=== PATIENT | male | born 1960 | race Two or more races ===

== ENCOUNTER 2025-07-11 23:03 | Inpatient (IN) | payer MEDICARE, MEDICAID, SELFPAY ==
[2025-07-11 23:11] VITALS: PULSE 106; RESP 24; O2SAT 98; BMI 26.4
[2025-07-11 23:26] VITALS: BP 121/55; PULSE 104; RESP 19; TEMP 36.7; O2SAT 100
--- NOTE | 2025-07-12 01:30 | EDNOTE_ITS ---
ED Weakness RME/HPI General Chief complaint: Weakness Stated complaint: WEAKNESS Arrival date/time: 07/11/25 23:03 RME / HPI RME / HPI Narrative: Dr. Nuñez?s Main ED Evaluation: 65yo male with a history of alcoholism (te nds to binge drink), HTN coming in with progressively generalized weakness for the last 1-2 weeks and has collapsed on several occasions. No head trauma or LOC. No fever or chills. Patient notes increased BLE edema/abdominal girth and DEAN. PMH HTN, alcohol abuse disorder. Social history includes alcohol abuse, no illicit drug use. NKA. Related Data Home Medications ?Medication ?Instructions ?Recorded ?Confirmed naproxen 500 mg tablet (Naprosyn) 500 mg PO BIDWM #0 t abs 01/11/17 Allergies Allergy/AdvReac Type Severity Reaction Status Date / Time NKA* Allergy Uncoded 01/11/17 13:37 Review of Systems Review of Systems Systems Reviewed: All systems reviewed, normal except as documented Past Medical History Past Medical History CARDIAC: Positive Hypertension; Negative Congestive Heart Failure RESPIRATORY: Negative Chronic Obstructive Pulmonary Disease (COPD) GENITOURINARY: Negative Renal Disease ENDOCRINE: Positive Diabetes Mellitus Type 2 (U); Negative Diabetes Mellitus Type 1 Social History SMOKING STATUS: Former smoker ED Exam Narrative Physical exam: GENERAL APPEARANCE: alert and oriented x 4, chronically ill appearing, no acute distress VITALS: All vitals were reviewed and the pulse ox is 100% on room air, which is normal according to my interpretation. HEENT: Normocephalic, atraumatic; pupils equal, round, reactive to light; EOMI; mucous membranes pink, moist; oropharynx clear NECK: Supple, JVD up to the angle of the mandible LUNGS: Diffuse bilateral rales HEART: Regular rate, regular rhythm; normal S1, S2; no murmurs ABDOMEN: 2+ abdominal distension, no fluid wave; soft, no tenderness BACK: no CVA tenderness EXTREMITIES: atraumatic; 2+ circumferential edema bilaterally NEUROLOGIC: awake; alert and oriented x4; cranial nerves II-XII grossly intact; no focal sensory or motor deficits PSYCHIATRIC: appropriate mood and affect SKIN: warm, dry, normal color; no rashes Course Quality Measures none Orders Category Date Time Status Bedside COVID-19 Antigen Test NOW Care 07/12/25 01:09 Active Bedside Influenza A&B Antigen Test NOW Care 07/12/25 01:09 Completed EKG (ED ONLY) *Do not use* NOW Care 07/12/25 07:00 Active EKG (ED Only) Stat Exams 07/12/25 06:59 Ordered XR chest 1V portable Stat Exams 07/12/25 03:09 Taken ABG [Arterial Blood Gas] Stat Lab 07/12/25 04:16 Completed Alcohol, Urine Stat Lab 07/12/25 01:34 Completed BNP [B-Type Natriuretic Peptide] Stat Lab 07/12/25 00:30 Completed Beta Hydroxybutyrate Stat Lab 07/12/25 04:53 Completed CBC Stat Lab 07/12/25 00:30 Completed CMP [Comprehensive Metabolic Panel] Stat Lab 07/12/25 00:30 Completed Drug Screen,Urine Stat Lab 07/12/25 01:34 Completed Mag [Magnesium] Stat Lab 07/12/25 00:30 Completed Troponin I Stat Lab 07/12/25 04:53 Completed UA, C/S IF [Urinalysis, C/S if Indicated] Stat Lab 07/12/25 01:34 Completed Urine Culture Stat Lab 07/12/25 01:34 Received Folic Acid Inj Med 07/12/25 06:59 Discontinued 1 mg IVP X1 ONE Magnesium Sulfate 2 GM Ivpb [Magnesium Sulfate Ivpb] Med 07/12/25 03:15 Discontinued 2 gm in 50 ml IV X1 Sodium Chloride 0.9% 1000 ml [Ns] 1,000 ml Med 07/12/25 06:14 Active IV 999 mls/hr Thiamine Inj [Vitamin B-1 Inj] Med 07/12/25 06:59 Discontinued 100 mg IVP X1 ONE cefTRIAXone/D5w 1gm IV premix [Rocephin/D5w 1gm IV Med 07/12/25 07:02 Active premix] 1 gm in 50 ml IV X1 Vital Signs Vital signs: Vital Signs Temperature 98.0 F 07/11/25 23:26 Pulse Rate 104 H 07/11/25 23:26 Respiratory Rate 19 07/11/25 23:26 Blood Pressure 121/55 L 07/11/25 23:26 Pulse Oximetry (%) 100 07/11/25 23:26 Oxygen Delivery Method Room Air 07/11/25 23:26 Weakness MDM Narrative MDM Narrative:: Scribe Attestation: 07/12/25 - I, Bobbi Cesar, am scribing for and in the presence of Dr. Nuñez. 65yo male with a history of alcoholism (tends to binge drink), HTN coming in with progressively generalized weakness for the last 1-2 weeks and has collapsed on several occasions. No head trauma or LOC. Please see PE findings. Lab markers demonstrate WBC 12.5, HnH 08/12, no left shift or bandemia. Chemistries show evidence of metabolic acidosis with anion gap 23 and CO2 12.4. Glucose mildly elevated 200 and calcium 10.7. Total bilirubin 5.1. BNP 942. Troponin 0.108. CXR without evidence of infiltrate, effusion, or pneumothorax. Patient hydrated with saline to correct volume deficit and administered IV magnesium to correct nutritional deficiency. UA with evidence of UTI for which empiric antibiotics administered. Patient remained hemodynamically stable and will consult hospitalist to correct nutritional deficiencies, dehydration, and treatment of UTI. Patient data External records reviewed:: [facility] previous records (Per chart review, patient has no previous ED visits or admissions to this facility.) and EMS form Clinical information provided by:: patient Social determinants that could affect healthcare access:: alcohol use Patient has the following chronic illnesses:: DM, HTN How is presenting disease/condition affected by chronic disease/condition?: uneffected by Evaluation data The following diagnostics were reviewed and interpreted by me:: lab results and radiology exam(s) Lab and/or radiology exams considered but not ordered:: none Interpretation Summary: See MDM. Medications / Prescriptions Medications or Prescriptions considered but not ordered:: none Medication administrations:: Medication Administration History Sodium Chloride (Ns) 1,000 mls @ 999 mls/hr IV .Q1H1M ONE Stop: 07/12/25 07:14 Ceftriaxone Sodium/Dextrose (Rocephin/D5w 1gm Iv Premix) 1 gm in 50 mls @ 100 mls/hr IV X1 ONE Stop: 07/12/25 07:31 Discontinued Medications Folic Acid (Folic Acid Inj 1 Mg/0.2 Ml) 1 mg IVP X1 ONE Stop: 07/12/25 07:00 Magnesium Sulfate (Magnesium Sulfate Ivpb) 2 gm in 50 mls @ 25 mls/hr IV X1 ONE Stop: 07/12/25 05:14 Last Infusion: 07/12/25 05:46 Dose: Infused Documented By: Admin: 07/12/25 03:39 Dose: 25 mls/hr Documented By: JASS Thiamine HCl (Thiamine Inj 100 Mg/Ml Vial 2 Ml) 100 mg IVP X1 ONE Stop: 07/12/25 07:00 see above Consultations Consultation(s) initiated? (list below): Yes Diagnosis Weakness Differential Diagnosis: anemia, hypoglycemia, rhabdomyolysis, sepsis and dehydration Most likely diagnosis given after review of the tests above:: electrolyte disturbance, dehydration, UTI Admission Indicated Admission indicated?: indicated Admission Request Was there a request for admission?: Yes Admission Attestation Admission request attestation: Discussed case with [] from Hospitalist service regarding admission. Discussed patients ED course, exam findings, labs, and radiology results. The Hospitalist [agrees,declines] to accept the patient for admission. Disposition Plan Disposition Plan: Admit Discharge Plan Plan Patient Disposition: Admit Acute Care w/in Hospital Prescriptions/Referrals Prescriptions/Med Rec: No Action naproxen [Naprosyn] 500 MG tablet 500 mg PO BIDWM Qty: 0 Patient Comments: PRN PAIN Referrals: Christiano Guerrero MD [Primary Care Provider] - In 1 week Problem List Clinical Impression: Electrolyte abnormality, Dehydration, UTI (urinary tract infection) Patient/Caregiver Discharge Instructions Print Language: Cypriot Stand Alone Forms: Swapna Award Info., Patient Portal Info Letter
[2025-07-12 01:45] LABS: Collection Type, Urine Clean Catch
[2025-07-12 01:58] LABS: Basophils # (Auto) 0.0 Thou/mm3 (0.0-0.2); Basophils % (Auto) 0 % (0-2.5); Eosinophils # (Auto) 0.0 Thou/mm3 (0.0-0.5); Eosinophils % (Auto) 0 % (0-10); Hematocrit 26.6 % (41.0-53.0); Hemoglobin 9.0 g/dL (13.5-16.0); Immature Granulocytes Auto 0.07 Thou/mm3 (0.00-0.00); Lymphocytes # (Auto) 1.9 Thou/mm3 (1.0-4.8); Lymphocytes % (Auto) 15 % (10-50); Mean Corpuscular HGB Conc 33.8 g/dl (31.0-37.0); Mean Corpuscular Hemoglobin 33.2 pg (25.0-35.0); Mean Corpuscular Volume 98 fL (80-100); Monocytes # (Auto) 1.6 Thou/mm3 (0.0-0.8); Monocytes % (Auto) 13 % (0-12); Neutrophils # (Auto) 8.9 Thou/mm3 (1.8-7.7); Neutrophils % (Auto) 71 % (37-80); Nucleated Red Blood Cell # 0.06 Thou/mm3 (0.00-0.00); Nucleated Red Blood Cell % 1 /100 WBC (0); Platelet Count 241 Thou/mm3 (140-440); RDW Standard Deviation 74.7 fL (35.1-43.9); Red Blood Count 2.71 Miln/mm3 (4.50-5.90); White Blood Count 12.5 Thou/mm3 (3.8-10.6)
[2025-07-12 02:02] LABS: Alcohol, Urine Negative (Negative); Amphetamine/Methamp Scrn,U Negative (Negative); Bacteria,Urine Rare; Barbiturate Screen,Urine Negative (Negative); Benzodiazepines Screen,Urine Negative (Negative); Benzoylecgonine Screen, Ur Negative (Negative); Bilirubin,Urine 1+ (Negative); Blood,Urine Negative (Negative); Clarity,Urine Turbid (Clear/Hazy); Color,Urine Drk-Orange (Lt Yel-Yel); Fentanyl Screen,Urine Negative (Negative); Glucose, Urine Trace (Negative); Hyaline Casts,Urine < 1 /hpf (0-1); Ketones,Urine Trace (Negative); Leukocyte Esterase,Urine Positive (Negative); Nitrite,Urine Negative (Negative); Opiate Screen,Urine Negative (Negative); PH,Urine 6.0 (5.0-7.0); Protein,Urine 1+ (Neg - Trace); RBC,Urine 5 /hpf (0-3); Specific Gravity,Urine 1.030 (1.001-1.035); Squamous Epithelial Cell,Urine 1 /hpf (0-5); THC Screen,Urine Negative (Negative); Urobilinogen,Urine 4.0 mg/dL (0.0-1.0); WBC,Urine 29 /hpf (0-5)
[2025-07-12 02:05] LABS: Culture Indicated,Urine Yes
[2025-07-12 02:11] LABS: Alanine Aminotransferase 27 U/L (10-49); Albumin, Serum 3.0 gm/dL (3.4-4.8); Albumin/Globulin Ratio 0.7 (1.2-2.2); Alkaline Phosphatase 134 U/L (46-116); Anion Gap 23 (7-16); Aspartate Amino Transferase 61 U/L (0-34); BUN/Creatinine Ratio 13 Ratio (12-20); Bilirubin,Total 5.1 mg/dL (0.3-1.2); Blood Urea Nitrogen 13 mg/dL (9-23); Calcium 9.9 mg/dL (8.3-10.6); Calcium (Corrected) 10.7 mg/dL (8.5-10.1); Chloride 102 mMol/L (98-107); Creatinine (Component) 1.0 mg/dL (0.6-1.3); Estimated Creatinine Clearance 70.3 mL/min (>60); Globulin 4.3 gm/dL (2.3-3.5); Glucose 200 mg/dL (74-106); Magnesium 1.7 mg/dL (1.6-2.6); Osmolality,Calculated 279 (275-295); Potassium 3.4 mMol/L (3.4-5.1); Sodium 137 mMol/L (136-145); Total Protein 7.3 gm/dL (5.7-8.2); eGFR > 60 See Note
[2025-07-12 02:16] LABS: Carbon Dioxide 12.4 mMol/L (20.0-31.0)
[2025-07-12 02:27] VITALS: BP 109/52; PULSE 97; RESP 18; TEMP 37.2; O2SAT 100
--- NOTE | 2025-07-12 03:09 | XR_ITS ---
Examination: AP chest single view TECHNIQUE: AP portable upright chest single view Date and time: July 12, 2025, 0329 hours INDICATIONS: Shortness of breath today. FINDINGS: Opacity right base consistent with pneumonia. Mild enlargement left ventricle. Pulmonary vascular redistribution. No richy pulmonary edema. Old fracture right sixth rib. IMPRESSION: Right base pneumonia. Pulmonary vascular redistribution.
[2025-07-12] MEDS: Magnesium Sulfate 2 GM Ivpb 2 GM/50 ML BAG IV (03:39)
[2025-07-12 04:13] LABS: B-Type Natriuretic Peptide 942 pg/mL (0-100)
[2025-07-12 04:25] LABS: Base Excess -4 (-3-3); HCO3 18 mEq/L (20-26); Inspired Oxygen, FIO2 21 %; O2 Saturation 99 % (91-98); PCO2 22 mmHg (32.0-48.0); PO2 98 mmHg (83-108); pH, Arterial 7.51 (7.35-7.45)
[2025-07-12 04:26] LABS: Allen Test Performed/OK; Puncture Site Right Radial
[2025-07-12 05:15] LABS: Beta Hydroxybutyrate 0.0 mmol/L (<0.6)
[2025-07-12 05:28] VITALS: BP 106/54; PULSE 94; RESP 15; TEMP 36.8; O2SAT 99
[2025-07-12 06:06] LABS: Troponin I 0.108 ng/mL (0.0-0.045)
--- NOTE | 2025-07-12 06:59 | EKG_ITS ---
[facility] Test Date: 2025-07-12 Pat Name: AUGUSTUS RUSSELL Department: Room: - Gender: Male Test Analyst: : 1960 Requested By: Neil Rothman Order Number: [id number] Reading MD: Neil Rothman Measurements Intervals [place] Rate: 94 P: 62 ID: [id number] QRS: 10 QRSD: 101 T: 117 QT: 377 QTc: 473 Interpretive Statements SINUS RHYTHM WITH OCCASIONAL SUPRAVENTRICULAR PREMATURE COMPLEXES INCOMPLETE RIGHT BUNDLE BRANCH BLOCK [90+ ms QRS DURATION, TERMINAL R IN V1/V2, 40+ ms S IN I/aVL/V4/V5/V6] ST DEVIATION AND MODERATE T-WAVE ABNORMALITY, CONSIDER LATERAL ISCHEMIA [-0.1+ mV T-WAVE IN I/aVL/V5/V6] No previous ECG available for comparison /store/[email or web address]/[id number]
--- NOTE | 2025-07-12 07:31 | XR_ITS ---
Examination: Abdomen sonogram, Limited Date and time of exam: July 12, 2025, 1014 hours INDICATIONS: Abdominal pain today Technique: Real-time rice scale transabdominal sonographic images of the upper abdomen obtained. Findings: Small sludge balls versus stones. Gallbladder wall 0.39 cm no edema Common bile duct 0.3 cm Pancreatic head 2.4 cm Liver 13.5 cm fatty infiltration Normal bilateral ureteral portal venous flow. Nehemias IVC IMPRESSION: Gallbladder sludge balls versus small stones Gallbladder wall borderline thickened 0.39 cm, consider MRCP follow-up
[2025-07-12] MEDS: SODIUM CHLORIDE 0.9% 1000 ML 1,000 ML 999 ML IV (07:38)
--- NOTE | 2025-07-12 07:39 | PD.EDADDENDU ---
Emergency Room Addendum Addendum Narrative: 0600: Care assumed from Dr. Rivers, the previous shift emergency physician. Past medical, surgical, social and family history reviewed. Vitals and home medications reviewed. I will assume the care of the patient at this time, pending ultrasound to rule out CBS dilatation and admission for electrolyte disturbance, UTI, and dehydration. Please refer to the emergency department record for history and examination from initial visit.?The following addendum documentation note is intended to reflect any pending information, findings, or radiology results not included in the patient?s initial chart.
[2025-07-12] MEDS: FOLIC ACID INJ 1 MG/0.2 ML IVP (07:40)
[2025-07-12] MEDS: THIAMINE INJ 100 MG/ML VIAL 2 ML IVP (07:41)
[2025-07-12] MEDS: cefTRIAXone/D5w 1gm IV premix 1 GM/50 ML BAG IV (07:43)
[2025-07-12 07:48] VITALS: BP 113/62; PULSE 89; RESP 18; O2SAT 100
[2025-07-12 08:59] LABS: Lactate (Lactic Acid) 3.6 mMol/L (0.4-2.0)
[2025-07-12 09:00] LABS: Base Excess, Venous -2 (-3-3); O2 Saturation, Venous 98 % (96-97); PCO2, Venous 27 mmHg (36-56); PO2, Venous 87 mmHg (15-58); pH, Venous 7.50 (7.33-7.66)
[2025-07-12 09:23] LABS: Alanine Aminotransferase 23 U/L (10-49); Albumin, Serum 2.6 gm/dL (3.4-4.8); Albumin/Globulin Ratio 0.7 (1.2-2.2); Alkaline Phosphatase 118 U/L (46-116); Anion Gap 12 (7-16); Aspartate Amino Transferase 51 U/L (0-34); BUN/Creatinine Ratio 17 Ratio (12-20); Bilirubin,Total 4.1 mg/dL (0.3-1.2); Blood Urea Nitrogen 12 mg/dL (9-23); Calcium 9.2 mg/dL (8.3-10.6); Calcium (Corrected) 10.3 mg/dL (8.5-10.1); Carbon Dioxide 19.5 mMol/L (20.0-31.0); Chloride 106 mMol/L (98-107); Creatinine (Component) 0.7 mg/dL (0.6-1.3); Estimated Creatinine Clearance 100.4 mL/min (>60); Globulin 3.7 gm/dL (2.3-3.5); Glucose 147 mg/dL (74-106); Osmolality,Calculated 276 (275-295); Potassium 3.1 mMol/L (3.4-5.1); Sodium 137 mMol/L (136-145); Total Protein 6.3 gm/dL (5.7-8.2); eGFR > 60 See Note
[2025-07-12 11:37] VITALS: BP 114/54; PULSE 70; RESP 17; TEMP 36.4; O2SAT 98
[2025-07-12 11:56] LABS: Reflex Lactate? Y
--- NOTE | 2025-07-12 12:33 | ECHO_ITS ---
Transthoracic Echo Report Ht (in): 68 Wt (lb): 174 Exam Location: Echo Lab Status: Inpatient Director Of Child Welfare Services: Chary Alfonso Indications: Procedure Performed: BP: 114 / 68 HR: 74 Technical Quality: Poor MEASUREMENTS (Male / Female) Normal Values 2D ECHO LV Diastolic Diameter PLAX 3.9 cm 4.2 - 5.9 / 3.9 - 5.3 cm LV Systolic Diameter PLAX 2.7 cm IVS Diastolic Thickness 1.0 cm 0.6 - 1.0 / 0.6 - 0.9 cm LVPW Diastolic Thickness 1.2 cm 0.6 - 1.0 / 0.6 - 0.9 cm LV Relative Wall Thickness 0.6 LVOT Diameter 1.8 cm Aortic Root Diameter 3.4 cm LA Systolic Diameter LX 3.5 cm 3.0 - 4.0 / 2.7 - 3.8 cm LA Volume Index 31.5 cm?/m? 16 - 28 cm?/m? M-MODE Aortic Root Diameter MM 2.8 cm LA Systolic Diameter MM 4.3 cm LA Ao Ratio MM 1.5 AV Cusp Separation MM 1.5 cm DOPPLER AV Peak Velocity 136.0 cm/s AV Peak Gradient 7.4 mmHg AV Mean Gradient 4.0 mmHg AV Velocity Time Integral 25.9 cm LVOT Peak Velocity 91.6 cm/s LVOT Peak Gradient 3.4 mmHg LVOT Velocity Time Integral 25.5 cm LVOT Cardiac Index 2450.3 cm?/min?m? AV Area Cont Eq vti 2.5 cm? AV Area Cont Eq pk 1.7 cm? MV Area PHT 3.3 cm? MR Peak Velocity 477.0 cm/s MR Peak Gradient 91.0 mmHg Mitral E Point Velocity 90.7 cm/s Mitral A Point Velocity 117.0 cm/s Mitral E to A Ratio 0.8 LV E' Lateral Velocity 7.5 cm/s Mitral E to LV E' Lateral Ratio 12.1 LV E' Septal Velocity 5.7 cm/s Mitral E to LV E' Septal Ratio 16.0 TR Peak Velocity 299.0 cm/s TR Peak Gradient 35.8 mmHg PV Peak Velocity 157.0 cm/s PV Peak Gradient 9.9 mmHg FINDINGS Left Ventricle Normal left ventricular size and systolic function with no obvious regional wall motion abnormalities. Mild LVH. The ejection fraction is visually estimated at 55-60%. There is grade I diastolic dysfunction of the left ventricle (impaired relaxation pattern). IVS flattened in systole and diastole consisten with right ventricular pressure and volume overload. Right Ventricle The right ventricular size is mildy increased with normal systolic function. Left Atrium The left atrium is normal by two-dimensional, color flow and Doppler imaging with no structural abnormalities, no thrombus formation present. Right Atrium The right atrium is normal by two-dimensional imaging, color flow and Doppler imaging with no structural abnormalities, no thrombus formation present. Atrial Septum The interatrial septum appears normal with no evidence of a shunt. Aorta The aorta is normal by two-dimensional, color flow and Doppler interrogation. Mitral Valve The mitral valve is normal by two-dimensional, color flow and Doppler interrogation. Mild mitral regurgitation. Aortic Valve The aortic valve is trileaflet and normal by two-dimensional, color flow and Doppler interrogation. There is no significant aortic valve regurgitation. Tricuspid Valve The tricuspid valve is normal by two-dimensional, color flow and Doppler interrogation. There is mild tricuspid valve regurgitation. Pulmonic Valve The pulmonic valve is not well visualized. There is no significant pulmonic valve regurgitation. Vessels The pulmonary artery appears normal. The inferior vena cava pulmonary and hepatic veins appear normal. Pericardium The pericardium is normal by two-dimensional imaging. There is no significant pericardial effusion. CONCLUSIONS Indication: Volume overload and CHF Normal LV size. Mild LVH. Estimated EF at 55-60%. There is grade I diastolic dysfunction. IVS flattened in systole and diastole consistent with right ventricular pressure and volume overload. The RV size is mildy increased with normal systolic function. Mildly elevated RVSP at 35 -40 mm hg. Mild MR and TR. Mild MAC. MIld Aortic valve sclerosis without stenosis. No pericardial effusion. Jose Lozano (Electronically Signed) Final Date: 15 July 2025 08:16
--- NOTE | 2025-07-12 12:35 | XR_ITS ---
Examination: CT abdomen and pelvis without contrast. Coronal 3-D reconstructions. Sagittal 2-D reconstructions. Date and time of exam:July 12, 2025, 1511 hours, comparison April 05, 2022. INDICATIONS: Abdominal distention dark urine today, diagnosis cirrhosis CTDI: vol (mGy): 7.32 DLP: (mGycm): 460 Technique: Axial images of the abdomen have been obtained, 3 mm slice thickness Intravenous contrast material has not been administered. Low dose protocols were performed. One or more of the following dose reduction techniques were used; automated exposure control, adjustment of the mA and/or KV according to patient size, use of iterative reconstruction technique. Findings: Findings suspicious for septal edema at the lung bases with small pleural effusions and mild bibasilar pneumonia Cirrhosis, liver nodular in contour Mild ascites Gallstones Gallbladder wall is thickened Spleen is not enlarged No pancreatic mass Aorta normal size No hydronephrosis Air distended colon Colonic wall thickening No bowel obstruction Urinary bladder intact Transverse prostate dimension 5 cm Severe osteopenia IMPRESSION: Septal edema at the lung bases Mild bibasilar pneumonia Cirrhosis. Mild ascites. Gallstones, gallbladder wall is thickened, but the patient has ascites, recommend HIDA scan follow-up as clinically warranted Hepatic colopathy, no bowel obstruction
[2025-07-12 13:29] LABS: Lactic Acid, 3 HR 1.7 mMol/L (0.4-2.0)
[2025-07-12 13:49] LABS: Ammonia 68 uMol/L (11-32)
[2025-07-12 13:53] LABS: Folate 19.74 ng/mL (>5.38); Troponin I 0.086 ng/mL (0.0-0.045); Vitamin B12 1127 pg/mL (211-911)
[2025-07-12 13:54] LABS: Ferritin 30 ng/mL (10.5-307.3); Iron 16 mcg/dL (65-175); Percent Iron Saturation 6 % (20-55); Total Iron Binding Capacity 230 mcg/dL (250-425); Unsaturated Iron Binding 214 (225-295)
[2025-07-12 14:09] LABS: Syphilis Nonreactive (Nonreactive)
[2025-07-12] MEDS: FOLIC ACID 1 MG TABLET PO (14:41)
[2025-07-12] MEDS: LACTULOSE SYRUP 20 GM/30 ML UDC PO ×2 (14:41→20:09)
[2025-07-12] MEDS: HEPARIN SOD INJ 5000 UNIT/ML VIAL SC (14:41)
--- NOTE | 2025-07-12 14:54 | ESHP_ITS ---
<Statement entered by Smitha Rojas MD - 07/14/25 13:38> I attest that I was physically present for the evaluation, physical examination, lab and imaging review of the patient with the residents. I discussed the case with the residents and agree with the findings and plans of care as documented below. After examination of the patient and review of the clinical data I feel that this patient needs admission to the hospital for further treatment/evaluation. Patient is a 65 years old male with past medical history of hypertension, diabetes melitis, chronic back pain who presented to the ED with complaint of generalized weakness and mechanical fall. As per the patient and family at bedside about 2 weeks ago, patient went to [place] and somehow lost his vehicle. He walked back to [facility] from [place] at that time. Since then patient has not been active has been having difficulty with memory and conversation. Family also stated that patient has history of alcohol abuse and continues to binge drink. At bedside, patient is alert but appears confused. Noted to have distended abdomen but was soft and nontender. Also noted to have bilateral pedal edema. Initial vitals show pulse rate of 104, rest of the vitals were within normal limits. Lab results show WBC of 12.5, hemoglobin 9.0, CO2 12.4, anion gap 23, glucose 200, calcium 10.7, bilirubin 5.1, BNP 942 and mild elevation in troponin. Urinalysis was not suggestive of rhabdomyolysis and only showed pyuria. Alcohol level was also negative. Chest x-ray showed right base pneumonia and vascular congestion. Abdominal ultrasound was obtained, shows gallbladder sludge versus small stones. CT abdomen/pelvis obtained on 04/06/2022 showed cirrhosis and hepatomegaly. We will admit the patient for management of acute encephalopathy, likely hepatic encephalopathy, hepatic colopathy in setting of decompensated liver cirrhosis. We will obtain CT abdomen/pelvis, ammonia level came back high at 68. We will start him on lactulose, we will also obtain hepatitis panel MELODY, copper and ceruloplasmin level. Started on Rocephin and azithromycin for community-acquired pneumonia. Elevated troponin likely NSTEMI type II, we will trend the troponin, EKG did not show ST elevation. Started on insulin regimen for diabetes. We will obtain iron studies for evaluation of anemia. Started on CIWA protocol for alcohol abuse. Started on multivitamin, repleted electrolytes. Smitha Rojas MD <Statement entered by Luly Stoner MD - 07/14/25 13:04> Patient was seen and examined at bedside. I agree on the assessment and plan on this note as documented by resident Santi Morales DO PGY1. 65-year-old male with past medical history of hypertension type 2 diabetes mellitus and chronic back pain admitted to [facility] for decompensated cirrhosis, patient has signs of hepatic encephalopathy does have significant lower extremity edema. Will start patient on lactulose for now for hepatic encephalopathy. Abdomen is distended as well, CT abdomen pelvis in ED shows minimal ascites and hepatic colopathy. Will start on CIWA protocol for alcohol use history, will order echocardiogram to rule out cardiac causes. Will order further workup to rule out other causes of cirrhosis currently likely patient has alcohol-related liver disease. Disposition med/tele for further management. Case discussed with attending Dr. Crystal Stoner MD PGY-2 Documentation for date of: 07/12/25 HPI History of Present Illness Chief complaint: Generalized weakness & mechanical falls History of present illness: Mr. Lee is a 65 year old male with a history of HTN, T2DM, and chronic back pain who presented to [facility] ED from home at 07/11 in the evening due to generalized weakness and mechanical falls. The patient was admitted on 07/12 for decompensated liver disease causing hepatic encephalopathy. The patient is a poor historian, so some of history was taken via family at bedside and his son Tony, who was the person to bring the patient into the ED initially. About 2 weeks ago, the patient went to [place] and somehow along the way, the patient had lost his vehicle. The patient did not call any family members and apparently walked all the way from [place] to [place]. According to family, the patient since then was not as active, had difficulty with memory, and often had trouble with conversations. Prior to this incident, the patient was also noted to be physically active, but since coming back from [place], the patient seemed much weaker than usual and had trouble walking. Over the past few days prior to seeking help in the ED, the patient was noted to have about 3 falls that were identified by family members, of which, the patient was noted to be conscious. Family members are not sure if he had any additional falls outside of those 3. The patient himself though, states that he only had 1 fall. When asked about previous falls, the patient states that he has had back problems in the past due to a ruptured disc, completely unrelated to the initial question. When the patient was asked about if he has any siblings, the patient said no, but apparently clarified that the patient has a brother. In addition to this confusion, the patient was noted to have a swollen belly that was more swollen than usual and swelling in his legs bilaterally. Red-colored urine was noted, but patient and family members do not know when that first started. Patient does not endorse any shortness of breath and it did not have any shortness of breath when laying down flat. Patient also denies cough, chest pain, abdominal pain, and dysuria. ED Course: Initial vitals were significant for blood pressure of 120/55 and HR of 104. Labs were significant for WBC 12.5, H&H 9.0/26.6, bicarb 12.4, AST 61, ALT 27, ALP 134, BNP 942. Troponin 0.108 initially, downtrended to 0.086. Urinalysis showed dark-orange, turbid urine with 1+ protein, 1+ bilirubin, positive leukocyte esterase, 5 RBC, 29 WBC, and rare urine bacteria. ABG significant for pH 7.51, pCO2 22, and bicarb 18. VBG significant for pH 7.50, pCO2 27, and pO2 87. Chest X-ray showed right base pneumonia. Abdomen US ordered for elevated bilirubin, showed gallbladder sludge balls vs small stones, gallbladder wall borderline thickened 0.39 cm. Patient given 2gm magnesium, 1L bolus NS, thiamine 100mg, and one dose of ceftriaxone 1gm (for UTI). Past Surgical History: - Repaired ruptured disc in spine about 30 years ago Current Medication(s); per medication refills & family: - Lisinopril - Naproxen - Pravastatin - Metformin - Ferosul - Chlorthalidone? Allergies (w/ Reactions): NKDA Family History: Patient denies Alcohol Intake:?Patient endorses drinking about 6 bottles of beer a day Tobacco/Vape Use:?Patient denies Other Drug Use:?Patient denies Review of Systems Review of Systems Systems Reviewed: All systems reviewed, normal except as documented Exam Vital Signs Temp Pulse Resp BP Pulse Ox O2 Del Method 97.5 F 70 17 114/54 L 98 Room Air 07/12/25 11:37 07/12/25 11:37 07/12/25 11:37 07/12/25 11:37 07/12/25 11:37 07/12/25 11:37 Narrative Exam Physical Exam: General: Alert, no acute distress. Skin: Warm, dry, intact. Head: Normocephalic, atraumatic. Eye: Injected conjunctiva bilaterally, PERRL. Throat: Oral mucosa dry. Cardiovascular: Regular rate and irregular rhythm, no murmur, +S1/S2. Respiratory: Lungs are clear to auscultation, respirations unlabored, no crackles, no wheezing. Gastrointestinal: Soft, nontender, distended. No guarding or rebound tenderness. Extremities: 1+ BLE edema up to knees, worse on right, no cyanosis, no clubbing. 2+ radial pulse bilaterally. Neuro: No focal deficits observed. Conversant, moving all extremities. No overt cerebellar signs/incoordination. Psychiatric: Cooperative, appropriate affect. Results: Labs 07/12/25 00:30 07/12/25 08:45 Labs: Short CBC 07/12/25 Range/Units 00:30 WBC 12.5 H (3.8-10.6) Thou/mm3 Hgb 9.0 L (13.5-16.0) g/dL Hct 26.6 L (41.0-53.0) % Plt Count 241 (140-440) Thou/mm3 [facility] 07/12/25 07/12/25 00:30 08:45 Sodium 137 137 Potassium 3.4 3.1 L Chloride 102 106 Carbon Dioxide 12.4 L* 19.5 L BUN 13 12 Creatinine 1.0 0.7 Glucose 200 H 147 H D Calcium 9.9 9.2 Cardiac Enzymes 07/12/25 07/12/25 Range/Units 04:53 13:17 Troponin I 0.108 H* 0.086 H* (0.0-0.045) ng/mL Liver Function 07/12/25 07/12/25 Range/Units 00:30 08:45 Total Bilirubin 5.1 H 4.1 H D (0.3-1.2) mg/dL AST 61 H 51 H (0-34) U/L ALT 27 23 (10-49) U/L Alkaline Phosphatase 134 H 118 H (46-116) U/L Albumin 3.0 L 2.6 L (3.4-4.8) gm/dL Urine 07/12/25 Range/Units 01:34 Urine Color Drk-[place] A (Lt Yel-Yel) Urine Clarity Turbid A (Clear/Hazy) Urine pH 6.0 (5.0-7.0) Ur Specific [place] 1.030 (1.001-1.035) Urine Protein 1+ A (Neg - Trace) Urine Glucose (UA) Trace (Negative) ABG Interpretation ABG results: 07/12/25 07/12/25 04:16 08:45 ABG pH 7.51 H ABG pCO2 22 L ABG pO2 98 ABG HCO3 18 L ABG O2 Saturation 99 H ABG Base Excess -4 L VBG pH 7.50 VBG pCO2 27 L VBG pO2 87 H VBG Base Excess -2 Quality Measures Quality Measures VTE prophylaxis and none Advance care planning discussed with:: patient and child Medications Home Medications and Allergies Home Medications ?Medication ?Instructions ?Recorded ?Confirmed ?Type naproxen 500 mg tablet (Naprosyn) 500 mg PO BIDWM #0 t abs 01/11/17 History chlorthalidone 25 mg tablet mg 07/12/25 History ferrous sulfate 325 mg (65 mg mg 07/12/25 History iron) tablet (FeroSul) lisinopril 20 mg tablet mg 07/12/25 History metformin 500 mg tablet mg 07/12/25 History pravastatin 20 mg tablet mg 07/12/25 History Allergies Allergy/AdvReac Type Severity Reaction Status Date / Time NKA* Allergy Uncoded 01/11/17 13:37 Visit Medications Acetaminophen (Acetaminophen 325 Mg Tablet) 650 mg PO Q6H PRN PRN Reason: Fever >101.5 Stop: 08/11/25 12:28 Hydrocodone Bitart/Acetaminophen (Hydrocodone/Apap 10/325 Tab) 1 tab PO Q6H PRN PRN Reason: PAIN SCALE 4-6 (Moderate Stop: 07/17/25 12:28 Diazepam (Diazepam Inj 5 Mg/Ml Vial 2 Ml) 10 mg IVP Q4H PRN PRN Reason: CIWA SCORE 20-25 Stop: 07/17/25 12:36 Diazepam (Diazepam Inj 5 Mg/Ml Vial 2 Ml) 2.5 mg IVP Q4H PRN PRN Reason: CIWA SCORE 4-13 Stop: 07/17/25 12:36 Diazepam (Diazepam Inj 5 Mg/Ml Vial 2 Ml) 5 mg IVP Q4H PRN PRN Reason: CIWA SCORE 14-19 Stop: 07/17/25 12:36 Folic Acid (Folic Acid 1 Mg Tablet) 1 mg PO QDAY [facility] Stop: 08/11/25 12:44 Last Admin: 07/12/25 14:41 Dose: 1 mg Heparin Sodium (Porcine) (Heparin Sod Inj 5000 Unit/Ml Vial) 5,000 unit SC Q12H [facility] Stop: 07/26/25 12:59 Last Admin: 07/12/25 14:41 Dose: 5,000 unit Ceftriaxone Sodium/Dextrose (Rocephin/D5w 1gm Iv Premix) 1 gm in 50 mls @ 100 mls/hr IV QDAY [facility] Stop: 07/20/25 08:59 Azithromycin 500 mg/ Sodium (Chloride) 250 mls @ 250 mls/hr IV QDAY [facility] Stop: 07/19/25 12:41 Lactulose (Lactulose Syrup 20 Gm/30 Ml Udc) 20 gm PO BID [facility]; Protocol Stop: 08/11/25 14:29 Last Admin: 07/12/25 14:41 Dose: 20 gm Multivitamins/Minerals (Multivitamin 15 Ml Udc) 15 ml PO QDAY [facility] Stop: 08/11/25 12:44 Ondansetron HCl (Ondansetron Inj 2 Mg/Ml Inj 2 Ml) 4 mg IVP Q6H PRN; Protocol PRN Reason: NAUSEA OR VOMITING Stop: 08/11/25 12:28 Potassium Chloride (Potassium Chloride 20 Meq Tabcr) 20 meq PO X1 ONE Stop: 07/12/25 15:01 Last Admin: 07/12/25 14:41 Dose: 20 meq Thiamine HCl (Thiamine 100 Mg Tablet) 100 mg PO BID [facility] Stop: 08/11/25 20:59 Discontinued Medications Folic Acid (Folic Acid Inj 1 Mg/0.2 Ml) 1 mg IVP X1 ONE Stop: 07/12/25 07:00 Last Admin: 07/12/25 07:40 Dose: 1 mg Magnesium Sulfate (Magnesium Sulfate Ivpb) 2 gm in 50 mls @ 25 mls/hr IV X1 ONE Stop: 07/12/25 05:14 Last Infusion: 07/12/25 05:46 Dose: Infused Sodium Chloride (Ns) 1,000 mls @ 999 mls/hr IV .Q1H1M ONE Stop: 07/12/25 07:14 Last Infusion: 07/12/25 11:26 Dose: Infused Ceftriaxone Sodium/Dextrose (Rocephin/D5w 1gm Iv Premix) 1 gm in 50 mls @ 100 mls/hr IV X1 ONE Stop: 07/12/25 07:31 Last Infusion: 07/12/25 08:15 Dose: Infused Potassium Chloride (Potassium Chloride 20 Meq Tabcr) 40 meq PO X1 ONE Stop: 07/12/25 13:01 Last Admin: 07/12/25 14:41 Dose: 40 meq Thiamine HCl (Thiamine Inj 100 Mg/Ml Vial 2 Ml) 100 mg IVP X1 ONE Stop: 07/12/25 07:00 Last Admin: 07/12/25 07:41 Dose: 100 mg Assessment & Plan Plan Mr. Lee is a 65 year old male with a history of HTN, T2DM, and chronic back pain who presented to [facility] ED from home at 07/11 in the evening due to generalized weakness and mechanical falls. The patient was admitted on 07/12 for decompensated liver disease causing hepatic encephalopathy. #Decompensated liver disease #Liver cirrhosis #Altered mental status #Hepatic encephalopathy #Hepatic colopathy The patient endorses a history of frequent alcohol use. The patient presented with a grossly distended abdomen, one that is more distended than normal as per family members. The abdomen is soft and non-tender on admission. CT abdomen taken on 04/05/2022 showed liver cirrhosis and hepatomegaly. Given this past finding and the patient's history of alcohol use, his confusion, weakness, and altered mental status are all most likely a result of decompensated liver disease causing hepatic encephalopathy. - Ammonia levels ordered, resulted as 68, supporting hepatic encephalopathy - CT abdomen pelvis ordered 07/12, showed cirrhosis, mild ascites, and hepatic colopathy - Low sodium diet with fluid restriction 1500 cc (and consistent carb) - Lactulose 20 gm twice daily, will increase and consider addition of rifaximin if patient continues to be altered - Hepatitis panel ordered, pending - Ordered copper, ceruloplasmin, and MELODY to screen for other possible causes of liver dysfunction, pending - PT referral ordered given generalized weakness in patient #Community acquired pneumonia Patient noted to have right base pneumonia on CXR 07/12. Patient denies any shortness of breath and is satting well on room air. WBC was noted to be elevated at 12.5 in the ED. Lactic acid noted to be 3.6 initially, but repeat lactate decreased to 1.7 on 07/12. - Ceftriaxone 1 gm daily (07/12--) - Azithromycin 500 mg daily (07/12-07/14) - Blood cultures ordered, pending #Urinary tract infection Patient noted to have very dark urine. Urinalysis was performed in ED, which showed positive leukocyte esterase, 29 urine WBC, and urine bacteria. Given the patient's altered mental status, there may be a component of urinary tract infection affecting this patient's mentation. - Ceftriaxone 1 gm daily (07/12--) - Urine culture ordered, pending #Elevated bilirubin #?Cholecystitis vs biliary sludge Patient noted to have total bilirubin of 5.1 initially in ED paired with abdominal pain. After some fluids, total bilirubin decreased to 4.1. Abdominal ultrasound was ordered, which showed gallbladder sludge vs small stones and gallbladder wall thickening of 0.39 cm. - Will continue to monitor symptoms, no abdominal pain noted on admission - Will consider MRCP or HIDA scan if clinically warranted - Fractionated bilirubin ordered, pending #NSTEMI type II, likely 2/2 demand ischemia #Elevated troponins, resolving #?CHF Patient presented with BLE edema. No shortness of breath or chest pain was noted. EKG did not show acute ST elevations, but patient was positive for troponins, initially 0.108 on presentation, which then downtrended to 0.086. Additionally, the patient presented with BNP of 942, which can suggest CHF, but can also be elevated in patients with decompensated liver disease. Patient did not have any worsening shortness of breath when laid down flat. - Will continue to monitor symptoms, no repeat troponins necessary at this time - Echocardiogram ordered, pending - Strict ins and outs - Fluid restriction 1500cc per day - Daily weights #Non-insulin dependent type 2 diabetes mellitus Patient endorses a history of diabetes. Patient does take metformin at home. Patient follows a PCP for management of diabetes, though he does not know the name of his PCP. - Sliding scale insulin step 1 - Bedside fingerstick glucose checks ACHS - Consistent carb diet #Anemia, normocytic The patient had a initial hemoglobin of 9.0 with MCV of 98 in ED. The patient has a history of taking ferrous sulfate. Given that the patient is new to [facility], it is unclear if this anemia is his baseline or if it is an acute condition. There may also be a component of the patient's decompensated liver disease causing fluid retention, diluting the blood, resulting in anemia. - Hold ferrous sulfate given active infection - Will continue to monitor with daily CBC, transfuse if hemoglobin <7.0 per protocol - Iron panel ordered, resulted as iron 16, TIBC 230, iron saturation 6%, and ferritin 30 #Primary hypertension The patient endorses a history of hypertension. Per the patient's son, the patient takes lisinopril, but is not sure what the home dose is. The patient follows a PCP for management of his hypertension and T2DM. Per medication refills, the patient has also been prescribed chlorthalidone in the past. - Will hold antihypertensives at this time given soft blood pressures in ED - Pending med rec #Alcohol abuse The patient endorses a history of frequent alcohol use. The patient and his family member at bedside stated that the patient drinks about 6 bottles of beer each day for many years. The patient's last drink was on 07/11. - [facility] protocol - Associate Programmer on alcohol cessation - Folic acid 1 mg daily - Thiamine 100 mg twice daily #Hypokalemia The patient had a potassium of 3.1 on 07/12. - Continue to monitor potassium levels and replenish as necessary DVT Prophylaxis: Heparin GI Prophylaxis: N/A Bowel: N/A Diet: Low sodium with fluid restriction 1500cc and consistent carb Miller: N/A Lines: Peripheral IV Antibiotics: Ceftriaxone & Azithromycin (07/12--) Code Status: FULL Reason for Hospitalization: Decompensated liver disease Other Barriers to Discharge: AMS Patient plan of care was discussed with the senior resident Dr. Stoner (PGY-2) and attending physician Dr. Crystal Morales, PGY1
[2025-07-12] MEDS: AZITHROMYCIN INJ 500 MG in SODIUM CHLORIDE 0.9% 250 ML 250 ML 250 MG IV (15:19)
[2025-07-12] MEDS: MULTIVITAMIN 15 ML UDC PO (15:20)
[2025-07-12 16:22] LABS: Acetaminophen < 2.0 mcg/mL (10.0-20.0)
[2025-07-12 20:00] VITALS: BP 117/64; PULSE 76; PULSE 83; RESP 18; TEMP 36.1; O2SAT 98
[2025-07-12] MEDS: THIAMINE 100 MG TABLET PO (20:09)
[2025-07-12] MEDS: DIAZEPAM INJ 5 MG/ML VIAL 2 ML 2.5 MG IVP (20:20)
[2025-07-13] VITALS (7 sets, daily range): BP systolic 110–131; BP diastolic 67–80; PULSE 66–86; RESP 18–22; TEMP 36–36.4; O2SAT 96–98; BMI 28.0; BMI 11.0
--- NOTE | 2025-07-13 05:41 | PC.NURSE ---
Pt did not pee during this shift, Dr. Martell was made aware. okay to do a bladder scan x1 and not to report back if there was urine retained in the bladder since pt is asymptomatic just pass report to day shift
[2025-07-13 06:28] LABS: Basophils # (Auto) 0.0 Thou/mm3 (0.0-0.2); Basophils % (Auto) 0 % (0-2.5); Eosinophils # (Auto) 0.2 Thou/mm3 (0.0-0.5); Eosinophils % (Auto) 2 % (0-10); Hematocrit 26.1 % (41.0-53.0); Immature Granulocytes Auto 0.05 Thou/mm3 (0.00-0.00); Lymphocytes # (Auto) 1.8 Thou/mm3 (1.0-4.8); Lymphocytes % (Auto) 19 % (10-50); Mean Corpuscular HGB Conc 33.0 g/dl (31.0-37.0); Mean Corpuscular Hemoglobin 32.7 pg (25.0-35.0); Mean Corpuscular Volume 99 fL (80-100); Monocytes # (Auto) 1.1 Thou/mm3 (0.0-0.8); Monocytes % (Auto) 11 % (0-12); Neutrophils # (Auto) 6.5 Thou/mm3 (1.8-7.7); Neutrophils % (Auto) 67 % (37-80); Nucleated Red Blood Cell # 0.03 Thou/mm3 (0.00-0.00); Nucleated Red Blood Cell % 0 /100 WBC (0); Platelet Count 185 Thou/mm3 (140-440); RDW Standard Deviation 73.7 fL (35.1-43.9); Red Blood Count 2.63 Miln/mm3 (4.50-5.90); White Blood Count 9.6 Thou/mm3 (3.8-10.6)
[2025-07-13 06:50] LABS: Free T4 (Free Thyroxine) 0.81 ng/dL (0.89-1.76)
[2025-07-13 06:53] LABS: Glucose Estimated Average 94 mg/dL (80-131); Hemoglobin A1C 4.9 % Hgb (4.8-6.0)
[2025-07-13 06:55] LABS: Alanine Aminotransferase 31 U/L (10-49); Albumin, Serum 2.7 gm/dL (3.4-4.8); Albumin/Globulin Ratio 0.7 (1.2-2.2); Alkaline Phosphatase 124 U/L (46-116); Anion Gap 9 (7-16); Aspartate Amino Transferase 84 U/L (0-34); BUN/Creatinine Ratio 19 Ratio (12-20); Bilirubin,Direct 2.1 mg/dL (0.0-0.3); Bilirubin,Indirect 1.9 mg/dL (0.0-1.1); Bilirubin,Total 4.0 mg/dL (0.3-1.2); Blood Urea Nitrogen 13 mg/dL (9-23); Calcium 9.1 mg/dL (8.3-10.6); Calcium (Corrected) 10.1 mg/dL (8.5-10.1); Carbon Dioxide 20.9 mMol/L (20.0-31.0); Cardiac Risk Estimate 4.7 RATIO (4.0-6.7); Chloride 109 mMol/L (98-107); Cholesterol 113 mg/dL (132-200); Creatinine (Component) 0.7 mg/dL (0.6-1.3); Estimated Creatinine Clearance 109.4 mL/min (>60); Globulin 3.9 gm/dL (2.3-3.5); Glucose 109 mg/dL (74-106); HDL Cholesterol 24 mg/dL (40-60); LDL Cholesterol,Calculated 72 mg/dL (0-130); Magnesium 2.0 mg/dL (1.6-2.6); Osmolality,Calculated 278 (275-295); Phosphorous 3.3 mg/dL (2.4-5.1); Potassium 3.8 mMol/L (3.4-5.1); Sodium 139 mMol/L (136-145); Thyroid Stimulating Hormone 3.77 uIU/mL (0.55-4.78); Total Protein 6.6 gm/dL (5.7-8.2); Triglycerides 86 mg/dL (30-150); eGFR > 60 See Note
[2025-07-13 06:58] LABS: Hemoglobin 8.6 g/dL (13.5-16.0)
[2025-07-13 07:23] LABS: Hepatitis A Antibody IgM Non Reactive (Non React); Hepatitis B Core Antibody IgM Non Reactive (Non React); Hepatitis B Surface Antigen Non Reactive (Non React); Hepatitis C Antibody Non Reactive (Non React)
[2025-07-13] MEDS: THIAMINE 100 MG TABLET PO (08:12)
[2025-07-13] MEDS: cefTRIAXone/D5w 1gm IV premix 1 GM/50 ML BAG IV (08:12)
[2025-07-13] MEDS: MULTIVITAMIN 15 ML UDC PO (08:12)
[2025-07-13] MEDS: LACTULOSE SYRUP 20 GM/30 ML UDC PO ×2 (08:12→14:39)
[2025-07-13] MEDS: FOLIC ACID 1 MG TABLET PO (08:12)
[2025-07-13 09:31] LABS: INR 1.4 (0.9-1.3); Partial Thromboplastin Time 31.1 Seconds (22.0-36.0); Prothrombin Time 15.0 Seconds (9.0-12.2)
--- NOTE | 2025-07-13 09:42 | XR_ITS ---
Examination: Abdomen AP single view Technique: AP portable supine abdomen, single view Exam date and time: July 13, 2025, 0949 hrs. Indications: Abdominal distention today. Findings: Significantly air distended colon Also distended small bowel loops No free air Impression: Moderate colonic ileus Suspicious for early small bowel obstruction, clinical correlation advised.
[2025-07-13] MEDS: FUROSEMIDE INJ 10 MG/ML VIAL 2 ML 20 MG IVP (09:51)
[2025-07-13] MEDS: AZITHROMYCIN INJ 500 MG in SODIUM CHLORIDE 0.9% 250 ML 250 ML 250 MG IV (10:04)
[2025-07-13] MEDS: HEPARIN SOD INJ 5000 UNIT/ML VIAL SC (12:14)
[2025-07-13] MEDS: INSULIN LISPRO (AdmeLOG) 1 UNIT/0.01 ML UNIT SC (12:14)
--- NOTE | 2025-07-13 13:02 | PC.SS ---
Benoit Lee is a 65 year old male admitted to [facility] for Syncope. SS conducted bedside contact with the patient to complete initial assessment and to discuss discharge planning. Role and reason explained. Pt was accompanied by his son Wilfredo who answered on pt behalf. Pt resides at home alone. Pt prior to admission was independent with ADLs and utilized a walker for ambulation. DC options discussed and they are open to SNF for short term rehab as recommended by PT. Wilfredo asked for SS to return at a later time when his other brother Mandeep Lee [phone], the pts surrogate decision maker is present to discuss SNF options. DC plan: SNF DM: SonMandeep
--- NOTE | 2025-07-13 13:21 | PC.CC ---
PASRR Level 1 complete and downloaded; Level 2 not required.
--- NOTE | 2025-07-13 14:07 | ESPR_ITS ---
<Statement entered by Horace Drummond MD - 07/14/25 14:32> Pt is seen at bedside, abdomen is very tense and distended. Pt does have BM and passing gas, saturating on room air, does not complain of abdominal pain, nausea or vomiting. Bedside US only showed mild ascetic fluid therefore will not move forward with paracenthesis. Will continue to monitor. If patient has worsening symptoms then will consider consulting surgery. Patient was seen and examined by me personally. I have directly supervised and reviewed documentation by the team resident and agree with its findings. ------- Plan of care was discussed with the attending, Dr. Crystal Drummond, PGY-2 <Statement entered by Smitha Rojas MD - 07/14/25 08:45> I attest that I was physically present for the evaluation, physical examination, lab and imaging review of the patient with the residents. I discussed the case with the residents and agree with the findings and plans of care as documented below. Smitha Rojas MD Documentation for date of: 07/13/25 Subjective Subjective Interval history: Overnight events: No acute events overnight. Patient was seen and examined at bedside. AM vitals and labs reviewed. Patient seems more alert and coherent today. Family at bedside also agree that this patient is more coherent. Patient only had 1 bowel movement overnight on lactulose. Abdomen feels more tense today compared to yesterday. Continues to be distended. Med rec resulted as patient not taking any prescribed medication at home. CIWA 2. Bilirubin stable at 4.0, 2.1 direct and 1.9 indirect, supporting liver disease cause of elevated bilirubin. Hepatitis panel negative. Pending echocardiogram. Blood cultures no growth after 24 hours. Initially increased lactulose to 20 mg three times daily and added rifaximin 550 mg twice daily. KUB ordered, which showed significantly air distended colon and small bowel loops, suspicious for early SBO. Bedside ultrasound of abdomen was performed, which showed primary distended bowel and no pocket of ascites large enough to warrant paracentesis. Patient was put NPO and NG tube was placed. Review of systems otherwise negative except for what is mentioned above. Exam Vital Signs Temp Pulse Resp BP Pulse Ox O2 Del Method 97.0 F 76 18 119/74 98 Room Air 07/13/25 12:00 07/13/25 12:00 07/13/25 12:00 07/13/25 12:00 07/13/25 12:00 07/13/25 12:00 Narrative Exam Physical Exam: General: Alert, no acute distress. Skin: Warm, dry, intact. Head: Normocephalic, atraumatic. Eye: Injected conjunctiva bilaterally, PERRL. Throat: Oral mucosa dry. Cardiovascular: Regular rate and regular rhythm, no murmur, +S1/S2. Respiratory: Lungs are clear to auscultation, respirations unlabored, no crackles, no wheezing. Gastrointestinal: Tense, nontender, distended. No guarding or rebound tenderness. Extremities: 1+ BLE edema up to shins, worse on right, no cyanosis, no clubbing. Neuro: No focal deficits observed. Conversant, moving all extremities. No overt cerebellar signs/incoordination. Psychiatric: Cooperative, appropriate affect. Objective Labs 07/13/25 06:05 07/13/25 06:05 Labs: Laboratory Results - last 24 hr 07/12/25 07/13/25 07/13/25 13:17 06:04 06:05 WBC 9.6 RBC 2.63 L Hgb 8.6 L Hct 26.1 L MCV 99 MCH 32.7 MCHC 33.0 RDW Std Deviation 73.7 H Plt Count 185 D Neut % (Auto) 67 Lymph % (Auto) 19 Richardson % (Auto) 11 Eos % (Auto) 2 Baso % (Auto) 0 Neut # (Auto) 6.5 Lymph # (Auto) 1.8 Richardson # (Auto) 1.1 H Eos # (Auto) 0.2 Baso # (Auto) 0.0 Immature Gran # (Auto) 0.05 H Absolute Nucleated RBC 0.03 H Immature Gran % 1 H Nucleated RBC % 0 PT 15.0 H INR 1.4 H APTT 31.1 Sodium 139 Potassium 3.8 D Chloride 109 H Carbon Dioxide 20.9 Anion Gap 9 BUN 13 Creatinine 0.7 Estim Creat Clear Calc 109.4 eGFR > 60 BUN/Creatinine Ratio [address] Glu mg/dL 94 Hemoglobin A1c 4.9 Calculated Osmolality 278 Calcium 9.1 Corrected Calcium 10.1 Phosphorus 3.3 Magnesium 2.0 Total Bilirubin 4.0 H Direct Bilirubin 2.1 H Indirect Bilirubin 1.9 H AST 84 H ALT 31 Alkaline Phosphatase 124 H Total Protein 6.6 Albumin 2.7 L Globulin 3.9 H Albumin/Globulin Ratio 0.7 L Triglycerides 86 Cholesterol 113 L LDL Cholesterol, Calc 72 HDL Cholesterol 24 L Cholesterol/HDL Ratio 4.7 TSH 3.77 Free T4 0.81 L Acetaminophen < 2.0 L Syphilis Serology Nonreactive Hepatitis A IgM Ab Non Reactive Hep Bs Antigen Non Reactive Hep B Core IgM Ab Non Reactive Hepatitis C Antibody Non Reactive ABG Interpretation ABG results: 07/12/25 07/12/25 04:16 08:45 ABG pH 7.51 H ABG pCO2 22 L ABG pO2 98 ABG HCO3 18 L ABG O2 Saturation 99 H ABG Base Excess -4 L VBG pH 7.50 VBG pCO2 27 L VBG pO2 87 H VBG Base Excess -2 Quality Measures Quality Measures VTE prophylaxis Advance care planning discussed with:: patient and child Assessment & Plan Assessment Current Active Medications: Generic Name Dose Route Start Last Admin Trade Name Freq PRN Reason Stop Dose Admin Acetaminophen 650 mg 07/12/25 12:29 Acetaminophen 325 Mg Tablet PO 08/11/25 12:28 Q6H PRN Fever >101.5 Hydrocodone Bitart/Acetaminophen 1 tab 07/12/25 12:29 Hydrocodone/Apap 10/325 Tab PO 07/17/25 12:28 Q6H PRN PAIN SCALE 4-6 (Moderate Dextrose 25 ml 07/12/25 16:13 Dextrose 50%-Water Inj 50 Ml Syringe IV 08/11/25 16:12 Q15MIN PRN BG 50-70 responsive npo pt Dextrose 50 ml 07/12/25 16:13 Dextrose 50%-Water Inj 50 Ml Syringe IV 08/11/25 16:12 Q15MIN PRN BG <50 OR BG <70 & pt unresponsive Diazepam 10 mg 07/12/25 12:37 Diazepam Inj 5 Mg/Ml Vial 2 Ml IVP 07/17/25 12:36 Q4H PRN CIWA SCORE 20-25 Diazepam 2.5 mg 07/12/25 12:37 07/12/25 20:20 Diazepam Inj 5 Mg/Ml Vial 2 Ml IVP 07/17/25 12:36 2.5 mg Q4H PRN Administration CIWA SCORE 4-13 Diazepam 5 mg 07/12/25 12:37 Diazepam Inj 5 Mg/Ml Vial 2 Ml IVP 07/17/25 12:36 Q4H PRN CIWA SCORE 14-19 Folic Acid 1 mg 07/12/25 12:45 07/13/25 08:12 Folic Acid 1 Mg Tablet PO 08/11/25 12:44 1 mg QDAY BRYANT Administration Furosemide 20 mg 07/13/25 09:45 07/13/25 09:51 Furosemide Inj 10 Mg/Ml Vial 2 Ml IVP 08/12/25 09:44 20 mg QDAY BRYANT Administration Glucagon 1 mg 07/12/25 16:13 Glucagon Inj 1 Mg Vial IM Q15MIN PRN BG <70, and no IV access Heparin Sodium (Porcine) 5,000 unit 07/12/25 13:00 07/13/25 12:14 Heparin Sod Inj 5000 Unit/Ml Vial SC 07/26/25 12:59 5,000 unit Q12H BRYANT Administration Ceftriaxone Sodium/Dextrose 1 gm in 50 mls @ 100 mls/hr 07/13/25 09:00 07/13/25 08:12 Rocephin/D5w 1gm Iv Premix IV 07/20/25 08:59 100 mls/hr QDAY BRYANT Administration Azithromycin 500 mg/ Sodium 250 mls @ 250 mls/hr 07/12/25 12:42 07/13/25 10:04 Chloride IV 07/19/25 12:41 250 mls/hr QDAY BRYANT Administration Insulin Human Lispro 0 unit 07/12/25 17:00 07/13/25 12:14 Insulin Lispro (Admelog) 1 Unit/0.01 Ml Unit SC 08/11/25 16:59 1 unit AC BRYANT Administration Protocol Lactulose 20 gm 07/13/25 14:00 Lactulose Syrup 20 Gm/30 Ml Udc PO 08/12/25 13:59 TID BRYANT Protocol Multivitamins/Minerals 15 ml 07/12/25 12:45 07/13/25 08:12 Multivitamin 15 Ml Udc PO 08/11/25 12:44 15 ml QDAY BRYANT Administration Ondansetron HCl 4 mg 07/12/25 12:29 Ondansetron Inj 2 Mg/Ml Inj 2 Ml IVP 08/11/25 12:28 Q6H PRN NAUSEA OR VOMITING Protocol Rifaximin 550 mg 07/13/25 09:45 07/13/25 09:55 Rifaximin 550 Mg Tablet PO 07/20/25 09:44 550 mg BID BRYANT Administration Thiamine HCl 100 mg 07/12/25 21:00 07/13/25 08:12 Thiamine 100 Mg Tablet PO 08/11/25 20:59 100 mg BID BRYANT Administration Plan Mr. Lee is a 65 year old male with a history of HTN, T2DM, and chronic back pain who presented to [facility] ED from home at 07/11 in the evening due to generalized weakness and mechanical falls. The patient was admitted on 07/12 for decompensated liver disease causing hepatic encephalopathy. #Decompensated liver disease #Liver cirrhosis #Altered mental status #Hepatic encephalopathy The patient endorses a history of frequent alcohol use. The patient presented with a grossly distended abdomen, one that is more distended than normal as per family members. The abdomen is soft and non-tender on admission. CT abdomen taken on 04/05/2022 showed liver cirrhosis and hepatomegaly. Given this past finding and the patient's history of alcohol use, his confusion, weakness, and altered mental status are all most likely a result of decompensated liver disease causing hepatic encephalopathy. MELD score 16, 6% estimated 3-month mortality Child-Zepeda score 10, class C Life Expectancy : 1-3 years, Abdominal surgery cortney-operative mortality: 82% - Ammonia levels ordered, resulted as 68, supporting hepatic encephalopathy - CT abdomen pelvis ordered 07/12, showed cirrhosis, mild ascites, and hepatic colopathy - Low sodium diet with fluid restriction 1500 cc (and consistent carb) - Lactulose 20 gm three times daily - Rifaximin 550 mg twice daily - Hepatitis panel ordered, resulted negative - Ordered copper, ceruloplasmin, and MELODY to screen for other possible causes of liver dysfunction, pending - PT referral ordered given generalized weakness in patient - Bedside US of abdomen 07/13 did not show sufficient ascites for paracentesis #Suspected early small bowel obstruction vs #Hepatic colopathy Patient had firming of abdomen on 07/13 and only one bowel movement after lactulose was started on the patient on 07/12. Patient is still able to pass gas occasionally. KUB ordered showed significantly air distended colon and small bowel loops, suspicious for early small bowel obstruction. This could also be hepatic colopathy as found on CT abdomen/pelvis on 07/12. Bedside US of abdomen on 07/13 showed primary distended bowel loops. - Patient put NPO on 07/13, PO medications held - NG tube placed 07/13, set to low intermittent suction #Community acquired pneumonia Patient noted to have right base pneumonia on CXR 07/12. Patient denies any shortness of breath and is satting well on room air. WBC was noted to be elevated at 12.5 in the ED. Lactic acid noted to be 3.6 initially, but repeat lactate decreased to 1.7 on 07/12. - Ceftriaxone 1 gm daily (07/12--) - Azithromycin 500 mg daily (07/12-07/14) - Blood cultures ordered, preliminary results 24 hours no growth - Incentive spirometry #Urinary tract infection Patient noted to have very dark urine. Urinalysis was performed in ED, which showed positive leukocyte esterase, 29 urine WBC, and urine bacteria. Given the patient's altered mental status, there may be a component of urinary tract infection affecting this patient's mentation. - Ceftriaxone 1 gm daily (07/12--) - Urine culture ordered, pending #Elevated bilirubin #?Cholecystitis vs biliary sludge Patient noted to have total bilirubin of 5.1 initially in ED paired with abdominal pain. After some fluids, total bilirubin decreased to 4.1. Abdominal ultrasound was ordered, which showed gallbladder sludge vs small stones and gallbladder wall thickening of 0.39 cm. - Will continue to monitor symptoms, no abdominal pain noted on admission - Will consider MRCP or HIDA scan if clinically warranted - Fractionated bilirubin ordered, 07/13 showed total bilirubin at 4.0, 2.1 direct and 1.9 indirect, supporting liver disease cause of elevated bilirubin #NSTEMI type II, likely 2/2 demand ischemia #Elevated troponins, resolving #?CHF Patient presented with BLE edema. No shortness of breath or chest pain was noted. EKG did not show acute ST elevations, but patient was positive for troponins, initially 0.108 on presentation, which then downtrended to 0.086. Additionally, the patient presented with BNP of 942, which can suggest CHF, but can also be elevated in patients with decompensated liver disease. Patient did not have any worsening shortness of breath when laid down flat. - Will continue to monitor symptoms, no repeat troponins necessary at this time - Echocardiogram ordered, pending - Strict ins and outs - Fluid restriction 1500cc per day - Daily weights #Non-insulin dependent type 2 diabetes mellitus Patient endorses a history of diabetes. Patient does take metformin at home. Patient follows a PCP for management of diabetes, though he does not know the name of his PCP. - Sliding scale insulin step 1 - Bedside fingerstick glucose checks ACHS - Consistent carb diet #Anemia, normocytic The patient had a initial hemoglobin of 9.0 with MCV of 98 in ED. The patient has a history of taking ferrous sulfate. Given that the patient is new to [facility], it is unclear if this anemia is his baseline or if it is an acute condition. There may also be a component of the patient's decompensated liver disease causing fluid retention, diluting the blood, resulting in anemia. - Hold ferrous sulfate given active infection - Will continue to monitor with daily CBC, transfuse if hemoglobin <7.0 per protocol - Iron panel ordered, resulted as iron 16, TIBC 230, iron saturation 6%, and ferritin 30 #Primary hypertension The patient endorses a history of hypertension. Per the patient's son, the patient takes lisinopril, but is not sure what the home dose is. The patient follows a PCP for management of his hypertension and T2DM. Per medication refills, the patient has also been prescribed chlorthalidone in the past. Per med rec, patient has not been taking any medication at home. - Will hold antihypertensives at this time given soft blood pressures in ED #Alcohol abuse The patient endorses a history of frequent alcohol use. The patient and his family member at bedside stated that the patient drinks about 6 bottles of beer each day for many years. The patient's last drink was on 07/11. - [facility] protocol - [employer] P[employer]her on alcohol cessation - Folic acid 1 mg daily - Thiamine 100 mg twice daily #Hypokalemia The patient had a potassium of 3.1 on 07/12. - Continue to monitor potassium levels and replenish as necessary DVT Prophylaxis: Heparin GI Prophylaxis: N/A Bowel: N/A Diet: Low sodium with fluid restriction 1500cc and consistent carb Miller: N/A Lines: Peripheral IV Antibiotics: Ceftriaxone & Azithromycin (07/12--) Code Status: FULL Reason for Hospitalization: Decompensated liver disease Other Barriers to Discharge: AMS Patient plan of care was discussed with the senior resident Dr. Drummond (PGY-2) and attending physician Dr. Crystal Morales, PGY1
--- NOTE | 2025-07-13 14:22 | PC.SS ---
Rounding: pending ECHO and US, DC 1-2 days to SNF (pending fam choice) will require auth.
--- NOTE | 2025-07-13 17:49 | XR_ITS ---
Examination: AP chest single view Technique one AP portable upright chest single view Date and time: July 13, 2025 1756 hrs., Comparison July 12, 2025 0329 hrs. Indications: Post orogastric tube placement. Findings: Right base pneumonia. Significant pulmonary vascular redistribution. Moderate enlargement cardiac contour Orogastric tube tip in the stomach satisfactory position Significant osteopenia Impression: Orogastric tube tip in stomach satisfactory position
[2025-07-14] VITALS (7 sets, daily range): BP systolic 113–131; BP diastolic 68–92; PULSE 74–95; RESP 16–20; TEMP 36.1–36.5; O2SAT 96–99; BMI 27.1
[2025-07-14] MEDS: HEPARIN SOD INJ 5000 UNIT/ML VIAL SC (01:50)
--- NOTE | 2025-07-14 05:56 | PC.NURSE ---
technical publications writer got in the room to check blood sugar and noticed that the NG tube was out, Pt stated that he did not pull it out that it came out. Dr. Tay was made aware, no new orders for pt at this time.
[2025-07-14 06:42] LABS: Basophils # (Auto) 0.0 Thou/mm3 (0.0-0.2); Basophils % (Auto) 0 % (0-2.5); Eosinophils # (Auto) 0.2 Thou/mm3 (0.0-0.5); Eosinophils % (Auto) 1 % (0-10); Hematocrit 28.1 % (41.0-53.0); Hemoglobin 9.2 g/dL (13.5-16.0); Immature Granulocytes Auto 0.07 Thou/mm3 (0.00-0.00); Lymphocytes # (Auto) 1.4 Thou/mm3 (1.0-4.8); Lymphocytes % (Auto) 11 % (10-50); Mean Corpuscular HGB Conc 32.7 g/dl (31.0-37.0); Mean Corpuscular Hemoglobin 32.7 pg (25.0-35.0); Mean Corpuscular Volume 100 fL (80-100); Monocytes # (Auto) 1.5 Thou/mm3 (0.0-0.8); Monocytes % (Auto) 11 % (0-12); Neutrophils # (Auto) 10.0 Thou/mm3 (1.8-7.7); Neutrophils % (Auto) 76 % (37-80); Nucleated Red Blood Cell # 0.04 Thou/mm3 (0.00-0.00); Nucleated Red Blood Cell % 0 /100 WBC (0); Platelet Count 192 Thou/mm3 (140-440); RDW Standard Deviation 74.7 fL (35.1-43.9); Red Blood Count 2.81 Miln/mm3 (4.50-5.90); White Blood Count 13.1 Thou/mm3 (3.8-10.6)
[2025-07-14 06:58] LABS: INR 1.4 (0.9-1.3); Partial Thromboplastin Time 36.2 Seconds (22.0-36.0); Prothrombin Time 14.6 Seconds (9.0-12.2)
[2025-07-14 07:02] LABS: Alanine Aminotransferase 34 U/L (10-49); Albumin, Serum 2.8 gm/dL (3.4-4.8); Albumin/Globulin Ratio 0.7 (1.2-2.2); Alkaline Phosphatase 134 U/L (46-116); Anion Gap 12 (7-16); Aspartate Amino Transferase 86 U/L (0-34); BUN/Creatinine Ratio 21 Ratio (12-20); Bilirubin,Total 3.2 mg/dL (0.3-1.2); Blood Urea Nitrogen 15 mg/dL (9-23); Calcium 9.2 mg/dL (8.3-10.6); Calcium (Corrected) 10.2 mg/dL (8.5-10.1); Carbon Dioxide 21.4 mMol/L (20.0-31.0); Chloride 108 mMol/L (98-107); Creatinine (Component) 0.7 mg/dL (0.6-1.3); Estimated Creatinine Clearance 100.4 mL/min (>60); Globulin 4.0 gm/dL (2.3-3.5); Glucose 111 mg/dL (74-106); Magnesium 1.9 mg/dL (1.6-2.6); Osmolality,Calculated 283 (275-295); Phosphorous 4.4 mg/dL (2.4-5.1); Potassium 3.4 mMol/L (3.4-5.1); Sodium 141 mMol/L (136-145); Total Protein 6.8 gm/dL (5.7-8.2); eGFR > 60 See Note
[2025-07-14] MEDS: cefTRIAXone/D5w 1gm IV premix 1 GM/50 ML BAG IV (08:48)
[2025-07-14] MEDS: AZITHROMYCIN INJ 500 MG in SODIUM CHLORIDE 0.9% 250 ML 250 ML 250 MG IV (09:47)
[2025-07-14] MEDS: FUROSEMIDE INJ 10 MG/ML VIAL 2 ML 20 MG IVP (09:47)
--- NOTE | 2025-07-14 10:53 | XR_ITS ---
Examination: Abdomen AP single view Technique: AP portable supine abdomen, single view Exam date and time: July 06, 2025, 1116 hrs. Indications: Abdominal distention today. Findings: Severe colonic ileus No free air Mild small bowel ileus Moderate osteopenia Impression: Severe colonic ileus, clinical correlation advised, consider CT scan abdomen pelvis post intravenous contrast follow-up
--- NOTE | 2025-07-14 12:19 | XR_ITS ---
Examination: CT abdomen with intravenous contrast CT pelvis with intravenous contrast 2-D coronal reconstructions 2-D sagittal reconstructions Date and time of exam:July 14, 2025 1328 hours, comparison July 12, 2025 INDICATIONS: Onset generalized abdominal pain today. CTDI: vol (mGy) 8.04 DLP: (mGycm) 532 Technique: Multiple axial sections of the abdomen and pelvis have been obtained. 64 slice high-resolution scanner used. 3 mm axial sections have been obtained, post intravenous injection 60 cc [id number] 2-D sagittal, coronal reconstructions obtained. Low dose protocols were performed. One or more of the following dose reduction techniques were used; automated exposure control, adjustment of the mA and/or KV according to patient size, use of iterative reconstruction technique. Findings: Bibasilar pneumonia with small pleural effusions. Mild to moderate enlargement cardiac contour. Cirrhosis, liver nodular in contour Gallbladder wall is mildly thickened Moderate ascites No splenic or pancreatic mass Gallstones No renal or ureteral calculi, no hydronephrosis No bowel obstruction Mild prostatomegaly Significant urinary bladder wall thickening Severe osteopenia IMPRESSION: Bibasilar pneumonia with small pleural effusions Cirrhosis, gallbladder wall is mildly thickened, clinical correlation advised Moderate ascites No renal or ureteral calculi, no hydronephrosis Prominent urinary bladder wall thickening anteriorly, recommend urinary bladder sonography follow-up
--- NOTE | 2025-07-14 12:21 | XR_ITS ---
Examination: AP chest single view Technique one AP portable chest single view Date and time: July 06, 2025 1225 hrs., Comparison July 13, 2025 Indications: Post orogastric tube placement. Findings: Moderate enlargement cardiac contour. Moderate vascular congestion. No orogastric tube is visible. No pneumonia Subsegmental atelectasis left base Impression: No orogastric tube is visualized
--- NOTE | 2025-07-14 12:22 | PC.SS ---
SS attempted to reach pt son, Mandeep Lee [phone] in regards to snf choice. No answer. VM left.
--- NOTE | 2025-07-14 13:43 | ESPR_ITS ---
<Statement entered by Smitha Rojas MD - 07/14/25 22:08> I attest that I was physically present for the evaluation, physical examination, lab and imaging review of the patient with the residents. I discussed the case with the residents and agree with the findings and plans of care as documented above. Overnight, patient pulled his NG tube out. At bedside today, patient is alert and appears more oriented. Family at bedside stated his mentation has been improving compared to yesterday. Patient had bowel movements and is passing gas. But abdomen continues to be distended and tense, does not have any tenderness though. XR KUB ordered, shows severe colonic ileus and lots of gas. Ct abdomen/pelvis ordered. Discussed with General surgery, recommended starting clear liquid with rectal tube. We will continue with rifaximin, fluid restriction, lasix, holding lactulose. Continues to be on antibiotics for CAP and UTI. Insulin regimen fo rdiabetes, CIWA protocol for alcohol abuse. Smitha Rojas MD <Statement entered by Luly Stoner MD - 07/14/25 15:38> Patient was seen and examined at bedside. I agree on the assessment and plan on this note as documented by resident Santi Morales DO PGY1. 65-year-old male with past medical history as below, obtained bedside abdominal ultrasound with senior sustainability consultant yesterday, no significant ascites noted for tap. Patient has significant abdominal distention NG tube was inserted yesterday with low intermittent suctioning, patient had no significant improvement, had minimal drainage and patient pulled out the NG tube earlier this morning. Abdominal distention noted again this morning, obtain KUB consistent with colonic ileus, obtain CT abdomen pelvis with contrast, dilated gut seen. Consulted general surgeon Dr. Vaz, will follow her recommendations. Will start on clear liquid diet for now, no NG tube needed per Dr. Vaz, resume rifaximin for management of hepatic encephalopathy, will hold lactulose. Will consider per rectal lactulose if patient significantly encephalopathic. Surgery recommends rectal tube for now for decompression, will monitor closely. Case discussed with attending Dr. Smitha Stoner MD PGY-2 Documentation for date of: 07/14/25 Subjective Subjective Interval history: Overnight events: No acute events overnight. Patient pulled out NG tube. Patient was seen and examined at bedside. AM vitals and labs reviewed. Patient seems more coherent today per family at bedside, but still not back to baseline. Abdomen continues to feel tense. Distension has not decreased since admission. Patient continues to pass gas and has had 3 bowel movements in the past 24 hours. CIWA 2. INR stable at 1.4, LFTs stable, and bilirubin decreased to 3.2 KUB ordered, which showed severe colonic ileus. Consulted general surgery, Dr. Vaz, for evaluation and possible surgical intervention. CT abdomen/pelvis ordered, pending read. Patient continues to be NPO until eval by surgery. Pending echocardiogram. Azithromycin 3-day course completed today. PT recommends rehab placement for skilled therapy services. Review of systems otherwise negative except for what is mentioned above. Exam Vital Signs Temp Pulse Resp BP Pulse Ox O2 Del Method 97.7 F 83 19 113/92 H 99 Room Air 07/14/25 12:00 07/14/25 12:00 07/14/25 12:00 07/14/25 12:00 07/14/25 12:07/14/25 12:00 Narrative Exam Physical Exam: General: Alert, no acute distress. Skin: Warm, dry, intact. Head: Normocephalic, atraumatic. Eye: Slightly icteric conjunctiva bilaterally, PERRL. Throat: Oral mucosa dry. Cardiovascular: Regular rate and regular rhythm, no murmur, +S1/S2. Respiratory: Lungs are clear to auscultation, respirations unlabored, no crackles, no wheezing. Gastrointestinal: Tense, nontender, distended. No guarding or rebound tenderness. Extremities: 1+ BLE edema in feet, worse on right, no cyanosis, no clubbing. Neuro: No focal deficits observed. Conversant, moving all extremities. No overt cerebellar signs/incoordination. Psychiatric: Cooperative, appropriate affect. Objective Labs 07/14/25 05:14 07/14/25 05:14 Labs: Laboratory Results - last 24 hr 07/14/25 05:14 WBC 13.1 H RBC 2.81 L Hgb 9.2 L Hct 28.1 L MCV 100 MCH 32.7 MCHC 32.7 RDW Std Deviation 74.7 H Plt Count 192 Neut % (Auto) 76 Lymph % (Auto) 11 Castro % (Auto) 11 Eos % (Auto) 1 Baso % (Auto) 0 Neut # (Auto) 10.0 H Lymph # (Auto) 1.4 Castro # (Auto) 1.5 H Eos # (Auto) 0.2 Baso # (Auto) 0.0 Immature Gran # (Auto) 0.07 H Absolute Nucleated RBC 0.04 H Immature Gran % 1 H Nucleated RBC % 0 PT 14.6 H INR 1.4 H APTT 36.2 H Sodium 141 Potassium 3.4 Chloride 108 H Carbon Dioxide 21.4 Anion Gap 12 BUN 15 Creatinine 0.7 Estim Creat Clear Calc 100.4 eGFR > 60 BUN/Creatinine Ratio 21 H Glucose 111 H Calculated Osmolality 283 Calcium 9.2 Corrected Calcium 10.2 H Phosphorus 4.4 Magnesium 1.9 Total Bilirubin 3.2 H D AST 86 H ALT 34 Alkaline Phosphatase 134 H Total Protein 6.8 Albumin 2.8 L Globulin 4.0 H Albumin/Globulin Ratio 0.7 L ABG Interpretation ABG results: 07/12/25 07/12/25 04:16 08:45 ABG pH 7.51 H ABG pCO2 22 L ABG pO2 98 ABG HCO3 18 L ABG O2 Saturation 99 H ABG Base Excess -4 L VBG pH 7.50 VBG pCO2 27 L VBG pO2 87 H VBG Base Excess -2 Quality Measures Quality Measures VTE prophylaxis Advance care planning discussed with:: patient and child Assessment & Plan Assessment Current Active Medications: Generic Name Dose Route Start Last Admin Trade Name Freq PRN Reason Stop Dose Admin Acetaminophen 650 mg 07/12/25 12:29 Acetaminophen 325 Mg Tablet PO 08/11/25 12:28 Q6H PRN Fever >101.5 Dextrose 25 ml 07/12/25 16:13 Dextrose 50%-Water Inj 50 Ml Syringe IV 08/11/25 16:12 Q15MIN PRN BG 50-70 responsive npo pt Dextrose 50 ml 07/12/25 16:13 Dextrose 50%-Water Inj 50 Ml Syringe IV 08/11/25 16:12 Q15MIN PRN BG <50 OR BG <70 & pt unresponsive Folic Acid 1 mg 07/12/25 12:45 07/13/25 08:12 Folic Acid 1 Mg Tablet PO 08/11/25 12:44 1 mg QDAY BRYANT Administration Furosemide 20 mg 07/13/25 09:45 07/14/25 09:47 Furosemide Inj 10 Mg/Ml Vial 2 Ml IVP 08/12/25 09:44 20 mg QDAY BRYANT Administration Glucagon 1 mg 07/12/25 16:13 Glucagon Inj 1 Mg Vial IM Q15MIN PRN BG <70, and no IV access Heparin Sodium (Porcine) 5,000 unit 07/12/25 13:00 07/14/25 01:50 Heparin Sod Inj 5000 Unit/Ml Vial SC 07/26/25 12:59 5,000 unit Q12H BRYANT Administration Ceftriaxone Sodium/Dextrose 1 gm in 50 mls @ 100 mls/hr 07/13/25 09:00 07/14/25 08:48 Rocephin/D5w 1gm Iv Premix IV 07/20/25 08:59 100 mls/hr QDAY BRYANT Administration Insulin Human Lispro 0 unit 07/13/25 18:00 07/14/25 12:40 Insulin Lispro (Admelog) 1 Unit/0.01 Ml Unit SC 08/12/25 17:59 Not Given Q6HR BRYANT Protocol Lactulose 20 gm 07/13/25 14:00 07/13/25 14:39 Lactulose Syrup 20 Gm/30 Ml Udc PO 08/12/25 13:59 20 gm TID BRYANT Administration Protocol Multivitamins/Minerals 15 ml 07/12/25 12:45 07/13/25 08:12 Multivitamin 15 Ml Udc PO 08/11/25 12:44 15 ml QDAY BRYANT Administration Ondansetron HCl 4 mg 07/12/25 12:29 Ondansetron Inj 2 Mg/Ml Inj 2 Ml IVP 08/11/25 12:28 Q6H PRN NAUSEA OR VOMITING Protocol Rifaximin 550 mg 07/13/25 09:45 07/13/25 09:55 Rifaximin 550 Mg Tablet PO 07/20/25 09:44 550 mg BID BRYANT Administration Thiamine HCl 100 mg 07/12/25 21:00 07/13/25 08:12 Thiamine 100 Mg Tablet PO 08/11/25 20:59 100 mg BID BRYANT Administration Plan Mr. Lee is a 65 year old male with a history of HTN, T2DM, and chronic back pain who presented to [facility] ED from home at 07/11 in the evening due to generalized weakness and mechanical falls. The patient was admitted on 07/12 for decompensated liver disease causing hepatic encephalopathy. #Decompensated liver disease #Liver cirrhosis #Altered mental status #Hepatic encephalopathy The patient endorses a history of frequent alcohol use. The patient presented with a grossly distended abdomen, one that is more distended than normal as per family members. The abdomen is soft and non-tender on admission. CT abdomen taken on 04/05/2022 showed liver cirrhosis and hepatomegaly. Given this past finding and the patient's history of alcohol use, his confusion, weakness, and altered mental status are all most likely a result of decompensated liver disease causing hepatic encephalopathy. MELD score 16, 6% estimated 3-month mortality Child-Zepeda score 10, class C Life Expectancy : 1-3 years, Abdominal surgery cortney-operative mortality: 82% - Ammonia levels ordered, resulted as 68, supporting hepatic encephalopathy - CT abdomen pelvis ordered 07/12, showed cirrhosis, mild ascites, and hepatic colopathy - Low sodium diet with fluid restriction 1500 cc (and consistent carb) - Lactulose 20 gm three times daily - Rifaximin 550 mg twice daily - Hepatitis panel ordered, resulted negative - Ordered copper, ceruloplasmin, and MELODY to screen for other possible causes of liver dysfunction, pending - PT referral ordered given generalized weakness in patient, recommends rehab placement for skilled therapy services - Bedside US of abdomen 07/13 did not show sufficient ascites for paracentesis #Severe colonic ileus vs #Hepatic colopathy Patient had firming of abdomen on 07/13 and only one bowel movement after lactulose was started on the patient on 07/12. Patient is still able to pass gas occasionally. KUB ordered showed significantly air distended colon and small bowel loops, suspicious for early small bowel obstruction. This could also be hepatic colopathy as found on CT abdomen/pelvis on 07/12. Bedside US of abdomen on 07/13 showed primary distended bowel loops. Repeat KUB on 07/14 showed severe colonic ileus. - Patient put NPO on 07/13, PO medications held - NG tube placed 07/13, set to low intermittent suction, patient removed, so NG tube put back in 07/14 - Repeat CT abdomen/pelvis ordered, pending read - Consulted general surgery, appreciate recommendations #Community acquired pneumonia Patient noted to have right base pneumonia on CXR 07/12. Patient denies any shortness of breath and is satting well on room air. WBC was noted to be elevated at 12.5 in the ED. Lactic acid noted to be 3.6 initially, but repeat lactate decreased to 1.7 on 07/12. - Ceftriaxone 1 gm daily (07/12--) - Azithromycin 500 mg daily (07/12-07/14) - Blood cultures ordered, preliminary results 48 hours no growth - Incentive spirometry #Urinary tract infection Patient noted to have very dark urine. Urinalysis was performed in ED, which showed positive leukocyte esterase, 29 urine WBC, and urine bacteria. Given the patient's altered mental status, there may be a component of urinary tract infection affecting this patient's mentation. - Ceftriaxone 1 gm daily (07/12--) - Urine culture ordered, no growth #Elevated bilirubin #?Cholecystitis vs biliary sludge Patient noted to have total bilirubin of 5.1 initially in ED paired with abdominal pain. After some fluids, total bilirubin decreased to 4.1. Abdominal ultrasound was ordered, which showed gallbladder sludge vs small stones and gallbladder wall thickening of 0.39 cm. - Will continue to monitor symptoms, no abdominal pain noted on admission - Will consider MRCP or HIDA scan if clinically warranted - Fractionated bilirubin ordered, 07/13 showed total bilirubin at 4.0, 2.1 direct and 1.9 indirect, supporting liver disease cause of elevated bilirubin #NSTEMI type II, likely 2/2 demand ischemia #Elevated troponins, resolving #?CHF Patient presented with BLE edema. No shortness of breath or chest pain was noted. EKG did not show acute ST elevations, but patient was positive for troponins, initially 0.108 on presentation, which then downtrended to 0.086. Additionally, the patient presented with BNP of 942, which can suggest CHF, but can also be elevated in patients with decompensated liver disease. Patient did not have any worsening shortness of breath when laid down flat. - Will continue to monitor symptoms, no repeat troponins necessary at this time - Echocardiogram ordered, pending - Strict ins and outs - Fluid restriction 1500cc per day - Daily weights #Non-insulin dependent type 2 diabetes mellitus Patient endorses a history of diabetes. Patient does take metformin at home. Patient follows a PCP for management of diabetes, though he does not know the name of his PCP. - Sliding scale insulin step 1 - Bedside fingerstick glucose checks ACHS - Consistent carb diet #Anemia, normocytic The patient had a initial hemoglobin of 9.0 with MCV of 98 in ED. The patient has a history of taking ferrous sulfate. Given that the patient is new to [facility], it is unclear if this anemia is his baseline or if it is an acute condition. There may also be a component of the patient's decompensated liver disease causing fluid retention, diluting the blood, resulting in anemia. - Hold ferrous sulfate given active infection - Will continue to monitor with daily CBC, transfuse if hemoglobin <7.0 per protocol - Iron panel ordered, resulted as iron 16, TIBC 230, iron saturation 6%, and ferritin 30 #Primary hypertension The patient endorses a history of hypertension. Per the patient's son, the patient takes lisinopril, but is not sure what the home dose is. The patient follows a PCP for management of his hypertension and T2DM. Per medication refills, the patient has also been prescribed chlorthalidone in the past. Per med rec, patient has not been taking any medication at home. - Will hold antihypertensives at this time given soft blood pressures in ED #Alcohol abuse The patient endorses a history of frequent alcohol use. The patient and his family member at bedside stated that the patient drinks about 6 bottles of beer each day for many years. The patient's last drink was on 07/11. 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 - Continue to monitor potassium levels and replenish as necessary DVT Prophylaxis: Heparin GI Prophylaxis: N/A Bowel: N/A Diet: Low sodium with fluid restriction 1500cc and consistent carb Miller: N/A Lines: Peripheral IV Antibiotics: Ceftriaxone & Azithromycin (07/12--) Code Status: FULL Reason for Hospitalization: Decompensated liver disease Other Barriers to Discharge: AMS Patient plan of care was discussed with the senior resident Dr. Stoner (PGY-2) and attending physician Dr. Crystal Morales, PGY1
--- NOTE | 2025-07-14 14:51 | PC.SS ---
Rounding: Pending General SX consult, NGT for SBO, may need ECHO, DC plan SNF (pending choice and auth)
--- NOTE | 2025-07-14 15:01 | PD.SURCONS ---
Documented by User: [email or web address] 07/14/25 15:54 HPI Consult details Consult date: 07/14/25 Reason for consultation narrative: Pt was seen on 07/14/25 for an inpatient surgery consult. As per resident physician, pt was experiencing worsening abdominal distention since Friday, and a consult was called to r/o SBO, LBO, and a perforated colon. History of present illness: 65 y/o male was admitted into the hospital for concerns of hepatic encephalopathy. Pt has gradually developed a distended abdomen since this past Friday and is now firm to palpation. Pt denies any abdominal pain and has been able to pass gas and has had 3 bowel movements in the past 24 hours. Pt was recently made NPO prior to consult. Pt has experienced a distended abdomen before with spontaneous resolution. Pt has had a colonoscopy before, but does not remember when and thinks it was normal . NG tube was placed yesterday but had fallen out - no significant findings were appreciated on imaging or physical exam, post NG tube placement. 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 Pt denies tobacco use. FHx: Pt admits to brothers and father consuming large amounts of alcohol and denies a family history of colon and rectal cancer. ROS: GI: Pt denies nausea, vomiting, diarrhea. Pulm: Pt denies SOB, cough, wheezing Cardio: Pt denies chest pain and palpitation. Pt admits to R lower leg edema upon inpatient admission. Physical Exam: General: [place]an-speaking, well mannered, non-ambulatory, cooperative 65 y/o male. GI: Upon inspection, pt has a distended abdomen with minor skin jaundice. Pt denies any abdominal tenderness in all 4 quadrants and in the epigastric and suprapubic regions. Abdomen is hyperresonnant in all 4 quadrants. Negative flapping tremor. Rectal exam was negative and no stool was felt in the rectal vault. HEENT: Pt presents with scleral icterus. Cardio: All 4 peripheral pulses intact. No edema appreciated in all 4 extremities. Assessment: 65 y/o [place]an-speaking male admitted into the hospital for hepatic encephalopathy presents with a distended abdomen that is non-tender and firm to the touch. Physical exam yielded mildly jaundiced skin, a hyperrosonnant abdomen in all 4 quadrants, with negative peritonitis. Pt has agreed to a rectal tube placement and a clear liquid diet. Review of Systems Review of Systems Narrative Review of Systems: Pt denies nausea, vomiting, diarrhea, SOB, cough, wheezing, chest pain, and palpitations. Pt does admit to right leg edema that has improved since his hospital admission. Meds Home Medications and Allergies Home Medications ?Medication ?Instructions ?Recorded ?Confirmed ?Type naproxen 500 mg tablet (Naprosyn) 500 mg PO BIDWM #0 tabs 01/11/17 07/12/25 History chlorthalidone 25 mg tablet 25 mg PO WBR 07/12/25 07/13/25 History ferrous sulfate 325 mg (65 mg 325 mg PO QDAY 07/12/25 07/13/25 History iron) tablet (FeroSul) lisinopril 20 mg tablet 20 mg PO QDAY 07/12/25 07/13/25 History metformin 500 mg tablet 500 mg PO BIDWM 07/12/25 07/13/25 History pravastatin 20 mg tablet 20 mg PO QDAY 07/12/25 07/13/25 History Allergies Allergy/AdvReac Type Severity Reaction Status Date / Time No Known Allergies Allergy Unverified 07/13/25 10:22 Exam Vital Signs Temp Pulse Resp BP Pulse Ox O2 Del Method 97.7 F 83 19 113/92 H 99 Room Air 07/14/25 12:00 07/14/25 12:00 07/14/25 12:00 07/14/25 12:00 07/14/25 12:00 07/14/25 12:00 Documented by User: Silvana Vaz MD 07/14/25 16:00 HPI Consult details History of present illness: 65 y/o male was admitted into the hospital for concerns of hepatic encephalopathy. Pt has gradually developed a distended abdomen since this past Friday and is now firm to palpation. Pt denies any abdominal pain and has been able to pass gas and has had 3 bowel movements in the past 24 hours. Pt was recently made NPO prior to consult. Pt has experienced a distended abdomen before with spontaneous resolution. Pt has had a colonoscopy before, but does not remember when and thinks it was normal . NG tube was placed yesterday but had fallen out - no significant findings were appreciated on imaging or physical exam, post NG tube placement. 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 Pt denies tobacco use. FHx: Pt admits to brothers and father consuming large amounts of alcohol and denies a family history of colon and rectal cancer. ROS: GI: Pt denies nausea, vomiting, diarrhea. Pulm: Pt denies SOB, cough, wheezing Cardio: Pt denies chest pain and palpitation. Pt admits to R lower leg edema upon inpatient admission. Physical Exam: General: R[place]an-speaking, well mannered, non-ambulatory, cooperative 65 y/o male. GI: Upon inspection, pt has a distended abdomen with minor skin jaundice. Pt denies any abdominal tenderness in all 4 quadrants and in the epigastric and suprapubic regions. Abdomen is hyperresonnant in all 4 quadrants. Negative flapping tremor. Rectal exam was negative and no stool was felt in the rectal vault. HEENT: Pt presents with scleral icterus. Cardio: All 4 peripheral pulses intact. No edema appreciated in all 4 extremities. Meds Home Medications and Allergies Home Medications ?Medication ?Instructions ?Recorded ?Confirmed ?Type naproxen 500 mg tablet (Naprosyn) 500 mg PO BIDWM #0 tabs 01/11/17 07/12/25 History chlorthalidone 25 mg tablet 25 mg PO WBR 07/12/25 07/13/25 History ferrous sulfate 325 mg (65 mg 325 mg PO QDAY 07/12/25 07/13/25 History iron) tablet (FeroSul) lisinopril 20 mg tablet 20 mg PO QDAY 07/12/25 07/13/25 History metformin 500 mg tablet 500 mg PO BIDWM 07/12/25 07/13/25 History pravastatin 20 mg tablet 20 mg PO QDAY 07/12/25 07/13/25 History Allergies Allergy/AdvReac Type Severity Reaction Status Date / Time No Known Allergies Allergy Unverified 07/13/25 10:22 Exam Vital Signs Temp Pulse Resp BP Pulse Ox O2 Del Method 97.7 F 83 19 113/92 H 99 Room Air 07/14/25 12:00 07/14/25 12:00 07/14/25 12:00 07/14/25 12:00 07/14/25 12:00 07/14/25 12:00 Results Results: Laboratory Laboratory results: results reviewed Results: Imaging Abdominal x-ray: report reviewed and image reviewed CT scan - abdomen: report reviewed and image reviewed Assessment & Plan Plan Assessment: 65 y/o [place]an-speaking male admitted into the hospital for hepatic encephalopathy presents with a distended abdomen that is non-tender and firm to the touch, with findings of colonic ileus on imaging though he is minimally symptomatic and having ongoing bowel function. I explained that a rectal tube may be helpful for decompression and recommended CLD for now. At some point pt should undergo colonoscopy but would want to see the colon decompress first and may be more beneficial as an outpatient Pt has agreed to a rectal tube placement and a clear liquid diet Will follow up
[2025-07-15] VITALS (7 sets, daily range): BP systolic 111–126; BP diastolic 65–82; PULSE 73–90; RESP 13–20; TEMP 36–36.3; O2SAT 94–98; BMI 26.7; BMI 38.6
[2025-07-15] MEDS: HEPARIN SOD INJ 5000 UNIT/ML VIAL SC ×2 (00:30→13:26)
[2025-07-15 06:03] LABS: Basophils # (Auto) 0.1 Thou/mm3 (0.0-0.2); Basophils % (Auto) 1 % (0-2.5); Eosinophils # (Auto) 0.3 Thou/mm3 (0.0-0.5); Eosinophils % (Auto) 3 % (0-10); Hematocrit 26.9 % (41.0-53.0); Immature Granulocytes Auto 0.04 Thou/mm3 (0.00-0.00); Lymphocytes # (Auto) 2.3 Thou/mm3 (1.0-4.8); Lymphocytes % (Auto) 21 % (10-50); Mean Corpuscular HGB Conc 32.7 g/dl (31.0-37.0); Mean Corpuscular Hemoglobin 33.2 pg (25.0-35.0); Mean Corpuscular Volume 102 fL (80-100); Monocytes # (Auto) 1.4 Thou/mm3 (0.0-0.8); Monocytes % (Auto) 13 % (0-12); Neutrophils # (Auto) 6.7 Thou/mm3 (1.8-7.7); Neutrophils % (Auto) 62 % (37-80); Nucleated Red Blood Cell # 0.02 Thou/mm3 (0.00-0.00); Nucleated Red Blood Cell % 0 /100 WBC (0); Platelet Count 173 Thou/mm3 (140-440); RDW Standard Deviation 76.5 fL (35.1-43.9); Red Blood Count 2.65 Miln/mm3 (4.50-5.90); White Blood Count 10.8 Thou/mm3 (3.8-10.6)
[2025-07-15 06:08] LABS: Hemoglobin 8.8 g/dL (13.5-16.0)
[2025-07-15 06:13] LABS: INR 1.4 (0.9-1.3); Partial Thromboplastin Time 34.5 Seconds (22.0-36.0); Prothrombin Time 15.0 Seconds (9.0-12.2)
[2025-07-15 06:37] LABS: Alanine Aminotransferase 32 U/L (10-49); Albumin, Serum 2.6 gm/dL (3.4-4.8); Albumin/Globulin Ratio 0.7 (1.2-2.2); Alkaline Phosphatase 125 U/L (46-116); Anion Gap 10 (7-16); Aspartate Amino Transferase 75 U/L (0-34); BUN/Creatinine Ratio 22 Ratio (12-20); Bilirubin,Total 2.5 mg/dL (0.3-1.2); Blood Urea Nitrogen 13 mg/dL (9-23); Calcium 8.9 mg/dL (8.3-10.6); Calcium (Corrected) 10.0 mg/dL (8.5-10.1); Carbon Dioxide 21.2 mMol/L (20.0-31.0); Chloride 109 mMol/L (98-107); Creatinine (Component) 0.6 mg/dL (0.6-1.3); Estimated Creatinine Clearance 117.2 mL/min (>60); Globulin 3.9 gm/dL (2.3-3.5); Glucose 102 mg/dL (74-106); Magnesium 2.0 mg/dL (1.6-2.6); Osmolality,Calculated 279 (275-295); Phosphorous 3.5 mg/dL (2.4-5.1); Potassium 3.5 mMol/L (3.4-5.1); Sodium 140 mMol/L (136-145); Total Protein 6.5 gm/dL (5.7-8.2); eGFR > 60 See Note
[2025-07-15] MEDS: FUROSEMIDE INJ 10 MG/ML VIAL 2 ML 20 MG IVP (08:32)
[2025-07-15] MEDS: cefTRIAXone/D5w 1gm IV premix 1 GM/50 ML BAG IV (08:33)
--- NOTE | 2025-07-15 08:42 | PD.SURPROG ---
Documentation for date of: 07/15/25 Subjective Subjective Brief History: 65 y/o male was admitted into the hospital for concerns of hepatic encephalopathy. Pt has gradually developed a distended abdomen since this past Friday and is now firm to palpation. Pt denies any abdominal pain and has been able to pass gas and has had 3 bowel movements in the past 24 hours. Pt was recently made NPO prior to consult. Pt has experienced a distended abdomen before with spontaneous resolution. Pt has had a colonoscopy before, but does not remember when and thinks it was normal . NG tube was placed yesterday but had fallen out - no significant findings were appreciated on imaging or physical exam, post NG tube placement. 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 Pt denies tobacco use. FHx: Pt admits to brothers and father consuming large amounts of alcohol and denies a family history of colon and rectal cancer. ROS: GI: Pt denies nausea, vomiting, diarrhea. Pulm: Pt denies SOB, cough, wheezing Cardio: Pt denies chest pain and palpitation. Pt admits to R lower leg edema upon inpatient admission. Physical Exam: General: Norwegian-speaking, well mannered, non-ambulatory, cooperative 65 y/o male. GI: Upon inspection, pt has a distended abdomen with minor skin jaundice. Pt denies any abdominal tenderness in all 4 quadrants and in the epigastric and suprapubic regions. Abdomen is hyperresonnant in all 4 quadrants. Negative flapping tremor. Rectal exam was negative and no stool was felt in the rectal vault. HEENT: Pt presents with scleral icterus. Cardio: All 4 peripheral pulses intact. No edema appreciated in all 4 extremities. Narrative: Pt underwent rectal tube placement yesterday with return of stool and gas, it came out and reattempt was aborted due to encountered resistance. Pt still reports feeling well today with no pain or nausea, and remains afebrile with normal electrolytes Exam Vital Signs Temp Pulse Resp BP Pulse Ox O2 Del Method 96.8 F 79 17 124/68 96 Room Air 07/15/25 04:00 07/15/25 08:32 07/15/25 04:00 07/15/25 08:32 07/15/25 04:00 07/15/25 04:00 Constitutional Constitutional: no acute distress Routine Respiratory Exam Respiratory: Present no resp distress Routine Abdominal Exam Abdominal: Present distended (significant distention) and firm; Absent rebound, guarding or rigid Results Results: Laboratory Laboratory results: results reviewed Results: Imaging Abdominal x-ray: report reviewed and image reviewed CT scan - abdomen: report reviewed and image reviewed Assessment & Plan Plan 65M admitted into the hospital for hepatic encephalopathy presents with a distended abdomen that is non-tender and firm to the touch, with findings of colonic ileus on imaging though he is minimally symptomatic and having ongoing bowel function. Pt remains distended today, possibly due to a fecal impaction which limited rectal tube placement Appreciate GI recs Will follow up
--- NOTE | 2025-07-15 09:31 | PC.SS ---
Follow up note: Pt on clear diet and advance as tolerated. On IV antibiotic. Pt edilia dc to SNF.
--- NOTE | 2025-07-15 10:12 | ESPR_ITS ---
<Statement entered by Luly Stoner MD - 07/15/25 17:20> Patient was seen and examined at bedside. I agree on the assessment and plan on this note as documented by resident Santi Morales DO PGY1. 65-year-old male with past medical history as below, patient continues to have abdominal distention likely secondary to ileus and hepatic colopathy, general surgery recommended to consult gastroenterology. Case discussed with GI recommend rectal tube insertion, per nurse there is some concern of fecal impaction when rectal tube was inserted yesterday, BEVERLEY performed, no stool noted. Rectal tube will be inserted, GI to follow-up for further workup. Continue ceftriaxone for management of pneumonia. We will continue clear liquid diet disposition med/tele, pending improvement in abdominal distention/ileus. Case discussed with attending Dr. Peggy Castelan MD PGY-2 Documentation for date of: 07/15/25 Subjective Subjective Interval history: Overnight events: No acute events overnight. Patient was seen and examined at bedside. AM vitals and labs reviewed. Patient appears more alert and mentation appears better today. Family at bedside feels that the patient is also more alert and oriented today. General surgery was consulted yesterday, rectal tube was placed rectal tube with decompensation of bowels. Rectal tube was removed, abdomen became less tense. GI was consulted, appreciate recommendations. GI, Dr. Motta, recommends placement of rectal tube until Dr. Motta evaluates later today. Attempted BEVERLEY for fecal disimpaction, no stool identified in rectal vault. Review of systems otherwise negative except for what is mentioned above. Exam Vital Signs Temp Pulse Resp BP Pulse Ox O2 Del Method 97.3 F 79 18 124/68 96 Room Air 07/15/25 08:00 07/15/25 08:32 07/15/25 08:00 07/15/25 08:32 07/15/25 08:00 07/15/25 08:00 Narrative Exam Physical Exam: General: Alert, no acute distress. Skin: Warm, dry, intact. Head: Normocephalic, atraumatic. Eye: Normal conjunctiva, PERRL. Cardiovascular: Regular rate and rhythm, no murmur, +S1/S2. Respiratory: Lungs are clear to auscultation, respirations unlabored, no crackles, no wheezing. Gastrointestinal: Tense, nontender, distended. No guarding or rebound tenderness. Extremities: No edema, no cyanosis, no clubbing. 2+ radial pulse bilaterally, 2+ pedal pulse bilaterally. Neuro: No focal deficits observed. Conversant, moving all extremities. No overt cerebellar signs/incoordination. Psychiatric: Cooperative, appropriate affect. Objective Labs 07/15/25 05:14 07/15/25 05:14 Labs: Laboratory Results - last 24 hr 07/15/25 05:14 WBC 10.8 H RBC 2.65 L Hgb 8.8 L Hct 26.9 L MCV 102 H MCH 33.2 MCHC 32.7 RDW Std Deviation 76.5 H Plt Count 173 Neut % (Auto) 62 Lymph % (Auto) 21 [place] % (Auto) 13 H Eos % (Auto) 3 Baso % (Auto) 1 Neut # (Auto) 6.7 Lymph # (Auto) 2.3 [place] # (Auto) 1.4 H Eos # (Auto) 0.3 Baso # (Auto) 0.1 Immature Gran # (Auto) 0.04 H Absolute Nucleated RBC 0.02 H Immature Gran % 0 Nucleated RBC % 0 PT 15.0 H INR 1.4 H APTT 34.5 Sodium 140 Potassium 3.5 Chloride 109 H Carbon Dioxide 21.2 Anion Gap 10 BUN 13 Creatinine 0.6 Estim Creat Clear Calc 117.2 eGFR > 60 BUN/Creatinine Ratio 22 H Glucose 102 Calculated Osmolality 279 Calcium 8.9 Corrected Calcium 10.0 Phosphorus 3.5 Magnesium 2.0 Total Bilirubin 2.5 H D AST 75 H ALT 32 Alkaline Phosphatase 125 H Total Protein 6.5 Albumin 2.6 L Globulin 3.9 H Albumin/Globulin Ratio 0.7 L ABG Interpretation ABG results: 07/12/25 07/12/25 04:16 08:45 ABG pH 7.51 H ABG pCO2 22 L ABG pO2 98 ABG HCO3 18 L ABG O2 Saturation 99 H ABG Base Excess -4 L VBG pH 7.50 VBG pCO2 27 L VBG pO2 87 H VBG Base Excess -2 Quality Measures Quality Measures VTE prophylaxis Advance care planning discussed with:: patient and child Assessment & Plan Assessment Current Active Medications: Generic Name Dose Route Start Last Admin Trade Name Freq PRN Reason Stop Dose Admin Dextrose 25 ml 07/12/25 16:13 Dextrose 50%-Water Inj 50 Ml Syringe IV 08/11/25 16:12 Q15MIN PRN BG 50-70 responsive npo pt Dextrose 50 ml 07/12/25 16:13 Dextrose 50%-Water Inj 50 Ml Syringe IV 08/11/25 16:12 Q15MIN PRN BG <50 OR BG <70 & pt unresponsive Furosemide 20 mg 07/13/25 09:45 07/15/25 08:32 Furosemide Inj 10 Mg/Ml Vial 2 Ml IVP 08/12/25 09:44 20 mg QDAY BRYANT Administration Glucagon 1 mg 07/12/25 16:13 Glucagon Inj 1 Mg Vial IM Q15MIN PRN BG <70, and no IV access Heparin Sodium (Porcine) 5,000 unit 07/12/25 13:00 07/15/25 00:30 Heparin Sod Inj 5000 Unit/Ml Vial SC 07/26/25 12:59 5,000 unit Q12H BRYANT Administration Ceftriaxone Sodium/Dextrose 1 gm in 50 mls @ 100 mls/hr 07/13/25 09:00 07/15/25 08:33 Rocephin/D5w 1gm Iv Premix IV 07/20/25 08:59 100 mls/hr QDAY BRYANT Administration Insulin Human Lispro 0 unit 07/13/25 18:00 07/15/25 06:42 Insulin Lispro (Admelog) 1 Unit/0.01 Ml Unit SC 08/12/25 17:59 Not Given Q6HR BRYANT Protocol Ondansetron HCl 4 mg 07/12/25 12:29 Ondansetron Inj 2 Mg/Ml Inj 2 Ml IVP 08/11/25 12:28 Q6H PRN NAUSEA OR VOMITING Protocol Rifaximin 550 mg 07/13/25 09:45 07/15/25 08:32 Rifaximin 550 Mg Tablet PO 07/20/25 09:44 550 mg BID BRYANT Administration Plan Mr. Lee is a 65 year old male with a history of HTN, T2DM, and chronic back pain who presented to [facility] ED from home at 07/11 in the evening due to generalized weakness and mechanical falls. The patient was admitted on 07/12 for decompensated liver disease causing hepatic encephalopathy. #Severe colonic ileus vs #Hepatic colopathy Patient had firming of abdomen on 07/13 and only one bowel movement after lactulose was started on the patient on 07/12. Patient is still able to pass gas occasionally. KUB ordered showed significantly air distended colon and small bowel loops, suspicious for early small bowel obstruction. This could also be hepatic colopathy as found on CT abdomen/pelvis on 07/12. Bedside US of abdomen on 07/13 showed primary distended bowel loops. Repeat KUB on 07/14 showed severe colonic ileus. - Clear liquid diet - NG tube placed 07/13, set to low intermittent suction, patient removed - Repeat CT abdomen/pelvis ordered, showed prominent colonic distension - Consulted general surgery, appreciate recommendations - GI consulted, appreciate recommendations - BEVERLEY with fecal impaction attempted 07/15, no stool in rectal vault #Decompensated liver disease #Liver cirrhosis #Altered mental status #Hepatic encephalopathy The patient endorses a history of frequent alcohol use. The patient presented with a grossly distended abdomen, one that is more distended than normal as per family members. The abdomen is soft and non-tender on admission. CT abdomen taken on 04/05/2022 showed liver cirrhosis and hepatomegaly. Given this past finding and the patient's history of alcohol use, his confusion, weakness, and altered mental status are all most likely a result of decompensated liver disease causing hepatic encephalopathy. MELD score 16, 6% estimated 3-month mortality Child-Zepeda score 10, class C Life Expectancy : 1-3 years, Abdominal surgery cortney-operative mortality: 82% - Ammonia levels ordered, resulted as 68, supporting hepatic encephalopathy - CT abdomen pelvis ordered 07/12, showed cirrhosis, mild ascites, and hepatic colopathy - Low sodium diet with fluid restriction 1500 cc (and consistent carb) - Rifaximin 550 mg twice daily - Hepatitis panel ordered, resulted negative - Ordered copper, ceruloplasmin, and MELODY to screen for other possible causes of liver dysfunction, pending - PT referral ordered given generalized weakness in patient, recommends rehab placement for skilled therapy services - Bedside US of abdomen 07/13 did not show sufficient ascites for paracentesis #Community acquired pneumonia Patient noted to have right base pneumonia on CXR 07/12. Patient denies any shortness of breath and is satting well on room air. WBC was noted to be elevated at 12.5 in the ED. Lactic acid noted to be 3.6 initially, but repeat lactate decreased to 1.7 on 07/12. - Ceftriaxone 1 gm daily (07/12--) - Azithromycin 500 mg daily (07/12-07/14) - Blood cultures ordered, preliminary results 48 hours no growth - Incentive spirometry #Urinary tract infection Patient noted to have very dark urine. Urinalysis was performed in ED, which showed positive leukocyte esterase, 29 urine WBC, and urine bacteria. Given the patient's altered mental status, there may be a component of urinary tract infection affecting this patient's mentation. - Ceftriaxone 1 gm daily (07/12--) - Urine culture ordered, no growth #Elevated bilirubin, resolving #?Cholecystitis vs biliary sludge Patient noted to have total bilirubin of 5.1 initially in ED paired with abdominal pain. After some fluids, total bilirubin decreased to 4.1. Abdominal ultrasound was ordered, which showed gallbladder sludge vs small stones and gallbladder wall thickening of 0.39 cm. - Will continue to monitor symptoms, no abdominal pain noted on admission - Will consider MRCP or HIDA scan if clinically warranted - Fractionated bilirubin ordered, 07/13 showed total bilirubin at 4.0, 2.1 direct and 1.9 indirect, supporting liver disease cause of elevated bilirubin #NSTEMI type II, likely 2/2 demand ischemia #Elevated troponins, resolved #?CHF Patient presented with BLE edema. No shortness of breath or chest pain was noted. EKG did not show acute ST elevations, but patient was positive for troponins, initially 0.108 on presentation, which then downtrended to 0.086. Additionally, the patient presented with BNP of 942, which can suggest CHF, but can also be elevated in patients with decompensated liver disease. Patient did not have any worsening shortness of breath when laid down flat. - Will continue to monitor symptoms, no repeat troponins necessary at this time - Echocardiogram ordered, pending - Strict ins and outs - Fluid restriction 1500cc per day - Daily weights #Non-insulin dependent type 2 diabetes mellitus Patient endorses a history of diabetes. Patient does take metformin at home. Patient follows a PCP for management of diabetes, though he does not know the name of his PCP. - Sliding scale insulin step 1 - Bedside fingerstick glucose checks ACHS - Consistent carb diet #Anemia, normocytic The patient had a initial hemoglobin of 9.0 with MCV of 98 in ED. The patient has a history of taking ferrous sulfate. Given that the patient is new to [facility], it is unclear if this anemia is his baseline or if it is an acute condition. There may also be a component of the patient's decompensated liver disease causing fluid retention, diluting the blood, resulting in anemia. - Hold ferrous sulfate given active infection - Will continue to monitor with daily CBC, transfuse if hemoglobin <7.0 per protocol - Iron panel ordered, resulted as iron 16, TIBC 230, iron saturation 6%, and ferritin 30 #Primary hypertension The patient endorses a history of hypertension. Per the patient's son, the patient takes lisinopril, but is not sure what the home dose is. The patient follows a PCP for management of his hypertension and T2DM. Per medication refills, the patient has also been prescribed chlorthalidone in the past. Per med rec, patient has not been taking any medication at home. - Will hold antihypertensives at this time given soft blood pressures in ED #Alcohol abuse The patient endorses a history of frequent alcohol use. The patient and his family member at bedside stated that the patient drinks about 6 bottles of beer each day for many years. The patient's last drink was on 07/11. - [facility] protocol - [employer] on alcohol cessation - Folic acid 1 mg daily - Thiamine 100 mg twice daily #Hypokalemia The patient had a potassium of 3.1 on 07/12. - Continue to monitor potassium levels and replenish as necessary DVT Prophylaxis: Heparin GI Prophylaxis: N/A Bowel: N/A Diet: Diabetic clear liquid and low sodium with fluid restriction 1500cc Miller: N/A Lines: Peripheral IV, rectal tube Antibiotics: Ceftriaxone (07/12--) Code Status: FULL Reason for Hospitalization: Decompensated liver disease Other Barriers to Discharge: AMS Patient plan of care was discussed with the senior resident Dr. Stoner (PGY-2) and attending physician Dr. Parish Morales, PGY1 Attending Provider Attestation/Addendum Leslie, Peggy Lugo, DO, attest that I was physically present for the barroso portions of the service and evaluated the patient with the resident and I reviewed and discussed the case with the resident and agree with the resident's findings and plans of care as documented above Patient seen and evaluated this AM. He states he is doing well. Sons and niece are at bedside and state that the patient's mentation is improved, but poor short term memory, requiring frequent prompting. Patient has hx of DM and HTN with which he has been noncompliant with his medications. Case discussed with surgeon, recommends GI evaluation who also recommended rectal tube. Rectal tube had been placed yesterday which improved patient's symptoms, but was removed overnight. Will f/u with GI recs. Abdomen is otherwise very distended and firm, but nontender to palpation. Patient tolerating CLD.
--- NOTE | 2025-07-15 11:30 | PC.SS ---
Addendum entered by Siobhan Dupree 07/15/25 12:38: SS met with pt and sonMandeep regarding SNF options. Son's choice is [facility]. SS spoke to Floresita from [facility] and she is starting insurance authorization. SS has sent PASRR and updated inquiry which include updated PT notes to [facility] using [facility]. Original Note: SS called kieran Hua and left voicemail with SS contact information at 10:05am SS also called Tony Lee son and left voicemail SS contact information at 10:06 SS has spoke to patient's sonMandeep and provided him with SNF options [facility] and [facility] (they accepted on [facility]). Mandeep is aware patient's health insurance requires insurance authorization and is a process to obtain and pt possibly will be ready for d/c over the weekend. SonMandeep requests to speak with family about SNF options and will contact today. provided Mandeep with SS contact phone#.
--- NOTE | 2025-07-15 15:36 | PC.SS ---
SS received email from Kavita Scherer CM from patient's health insurance who is requesting inquiry be sent for review for authorization. SS has faxed inquiry and PASRR assessment and patient's information.
--- NOTE | 2025-07-15 17:25 | PD.IMCONS ---
HPI Data of Consult Requesting Physician: Peggy Lugo DO Primary Care Provider: Christiano Guerrero MD Consult Narrative Reason for consult: Abdominal distention, abnormal AXR abnormal CTAP History of present illness: 65 years old male comes in for evaluation to the emergency room subsequently got admitted with bilateral lower extremity swelling and have been consulted for abdominal distention Patient is a binge drinker of alcohol and has cirrhotic liver disease on his CT scan of the abdomen pelvis done with contrast showing bibasilar pneumonia cirrhosis and moderate ascites Abdominal x-ray reviewed shows colonic distention but no air-fluid levels cc:: cc: Peggy Lugo DO Review of Systems Review of Systems Systems Reviewed: All systems reviewed, normal except as documented Past Medical History Surgical History OTHER SURGICAL HX: As in the history of present illness Meds Home Medications and Allergies Home Medications ?Medication ?Instructions ?Recorded ?Confirmed ?Type naproxen 500 mg tablet (Naprosyn) 500 mg PO BIDWM #0 tabs 01/11/17 07/12/25 History chlorthalidone 25 mg tablet 25 mg PO WBR 07/12/25 07/13/25 History ferrous sulfate 325 mg (65 mg 325 mg PO QDAY 07/12/25 07/13/25 History iron) tablet (FeroSul) lisinopril 20 mg tablet 20 mg PO QDAY 07/12/25 07/13/25 History metformin 500 mg tablet 500 mg PO BIDWM 07/12/25 07/13/25 History pravastatin 20 mg tablet 20 mg PO QDAY 07/12/25 07/13/25 History Allergies Allergy/AdvReac Type Severity Reaction Status Date / Time No Known Allergies Allergy Unverified 07/13/25 10:22 Exam Vital Signs Temp Pulse Resp BP Pulse Ox O2 Del Method 97.4 F 84 18 125/74 97 Room Air 07/15/25 12:00 07/15/25 16:00 07/15/25 12:00 07/15/25 12:00 07/15/25 12:00 07/15/25 12:00 Constitutional Comments: Chronically ill-appearing Routine Respiratory Exam Comments: Basal Rales Routine Abdominal Exam Comments: Distended abdomen with hypoactive bowel sounds Results Labs 07/16/25 05:40 07/16/25 05:40 Labs: Short CBC 07/15/25 Range/Units 05:14 WBC 10.8 H (3.8-10.6) Thou/mm3 Hgb 8.8 L (13.5-16.0) g/dL Hct 26.9 L (41.0-53.0) % Plt Count 173 (140-440) Thou/mm3 BMP 07/15/25 05:14 Sodium 140 Potassium 3.5 Chloride 109 H Carbon Dioxide 21.2 BUN 13 Creatinine 0.6 Glucose 102 Calcium 8.9 Liver Function 07/15/25 Range/Units 05:14 Total Bilirubin 2.5 H D (0.3-1.2) mg/dL AST 75 H (0-34) U/L ALT 32 (10-49) U/L Alkaline Phosphatase 125 H (46-116) U/L Albumin 2.6 L (3.4-4.8) gm/dL ABG Interpretation ABG results: 07/12/25 07/12/25 04:16 08:45 ABG pH 7.51 H ABG pCO2 22 L ABG pO2 98 ABG HCO3 18 L ABG O2 Saturation 99 H ABG Base Excess -4 L VBG pH 7.50 VBG pCO2 27 L VBG pO2 87 H VBG Base Excess -2 Assessment and Plan Additional Assessment & Plan Additional Plan: # Colonic colonic inertia with colonic distention most likely pseudoobstruction Plan Rectal tube Reglan 5 mg IV push every 6 hours Will follow the patient closely # Decompensated alcoholic liver disease Continue diuretics Will follow the patient Thank you very much for the opportunity to participate in care of this patient Other medical problems include Bibasilar pneumonia Essential hypertension Anasarca
[2025-07-15] MEDS: METOCLOPRAMIDE INJ 5 MG/ML VIAL 2 ML IVP (18:18)
[2025-07-16] VITALS (10 sets, daily range): BP systolic 109–130; BP diastolic 67–81; PULSE 69–84; RESP 15–19; TEMP 36–36.5; O2SAT 96–99
[2025-07-16] MEDS: HEPARIN SOD INJ 5000 UNIT/ML VIAL SC ×2 (00:03→12:03)
[2025-07-16] MEDS: METOCLOPRAMIDE INJ 5 MG/ML VIAL 2 ML IVP ×4 (00:07→17:47)
[2025-07-16 06:23] LABS: INR 1.4 (0.9-1.3); Partial Thromboplastin Time 36.6 Seconds (22.0-36.0); Prothrombin Time 15.0 Seconds (9.0-12.2)
[2025-07-16 08:40] LABS: Basophils # (Auto) 0.1 Thou/mm3 (0.0-0.2); Basophils % (Auto) 1 % (0-2.5); Eosinophils # (Auto) 0.3 Thou/mm3 (0.0-0.5); Eosinophils % (Auto) 3 % (0-10); Hematocrit 27.2 % (41.0-53.0); Hemoglobin 8.9 g/dL (13.5-16.0); Immature Granulocytes Auto 0.04 Thou/mm3 (0.00-0.00); Lymphocytes # (Auto) 2.7 Thou/mm3 (1.0-4.8); Lymphocytes % (Auto) 26 % (10-50); Mean Corpuscular HGB Conc 32.7 g/dl (31.0-37.0); Mean Corpuscular Hemoglobin 32.8 pg (25.0-35.0); Mean Corpuscular Volume 100 fL (80-100); Monocytes # (Auto) 1.2 Thou/mm3 (0.0-0.8); Monocytes % (Auto) 12 % (0-12); Neutrophils # (Auto) 5.9 Thou/mm3 (1.8-7.7); Neutrophils % (Auto) 58 % (37-80); Nucleated Red Blood Cell # 0.02 Thou/mm3 (0.00-0.00); Nucleated Red Blood Cell % 0 /100 WBC (0); Platelet Count 241 Thou/mm3 (140-440); RDW Standard Deviation 75.9 fL (35.1-43.9); Red Blood Count 2.71 Miln/mm3 (4.50-5.90); White Blood Count 10.1 Thou/mm3 (3.8-10.6)
[2025-07-16] MEDS: cefTRIAXone/D5w 1gm IV premix 1 GM/50 ML BAG IV (08:47)
[2025-07-16] MEDS: FUROSEMIDE INJ 10 MG/ML VIAL 2 ML 20 MG IVP (08:47)
[2025-07-16 08:57] LABS: Alanine Aminotransferase 33 U/L (10-49); Albumin, Serum 2.6 gm/dL (3.4-4.8); Albumin/Globulin Ratio 0.7 (1.2-2.2); Alkaline Phosphatase 128 U/L (46-116); Anion Gap 10 (7-16); Aspartate Amino Transferase 76 U/L (0-34); BUN/Creatinine Ratio 22 Ratio (12-20); Bilirubin,Total 2.4 mg/dL (0.3-1.2); Blood Urea Nitrogen 13 mg/dL (9-23); Calcium 8.9 mg/dL (8.3-10.6); Calcium (Corrected) 10.0 mg/dL (8.5-10.1); Carbon Dioxide 21.8 mMol/L (20.0-31.0); Chloride 106 mMol/L (98-107); Creatinine (Component) 0.6 mg/dL (0.6-1.3); Estimated Creatinine Clearance 127.6 mL/min (>60); Globulin 3.8 gm/dL (2.3-3.5); Glucose 97 mg/dL (74-106); Magnesium 1.8 mg/dL (1.6-2.6); Osmolality,Calculated 275 (275-295); Potassium 3.4 mMol/L (3.4-5.1); Sodium 138 mMol/L (136-145); Total Protein 6.4 gm/dL (5.7-8.2); eGFR > 60 See Note
--- NOTE | 2025-07-16 10:17 | PD.SURPROG ---
Documentation for date of: 07/16/25 Subjective Subjective Brief History: 65 y/o male was admitted into the hospital for concerns of hepatic encephalopathy. Pt has gradually developed a distended abdomen since this past Friday and is now firm to palpation. Pt denies any abdominal pain and has been able to pass gas and has had 3 bowel movements in the past 24 hours. Pt was recently made NPO prior to consult. Pt has experienced a distended abdomen before with spontaneous resolution. Pt has had a colonoscopy before, but does not remember when and thinks it was normal . NG tube was placed yesterday but had fallen out - no significant findings were appreciated on imaging or physical exam, post NG tube placement. 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 Pt denies tobacco use. FHx: Pt admits to brothers and father consuming large amounts of alcohol and denies a family history of colon and rectal cancer. ROS: GI: Pt denies nausea, vomiting, diarrhea. Pulm: Pt denies SOB, cough, wheezing Cardio: Pt denies chest pain and palpitation. Pt admits to R lower leg edema upon inpatient admission. Physical Exam: General: well mannered, non-ambulatory, cooperative 65 y/o male. GI: Upon inspection, pt has a distended abdomen with minor skin jaundice. Pt denies any abdominal tenderness in all 4 quadrants and in the epigastric and suprapubic regions. Abdomen is hyperresonnant in all 4 quadrants. Negative flapping tremor. Rectal exam was negative and no stool was felt in the rectal vault. HEENT: Pt presents with scleral icterus. Cardio: All 4 peripheral pulses intact. No edema appreciated in all 4 extremities. Narrative: Rectal tube replaced yesterday with ongoing stool and gas output, pt reports the bloating feels better and he still has no pain, is tolerating liquids Exam Vital Signs Temp Pulse Resp BP Pulse Ox O2 Del Method 97.1 F 77 19 109/68 99 Room Air 07/16/25 08:00 07/16/25 08:47 07/16/25 08:00 07/16/25 08:47 07/16/25 08:00 07/16/25 08:00 Constitutional Constitutional: no acute distress Routine Respiratory Exam Respiratory: Present no resp distress Routine Abdominal Exam Abdominal: Present soft and distended (moderate distention but noticeably improved from yesterday's exam); Absent tenderness Assessment & Plan Plan 65M admitted into the hospital for hepatic encephalopathy presents with a distended abdomen that is non-tender and firm to the touch, with findings of colonic ileus on imaging, symptomatically improved with rectal tube in place Continue rectal tube for now
--- NOTE | 2025-07-16 10:19 | PC.SS ---
Addendum entered by JOVANNI Wilson 07/16/25 14:27: Floresita at [facility] made contact with [employer] and informed that patient is still pending authorization she will call [employer] once authorization is received. Rounding note: d/c tomorrow if authorization received. Original Note: [employer]NA[employer] placed phone call to [facility] and they stated Floresita is out for the weekend and they do not have staff that covers over the weekend. [employer] inquired if insurance has reached out to confirm authorization, staff were unable to verify and stated that they will reach out to [place], [employer] provided call back number.
--- NOTE | 2025-07-16 12:19 | ESPR_ITS ---
Documentation for date of: 07/16/25 Subjective Subjective Interval history: Symptomatically improved with rectal tube and Reglan Exam Vital Signs Temp Pulse Resp BP Pulse Ox O2 Del Method 96.8 F 69 18 126/68 97 Room Air 07/16/25 12:00 07/16/25 12:00 07/16/25 12:00 07/16/25 12:00 07/16/25 12:00 07/16/25 12:00 Objective Labs 07/16/25 05:40 07/16/25 05:40 Labs: Laboratory Results - last 24 hr 07/16/25 05:40 WBC 10.1 RBC 2.71 L Hgb 8.9 L Hct 27.2 L MCV 100 MCH 32.8 MCHC 32.7 RDW Std Deviation 75.9 H Plt Count 241 D Neut % (Auto) 58 Lymph % (Auto) 26 [place] % (Auto) 12 Eos % (Auto) 3 Baso % (Auto) 1 Neut # (Auto) 5.9 Lymph # (Auto) 2.7 [place] # (Auto) 1.2 H Eos # (Auto) 0.3 Baso # (Auto) 0.1 Immature Gran # (Auto) 0.04 H Absolute Nucleated RBC 0.02 H Immature Gran % 0 Nucleated RBC % 0 PT 15.0 H INR 1.4 H APTT 36.6 H Sodium 138 Potassium 3.4 Chloride 106 Carbon Dioxide 21.8 Anion Gap 10 BUN 13 Creatinine 0.6 Estim Creat Clear Calc 127.6 eGFR > 60 BUN/Creatinine Ratio 22 H Glucose 97 Calculated Osmolality 275 Calcium 8.9 Corrected Calcium 10.0 Magnesium 1.8 Total Bilirubin 2.4 H AST 76 H ALT 33 Alkaline Phosphatase 128 H Total Protein 6.4 Albumin 2.6 L Globulin 3.8 H Albumin/Globulin Ratio 0.7 L Impressions Impression: Colonic inertia continue current management with rectal tube and intravenous Reglan ABG Interpretation ABG results: 07/12/25 07/12/25 04:16 08:45 ABG pH 7.51 H ABG pCO2 22 L ABG pO2 98 ABG HCO3 18 L ABG O2 Saturation 99 H ABG Base Excess -4 L VBG pH 7.50 VBG pCO2 27 L VBG pO2 87 H VBG Base Excess -2 Assessment & Plan A&P Narrative # 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
--- NOTE | 2025-07-16 12:38 | ESPR_ITS ---
<Statement entered by Luly Stoner MD - 07/16/25 14:30> Patient was seen and examined at bedside. I agree on the assessment and plan on this note as documented by resident Mary Campbell DO PGY1. 65-year-old male per resident past medical history as below admitted for decompensated cirrhosis, eventually patient developed pseudoobstruction has significant abdominal distention, started on Reglan 5 mg every 6 hours & will continue rectal tube. Patient's mentation seems stable currently on rifaximin we will continue, continue to hold lactulose. Will continue ceftriaxone for treatment of pneumonia, on exam abdomen is softer compared to yesterday. Continue clear liquid diet, disposition med/tele pending improvement Case discussed with attending Dr. Peggy Castelan MD PGY-2 Documentation for date of: 07/16/25 Subjective Subjective Interval history: No acute overnight events. Patient seen and examined at bedside with family. Patient is AO x 3, denies any current abdominal pain, chest pain, shortness of breath, urinary symptoms or leg swelling. Patient reports defecating without pain through rectal tube, which contains watery brown stool. Per family at bedside, patient mentation is better. 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 Continue CLD advance per GI discretion. Physical therapy recommends SNF, authorization started yesterday. T. bili still elevated likely secondary to liver disease. Continue ceftriaxone for community acquired pneumonia. Urine culture shows no growth, chart reviewed and urine cultures were taken for antibiotic administration in the ED, no UTI at this time. Anemia now macrocytic, restart folic acid 1 mg daily and thiamine 100 mg daily. WBC downtrending 10.8-10.1. Hemoglobin stable 8.9. AST ALT stable elevated. Exam Vital Signs Temp Pulse Resp BP Pulse Ox O2 Del Method 96.8 F 69 18 126/68 97 Room Air 07/16/25 12:00 07/16/25 12:00 07/16/25 12:00 07/16/25 12:00 07/16/25 12:00 07/16/25 12:00 Narrative Exam General: Alert, no acute distress. Skin: Warm, dry, intact. Head: Normocephalic, atraumatic. Eye: Normal conjunctiva, PERRL. Cardiovascular: Regular rate and rhythm, no murmur, +S1/S2. Respiratory: Lungs are clear to auscultation, respirations unlabored, no crackles, no wheezing. Gastrointestinal: Less tense than prior, nontender, distended. No guarding or rebound tenderness. Extremities: No edema, no cyanosis, no clubbing. 2+ radial pulse bilaterally, 2+ pedal pulse bilaterally. Neuro: No focal deficits observed. Conversant, moving all extremities. No overt cerebellar signs/incoordination. Psychiatric: Cooperative, appropriate affect. Objective Labs 07/16/25 05:40 07/16/25 05:40 Labs: Laboratory Results - last 24 hr 07/16/25 05:40 WBC 10.1 RBC 2.71 L Hgb 8.9 L Hct 27.2 L MCV 100 MCH 32.8 MCHC 32.7 RDW Std Deviation 75.9 H Plt Count 241 D Neut % (Auto) 58 Lymph % (Auto) 26 [place] % (Auto) 12 Eos % (Auto) 3 Baso % (Auto) 1 Neut # (Auto) 5.9 Lymph # (Auto) 2.7 [place] # (Auto) 1.2 H Eos # (Auto) 0.3 Baso # (Auto) 0.1 Immature Gran # (Auto) 0.04 H Absolute Nucleated RBC 0.02 H Immature Gran % 0 Nucleated RBC % 0 PT 15.0 H INR 1.4 H APTT 36.6 H Sodium 138 Potassium 3.4 Chloride 106 Carbon Dioxide 21.8 Anion Gap 10 BUN 13 Creatinine 0.6 Estim Creat Clear Calc 127.6 eGFR > 60 BUN/Creatinine Ratio 22 H Glucose 97 Calculated Osmolality 275 Calcium 8.9 Corrected Calcium 10.0 Magnesium 1.8 Total Bilirubin 2.4 H AST 76 H ALT 33 Alkaline Phosphatase 128 H Total Protein 6.4 Albumin 2.6 L Globulin 3.8 H Albumin/Globulin Ratio 0.7 L ABG Interpretation ABG results: 07/12/25 07/12/25 04:16 08:45 ABG pH 7.51 H ABG pCO2 22 L ABG pO2 98 ABG HCO3 18 L ABG O2 Saturation 99 H ABG Base Excess -4 L VBG pH 7.50 VBG pCO2 27 L VBG pO2 87 H VBG Base Excess -2 Quality Measures Quality Measures VTE prophylaxis Advance care planning discussed with:: patient Assessment & Plan Assessment Current Active Medications: Generic Name Dose Route Start Last Admin Trade Name Rudy PRN Reason Stop Dose Admin Dextrose 25 ml 07/12/25 16:13 Dextrose 50%-Water Inj 50 Ml Syringe IV 08/11/25 16:12 Q15MIN PRN BG 50-70 responsive npo pt Dextrose 50 ml 07/12/25 16:13 Dextrose 50%-Water Inj 50 Ml Syringe IV 08/11/25 16:12 Q15MIN PRN BG <50 OR BG <70 & pt unresponsive Furosemide 20 mg 07/13/25 09:45 07/16/25 08:47 Furosemide Inj 10 Mg/Ml Vial 2 Ml IVP 08/12/25 09:44 20 mg QDAY BRYANT Administration Glucagon 1 mg 07/12/25 16:13 Glucagon Inj 1 Mg Vial IM Q15MIN PRN BG <70, and no IV access Heparin Sodium (Porcine) 5,000 unit 07/12/25 13:00 07/16/25 12:03 Heparin Sod Inj 5000 Unit/Ml Vial SC 07/26/25 12:59 5,000 unit Q12H BRYANT Administration Ceftriaxone Sodium/Dextrose 1 gm in 50 mls @ 100 mls/hr 07/13/25 09:00 07/16/25 08:47 Rocephin/D5w 1gm Iv Premix IV 07/20/25 08:59 100 mls/hr QDAY BRYANT Administration Insulin Human Lispro 0 unit 07/15/25 11:30 07/16/25 11:19 Insulin Lispro (Admelog) 1 Unit/0.01 Ml Unit SC 08/14/25 11:29 Not Given AC BRYANT Protocol Metoclopramide HCl 5 mg 07/15/25 18:00 07/16/25 12:03 Metoclopramide Inj 5 Mg/Ml Vial 2 Ml IVP 08/14/25 17:59 5 mg Q6HR BRYANT Administration Protocol Ondansetron HCl 4 mg 07/12/25 12:29 Ondansetron Inj 2 Mg/Ml Inj 2 Ml IVP 08/11/25 12:28 Q6H PRN NAUSEA OR VOMITING Protocol Rifaximin 550 mg 07/13/25 09:45 07/16/25 08:48 Rifaximin 550 Mg Tablet PO 07/20/25 09:44 550 mg BID BRYANT Administration Plan Mr. Lee is a 65 year old male with a history of HTN, T2DM, and chronic back pain who presented to [facility] ED from home at 07/11 in the evening due to generalized weakness and mechanical falls. The patient was admitted on 07/12 for decompensated liver disease causing hepatic encephalopathy. #Oglivie syndrome #Severe colonic ileus most likely pseudoobstruction vs #Hepatic colopathy Patient had firming of abdomen on 07/13 and only one bowel movement after lactulose was started on the patient on 07/12. Patient is still able to pass gas occasionally. KUB ordered showed significantly air distended colon and small bowel loops, suspicious for early small bowel obstruction. This could also be hepatic colopathy as found on CT abdomen/pelvis on 07/12. Bedside US of abdomen on 07/13 showed primary distended bowel loops. Repeat KUB on 07/14 showed severe colonic ileus. - Clear liquid diet - NG tube placed 07/13, set to low intermittent suction, patient removed - Repeat CT abdomen/pelvis ordered, showed prominent colonic distension - Consulted general surgery, appreciate recommendations - GI consulted, appreciate recommendations: rectal tube (inserted 07/15) with Reglan 5 mg IVP q6h - BEVERLEY with fecal impaction attempted 07/15, no stool in rectal vault #Decompensated liver disease #Liver cirrhosis #Altered mental status #Hepatic encephalopathy, resolved The patient endorses a history of frequent alcohol use. The patient presented with a grossly distended abdomen, one that is more distended than normal as per family members. The abdomen is soft and non-tender on admission. CT abdomen taken on 04/05/2022 showed liver cirrhosis and hepatomegaly. Given this past finding and the patient's history of alcohol use, his confusion, weakness, and altered mental status are all most likely a result of decompensated liver disease causing hepatic encephalopathy. MELD score 16, 6% estimated 3-month mortality Child-Zepeda score 10, class C Life Expectancy : 1-3 years, Abdominal surgery cortney-operative mortality: 82% - Ammonia levels ordered, resulted as 68, supporting hepatic encephalopathy - CT abdomen pelvis ordered 07/12, showed cirrhosis, mild ascites, and hepatic colopathy - Low sodium diet with fluid restriction 1500 cc (and consistent carb) - Rifaximin 550 mg twice daily - Hepatitis panel ordered, resulted negative - Ordered copper, ceruloplasmin, and MELODY to screen for other possible causes of liver dysfunction, pending - PT referral ordered given generalized weakness in patient, recommends rehab placement for skilled therapy services, authorization in progress - Bedside US of abdomen 07/13 did not show sufficient ascites for paracentesis #Community acquired pneumonia Patient noted to have right base pneumonia on CXR 07/12. Patient denies any shortness of breath and is satting well on room air. WBC was noted to be elevated at 12.5 in the ED. Lactic acid noted to be 3.6 initially, but repeat lactate decreased to 1.7 on 07/12. - Ceftriaxone 1 gm daily (07/12--) - Azithromycin 500 mg daily (07/12-07/14) - Blood cultures ordered, preliminary results 48 hours no growth - Incentive spirometry #Elevated bilirubin, resolving #?Cholecystitis vs biliary sludge Patient noted to have total bilirubin of 5.1 initially in ED paired with abdominal pain. After some fluids, total bilirubin decreased to 4.1. Abdominal ultrasound was ordered, which showed gallbladder sludge vs small stones and gallbladder wall thickening of 0.39 cm. - Will continue to monitor symptoms, no abdominal pain noted on admission - Will consider MRCP or HIDA scan if clinically warranted - Fractionated bilirubin ordered, 07/13 showed total bilirubin at 4.0, 2.1 direct and 1.9 indirect, supporting liver disease cause of elevated bilirubin #NSTEMI type II, likely 2/2 demand ischemia #Elevated troponins, resolved #Grade I Diastolic Dysfunction Patient presented with BLE edema. No shortness of breath or chest pain was noted. EKG did not show acute ST elevations, but patient was positive for troponins, initially 0.108 on presentation, which then downtrended to 0.086. Additionally, the patient presented with BNP of 942, which can suggest CHF, but can also be elevated in patients with decompensated liver disease. Patient did not have any worsening shortness of breath when laid down flat. - Will continue to monitor symptoms, no repeat troponins necessary at this time - Echocardiogram ordered, showed normal LV size, mild LVH, estimated EF 55 to 60% with grade 1 diastolic dysfunction, RV size mildly increased with normal systolic function, mildly elevated RVSP at 35 to 40 mmHg, mild MR and TR, mild MAC, mild aortic valve sclerosis without stenosis no pericardial effusion - Strict ins and outs - Fluid restriction 1500cc per day - Daily weights #Non-insulin dependent type 2 diabetes mellitus Patient endorses a history of diabetes. Patient does take metformin at home. Patient follows a PCP for management of diabetes, though he does not know the name of his PCP. - Sliding scale insulin step 1 - Bedside fingerstick glucose checks ACHS - Consistent carb diet #Anemia, macrocytic The patient had a initial hemoglobin of 9.0 with MCV of 98 in ED. The patient has a history of taking ferrous sulfate. Given that the patient is new to [facility], it is unclear if this anemia is his baseline or if it is an acute condition. There may also be a component of the patient's decompensated liver disease causing fluid retention, diluting the blood, resulting in anemia. - Hold ferrous sulfate given active infection - Will continue to monitor with daily CBC, transfuse if hemoglobin <7.0 per protocol - Iron panel ordered, resulted as iron 16, TIBC 230, iron saturation 6%, and ferritin 30 - Folic acid 1 mg QD - Recommend outpatient follow up for further management #Primary hypertension The patient endorses a history of hypertension. Per the patient's son, the patient takes lisinopril, but is not sure what the home dose is. The patient follows a PCP for management of his hypertension and T2DM. Per medication refills, the patient has also been prescribed chlorthalidone in the past. Per med rec, patient has not been taking any medication at home. - Will hold antihypertensives at this time given soft blood pressures in ED #Alcohol abuse The patient endorses a history of frequent alcohol use. The patient and his family member at bedside stated that the patient drinks about 6 bottles of beer each day for many years. The patient's last drink was on 07/11. 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 - Continue to monitor potassium levels and replenish as necessary DVT Prophylaxis: Heparin GI Prophylaxis: N/A Bowel: N/A Diet: Diabetic clear liquid and low sodium with fluid restriction 1500cc Miller: N/A Lines: Peripheral IV, rectal tube Antibiotics: Ceftriaxone (07/12--) Code Status: FULL Patient plan of care was discussed with the senior resident Dr. Stoner (PGY-2) and attending physician Dr. Parish Campbell DO Internal Medicine PGY-1 Attending Provider Attestation/Addendum I, Peggy Lugo DO, attest that I was physically present for the [place]roso portions of the service and evaluated the patient with the resident and I reviewed and discussed the case with the resident and agree with the resident's findings and plans of care as documented above Patient seen and evaluated this AM. He states that he is doing well. Abdomen remains distended, but rectal tube has allowed the abdomen to be much softer. Patient has been tolerating CLD. Continue with reglan. Family at bedside and updated. CIWA score of 0.
[2025-07-16] MEDS: FOLIC ACID 1 MG TABLET PO (12:52)
[2025-07-16] MEDS: THIAMINE 100 MG TABLET PO (12:52)
--- NOTE | 2025-07-16 20:28 | PC.NURSE ---
Dr. Martell notified regarding rectal tubing coming out at shift change. He ordered to re-insert rectal tube.
[2025-07-17] VITALS (8 sets, daily range): BP systolic 109–138; BP diastolic 60–70; PULSE 72–87; RESP 13–18; TEMP 36.1–36.7; O2SAT 94–99
[2025-07-17] MEDS: HEPARIN SOD INJ 5000 UNIT/ML VIAL SC ×2 (00:11→13:05)
[2025-07-17] MEDS: METOCLOPRAMIDE INJ 5 MG/ML VIAL 2 ML IVP ×2 (00:12→05:26)
[2025-07-17 05:45] LABS: Basophils # (Auto) 0.1 Thou/mm3 (0.0-0.2); Basophils % (Auto) 1 % (0-2.5); Eosinophils # (Auto) 0.2 Thou/mm3 (0.0-0.5); Eosinophils % (Auto) 3 % (0-10); Hematocrit 26.6 % (41.0-53.0); Hemoglobin 8.9 g/dL (13.5-16.0); Immature Granulocytes Auto 0.03 Thou/mm3 (0.00-0.00); Lymphocytes # (Auto) 1.9 Thou/mm3 (1.0-4.8); Lymphocytes % (Auto) 23 % (10-50); Mean Corpuscular HGB Conc 33.5 g/dl (31.0-37.0); Mean Corpuscular Hemoglobin 32.7 pg (25.0-35.0); Mean Corpuscular Volume 98 fL (80-100); Monocytes # (Auto) 0.9 Thou/mm3 (0.0-0.8); Monocytes % (Auto) 11 % (0-12); Neutrophils # (Auto) 5.4 Thou/mm3 (1.8-7.7); Neutrophils % (Auto) 63 % (37-80); Nucleated Red Blood Cell # 0.00 Thou/mm3 (0.00-0.00); Nucleated Red Blood Cell % 0 /100 WBC (0); Platelet Count 174 Thou/mm3 (140-440); RDW Standard Deviation 70.4 fL (35.1-43.9); Red Blood Count 2.72 Miln/mm3 (4.50-5.90); White Blood Count 8.5 Thou/mm3 (3.8-10.6)
[2025-07-17 06:21] LABS: INR 1.4 (0.9-1.3); Partial Thromboplastin Time 40.4 Seconds (22.0-36.0); Prothrombin Time 15.2 Seconds (9.0-12.2)
[2025-07-17 06:45] LABS: Alanine Aminotransferase 32 U/L (10-49); Albumin, Serum 2.5 gm/dL (3.4-4.8); Albumin/Globulin Ratio 0.7 (1.2-2.2); Alkaline Phosphatase 128 U/L (46-116); Anion Gap 12 (7-16); Aspartate Amino Transferase 80 U/L (0-34); BUN/Creatinine Ratio 22 Ratio (12-20); Bilirubin,Total 2.6 mg/dL (0.3-1.2); Blood Urea Nitrogen 11 mg/dL (9-23); Calcium 8.7 mg/dL (8.3-10.6); Calcium (Corrected) 9.9 mg/dL (8.5-10.1); Carbon Dioxide 20.5 mMol/L (20.0-31.0); Chloride 105 mMol/L (98-107); Creatinine (Component) 0.5 mg/dL (0.6-1.3); Estimated Creatinine Clearance 153.1 mL/min (>60); Globulin 3.7 gm/dL (2.3-3.5); Glucose 81 mg/dL (74-106); Magnesium 1.8 mg/dL (1.6-2.6); Osmolality,Calculated 272 (275-295); Potassium 3.5 mMol/L (3.4-5.1); Sodium 137 mMol/L (136-145); Total Protein 6.2 gm/dL (5.7-8.2); eGFR > 60 See Note
[2025-07-17] MEDS: FOLIC ACID 1 MG TABLET PO (08:39)
[2025-07-17] MEDS: THIAMINE 100 MG TABLET PO (08:39)
[2025-07-17] MEDS: FUROSEMIDE INJ 10 MG/ML VIAL 2 ML 20 MG IVP (08:39)
[2025-07-17] MEDS: cefTRIAXone/D5w 1gm IV premix 1 GM/50 ML BAG IV (08:40)
--- NOTE | 2025-07-17 09:29 | ESPR_ITS ---
<Statement entered by Luly Stoner MD - 07/17/25 14:15> Patient was seen and examined at bedside. I agree on the assessment and plan on this note as documented by resident Santi Morales DO PGY1. 65-year-old male with past medical history of hypertension type 2 diabetes mellitus chronic back pain presented to [facility] with chief complaint of generalized weakness. Patient admitted for decompensated liver cirrhosis with hepatic encephalopathy, started on lactulose and rifaximin, patient also reported daily alcohol use was started on CIWA protocol which was eventually discontinued patient did not have significant withdrawal symptoms for hospitalization. With progression of hospital course patient noted to have abdominal distention lactulose was held, general surgery consulted recommended rectal tube placement, KUB and CT abdomen pelvis showed prominent colonic distention, initially NG tube was placed however patient had minimal output and general surgery recommended against NG placement. Eventually gastroenterology consulted as well recommended IV Reglan rectal tube for decompression, will continue. Started on ceftriaxone and azithromycin (3 days) for pneumonia, will continue ceftriaxone till 07/18 to complete treatment. Pending GI recommendations for further management of pseudoobstruction. Case discussed with attending Dr. Peggy Castelan MD PGY-2 Documentation for date of: 07/17/25 Subjective Subjective Interval history: Overnight events: No acute events overnight. Rectal tube fell out, was put back in. Patient was seen and examined at bedside. AM vitals and labs reviewed. Patient appears more confused today. Could not recall today's date, month, or year. Did not know where he was. Per patient's family, his mentation was good yesterday, but started to decline yesterday afternoon. Abdomen feels tense. Abdominal distension still present, but patient has no pain. Discussed case with Dr. Motta, GI, who will see patient today at 3pm and give further recommendations. Continue ceftriaxone, last dose tomorrow. Reglan increased to 10 mg every 6 hours. Review of systems otherwise negative except for what is mentioned above. Exam Vital Signs Temp Pulse Resp BP Pulse Ox O2 Del Method 96.9 F 73 13 109/68 99 Room Air 07/17/25 08:00 07/17/25 08:39 07/17/25 08:00 07/17/25 08:39 07/17/25 08:00 07/17/25 08:00 Narrative Exam Physical Exam: General: Alert, no acute distress. Skin: Warm, dry, intact. Head: Normocephalic, atraumatic. Eye: Slightly icteric conjunctiva, PERRL. Throat: Oral mucosa moist. No obvious lesions in oropharynx. Cardiovascular: Regular rate and rhythm, systolic murmur best heard over pulmonic and tricuspid areas, +S1/S2. Respiratory: Lungs are clear to auscultation, respirations unlabored, no crackles, no wheezing. Gastrointestinal: Tense, nontender, distended. No guarding or rebound tenderness. Extremities: Trace pedal edema bilaterally, no cyanosis, no clubbing. 2+ radial pulse bilaterally, 2+ pedal pulse bilaterally. Neuro: No focal deficits observed. Conversant, moving all extremities. No overt cerebellar signs/incoordination. Psychiatric: Cooperative, appropriate affect. Objective Labs 07/18/25 05:24 07/18/25 05:24 Labs: Laboratory Results - last 24 hr 07/17/25 04:25 WBC 8.5 RBC 2.72 L Hgb 8.9 L Hct 26.6 L MCV 98 MCH 32.7 MCHC 33.5 RDW Std Deviation 70.4 H Plt Count 174 D Neut % (Auto) 63 Lymph % (Auto) 23 [place] % (Auto) 11 Eos % (Auto) 3 Baso % (Auto) 1 Neut # (Auto) 5.4 Lymph # (Auto) 1.9 [place] # (Auto) 0.9 H Eos # (Auto) 0.2 Baso # (Auto) 0.1 Immature Gran # (Auto) 0.03 H Absolute Nucleated RBC 0.00 Immature Gran % 0 Nucleated RBC % 0 PT 15.2 H INR 1.4 H APTT 40.4 H Sodium 137 Potassium 3.5 Chloride 105 Carbon Dioxide 20.5 Anion Gap 12 BUN 11 Creatinine 0.5 L Estim Creat Clear Calc 153.1 eGFR > 60 BUN/Creatinine Ratio 22 H Glucose 81 Calculated Osmolality 272 L Calcium 8.7 Corrected Calcium 9.9 Magnesium 1.8 Total Bilirubin 2.6 H AST 80 H ALT 32 Alkaline Phosphatase 128 H Total Protein 6.2 Albumin 2.5 L Globulin 3.7 H Albumin/Globulin Ratio 0.7 L ABG Interpretation ABG results: 07/12/25 07/12/25 04:16 08:45 ABG pH 7.51 H ABG pCO2 22 L ABG pO2 98 ABG HCO3 18 L ABG O2 Saturation 99 H ABG Base Excess -4 L VBG pH 7.50 VBG pCO2 27 L VBG pO2 87 H VBG Base Excess -2 Quality Measures Quality Measures VTE prophylaxis Advance care planning discussed with:: patient and child Assessment & Plan Assessment Current Active Medications: Generic Name Dose Route Start Last Admin Trade Name Freq PRN Reason Stop Dose Admin Dextrose 25 ml 07/12/25 16:13 Dextrose 50%-Water Inj 50 Ml Syringe IV 08/11/25 16:12 Q15MIN PRN BG 50-70 responsive npo pt Dextrose 50 ml 07/12/25 16:13 Dextrose 50%-Water Inj 50 Ml Syringe IV 08/11/25 16:12 Q15MIN PRN BG <50 OR BG <70 & pt unresponsive Folic Acid 1 mg 07/16/25 12:45 07/17/25 08:39 Folic Acid 1 Mg Tablet PO 08/15/25 12:44 1 mg QDAY BRYANT Administration Furosemide 20 mg 07/13/25 09:45 07/17/25 08:39 Furosemide Inj 10 Mg/Ml Vial 2 Ml IVP 08/12/25 09:44 20 mg QDAY BRYANT Administration Glucagon 1 mg 07/12/25 16:13 Glucagon Inj 1 Mg Vial IM Q15MIN PRN BG <70, and no IV access Heparin Sodium (Porcine) 5,000 unit 07/12/25 13:00 07/17/25 00:11 Heparin Sod Inj 5000 Unit/Ml Vial SC 07/26/25 12:59 5,000 unit Q12H BRYANT Administration Ceftriaxone Sodium/Dextrose 1 gm in 50 mls @ 100 mls/hr 07/13/25 09:00 07/17/25 08:40 Rocephin/D5w 1gm Iv Premix IV 07/20/25 08:59 100 mls/hr QDAY BRYANT Administration Insulin Human Lispro 0 unit 07/15/25 11:30 07/17/25 08:38 Insulin Lispro (Admelog) 1 Unit/0.01 Ml Unit SC 08/14/25 11:29 Not Given AC [facility] Protocol Metoclopramide HCl 5 mg 07/15/25 18:00 07/17/25 05:26 Metoclopramide Inj 5 Mg/Ml Vial 2 Ml IVP 08/14/25 17:59 5 mg Q6HR BRYANT Administration Protocol Ondansetron HCl 4 mg 07/12/25 12:29 Ondansetron Inj 2 Mg/Ml Inj 2 Ml IVP 08/11/25 12:28 Q6H PRN NAUSEA OR VOMITING Protocol Rifaximin 550 mg 07/13/25 09:45 07/17/25 08:38 Rifaximin 550 Mg Tablet PO 07/20/25 09:44 550 mg BID BRYANT Administration Thiamine HCl 100 mg 07/16/25 12:45 07/17/25 08:39 Thiamine 100 Mg Tablet PO 08/15/25 12:44 100 mg QDAY BRYANT Administration Plan Mr. Lee is a 65 year old male with a history of HTN, T2DM, and chronic back pain who presented to [facility] ED from home at 07/11 in the evening due to generalized weakness and mechanical falls. The patient was admitted on 07/12 for decompensated liver disease causing hepatic encephalopathy. #Oglivie syndrome #Severe colonic ileus most likely pseudoobstruction vs #Hepatic colopathy Patient had firming of abdomen on 07/13 and only one bowel movement after lactulose was started on the patient on 07/12. Patient is still able to pass gas occasionally. KUB ordered showed significantly air distended colon and small bowel loops, suspicious for early small bowel obstruction. This could also be hepatic colopathy as found on CT abdomen/pelvis on 07/12. Bedside US of abdomen on 07/13 showed primary distended bowel loops. Repeat KUB on 07/14 showed severe colonic ileus. - Clear liquid diet - NG tube placed 07/13, set to low intermittent suction, patient removed - Repeat CT abdomen/pelvis ordered, showed prominent colonic distension - Consulted general surgery, appreciate recommendations - GI consulted, appreciate recommendations: rectal tube (inserted 07/15) with Reglan 10 mg IVP q6h, pending further recommendations - BEVERLEY with fecal impaction attempted 07/15, no stool in rectal vault #Decompensated liver disease #Liver cirrhosis #Altered mental status #Hepatic encephalopathy, resolved The patient endorses a history of frequent alcohol use. The patient presented with a grossly distended abdomen, one that is more distended than normal as per family members. The abdomen is soft and non-tender on admission. CT abdomen taken on 04/05/2022 showed liver cirrhosis and hepatomegaly. Given this past finding and the patient's history of alcohol use, his confusion, weakness, and altered mental status are all most likely a result of decompensated liver disease causing hepatic encephalopathy. MELD score 16, 6% estimated 3-month mortality Child-Zepeda score 10, class C Life Expectancy : 1-3 years, Abdominal surgery cortney-operative mortality: 82% - Ammonia levels ordered, resulted as 68, supporting hepatic encephalopathy - CT abdomen pelvis ordered 07/12, showed cirrhosis, mild ascites, and hepatic colopathy - Rifaximin 550 mg twice daily - Hepatitis panel ordered, resulted negative - Ordered copper, ceruloplasmin, and MELODY to screen for other possible causes of liver dysfunction, pending - PT referral ordered given generalized weakness in patient, recommends rehab placement for skilled therapy services, authorization in progress - Bedside US of abdomen 07/13 did not show sufficient ascites for paracentesis #Community acquired pneumonia Patient noted to have right base pneumonia on CXR 07/12. Patient denies any shortness of breath and is satting well on room air. WBC was noted to be elevated at 12.5 in the ED. Lactic acid noted to be 3.6 initially, but repeat lactate decreased to 1.7 on 07/12. - Ceftriaxone 1 gm daily (07/12-07/18) - Azithromycin 500 mg daily (07/12-07/14) - Blood cultures ordered, preliminary results 48 hours no growth - Incentive spirometry #Elevated bilirubin, resolving #?Cholecystitis vs biliary sludge Patient noted to have total bilirubin of 5.1 initially in ED paired with abdominal pain. After some fluids, total bilirubin decreased to 4.1. Abdominal ultrasound was ordered, which showed gallbladder sludge vs small stones and gallbladder wall thickening of 0.39 cm. - Will continue to monitor symptoms, no abdominal pain noted on admission - Will consider MRCP or HIDA scan if clinically warranted - Fractionated bilirubin ordered, 07/13 showed total bilirubin at 4.0, 2.1 direct and 1.9 indirect, supporting liver disease cause of elevated bilirubin #NSTEMI type II, likely 2/2 demand ischemia #Elevated troponins, resolved #Grade I Diastolic Dysfunction Patient presented with BLE edema. No shortness of breath or chest pain was noted. EKG did not show acute ST elevations, but patient was positive for troponins, initially 0.108 on presentation, which then downtrended to 0.086. Additionally, the patient presented with BNP of 942, which can suggest CHF, but can also be elevated in patients with decompensated liver disease. Patient did not have any worsening shortness of breath when laid down flat. - Will continue to monitor symptoms, no repeat troponins necessary at this time - Echocardiogram ordered, showed normal LV size, mild LVH, estimated EF 55 to 60% with grade 1 diastolic dysfunction, RV size mildly increased with normal systolic function, mildly elevated RVSP at 35 to 40 mmHg, mild MR and TR, mild MAC, mild aortic valve sclerosis without stenosis no pericardial effusion - Strict ins and outs - Fluid restriction 1500cc per day - Daily weights #Non-insulin dependent type 2 diabetes mellitus Patient endorses a history of diabetes. Patient does take metformin at home. Patient follows a PCP for management of diabetes, though he does not know the name of his PCP. - Sliding scale insulin step 1 - Bedside fingerstick glucose checks ACHS #Anemia, macrocytic The patient had a initial hemoglobin of 9.0 with MCV of 98 in ED. The patient has a history of taking ferrous sulfate. Given that the patient is new to [facility], it is unclear if this anemia is his baseline or if it is an acute condition. There may also be a component of the patient's decompensated liver disease causing fluid retention, diluting the blood, resulting in anemia. - Hold ferrous sulfate given active infection - Will continue to monitor with daily CBC, transfuse if hemoglobin <7.0 per protocol - Iron panel ordered, resulted as iron 16, TIBC 230, iron saturation 6%, and ferritin 30 - Folic acid 1 mg QD - Recommend outpatient follow up for further management #Primary hypertension The patient endorses a history of hypertension. Per the patient's son, the patient takes lisinopril, but is not sure what the home dose is. The patient follows a PCP for management of his hypertension and T2DM. Per medication refills, the patient has also been prescribed chlorthalidone in the past. Per med rec, patient has not been taking any medication at home. - Will hold antihypertensives at this time given soft blood pressures in ED #Alcohol abuse The patient endorses a history of frequent alcohol use. The patient and his family member at bedside stated that the patient drinks about 6 bottles of beer each day for many years. The patient's last drink was on 07/11. - CIWA protocol, stopped - Iridologist on alcohol cessation - Folic acid 1 mg daily - Thiamine 100 mg QD #Hypokalemia The patient had a potassium of 3.1 on 07/12. - Continue to monitor potassium levels and replenish as necessary DVT Prophylaxis: Heparin GI Prophylaxis: N/A Bowel: N/A Diet: Clear liquids Miller: N/A Lines: Peripheral IV, rectal tube Antibiotics: Ceftriaxone (07/12-07/18) Code Status: FULL Patient plan of care was discussed with the senior resident Dr. Stoner (PGY-2) and attending physician Dr. Parish Morales DO, PGY-1 Attending Provider Attestation/Addendum I, Peggy Lugo DO, attest that I was physically present for the barroso portions of the service and evaluated the patient with the resident and I reviewed and discussed the case with the resident and agree with the resident's findings and plans of care as documented above Patient seen and evaluated this AM. He states he is feeling well and very hungry. However, rectal tube has not been working well. Patient reports a lot of discomfort from rectal tube. Moreover, it has been leaking around the tube per nursing. Will DC rectal tube at this time as it appears to be futile. Abdomen is distended again, will increase reglan to 10gm q6hr. Will f/u with GI recommendations
[2025-07-17] MEDS: METOCLOPRAMIDE INJ 5 MG/ML VIAL 2 ML 10 MG IVP ×2 (11:51→17:02)
--- NOTE | 2025-07-17 14:21 | PC.SS ---
Rounding note: follow up with GI, Dr. Motta today.
--- NOTE | 2025-07-17 16:48 | XR_ITS ---
Examination: Abdomen AP single view Technique: AP portable supine abdomen, single view Exam date and time: July 17, 2025, 1651 hrs. Comparison July 14, 2025 Indications: Abdominal distention today. Findings: Improvement with markedly less colonic distention There is a small bowel ileus No free air No abnormal calcific densities Impression: The marked colonic ileus is no longer identified. Mild small bowel ileus
--- NOTE | 2025-07-17 17:17 | PD.IMPROG ---
Documentation for date of: 07/17/25 Subjective Subjective Interval history: Abdomen is much less distended I ordered a stat KUB looks like very little dilatation of the colon Some small bowel dilatation seen but no air-fluid levels Advance to full liquid diet Exam Vital Signs Temp Pulse Resp BP Pulse Ox O2 Del Method 97.3 F 87 14 117/67 98 Room Air 07/17/25 16:00 07/17/25 16:00 07/17/25 16:00 07/17/25 16:00 07/17/25 16:00 07/17/25 16:00 Objective Labs 07/17/25 04:25 07/17/25 04:25 Labs: Laboratory Results - last 24 hr 07/17/25 04:25 WBC 8.5 RBC 2.72 L Hgb 8.9 L Hct 26.6 L MCV 98 MCH 32.7 MCHC 33.5 RDW Std Deviation 70.4 H Plt Count 174 D Neut % (Auto) 63 Lymph % (Auto) 23 [place] % (Auto) 11 Eos % (Auto) 3 Baso % (Auto) 1 Neut # (Auto) 5.4 Lymph # (Auto) 1.9 [place] # (Auto) 0.9 H Eos # (Auto) 0.2 Baso # (Auto) 0.1 Immature Gran # (Auto) 0.03 H Absolute Nucleated RBC 0.00 Immature Gran % 0 Nucleated RBC % 0 PT 15.2 H INR 1.4 H APTT 40.4 H Sodium 137 Potassium 3.5 Chloride 105 Carbon Dioxide 20.5 Anion Gap 12 BUN 11 Creatinine 0.5 L Estim Creat Clear Calc 153.1 eGFR > 60 BUN/Creatinine Ratio 22 H Glucose 81 Calculated Osmolality 272 L Calcium 8.7 Corrected Calcium 9.9 Magnesium 1.8 Total Bilirubin 2.6 H AST 80 H ALT 32 Alkaline Phosphatase 128 H Total Protein 6.2 Albumin 2.5 L Globulin 3.7 H Albumin/Globulin Ratio 0.7 L Impressions Impression: Colonic inertia Improving colonic distention Latest KUB really has improved colonic dilatation Advance to full liquid diet as tolerates advance to ADA diet ABG Interpretation ABG results: 07/12/25 07/12/25 04:16 08:45 ABG pH 7.51 H ABG pCO2 22 L ABG pO2 98 ABG HCO3 18 L ABG O2 Saturation 99 H ABG Base Excess -4 L VBG pH 7.50 VBG pCO2 27 L VBG pO2 87 H VBG Base Excess -2 Assessment & Plan A&P Narrative # 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
[2025-07-18] VITALS (9 sets, daily range): BP systolic 115–138; BP diastolic 67–76; PULSE 69–103; RESP 15–19; TEMP 36.2–36.6; O2SAT 94–98; BMI 26.5
[2025-07-18] MEDS: HEPARIN SOD INJ 5000 UNIT/ML VIAL SC ×2 (00:58→12:25)
[2025-07-18] MEDS: METOCLOPRAMIDE INJ 5 MG/ML VIAL 2 ML 10 MG IVP ×4 (00:59→17:22)
[2025-07-18 05:50] LABS: Basophils # (Auto) 0.1 Thou/mm3 (0.0-0.2); Basophils % (Auto) 1 % (0-2.5); Eosinophils # (Auto) 0.2 Thou/mm3 (0.0-0.5); Eosinophils % (Auto) 2 % (0-10); Hematocrit 25.4 % (41.0-53.0); Immature Granulocytes Auto 0.03 Thou/mm3 (0.00-0.00); Lymphocytes # (Auto) 1.8 Thou/mm3 (1.0-4.8); Lymphocytes % (Auto) 21 % (10-50); Mean Corpuscular HGB Conc 33.9 g/dl (31.0-37.0); Mean Corpuscular Hemoglobin 33.1 pg (25.0-35.0); Mean Corpuscular Volume 98 fL (80-100); Monocytes # (Auto) 0.9 Thou/mm3 (0.0-0.8); Monocytes % (Auto) 11 % (0-12); Neutrophils # (Auto) 5.5 Thou/mm3 (1.8-7.7); Neutrophils % (Auto) 65 % (37-80); Nucleated Red Blood Cell # 0.00 Thou/mm3 (0.00-0.00); Nucleated Red Blood Cell % 0 /100 WBC (0); Platelet Count 168 Thou/mm3 (140-440); RDW Standard Deviation 71.0 fL (35.1-43.9); Red Blood Count 2.60 Miln/mm3 (4.50-5.90); White Blood Count 8.4 Thou/mm3 (3.8-10.6)
[2025-07-18 05:54] LABS: Hemoglobin 8.6 g/dL (13.5-16.0)
[2025-07-18 06:01] LABS: INR 1.5 (0.9-1.3); Partial Thromboplastin Time 44.5 Seconds (22.0-36.0); Prothrombin Time 15.6 Seconds (9.0-12.2)
[2025-07-18 06:29] LABS: Alanine Aminotransferase 30 U/L (10-49); Albumin, Serum 2.4 gm/dL (3.4-4.8); Albumin/Globulin Ratio 0.6 (1.2-2.2); Alkaline Phosphatase 124 U/L (46-116); Anion Gap 11 (7-16); Aspartate Amino Transferase 75 U/L (0-34); BUN/Creatinine Ratio 16 Ratio (12-20); Bilirubin,Total 2.6 mg/dL (0.3-1.2); Blood Urea Nitrogen 8 mg/dL (9-23); Calcium 8.4 mg/dL (8.3-10.6); Calcium (Corrected) 9.7 mg/dL (8.5-10.1); Carbon Dioxide 20.5 mMol/L (20.0-31.0); Chloride 106 mMol/L (98-107); Creatinine (Component) 0.5 mg/dL (0.6-1.3); Estimated Creatinine Clearance 140.6 mL/min (>60); Globulin 3.7 gm/dL (2.3-3.5); Glucose 96 mg/dL (74-106); Magnesium 1.7 mg/dL (1.6-2.6); Osmolality,Calculated 272 (275-295); Potassium 3.3 mMol/L (3.4-5.1); Sodium 137 mMol/L (136-145); Total Protein 6.1 gm/dL (5.7-8.2); eGFR > 60 See Note
[2025-07-18] MEDS: Magnesium Sulfate 4 GM Ivpb 4 GM/50 ML BAG IV (08:13)
[2025-07-18] MEDS: THIAMINE 100 MG TABLET PO (08:13)
[2025-07-18] MEDS: FUROSEMIDE INJ 10 MG/ML VIAL 2 ML 20 MG IVP (08:14)
[2025-07-18] MEDS: cefTRIAXone/D5w 1gm IV premix 1 GM/50 ML BAG IV (08:14)
[2025-07-18] MEDS: FOLIC ACID 1 MG TABLET PO (08:14)
--- NOTE | 2025-07-18 09:27 | ESPR_ITS ---
<Statement entered by Randy Alberto MD - 07/18/25 14:40> Patient seen and assessed in hospital bed appears awake and answering questions appropriately in Italian. Patient's daughter bedside was given explanation regarding the patient's diagnosis of cirrhosis and sequelae associated. Will continue patient on furosemide but will additionally add spironolactone with consideration of starting carvedilol for esophageal variceal prophylaxis. Patient's heart rate and blood pressure within acceptable range. Patient also restarted on lactulose per approval from gastroenterology consult. Will continue monitoring the patient closely and expect discharge within the next 24 to 48 hours to [facility] facility. I have personally seen and examined the patient. I agree with the resident's assessment and plan as documented below. Randy Alberto DO PGY-2 Internal Medicine - GME Documentation for date of: 07/18/25 Subjective Subjective Interval history: Overnight events: No acute events overnight. Patient was seen and examined at bedside. AM vitals and labs reviewed. Abdomen is much softer today and does not appear to be as distended. Rectal tube removed yesterday. Patient continues to be confused per family at bedside. Started patient on spironolactone 25 mg BID. Resumed lactulose 20 g twice daily. Discussed case with GI, Dr. Motta, who also recommends low residue diet. Review of systems otherwise negative except for what is mentioned above. Exam Vital Signs Temp Pulse Resp BP Pulse Ox O2 Del Method 97.2 F 87 18 132/69 H 97 Room Air 07/18/25 04:00 07/18/25 08:14 07/18/25 04:00 07/18/25 08:14 07/18/25 04:00 07/17/25 16:00 Narrative Exam Physical Exam: General: Alert, no acute distress. Skin: Warm, dry, intact. Head: Normocephalic, atraumatic. Eye: Slightly icteric conjunctiva, PERRL. Throat: Oral mucosa moist. No obvious lesions in oropharynx. Cardiovascular: Regular rate and rhythm, systolic murmur best heard over pulmonic and tricuspid areas, +S1/S2. Respiratory: Lungs are clear to auscultation, respirations unlabored, no crackles, no wheezing. Gastrointestinal: Soft, nontender, distended. No guarding or rebound tenderness. Extremities: Trace pedal edema bilaterally, no cyanosis, no clubbing. 2+ radial pulse bilaterally, 2+ pedal pulse bilaterally. Neuro: No focal deficits observed. Conversant, moving all extremities. No overt cerebellar signs/incoordination. Psychiatric: Cooperative, appropriate affect. Objective Labs 07/19/25 04:24 07/19/25 04:24 Labs: Laboratory Results - last 24 hr 07/18/25 05:24 WBC 8.4 RBC 2.60 L Hgb 8.6 L Hct 25.4 L MCV 98 MCH 33.1 MCHC 33.9 RDW Std Deviation 71.0 H Plt Count 168 Neut % (Auto) 65 Lymph % (Auto) 21 [place] % (Auto) 11 Eos % (Auto) 2 Baso % (Auto) 1 Neut # (Auto) 5.5 Lymph # (Auto) 1.8 [place] # (Auto) 0.9 H Eos # (Auto) 0.2 Baso # (Auto) 0.1 Immature Gran # (Auto) 0.03 H Absolute Nucleated RBC 0.00 Immature Gran % 0 Nucleated RBC % 0 PT 15.6 H INR 1.5 H APTT 44.5 H Sodium 137 Potassium 3.3 L Chloride 106 Carbon Dioxide 20.5 Anion Gap 11 BUN 8 L Creatinine 0.5 L Estim Creat Clear Calc 140.6 eGFR > 60 BUN/Creatinine Ratio 16 Glucose 96 Calculated Osmolality 272 L Calcium 8.4 Corrected Calcium 9.7 Magnesium 1.7 Total Bilirubin 2.6 H AST 75 H ALT 30 Alkaline Phosphatase 124 H Total Protein 6.1 Albumin 2.4 L Globulin 3.7 H Albumin/Globulin Ratio 0.6 L ABG Interpretation ABG results: 07/12/25 07/12/25 04:16 08:45 ABG pH 7.51 H ABG pCO2 22 L ABG pO2 98 ABG HCO3 18 L ABG O2 Saturation 99 H ABG Base Excess -4 L VBG pH 7.50 VBG pCO2 27 L VBG pO2 87 H VBG Base Excess -2 Quality Measures Quality Measures VTE prophylaxis Advance care planning discussed with:: patient and child Assessment & Plan Assessment Current Active Medications: Generic Name Dose Route Start Last Admin Trade Name Freq PRN Reason Stop Dose Admin Dextrose 25 ml 07/12/25 16:13 Dextrose 50%-Water Inj 50 Ml Syringe IV 08/11/25 16:12 Q15MIN PRN BG 50-70 responsive npo pt Dextrose 50 ml 07/12/25 16:13 Dextrose 50%-Water Inj 50 Ml Syringe IV 08/11/25 16:12 Q15MIN PRN BG <50 OR BG <70 & pt unresponsive Folic Acid 1 mg 07/16/25 12:45 07/18/25 08:14 Folic Acid 1 Mg Tablet PO 08/15/25 12:44 1 mg QDAY BRYANT Administration Furosemide 20 mg 07/13/25 09:45 07/18/25 08:14 Furosemide Inj 10 Mg/Ml Vial 2 Ml IVP 08/12/25 09:44 20 mg QDAY BRYANT Administration Glucagon 1 mg 07/12/25 16:13 Glucagon Inj 1 Mg Vial IM Q15MIN PRN BG <70, and no IV access Heparin Sodium (Porcine) 5,000 unit 07/12/25 13:00 07/18/25 00:58 Heparin Sod Inj 5000 Unit/Ml Vial SC 07/26/25 12:59 5,000 unit Q12H BRYANT Administration Ceftriaxone Sodium/Dextrose 1 gm in 50 mls @ 100 mls/hr 07/13/25 09:00 07/18/25 08:14 Rocephin/D5w 1gm Iv Premix IV 07/20/25 08:59 100 mls/hr QDAY BRYANT Administration Magnesium Sulfate 4 gm in 50 mls @ 12.5 mls/hr 07/18/25 07:50 07/18/25 08:13 Magnesium Sulfate Ivpb IV 07/18/25 11:49 12.5 mls/hr X1 ONE Administration Insulin Human Lispro 0 unit 07/15/25 11:30 07/18/25 07:58 Insulin Lispro (Admelog) 1 Unit/0.01 Ml Unit SC 08/14/25 11:29 Not Given AC BRYANT Protocol Metoclopramide HCl 10 mg 07/17/25 12:00 07/18/25 05:15 Metoclopramide Inj 5 Mg/Ml Vial 2 Ml IVP 08/16/25 11:59 10 mg Q6HR BRYANT Administration Protocol Ondansetron HCl 4 mg 07/12/25 12:29 Ondansetron Inj 2 Mg/Ml Inj 2 Ml IVP 08/11/25 12:28 Q6H PRN NAUSEA OR VOMITING Protocol Rifaximin 550 mg 07/13/25 09:45 07/18/25 08:13 Rifaximin 550 Mg Tablet PO 07/20/25 09:44 550 mg BID BRYANT Administration Thiamine HCl 100 mg 07/16/25 12:45 07/18/25 08:13 Thiamine 100 Mg Tablet PO 08/15/25 12:44 100 mg QDAY BRYANT Administration Plan Mr. Lee is a 65 year old male with a history of HTN, T2DM, and chronic back pain who presented to [facility] ED from home at 07/11 in the evening due to generalized weakness and mechanical falls. The patient was admitted on 07/12 for decompensated liver disease causing hepatic encephalopathy. #Decompensated liver disease #Liver cirrhosis #Altered mental status #Hepatic encephalopathy, resolved The patient endorses a history of frequent alcohol use. The patient presented with a grossly distended abdomen, one that is more distended than normal as per family members. The abdomen is soft and non-tender on admission. CT abdomen taken on 04/05/2022 showed liver cirrhosis and hepatomegaly. Given this past finding and the patient's history of alcohol use, his confusion, weakness, and altered mental status are all most likely a result of decompensated liver disease causing hepatic encephalopathy. MELD score 16, 6% estimated 3-month mortality Child-Zepeda score 10, class C Life Expectancy : 1-3 years, Abdominal surgery cortney-operative mortality: 82% - Ammonia levels ordered, resulted as 68, supporting hepatic encephalopathy - CT abdomen pelvis ordered 07/12, showed cirrhosis, mild ascites, and hepatic colopathy - Rifaximin 550 mg twice daily - Lactulose 20 gm twice daily - Spironolactone 25 mg twice daily - Hepatitis panel ordered, resulted negative - Ordered copper, ceruloplasmin, and MELODY to screen for other possible causes of liver dysfunction, pending - PT referral ordered given generalized weakness in patient, recommends rehab placement for skilled therapy services, authorization in progress - Bedside US of abdomen 07/13 did not show sufficient ascites for paracentesis #[place]glivie syndrome, resolving #Severe colonic ileus most likely pseudoobstruction vs #Hepatic colopathy Patient had firming of abdomen on 07/13 and only one bowel movement after lactulose was started on the patient on 07/12. Patient is still able to pass gas occasionally. KUB ordered showed significantly air distended colon and small bowel loops, suspicious for early small bowel obstruction. This could also be hepatic colopathy as found on CT abdomen/pelvis on 07/12. Bedside US of abdomen on 07/13 showed primary distended bowel loops. Repeat KUB on 07/14 showed severe colonic ileus. - Low fiber, consistent carb, cardiac, and fluid restriction 1500cc diet - NG tube placed 07/13, set to low intermittent suction, patient removed - Repeat CT abdomen/pelvis ordered, showed prominent colonic distension - Consulted general surgery, appreciate recommendations - GI consulted, appreciate recommendations: rectal tube (inserted 07/15) with Reglan 10 mg IVP q6h, pending further recommendations - BEVERLEY with fecal impaction attempted 07/15, no stool in rectal vault #Community acquired pneumonia Patient noted to have right base pneumonia on CXR 07/12. Patient denies any shortness of breath and is satting well on room air. WBC was noted to be elevated at 12.5 in the ED. Lactic acid noted to be 3.6 initially, but repeat lactate decreased to 1.7 on 07/12. - Ceftriaxone 1 gm daily (07/12-07/18) - Azithromycin 500 mg daily (07/12-07/14) - Blood cultures ordered, preliminary results 48 hours no growth - Incentive spirometry #Elevated bilirubin, resolving #?Cholecystitis vs biliary sludge Patient noted to have total bilirubin of 5.1 initially in ED paired with abdominal pain. After some fluids, total bilirubin decreased to 4.1. Abdominal ultrasound was ordered, which showed gallbladder sludge vs small stones and gallbladder wall thickening of 0.39 cm. - Will continue to monitor symptoms, no abdominal pain noted on admission - Will consider MRCP or HIDA scan if clinically warranted - Fractionated bilirubin ordered, 07/13 showed total bilirubin at 4.0, 2.1 direct and 1.9 indirect, supporting liver disease cause of elevated bilirubin #NSTEMI type II, likely 2/2 demand ischemia #Elevated troponins, resolved #Grade I Diastolic Dysfunction Patient presented with BLE edema. No shortness of breath or chest pain was noted. EKG did not show acute ST elevations, but patient was positive for troponins, initially 0.108 on presentation, which then downtrended to 0.086. Additionally, the patient presented with BNP of 942, which can suggest CHF, but can also be elevated in patients with decompensated liver disease. Patient did not have any worsening shortness of breath when laid down flat. - Will continue to monitor symptoms, no repeat troponins necessary at this time - Echocardiogram ordered, showed normal LV size, mild LVH, estimated EF 55 to 60% with grade 1 diastolic dysfunction, RV size mildly increased with normal systolic function, mildly elevated RVSP at 35 to 40 mmHg, mild MR and TR, mild MAC, mild aortic valve sclerosis without stenosis no pericardial effusion - Strict ins and outs - Fluid restriction 1500cc per day - Daily weights #Non-insulin dependent type 2 diabetes mellitus Patient endorses a history of diabetes. Patient does take metformin at home. Patient follows a PCP for management of diabetes, though he does not know the name of his PCP. - Sliding scale insulin step 1 - Bedside fingerstick glucose checks ACHS #Anemia, macrocytic The patient had a initial hemoglobin of 9.0 with MCV of 98 in ED. The patient has a history of taking ferrous sulfate. Given that the patient is new to [facility], it is unclear if this anemia is his baseline or if it is an acute condition. There may also be a component of the patient's decompensated liver disease causing fluid retention, diluting the blood, resulting in anemia. - Hold ferrous sulfate given active infection - Will continue to monitor with daily CBC, transfuse if hemoglobin <7.0 per protocol - Iron panel ordered, resulted as iron 16, TIBC 230, iron saturation 6%, and ferritin 30 - Folic acid 1 mg QD - Recommend outpatient follow up for further management #Primary hypertension The patient endorses a history of hypertension. Per the patient's son, the patient takes lisinopril, but is not sure what the home dose is. The patient follows a PCP for management of his hypertension and T2DM. Per medication refills, the patient has also been prescribed chlorthalidone in the past. Per med rec, patient has not been taking any medication at home. - Will hold antihypertensives at this time given soft blood pressures in ED #Alcohol abuse The patient endorses a history of frequent alcohol use. The patient and his family member at bedside stated that the patient drinks about 6 bottles of beer each day for many years. The patient's last drink was on 07/11. - CIWA protocol, stopped - Log Sorter on alcohol cessation - Folic acid 1 mg daily - Thiamine 100 mg QD #Hypokalemia The patient had a potassium of 3.1 on 07/12. - Continue to monitor potassium levels and replenish as necessary DVT Prophylaxis: Heparin GI Prophylaxis: N/A Bowel: N/A Diet: Low fiber, consistent carb, cardiac, and fluid restriction 1500cc Miller: N/A Lines: Peripheral IV Antibiotics: Ceftriaxone (07/12-07/18) Code Status: FULL Patient plan of care was discussed with the senior resident Dr. Alberto (PGY- 2) and attending physician Dr. Parish Morales DO, PGY-1 Attending Provider Attestation/Addendum Peggy eNlson DO, attest that I was physically present for the barroso portions of the service and evaluated the patient with the resident and I reviewed and discussed the case with the resident and agree with the resident's findings and plans of care as documented above Patient seen and evaluated this AM. Abdomen appears to be softer and less distended today. Patient states he is hungry and has been tolerating full liquid diet. Patient is to be advanced to low fiber diet. Continue with IV reglan at this time. Encouraged patient to ambulate with assistance and continue with PT. He is more disoriented today. Will restart lactulose. No abdominal tenderness to palpation.
--- NOTE | 2025-07-18 10:10 | PC.SS ---
Addendum entered by JOVANNI Wilson 07/18/25 14:54: Rounding note: more awake, managing medication, d/c to [facility] once authorization received. Original Note: SS update: MANAGER LAW spoke to Floresita at [facility] to inquire about authorization, Floresita stated that patient is still pending authorization and she will check again today and notify MANAGER LAW once authorization is received.
[2025-07-18] MEDS: SPIRONOLACTONE 25 MG TABLET PO ×2 (10:37→20:37)
[2025-07-18] MEDS: LACTULOSE SYRUP 20 GM/30 ML UDC PO ×2 (12:24→20:38)
--- NOTE | 2025-07-18 13:14 | ESPR_ITS ---
Documented by User: [email or web address] Garcia [employer]Student 07/18/25 13:51 Documentation for date of: 07/18/25 Subjective Subjective Brief History: 65 y/o male was admitted into the hospital for concerns of hepatic encephalopathy. Pt has gradually developed a distended abdomen since this past Friday and is now firm to palpation. Pt denies any abdominal pain and has been able to pass gas and has had 3 bowel movements in the past 24 hours. Pt was recently made NPO prior to consult. Pt has experienced a distended abdomen before with spontaneous resolution. Pt has had a colonoscopy before, but does not remember when and thinks it was normal . NG tube was placed yesterday but had fallen out - no significant findings were appreciated on imaging or physical exam, post NG tube placement. 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 Pt denies tobacco use. FHx: Pt admits to brothers and father consuming large amounts of alcohol and denies a family history of colon and rectal cancer. ROS: GI: Pt denies nausea, vomiting, diarrhea. Pulm: Pt denies SOB, cough, wheezing Cardio: Pt denies chest pain and palpitation. Pt admits to R lower leg edema upon inpatient admission. Physical Exam: General: Vincentian-speaking, well mannered, non-ambulatory, cooperative 65 y/o male. GI: Upon inspection, pt has a distended abdomen with minor skin jaundice. Pt denies any abdominal tenderness in all 4 quadrants and in the epigastric and suprapubic regions. Abdomen is hyperresonnant in all 4 quadrants. Negative flapping tremor. Rectal exam was negative and no stool was felt in the rectal vault. HEENT: Pt presents with scleral icterus. Cardio: All 4 peripheral pulses intact. No edema appreciated in all 4 extr emities. Assessment: 65 y/o Vincentian-speaking male admitted into the hospital for hepatic encephalopathy presents with a distended abdomen that is non-tender and firm to the touch. Physical exam yielded mildly jaundiced skin, a hyperrosonnant abdomen in all 4 quadrants, with negative peritonitis. Pt has agreed to a rectal tube placement and a clear liquid diet. Narrative: 65 y/o male was admitted into the hospital for concerns of hepatic encephalopathy. Surgery was asked for a consult due to the development of a distended abdomen since last Friday. The abdomen is now less firm than the previous assessment. Pt denies any abdominal pain in all four quadrants nor the epigastric nor the suprapubic area and has been able to pass gas and perform bowel movements in the last 24 hours. Pt denies fever nor chills, but admits to edema in the bilateral lower extremities. Rectal tube was placed over the weekend, but has since been removed. Pt has been agreeable to a liquid diet. As per RN, GI has been consulted, and no acute changes were observed overnight. 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 Pt denies tobacco use. FHx: Pt admits to brothers and father consuming large amounts of alcohol and denies a family history of colon and rectal cancer. ROS: GI: Pt denies nausea, vomiting, diarrhea. Pulm: Pt denies SOB, cough, wheezing. Cardio: Pt denies chest pain and palpitation. Pt admits to R lower leg edema upon inpatient admission. Exam Vital Signs Temp Pulse Resp BP Pulse Ox O2 Del Method 97.1 F 83 19 115/69 98 Room Air 07/18/25 08:00 07/18/25 10:37 07/18/25 08:00 07/18/25 10:37 07/18/25 08:00 07/18/25 08:00 Narrative Exam Physical Exam: General: Vincentian-speaking, well mannered, non-ambulatory, cooperative 65 y/o male. GI: Upon inspection, pt has a moderately distended abdomen that has improved overall over the weekend. Minor skin jaundice was noted over the abdomen. Pt denies any abdominal tenderness in all 4 quadrants and in the epigastric and suprapubic regions. Abdomen is non-tympanic to percussion in all 4 quadrants. Negative flapping tremor. HEENT: Pt presents with scleral icterus in bilateral eyes. Cardio: All 4 peripheral pulses intact. +2 edema was noted in the lower extremities Imaging: Imaging shows marked improvement compared to previous X-ray. Assessment & Plan Assessment Additional comments: Assessment: 65 y/o male admitted into the hospital for hepatic encephalopathy and diagnosed with colonic ileus presents today with a moderately distended abdomen that is non-tender and slightly firm to the touch. Physical exam yielded mildly jaundiced skin, a non-tympanic abdomen in all 4 quadrants, with negative peritonitis. Rectal tube was placed over the weekend, but has now been discontinued. Imaging revealed marked improvement compared to previous x-ray. Pt has been agreeable to a liquid diet. Plan Advance to a solid diet by dinner if the pt is agreeable. Continue physical therapy and attempt to get better bed rest. D/C tomorrow morning to rehab center if pt is agreeable. Documented by User: Silvana Vaz MD 07/18/25 13:52 Subjective Subjective Brief History: 65 y/o male was admitted into the hospital for concerns of hepatic encephalopathy. Pt has gradually developed a distended abdomen since this past Friday and is now firm to palpation. Pt denies any abdominal pain and has been able to pass gas and has had 3 bowel movements in the past 24 hours. Pt was recently made NPO prior to consult. Pt has experienced a distended abdomen before with spontaneous resolution. Pt has had a colonoscopy before, but does not remember when and thinks it was normal . NG tube was placed yesterday but had fallen out - no significant findings were appreciated on imaging or physical exam, post NG tube placement. 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 Pt denies tobacco use. FHx: Pt admits to brothers and father consuming large amounts of alcohol and denies a family history of colon and rectal cancer. ROS: GI: Pt denies nausea, vomiting, diarrhea. Pulm: Pt denies SOB, cough, wheezing Cardio: Pt denies chest pain and palpitation. Pt admits to R lower leg edema upon inpatient admission. Physical Exam: General: Vincentian-speaking, well mannered, non-ambulatory, cooperative 65 y/o male. GI: Upon inspection, pt has a distended abdomen with minor skin jaundice. Pt denies any abdominal tenderness in all 4 quadrants and in the epigastric and suprapubic regions. Abdomen is hyperresonnant in all 4 quadrants. Negative flapping tremor. Rectal exam was negative and no stool was felt in the rectal vault. HEENT: Pt presents with scleral icterus. Cardio: All 4 peripheral pulses intact. No edema appreciated in all 4 extremities. Assessment: 65M admitted into the hospital for hepatic encephalopathy presents with a distended abdomen that is non-tender and firm to the touch. Physical exam yielded mildly jaundiced skin, a hyperrosonnant abdomen in all 4 quadrants, with negative peritonitis. Pt has agreed to a rectal tube placement and a clear liquid diet. Narrative: 65 y/o male was admitted into the hospital for concerns of hepatic ence phalopathy. Surgery was asked for a consult due to the development of a distended abdomen since last Friday. The abdomen is now less firm than the previous assessment. Pt denies any abdominal pain in all four quadrants nor the epigastric nor the suprapubic area and has been able to pass gas and perform bowel movements in the last 24 hours. Pt denies fever nor chills, but admits to edema in the bilateral lower extremities. Rectal tube was placed over the weekend, but has since been removed. Pt has been agreeable to a liquid diet. As per RN, GI has been consulted, and no acute changes were observed overnight. 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 Pt denies tobacco use. FHx: Pt admits to brothers and father consuming large amounts of alcohol and denies a family history of colon and rectal cancer. ROS: GI: Pt denies nausea, vomiting, diarrhea. Pulm: Pt denies SOB, cough, wheezing. Cardio: Pt denies chest pain and palpitation. Pt admits to R lower leg edema upon inpatient admission. Exam Vital Signs Temp Pulse Resp BP Pulse Ox O2 Del Method 97.1 F 83 19 115/69 98 Room Air 07/18/25 08:00 07/18/25 10:37 07/18/25 08:00 07/18/25 10:37 07/18/25 08:00 07/18/25 08:00 Assessment & Plan Plan Advance to a solid diet by dinner if the pt is agreeable. Continue physical therapy and attempt to get better rest at night. D/C tomorrow morning to rehab center if pt is agreeable.
--- NOTE | 2025-07-18 19:43 | ESPR_ITS ---
Documentation for date of: 07/18/25 Subjective Subjective Interval history: Case discussed with internal medicine team Discontinue rectal tube Abdomen soft nontender Advance to regular diet Exam Vital Signs Temp Pulse Resp BP Pulse Ox O2 Del Method 97.7 F 77 15 134/73 H 98 Room Air 07/18/25 16:00 07/18/25 16:00 07/18/25 16:00 07/18/25 16:00 07/18/25 16:00 07/18/25 16:00 Objective Labs 07/18/25 05:24 07/18/25 05:24 Labs: Laboratory Results - last 24 hr 07/18/25 05:24 WBC 8.4 RBC 2.60 L Hgb 8.6 L Hct 25.4 L MCV 98 MCH 33.1 MCHC 33.9 RDW Std Deviation 71.0 H Plt Count 168 Neut % (Auto) 65 Lymph % (Auto) 21 [place] % (Auto) 11 Eos % (Auto) 2 Baso % (Auto) 1 Neut # (Auto) 5.5 Lymph # (Auto) 1.8 [place] # (Auto) 0.9 H Eos # (Auto) 0.2 Baso # (Auto) 0.1 Immature Gran # (Auto) 0.03 H Absolute Nucleated RBC 0.00 Immature Gran % 0 Nucleated RBC % 0 PT 15.6 H INR 1.5 H APTT 44.5 H Sodium 137 Potassium 3.3 L Chloride 106 Carbon Dioxide 20.5 Anion Gap 11 BUN 8 L Creatinine 0.5 L Estim Creat Clear Calc 140.6 eGFR > 60 BUN/Creatinine Ratio 16 Glucose 96 Calculated Osmolality 272 L Calcium 8.4 Corrected Calcium 9.7 Magnesium 1.7 Total Bilirubin 2.6 H AST 75 H ALT 30 Alkaline Phosphatase 124 H Total Protein 6.1 Albumin 2.4 L Globulin 3.7 H Albumin/Globulin Ratio 0.6 L Impressions Impression: # Colonic inertia # Dilated colon which has resolved with the rectal tube and IV Reglan DC rectal tube Continue IV Reglan Advance diet ABG Interpretation ABG results: 07/12/25 07/12/25 04:16 08:45 ABG pH 7.51 H ABG pCO2 22 L ABG pO2 98 ABG HCO3 18 L ABG O2 Saturation 99 H ABG Base Excess -4 L VBG pH 7.50 VBG pCO2 27 L VBG pO2 87 H VBG Base Excess -2 Assessment & Plan A&P Narrative # 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
[2025-07-19] VITALS (8 sets, daily range): BP systolic 125–136; BP diastolic 68–77; PULSE 60–94; RESP 16–19; TEMP 36.2–36.9; O2SAT 94–97; BMI 26.5; BMI 12.0
[2025-07-19] MEDS: METOCLOPRAMIDE INJ 5 MG/ML VIAL 2 ML 10 MG IVP ×4 (00:34→17:12)
[2025-07-19] MEDS: HEPARIN SOD INJ 5000 UNIT/ML VIAL SC ×2 (00:35→12:30)
[2025-07-19 05:38] LABS: Basophils # (Auto) 0.0 Thou/mm3 (0.0-0.2); Basophils % (Auto) 0 % (0-2.5); Eosinophils # (Auto) 0.2 Thou/mm3 (0.0-0.5); Eosinophils % (Auto) 2 % (0-10); Hematocrit 27.6 % (41.0-53.0); Hemoglobin 9.0 g/dL (13.5-16.0); Immature Granulocytes Auto 0.05 Thou/mm3 (0.00-0.00); Lymphocytes # (Auto) 1.7 Thou/mm3 (1.0-4.8); Lymphocytes % (Auto) 16 % (10-50); Mean Corpuscular HGB Conc 32.6 g/dl (31.0-37.0); Mean Corpuscular Hemoglobin 32.5 pg (25.0-35.0); Mean Corpuscular Volume 100 fL (80-100); Monocytes # (Auto) 1.2 Thou/mm3 (0.0-0.8); Monocytes % (Auto) 10 % (0-12); Neutrophils # (Auto) 8.1 Thou/mm3 (1.8-7.7); Neutrophils % (Auto) 72 % (37-80); Nucleated Red Blood Cell # 0.00 Thou/mm3 (0.00-0.00); Nucleated Red Blood Cell % 0 /100 WBC (0); Platelet Count 178 Thou/mm3 (140-440); RDW Standard Deviation 72.4 fL (35.1-43.9); Red Blood Count 2.77 Miln/mm3 (4.50-5.90); White Blood Count 11.3 Thou/mm3 (3.8-10.6)
[2025-07-19 06:00] LABS: Alanine Aminotransferase 34 U/L (10-49); Albumin, Serum 2.7 gm/dL (3.4-4.8); Albumin/Globulin Ratio 0.7 (1.2-2.2); Alkaline Phosphatase 157 U/L (46-116); Anion Gap 10 (7-16); Aspartate Amino Transferase 82 U/L (0-34); BUN/Creatinine Ratio 13 Ratio (12-20); Bilirubin,Total 2.3 mg/dL (0.3-1.2); Blood Urea Nitrogen 8 mg/dL (9-23); Calcium 8.6 mg/dL (8.3-10.6); Calcium (Corrected) 9.6 mg/dL (8.5-10.1); Carbon Dioxide 21.2 mMol/L (20.0-31.0); Chloride 108 mMol/L (98-107); Creatinine (Component) 0.6 mg/dL (0.6-1.3); Estimated Creatinine Clearance 117.2 mL/min (>60); Globulin 4.0 gm/dL (2.3-3.5); Glucose 126 mg/dL (74-106); Magnesium 1.9 mg/dL (1.6-2.6); Osmolality,Calculated 277 (275-295); Potassium 3.2 mMol/L (3.4-5.1); Sodium 139 mMol/L (136-145); Total Protein 6.7 gm/dL (5.7-8.2); eGFR > 60 See Note
[2025-07-19] MEDS: cefTRIAXone/D5w 1gm IV premix 1 GM/50 ML BAG IV (08:23)
[2025-07-19] MEDS: LACTULOSE SYRUP 20 GM/30 ML UDC PO ×2 (08:23→20:36)
[2025-07-19] MEDS: SPIRONOLACTONE 25 MG TABLET PO ×2 (08:24→20:35)
[2025-07-19] MEDS: FOLIC ACID 1 MG TABLET PO (08:24)
[2025-07-19] MEDS: FUROSEMIDE INJ 10 MG/ML VIAL 2 ML 20 MG IVP (08:24)
[2025-07-19] MEDS: THIAMINE 100 MG TABLET PO (08:24)
[2025-07-19 09:07] LABS: INR 1.4 (0.9-1.3); Prothrombin Time 14.6 Seconds (9.0-12.2)
--- NOTE | 2025-07-19 09:41 | ESPR_ITS ---
<Statement entered by Randy Alberto MD - 07/19/25 16:21> Patient seen and assessed in hospital bed denies having any abdominal pain however there is abdominal distention. On examination, patient is awake and answering questions appropriately in both Portuguese and Mongolian. KUB was ordered to assess for the patient's abdominal distention and showed mild/moderate ileus. Will continue patient's bowel regimen with metoclopramide, rifaximin and lactulose and follow-up with gastroenterology recommendations. Will continue to add cirrhosis management medications including carvedilol when appropriate. Expect discharge within the next 24 hours to care home facility. I have personally seen and examined the patient. I agree with the resident's assessment and plan as documented below. Randy Alberto, DO PGY-2 Internal Medicine - [facility] Documentation for date of: 07/19/25 Subjective Subjective Interval history: Overnight events: No acute events overnight. Patient was seen and examined at bedside. AM vitals and labs reviewed. Patient mentation appears slightly improved compared to yesterday. Still is unable to answer what the year is. Is aware that he is in the hospital and is able to state his full name. Patient was noted to have tensing and increased distention of his abdomen after eating. Abdomen did decrease in size and become less tense over time. Continue lactulose, spironolactone, and rifaximin. Continue Rocephin, tomorrow 07/20 will be last day of antibiotics. KUB ordered, which shows mild colonic and small bowel ileus. Discussed case with GI, Dr. Motta, who is agreeable to starting erythromycin 100 mg in 5 mL solution daily. Authorization for SNF accepted. Pending placement possible within next 24 hours. Review of systems otherwise negative except for what is mentioned above. Exam Vital Signs Temp Pulse Resp BP Pulse Ox O2 Del Method 97.6 F 77 17 129/68 96 Room Air 07/19/25 08:00 07/19/25 08:24 07/19/25 08:00 07/19/25 08:24 07/19/25 08:00 07/19/25 08:00 Narrative Exam Physical Exam: General: Alert, no acute distress. Skin: Warm, dry, intact. Head: Normocephalic, atraumatic. Eye: Slightly icteric conjunctiva, PERRL. Throat: Oral mucosa moist. No obvious lesions in oropharynx. Cardiovascular: Regular rate and rhythm, systolic murmur best heard over pulmonic and tricuspid areas, +S1/S2. Respiratory: Lungs are clear to auscultation, respirations unlabored, no crackles, no wheezing. Gastrointestinal: Soft, nontender, distended. No guarding or rebound tenderness. Extremities: Trace pedal edema bilaterally, no cyanosis, no clubbing. 2+ radial pulse bilaterally, 2+ pedal pulse bilaterally. Neuro: No focal deficits observed. Conversant, moving all extremities. No overt cerebellar signs/incoordination. Psychiatric: Cooperative, appropriate affect. Objective Labs 07/20/25 04:46 07/20/25 04:46 Labs: Laboratory Results - last 24 hr 07/19/25 04:24 WBC 11.3 H RBC 2.77 L Hgb 9.0 L Hct 27.6 L MCV 100 MCH 32.5 MCHC 32.6 RDW Std Deviation 72.4 H Plt Count 178 Neut % (Auto) 72 Lymph % (Auto) 16 [place] % (Auto) 10 Eos % (Auto) 2 Baso % (Auto) 0 Neut # (Auto) 8.1 H Lymph # (Auto) 1.7 [place] # (Auto) 1.2 H Eos # (Auto) 0.2 Baso # (Auto) 0.0 Immature Gran # (Auto) 0.05 H Absolute Nucleated RBC 0.00 Immature Gran % 0 Nucleated RBC % 0 PT 14.6 H INR 1.4 H Sodium 139 Potassium 3.2 L Chloride 108 H Carbon Dioxide 21.2 Anion Gap 10 BUN 8 L Creatinine 0.6 Estim Creat Clear Calc 117.2 eGFR > 60 BUN/Creatinine Ratio 13 Glucose 126 H Calculated Osmolality 277 Calcium 8.6 Corrected Calcium 9.6 Magnesium 1.9 Total Bilirubin 2.3 H AST 82 H ALT 34 Alkaline Phosphatase 157 H D Total Protein 6.7 Albumin 2.7 L Globulin 4.0 H Albumin/Globulin Ratio 0.7 L ABG Interpretation ABG results: 07/12/25 07/12/25 04:16 08:45 ABG pH 7.51 H ABG pCO2 22 L ABG pO2 98 ABG HCO3 18 L ABG O2 Saturation 99 H ABG Base Excess -4 L VBG pH 7.50 VBG pCO2 27 L VBG pO2 87 H VBG Base Excess -2 Quality Measures Quality Measures VTE prophylaxis Advance care planning discussed with:: patient and child Assessment & Plan Assessment Current Active Medications: Generic Name Dose Route Start Last Admin Trade Name Freq PRN Reason Stop Dose Admin Dextrose 25 ml 07/12/25 16:13 Dextrose 50%-Water Inj 50 Ml Syringe IV 08/11/25 16:12 Q15MIN PRN BG 50-70 responsive npo pt Dextrose 50 ml 07/12/25 16:13 Dextrose 50%-Water Inj 50 Ml Syringe IV 08/11/25 16:12 Q15MIN PRN BG <50 OR BG <70 & pt unresponsive Folic Acid 1 mg 07/16/25 12:45 07/19/25 08:24 Folic Acid 1 Mg Tablet PO 08/15/25 12:44 1 mg QDAY BRYANT Administration Furosemide 20 mg 07/13/25 09:45 07/19/25 08:24 Furosemide Inj 10 Mg/Ml Vial 2 Ml IVP 08/12/25 09:44 20 mg QDAY BRYANT Administration Glucagon 1 mg 07/12/25 16:13 Glucagon Inj 1 Mg Vial IM Q15MIN PRN BG <70, and no IV access Heparin Sodium (Porcine) 5,000 unit 07/12/25 13:00 07/19/25 00:35 Heparin Sod Inj 5000 Unit/Ml Vial SC 07/26/25 12:59 5,000 unit Q12H BRYANT Administration Ceftriaxone Sodium/Dextrose 1 gm in 50 mls @ 100 mls/hr 07/13/25 09:00 07/19/25 08:23 Rocephin/D5w 1gm Iv Premix IV 07/20/25 08:59 100 mls/hr QDAY BRYANT Administration Magnesium Sulfate 2 gm in 50 mls @ 25 mls/hr 07/19/25 08:52 Magnesium Sulfate Ivpb IV 07/19/25 10:51 X1 ONE Insulin Human Lispro 0 unit 07/15/25 11:30 07/19/25 07:43 Insulin Lispro (Admelog) 1 Unit/0.01 Ml Unit SC 08/14/25 11:29 Not Given AC BRYANT Protocol Lactulose 20 gm 07/18/25 11:15 07/19/25 08:23 Lactulose Syrup 20 Gm/30 Ml Udc PO 08/17/25 11:14 20 gm BID BRYANT Administration Protocol Metoclopramide HCl 10 mg 07/17/25 12:00 07/19/25 05:04 Metoclopramide Inj 5 Mg/Ml Vial 2 Ml IVP 08/16/25 11:59 10 mg Q6HR BRYANT Administration Protocol Ondansetron HCl 4 mg 07/12/25 12:29 Ondansetron Inj 2 Mg/Ml Inj 2 Ml IVP 08/11/25 12:28 Q6H PRN NAUSEA OR VOMITING Protocol Rifaximin 550 mg 07/13/25 09:45 07/19/25 08:23 Rifaximin 550 Mg Tablet PO 07/20/25 09:44 550 mg BID BRYANT Administration Spironolactone 25 mg 07/18/25 10:15 07/19/25 08:24 Spironolactone 25 Mg Tablet PO 08/17/25 10:14 25 mg BID BRYANT Administration Thiamine HCl 100 mg 07/16/25 12:45 07/19/25 08:24 Thiamine 100 Mg Tablet PO 08/15/25 12:44 100 mg QDAY BRYANT Administration Plan Mr. Lee is a 65 year old male with a history of HTN, T2DM, and chronic back pain who presented to [facility] ED from home at 07/11 in the evening due to generalized weakness and mechanical falls. The patient was admitted on 07/12 for decompensated liver disease causing hepatic encephalopathy. #Decompensated liver disease #Liver cirrhosis #Altered mental status #Hepatic encephalopathy, resolved The patient endorses a history of frequent alcohol use. The patient presented with a grossly distended abdomen, one that is more distended than normal as per family members. The abdomen is soft and non-tender on admission. CT abdomen taken on 04/05/2022 showed liver cirrhosis and hepatomegaly. Given this past finding and the patient's history of alcohol use, his confusion, weakness, and altered mental status are all most likely a result of decompensated liver disease causing hepatic encephalopathy. MELD score 16, 6% estimated 3-month mortality Child-Zepeda score 10, class C Life Expectancy : 1-3 years, Abdominal surgery cortney-operative mortality: 82% - Ammonia levels ordered, resulted as 68, supporting hepatic encephalopathy - CT abdomen pelvis ordered 07/12, showed cirrhosis, mild ascites, and hepatic colopathy - Bedside US of abdomen 07/13 did not show sufficient ascites for paracentesis - Rifaximin 550 mg twice daily - Lactulose 20 gm twice daily - Spironolactone 25 mg twice daily - Hepatitis panel ordered, resulted negative - Ordered copper, ceruloplasmin, and MELODY to screen for other possible causes of liver dysfunction, pending - PT referral ordered given generalized weakness in patient, recommends rehab placement for skilled therapy services #Oglivie syndrome, resolving #Severe colonic ileus most likely pseudoobstruction vs #Hepatic colopathy Patient had firming of abdomen on 07/13 and only one bowel movement after lactulose was started on the patient on 07/12. Patient is still able to pass gas occasionally. KUB ordered showed significantly air distended colon and small bowel loops, suspicious for early small bowel obstruction. This could also be hepatic colopathy as found on CT abdomen/pelvis on 07/12. Repeat CT abdomen/pelvis ordered 07/14, showed prominent colonic distension Bedside US of abdomen on 07/13 showed primary distended bowel loops. Repeat KUB on 07/14 showed severe colonic ileus. Repeat KUB 07/19 shows mild colonic and small bowel ileus. - Low fiber, consistent carb, cardiac, and fluid restriction 1500cc diet - BEVERLEY with fecal impaction attempted 07/15, no stool in rectal vault - Consulted general surgery, appreciate recommendations - GI consulted, appreciate recommendations: Reglan 10 mg IVP q6h and erythromycin 400 mg in 5 mL soln daily #Community acquired pneumonia Patient noted to have right base pneumonia on CXR 07/12. Patient denies any shortness of breath and is satting well on room air. WBC was noted to be elevated at 12.5 in the ED. Lactic acid noted to be 3.6 initially, but repeat lactate decreased to 1.7 on 07/12. - Ceftriaxone 1 gm daily (07/12-07/20) - Azithromycin 500 mg daily completed (07/12-07/14) - Blood cultures ordered, preliminary results 48 hours no growth - Incentive spirometry #Elevated bilirubin, resolving #?Cholecystitis vs biliary sludge Patient noted to have total bilirubin of 5.1 initially in ED paired with abdominal pain. After some fluids, total bilirubin decreased to 4.1. Abdominal ultrasound was ordered, which showed gallbladder sludge vs small stones and gallbladder wall thickening of 0.39 cm. - Will continue to monitor symptoms, no abdominal pain noted on admission - Will consider MRCP or HIDA scan if clinically warranted - Fractionated bilirubin ordered, 07/13 showed total bilirubin at 4.0, 2.1 direct and 1.9 indirect, supporting liver disease cause of elevated bilirubin #NSTEMI type II, likely 2/2 demand ischemia #Elevated troponins, resolved #Grade I Diastolic Dysfunction Patient presented with BLE edema. No shortness of breath or chest pain was noted. EKG did not show acute ST elevations, but patient was positive for troponins, initially 0.108 on presentation, which then downtrended to 0.086. Additionally, the patient presented with BNP of 942, which can suggest CHF, but can also be elevated in patients with decompensated liver disease. Patient did not have any worsening shortness of breath when laid down flat. - Will continue to monitor symptoms, no repeat troponins necessary at this time - Echocardiogram ordered, showed normal LV size, mild LVH, estimated EF 55 to 60% with grade 1 diastolic dysfunction, RV size mildly increased with normal systolic function, mildly elevated RVSP at 35 to 40 mmHg, mild MR and TR, mild MAC, mild aortic valve sclerosis without stenosis no pericardial effusion - Strict ins and outs - Fluid restriction 1500cc per day - Daily weights #Non-insulin dependent type 2 diabetes mellitus Patient endorses a history of diabetes. Patient does take metformin at home. Patient follows a PCP for management of diabetes, though he does not know the name of his PCP. - Sliding scale insulin step 1 - Bedside fingerstick glucose checks ACHS #Anemia, macrocytic The patient had a initial hemoglobin of 9.0 with MCV of 98 in ED. The patient has a history of taking ferrous sulfate. Given that the patient is new to [facility], it is unclear if this anemia is his baseline or if it is an acute condition. There may also be a component of the patient's decompensated liver disease causing fluid retention, diluting the blood, resulting in anemia. - Hold ferrous sulfate given active infection - Will continue to monitor with daily CBC, transfuse if hemoglobin <7.0 per protocol - Iron panel ordered, resulted as iron 16, TIBC 230, iron saturation 6%, and ferritin 30 - Folic acid 1 mg QD - Recommend outpatient follow up for further management #Primary hypertension The patient endorses a history of hypertension. Per the patient's son, the patient takes lisinopril, but is not sure what the home dose is. The patient follows a PCP for management of his hypertension and T2DM. Per medication refills, the patient has also been prescribed chlorthalidone in the past. Per med rec, patient has not been taking any medication at home. - Will hold antihypertensives at this time given soft blood pressures in ED #Alcohol abuse The patient endorses a history of frequent alcohol use. The patient and his family member at bedside stated that the patient drinks about 6 bottles of beer each day for many years. The patient's last drink was on 07/11. - CIWA protocol, stopped - F[employer]ation [employer] Supervisor on alcohol cessation - Folic acid 1 mg daily - Thiamine 100 mg QD #Hypokalemia The patient had a potassium of 3.1 on 07/12. - Continue to monitor potassium levels and replenish as necessary DVT Prophylaxis: Heparin GI Prophylaxis: N/A Bowel: N/A Diet: Low fiber, consistent carb, cardiac, and fluid restriction 1500cc Miller: N/A Lines: Peripheral IV Antibiotics: Ceftriaxone (07/12-07/20) Code Status: FULL Patient plan of care was discussed with the senior resident Dr. Alberto (PGY- 2) and attending physician Dr[address] Parish Morales DO, PGY-1 Attending Provider Attestation/Addendum I, Peggy Lugo DO, attest that I was physically present for the barroso portions of the service and evaluated the patient with the resident and I reviewed and discussed the case with the resident and agree with the resident's findings and plans of care as documented above Patient seen and evaluated this a.m. Patient has no acute complaints, but remains confused at times. Per son at bedside, patient requires reorientation frequently. He has been tolerating lactulose without issue and low fiber diet. Per son at bedside, patient's abdominal distention appears to be fluctuating, worse after he eats. However, patient has no tenderness on palpation. Case was discussed with GI. Will start erythromycin 400 mg suspension daily in addition to Reglan. Encourage patient to ambulate with physical therapy. If abdominal distention is improved, anticipate discharge within the next 24 to 48 hours.
[2025-07-19] MEDS: Magnesium Sulfate 2 GM Ivpb 2 GM/50 ML BAG IV (09:53)
--- NOTE | 2025-07-19 10:23 | XR_ITS ---
Examination: Abdomen AP single view Technique: AP portable supine abdomen, single view Exam date and time: July 19, 2025 1140 hours INDICATIONS: Diagnosis cirrhosis with abdominal distention today. FINDINGS: Mild colonic and small bowel ileus. No free air. No abnormal calcific densities IMPRESSION: Mild colonic and small bowel ileus
--- NOTE | 2025-07-19 14:50 | PC.SS ---
Follow up note: SS spoke to Floresita at [facility] who is working on insurance authorization. Pt is requiring updated PT notes. Pt has cirrhosis. GI recommendations pending.
[2025-07-19] MEDS: INSULIN LISPRO (AdmeLOG) 1 UNIT/0.01 ML UNIT SC (17:11)
--- NOTE | 2025-07-19 19:51 | ESPR_ITS ---
Documentation for date of: 07/19/25 Subjective Subjective Interval history: No distention of the abdomen of the patient was put on a diet KUB reviewed some dilatation of the colon with minimal small bowel visualization but no air-fluid levels Patient suffers from gastrointestinal motility disorder Recommend to start the patient on erythromycin Ethyl succinate 400 mg per 5 mL once a day Exam Vital Signs Temp Pulse Resp BP Pulse Ox O2 Del Method 97.8 F 94 18 125/77 97 Room Air 07/19/25 16:00 07/19/25 16:00 07/19/25 16:00 07/19/25 16:00 07/19/25 16:00 07/19/25 16:00 Objective Labs 07/19/25 04:24 07/19/25 04:24 Labs: Laboratory Results - last 24 hr 07/19/25 04:24 WBC 11.3 H RBC 2.77 L Hgb 9.0 L Hct 27.6 L MCV 100 MCH 32.5 MCHC 32.6 RDW Std Deviation 72.4 H Plt Count 178 Neut % (Auto) 72 Lymph % (Auto) 16 [place] % (Auto) 10 Eos % (Auto) 2 Baso % (Auto) 0 Neut # (Auto) 8.1 H Lymph # (Auto) 1.7 [place] # (Auto) 1.2 H Eos # (Auto) 0.2 Baso # (Auto) 0.0 Immature Gran # (Auto) 0.05 H Absolute Nucleated RBC 0.00 Immature Gran % 0 Nucleated RBC % 0 PT 14.6 H INR 1.4 H Sodium 139 Potassium 3.2 L Chloride 108 H Carbon Dioxide 21.2 Anion Gap 10 BUN 8 L Creatinine 0.6 Estim Creat Clear Calc 117.2 eGFR > 60 BUN/Creatinine Ratio 13 Glucose 126 H Calculated Osmolality 277 Calcium 8.6 Corrected Calcium 9.6 Magnesium 1.9 Total Bilirubin 2.3 H AST 82 H ALT 34 Alkaline Phosphatase 157 H D Total Protein 6.7 Albumin 2.7 L Globulin 4.0 H Albumin/Globulin Ratio 0.7 L Impressions Impression: Colonic pseudoobstruction gastrointestinal motility disorder Erythromycin Ethyl succinate 5 mL p.o. daily ABG Interpretation ABG results: 07/12/25 07/12/25 04:16 08:45 ABG pH 7.51 H ABG pCO2 22 L ABG pO2 98 ABG HCO3 18 L ABG O2 Saturation 99 H ABG Base Excess -4 L VBG pH 7.50 VBG pCO2 27 L VBG pO2 87 H VBG Base Excess -2 Assessment & Plan A&P Narrative # 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
[2025-07-19] MEDS: ERYTHROMYCIN E-SUCC SUSP 200 MG/5 ML 400 MG PO (20:36)
[2025-07-20] VITALS (8 sets, daily range): BP systolic 126–139; BP diastolic 68–81; PULSE 78–95; RESP 17–18; TEMP 36.1–36.6; O2SAT 92–97; BMI 26.6
[2025-07-20] MEDS: METOCLOPRAMIDE INJ 5 MG/ML VIAL 2 ML 10 MG IVP ×3 (02:12→12:16)
[2025-07-20] MEDS: HEPARIN SOD INJ 5000 UNIT/ML VIAL SC (02:14)
[2025-07-20 05:06] LABS: ANA Screen, IFA NEGATIVE (NEGATIVE); Ceruloplasmin* 16 mg/dL (14-30); Copper* 55 mcg/dL (70-175)
[2025-07-20 06:06] LABS: Basophils # (Auto) 0.1 Thou/mm3 (0.0-0.2); Basophils % (Auto) 1 % (0-2.5); Eosinophils # (Auto) 0.2 Thou/mm3 (0.0-0.5); Eosinophils % (Auto) 2 % (0-10); Hematocrit 27.0 % (41.0-53.0); Hemoglobin 8.9 g/dL (13.5-16.0); Immature Granulocytes Auto 0.04 Thou/mm3 (0.00-0.00); Lymphocytes # (Auto) 2.1 Thou/mm3 (1.0-4.8); Lymphocytes % (Auto) 18 % (10-50); Mean Corpuscular HGB Conc 33.0 g/dl (31.0-37.0); Mean Corpuscular Hemoglobin 33.1 pg (25.0-35.0); Mean Corpuscular Volume 100 fL (80-100); Monocytes # (Auto) 1.2 Thou/mm3 (0.0-0.8); Monocytes % (Auto) 11 % (0-12); Neutrophils # (Auto) 8.1 Thou/mm3 (1.8-7.7); Neutrophils % (Auto) 69 % (37-80); Nucleated Red Blood Cell # 0.00 Thou/mm3 (0.00-0.00); Nucleated Red Blood Cell % 0 /100 WBC (0); Platelet Count 175 Thou/mm3 (140-440); RDW Standard Deviation 71.8 fL (35.1-43.9); Red Blood Count 2.69 Miln/mm3 (4.50-5.90); White Blood Count 11.8 Thou/mm3 (3.8-10.6)
[2025-07-20 06:18] LABS: INR 1.4 (0.9-1.3); Partial Thromboplastin Time 39.6 Seconds (22.0-36.0); Prothrombin Time 14.6 Seconds (9.0-12.2)
[2025-07-20 06:34] LABS: Alanine Aminotransferase 30 U/L (10-49); Albumin, Serum 2.7 gm/dL (3.4-4.8); Albumin/Globulin Ratio 0.6 (1.2-2.2); Alkaline Phosphatase 155 U/L (46-116); Anion Gap 11 (7-16); Aspartate Amino Transferase 87 U/L (0-34); BUN/Creatinine Ratio 16 Ratio (12-20); Bilirubin,Total 2.3 mg/dL (0.3-1.2); Blood Urea Nitrogen 8 mg/dL (9-23); Calcium 8.6 mg/dL (8.3-10.6); Calcium (Corrected) 9.6 mg/dL (8.5-10.1); Carbon Dioxide 21.5 mMol/L (20.0-31.0); Chloride 108 mMol/L (98-107); Creatinine (Component) 0.5 mg/dL (0.6-1.3); Estimated Creatinine Clearance 140.6 mL/min (>60); Globulin 4.4 gm/dL (2.3-3.5); Glucose 105 mg/dL (74-106); Magnesium 1.9 mg/dL (1.6-2.6); Osmolality,Calculated 277 (275-295); Potassium 3.5 mMol/L (3.4-5.1); Sodium 140 mMol/L (136-145); Total Protein 7.1 gm/dL (5.7-8.2); eGFR > 60 See Note
--- NOTE | 2025-07-20 08:03 | PC.SS ---
07-19-25: SS received call from Floresita at [facility] who explained insurance authorization has been provided. SS met with pt and son, Mandeep, who is aware. Son is aware patient's health insurance possibly will not cover transportation to SNF at d/c.
[2025-07-20] MEDS: LACTULOSE SYRUP 20 GM/30 ML UDC PO (09:44)
[2025-07-20] MEDS: FUROSEMIDE INJ 10 MG/ML VIAL 2 ML 20 MG IVP (09:44)
[2025-07-20] MEDS: FOLIC ACID 1 MG TABLET PO (09:45)
[2025-07-20] MEDS: THIAMINE 100 MG TABLET PO (09:45)
[2025-07-20] MEDS: SPIRONOLACTONE 25 MG TABLET PO (09:46)
[2025-07-20] MEDS: ERYTHROMYCIN E-SUCC SUSP 200 MG/5 ML 400 MG PO (10:34)
--- NOTE | 2025-07-20 12:10 | PC.NURSE ---
Spoke with Dr. Alberto at 1210 regarding patient's PTT results of 39.6. Dr said to hold his heparin injection due at 1300.
--- NOTE | 2025-07-20 13:19 | ESDS_ITS ---
<Statement entered by Peggy Lugo DO - 07/20/25 16:49> I, Peggy Lugo DO, attest that I was physically present for the barroso portions of the service and evaluated the patient with the resident and I reviewed and discussed the case with the resident and agree with the resident's findings and plans of care as documented above Planned Discharge Date 07/20/25 DS: Providers Provider Date of admission: 07/12/25 12:28 Primary care physician: Christiano Guerrero MD Admitting Provider: Smitha Rojas MD Attending Provider on Admission: Peggy Lugo DO Consults: 07/12/25 18:27 PT [Referral Physical Therapy] Routine Comment: Physician Instructions: 07/14/25 12:19 Consult to General Surgery Stat Comment: Ileus, Hepatic Colopathy Consulting Provider: Silvana Vaz 07/15/25 08:44 Consult to Gastroenterology Routine Comment: Colonic ileus, opinion on enemas? Decomp scope? Consulting Provider: Barbara Motta Attending Provider on DC: Randy Alberto MD Discharging Provider: Randy Alberto MD DS: Diagnosis Problem List Completed Was Problem List Reviewed/Reconciled?: Yes Hospital Course Hospital Course Hospital course: 65-year-old male with past medical history of alcohol induced liver cirrhosis, hypertension, diabetes, chronic back pain presented to the ED on 07/12 complaining of generalized weakness and mechanical fall. Patient apparently has extensive history of alcohol use disorder and appeared confused upon presentation. Chest x-ray showed right base pneumonia with some vascular congestion and gallbladder sludge on abdominal ultrasound along with mild ascetic fluid. Patient was started on lactulose, rifaximin and GI consultation was placed for management of decompensated liver cirrhosis. There was also some suspicion of possible small bowel obstruction versus ileus as the patient was not having bowel movements and abdomen was significantly distended. IV antibiotics were also started for both community-acquired pneumonia as well as urinary tract infection. There was some suspicion for possible [place] syndrome versus ileus as a result rectal tube was inserted along with IV Reglan. Patient symptomatically improved and rectal tube was removed. Patient was also started on cirrhosis medications and told to follow-up with gastroenterology upon discharge. Hospital Diagnosis: #Decompensated liver disease #Liver cirrhosis #Altered mental status #Hepatic encephalopathy, resolved #Severe colonic ileus #Hepatic colopathy #Community acquired pneumonia #NSTEMI type II, likely 2/2 demand ischemia #Grade I Diastolic Dysfunction #Non-insulin dependent type 2 diabetes mellitus #Anemia, macrocytic #Primary hypertension #Alcohol abuse #Hypokalemia Status at Discharge Overall status at discharge: patient is back to baseline Time Spent with Patient Time attestation: Total time spent providing and/or coordinating discharge services: 45 minutes Time spent: Greater than 30 minutes Exam Vital Signs Temp Pulse Resp BP Pulse Ox O2 Del Method 97.6 F 92 18 132/81 H 97 Room Air 07/20/25 08:00 07/20/25 12:00 07/20/25 08:00 07/20/25 09:46 07/20/25 08:00 07/20/25 08:00 Narrative Exam Physical Exam: General: Alert, no acute distress. Skin: Warm, dry, intact. Head: Normocephalic, atraumatic. Eye: Slightly icteric conjunctiva, PERRL. Throat: Oral mucosa moist. No obvious lesions in oropharynx. Cardiovascular: Regular rate and rhythm, systolic murmur best heard over pulmonic and tricuspid areas, +S1/S2. Respiratory: Lungs are clear to auscultation, respirations unlabored, no crackles, no wheezing. Gastrointestinal: Soft, nontender, distended. No guarding or rebound tenderness. Extremities: Trace pedal edema bilaterally, no cyanosis, no clubbing. 2+ radial pulse bilaterally, 2+ pedal pulse bilaterally. Neuro: No focal deficits observed. Conversant, moving all extremities. No overt cerebellar signs/incoordination. Psychiatric: Cooperative, appropriate affect. Discharge Plan Plan Patient Disposition: Xfer Skilled Nsg Fac (SNF) Patient condition on transfer: Stable Care Plan Goals: Please take folic acid and thiamine supplementation for alcohol induced liver cirrhosis Please take furosemide 40 mg p.o. tablet once a day and spironolactone 25 mg tablet twice a day for liver cirrhosis Please take carvedilol 3.125 mg by mouth twice a day for esophageal ulcer prophylaxis Please take lactulose 20 g by mouth twice a day to achieve at least 2?3 bowel movements a day Please take Reglan 5 mg tablet by mouth every 6 hours for bowel motility Stop taking chlorthalidone, lisinopril, metformin, naproxen and pravastatin Follow-up with your PCP within 1 week, asked to be referred to a GI specialist for liver transplant If your symptoms worsen or if you develop new dizziness, chest pain, shortness of breath, abdominal pain or bleeding - please come back to the ED immediately Prescriptions/Referrals Prescriptions/Med Rec: New spironolactone 25 mg Tablet 25 mg PO BID 30 Days Qty: 60 0RF thiamine mononitrate (vit B1) 100 mg Tablet 100 mg PO QDAY 30 Days Qty: 30 0RF lactulose 10 gram/15 mL Solution 20 g PO BID 30 Days Qty: 1800 0RF folic acid 1 mg Tablet 1 mg PO QDAY 30 Days Qty: 30 0RF furosemide 40 mg tablet 40 mg PO QDAY 30 Days Qty: 30 0RF carvedilol 3.125 mg Tablet 3.125 mg PO BIDWM 30 Days Qty: 60 0RF metoclopramide HCl [Reglan] 5 mg tablet 5 mg PO Q6H Qty: 60 0RF Continued ferrous sulfate [FeroSul] 325 mg (65 mg iron) tablet 325 mg PO QDAY 30 Days Qty: 30 0RF Discontinued naproxen [Naprosyn] 500 MG tablet 500 mg PO BIDWM Qty: 0 Patient Comments: PRN PAIN metformin 500 mg tablet 500 mg PO BIDWM lisinopril 20 mg tablet 20 mg PO QDAY chlorthalidone 25 mg tablet 25 mg PO WBR pravastatin 20 mg tablet 20 mg PO QDAY Referrals: Christiano Guerrero MD [Primary Care Provider] - Patient/Caregiver Discharge Instructions Education Materials: Treating Cirrhosis, Understanding Cirrhosis, Discharge Instructions for ... Print Language: [place] Stand Alone Forms: Swapna Award Info., Patient Portal Info Letter Discharge Order Discharge Orders: Discharge (Routine); Ordered 07/20/25 Ordered By: Randy Alberto Quality Discharge Quality Measures VTE prophylaxis
--- NOTE | 2025-07-20 15:44 | PC.SS ---
SS has setup gurney transportation with Devon at [facility] for gurney transportation for 5pm to [facility] .? Ref# [id number]..? SS has requested [facility].? Per [facility] outside energy sales representatives [facility] is not a guaranteed transport company.? Estimated time is 3-4 hours.? SS has sent patient?s facesheet and ambulance form to [facility] using [employer].? SS has spoken to at [facility] who has placed pt on will call list until she has been contacted by [facility]. SonMandeep is aware. Bedside nurse is aware. Silvana PEREZ is aware. Floresita at [facility] is aware.
--- NOTE | 2025-07-20 22:17 | PD.IMPROG ---
Documentation for date of: 07/20/25 Subjective Subjective Interval history: Late entry for the note okay to discharge patient home on lactulose and other laxatives and diet instructions Exam Vital Signs Temp Pulse Resp BP Pulse Ox O2 Del Method 97.0 F 84 18 126/68 92 L Room Air 07/20/25 16:00 07/20/25 16:00 07/20/25 16:00 07/20/25 16:00 07/20/25 16:00 07/20/25 16:00 Objective Labs 07/20/25 04:46 07/20/25 04:46 Labs: Laboratory Results - last 24 hr 07/13/25 07/20/25 06:05 04:46 WBC 11.8 H RBC 2.69 L Hgb 8.9 L Hct 27.0 L MCV 100 MCH 33.1 MCHC 33.0 RDW Std Deviation 71.8 H Plt Count 175 Neut % (Auto) 69 Lymph % (Auto) 18 [place] % (Auto) 11 Eos % (Auto) 2 Baso % (Auto) 1 Neut # (Auto) 8.1 H Lymph # (Auto) 2.1 [place] # (Auto) 1.2 H Eos # (Auto) 0.2 Baso # (Auto) 0.1 Immature Gran # (Auto) 0.04 H Absolute Nucleated RBC 0.00 Immature Gran % 0 Nucleated RBC % 0 PT 14.6 H INR 1.4 H APTT 39.6 H Sodium 140 Potassium 3.5 Chloride 108 H Carbon Dioxide 21.5 Anion Gap 11 BUN 8 L Creatinine 0.5 L Estim Creat Clear Calc 140.6 eGFR > 60 BUN/Creatinine Ratio 16 Glucose 105 Calculated Osmolality 277 Calcium 8.6 Corrected Calcium 9.6 Magnesium 1.9 Total Bilirubin 2.3 H AST 87 H ALT 30 Alkaline Phosphatase 155 H Total Protein 7.1 Albumin 2.7 L Globulin 4.4 H Albumin/Globulin Ratio 0.6 L Ceruloplasmin 16 Plasma Copper 55 L MELODY Screen NEGATIVE MELODY Titer TNP MELODY Titer 2 TNP MELODY Titer 3 TNP MELODY Pattern TNP MELODY Pattern 2 TNP MELODY Pattern 3 TNP Impressions Impression: 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 Plans as under HPI ABG Interpretation ABG results: 07/12/25 07/12/25 04:16 08:45 ABG pH 7.51 H ABG pCO2 22 L ABG pO2 98 ABG HCO3 18 L ABG O2 Saturation 99 H ABG Base Excess -4 L VBG pH 7.50 VBG pCO2 27 L VBG pO2 87 H VBG Base Excess -2 Assessment & Plan A&P Narrative # 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
== END 2025-07-20 17:00 | disposition skilled nursing facility (03) | DRG 432 ==
LOC: SERX 07-12 07:05 → SERHOLD 07-12 13:00 → S3NX 07-12 15:47
PROVIDERS: Admitting Provider Student in an Organized Health Care Education/Training Program; Emergency Provider Emergency Medicine; PCP Family Medicine; Visit Provider Internal Medicine
DX: K70.31 Alcoholic cirrhosis of liver with ascites (principal); I21.A1 Myocardial infarction type 2; J18.9 Pneumonia, unspecified organism; N39.0 Urinary tract infection, site not specified; K59.39 Other megacolon; K56.7 Ileus, unspecified; K76.82 Hepatic encephalopathy; E11.9 Type 2 diabetes mellitus without complications; K59.81 Ogilvie syndrome; G89.29 Other chronic pain; D53.9 Nutritional anemia, unspecified; M54.9 Dorsalgia, unspecified; F10.10 Alcohol abuse, uncomplicated; E63.9 Nutritional deficiency, unspecified; E87.6 Hypokalemia; Z91.81 History of falling; Z79.84 Long term (current) use of oral hypoglycemic drugs; Z79.899 Other long term (current) drug therapy; Z87.891 Personal history of nicotine dependence; Z91.148 Patient's other noncompliance with medication regimen for other reason; W19.XXXA Unspecified fall, initial encounter
CPT/HCPCS: 36415; 36600; 71045; 74018; 74176; 74177; 76705; 80053; 80061; 80074; 80307; 80320; 80329; 81001; 82010; 82140; 82247; 82248; 82390; 82525; 82607; 82728; 82746; 82803; 83036; 83540; 83550; 83605; 83735; 83880; 84100; 84439; 84443; 84484; 85025; 85610; 85730; 86038; 86780; 87040; 87086; 87400; 87811; 93005; 93306; 96361; 96365; 96366; 96375; 97162; 99284; A4649; J0456; J0696; J1644; J1815; J1938; J2765; J3360; J3411; J3475; J3490; J7030; J7050; Q9967; A9270; G0480

== ENCOUNTER 2025-09-08 09:44 | Outpatient (AMB) | payer MEDICARE, MEDICAID, SELFPAY ==
--- NOTE | 2025-09-08 09:54 | PD.GSCLVISIT ---
Vital Signs - [facility] 09/08/25 09:57 Height 1.65 m Height Method Measured Weight 71.214 kg Weight Measurement Method Standing Scale BMI 26.1 BP 103/64 Blood Pressure Source Automatic Cuff Blood Pressure Location Left Upper Arm Position Sitting Respiration 19 Pulse 68 Pulse Source Monitor Temp 97.9 F Temp Source Temporal Artery Scan Pulse Oximetry (%) 96 Oxygen Delivery Method Room Air Med/Allergies Allergies & Medications Allergies No Known Allergies Allergy (Verified 09/08/25 10:01) Medication Reconciliation ferrous sulfate 325 mg (65 mg iron) tablet (FeroSul) 325 mg PO QDAY 1 month #30 tabs 07/18/25 [Rx Confirmed 09/08/25] metoclopramide HCl 5 mg tablet (Reglan) 5 mg PO Q6H #60 tabs 07/20/25 [Rx Confirmed 09/08/25] MA Intake Visit Data Collection New Patient or Established: New Patient (never been to [facility]) Seen by Clinical Staff ONLY (RN/MA): No Reason for Visit:: REFERRAL COLONOSCOPY Pain Present Currently: No Teachers' Assistant Required: No PCP or OBGYN visit in last 3 months: Yes Hx Now: No Do You Feel Safe at Home: Yes Authorities Contacted: N/A Smoking Status Smoking Status: Never smoker Immunization / Flu Flu Vaccine in the Last 12 Months: No Flu Vaccine Exclusion Criteria: No Exclusion Criteria Past Medical History Past Medical History CARDIAC: Positive Cardiac Disorders (HTN) and Hypertension; Negative Congestive Heart Failure RESPIRATORY: Negative Chronic Obstructive Pulmonary Disease (COPD) or Asthma GENITOURINARY: Negative Renal Disease ENDOCRINE: Positive Diabetes Mellitus Type 2; Negative Diabetes Mellitus Type 1 HEMATOLOGIC: Negative Sickle Cell Disease Social History SMOKING STATUS: Smoking status: Never smoker SECOND HAND EXPOSURE: second hand exposure: No ALCOHOL: Alcohol Intake: Current LIVES WITH: Lives With: Alone HPI HPI Narrative 65M with HTN, HLD, child B cirrhosis recently admitted with hepatic encephalopathy, who developed colonic ileus requiring rectal tube during hospitalization. He recovered well and is now referred for follow up colonoscopy. Per son pt was experiencing confusion during his hospitalization and this unfortunately has persisted since then. Pt has not yet followed up with his PCP but son is planning to get him an appt [facility]. Pt reported having had a colonoscopy in the past that he believes was normal but is unsure of when it took place PMH: HTN, HLD, child B cirrhosis PSH: Remote ruptured disk repair Meds: No antiplt or anticoagulation All: NKDA PSHx: Prior to hospitalization pt was drinking 6 beers daily but has abstained Family hx: No known CRC ROS Review of Systems Systems Reviewed: All systems reviewed, normal except as documented Objective/Exam General General Appearance: alert, cooperative and well groomed Resp Respiratory exam: Absent respiratory distress Abdominal Abdominal exam: Present soft; Absent distention or tenderness Assessment & Plan Diagnosis / Problem List (1) Encounter for diagnostic colonoscopy due to change in bowel habits: Status: Acute Assessment & Plan: 65M with HTN, HLD, child B cirrhosis recently admitted with hepatic encephalopathy, who developed colonic ileus requiring rectal tube during hospitalization. I explained benefits/risks of colonoscopy including bleeding, perforation requiring emergency surgery as well as the possibility of needing to abort perematurely for safety. All questions were answered and pt son expressed understanding Advanced Care Planning Advance care planning discussed with:: patient and child Office Procedures GNS Level of Care Nursing/Assessment Patient Status: Initial/New Patient Nursing Assessment/Reassesment: Medication Reconciliation, Update PMH in EMR and Vital Signs Coordination of Care: Complex Care and Chronic Disease 1-5, Consent,records obtained, informed consent, Education Simp Pt/Fam, 1 Ins Authorization, Lab and Imaging orders, Results/Orders obtained and Staff clarify orders New Patient Charge New Patient Point Assignment: 1119 New Patient Point Charge: HEALTH SCIENCE SPECIALIST Level 4 (8301-8026) Patient Portal Questionaires Social History Tobacco History Smoking Status: Never smoker Second Hand Smoke Exposure: No Alcohol History Alcohol Intake: Current Domestic Abuse History Do You Feel Safe at Home: Yes Review of Systems Report any current symptoms Only answer those that you have currently: Past Medical History Past Medical History Have you ever been diagnosed with any of the following: Cardiology Problems Congestive Heart Failure: No Hypertension: Yes Respiratory Problems Chronic Obstructive Pulmonary Disease (COPD): No Asthma: No Genital/Urinary Problems Renal Disease: No Endocrine Problems Diabetes Mellitus Type 1: No Diabetes Mellitus Type 2: Yes Blood Problems Sickle Cell Disease: No
[2025-09-08 09:57] VITALS: BP 103/64; PULSE 68; RESP 19; TEMP 36.6; O2SAT 96; BMI 26.1
== END 2025-09-08 10:07 | disposition home or self-care (01) ==
LOC: HODSRG 09:44
PROVIDERS: PCP Family Medicine; Referring Provider Family Medicine; Supervising Provider Surgery; Visit Provider Surgery
DX: R19.4 Change in bowel habit (principal); I10 Essential (primary) hypertension
CPT/HCPCS: 99204; G0463

== ENCOUNTER 2025-09-16 19:22 | Emergency (ER) | payer MEDICAID, MEDICARE, SELFPAY ==
--- NOTE | 2025-09-16 19:25 | EKG_ITS ---
[facility] Test Date: 2025-09-16 Pat Name: AUGUSTUS RUSSELL Department: Room: - Gender: Male Systems Analysis Manager: : 1960 Requested By: Yany Kirkland Order Number: [id number] Reading MD: Yany Kirkland Measurements Intervals Otto Rate: 54 P: 13 NM: 204 QRS: -10 QRSD: 98 T: 23 QT: 469 QTc: 446 Interpretive Statements SINUS BRADYCARDIA INCOMPLETE RIGHT BUNDLE BRANCH BLOCK [90+ ms QRS DURATION, TERMINAL R IN V1/V2, 40+ ms S IN I/aVL/V4/V5/V6] Compared to ECG 07/12/2025 07:10:30 Sinus rhythm no longer present T-wave abnormality no longer present Possible ischemia no longer present /store/S0/[id number].pdf
--- NOTE | 2025-09-16 19:25 | XR_ITS ---
Examination: CT brain head without contrast. 2-D sagittal coronal reconstructions Date and time of exam: September 16, 2025, 1947 hours INDICATIONS: Right-sided facial spasms today CTDI: vol (mGy): 48.5 DLP: (mGycm): 1032 Technique: Multiple CT axial sections of the brain have been obtained, 5 mm slice thickness. Contrast has not been administered. 2-D sagittal, coronal reconstructions have been obtained Low dose protocols were performed. One or more of the following dose reduction techniques were used; automated exposure control, adjustment of the mA and/or KV according to patient size, use of iterative reconstruction technique. Findings: No significant ventricular enlargement. Intra-axial or extra-axial hemorrhage density is not seen. No mass effect or midline shift Basal cisterns are not remarkable. Fourth ventricle is midline. Cranial vault intact. Prominent left sphenoid sinusitis Impression: Negative for acute hemorrhage, mass effect or midline shift Advise clinical correlation and follow-up accordingly
--- NOTE | 2025-09-16 19:28 | PD.EDADULT ---
ED General RME/HPI General Chief complaint: Seizure Stated complaint: POSSIBLE SEIZURE ACTIVITY Time Seen by Provider: 09/16/25 19:25 Arrival date/time: 09/16/25 19:22 65-year-old male patient was brought in by EMS for evaluation regarding worsening facial spasm. Onset of symptoms for the last 2 months getting worse over the last 1 week. Patient denies any headache denies any upper or lower extremity weakness. Denies any head trauma. No medication was taken prior to ER visit. Patient is currently taking citalopram. Related Data Previous Rx's ?Medication ?Instructions ?Recorded ferrous sulfate 325 mg (65 mg 325 mg PO QDAY 1 month #30 tabs 07/18/25 iron) tablet (FeroSul) metoclopramide HCl 5 mg tablet 5 mg PO Q6H #60 tabs 07/20/25 (Reglan) Allergies Allergy/AdvReac Type Severity Reaction Status Date / Time No Known Allergies Allergy Verified 09/08/25 10:01 Review of Systems Review of Systems Narrative Review of Systems: Review of system reviewed and within normal limits except mentioned in HPI ED Exam Narrative Physical exam: VITAL SIGNS: Reviewed. GENERAL APPEARANCE: Alert and interactive, follows commands, no acute distress, HEAD AND FACE: Non-traumatic., Intermittent muscle spasm noted on the face. ENT: PERRL, pink conjunctivitis, eyelid no trauma, Mucous membrane moist. NECK: Supple, nontender, no nuchal rigidity. CHEST: No tenderness, no crepitus, no paradoxical movement, no retractions. LUNGS: Clear, well ventilated, symmetric, no rales, no wheezing, no ronchi, no stridor, good breath sounds bilaterally. HEART: Regular rate, regular rhythm, no murmur, no gallops. ABDOMEN: Soft, positive bowel sounds, nondistended, no guarding, nontender, no rebound, no masses, RECTAL: Deferred. GENITAL: Deferred. NEUROLOGICAL: Gross motor function intact sensory function intact, Appropriate for age. MUSCULOSKELETAL: low back nontender, full range of motion. EXTREMITIES: Nontender, full range of motion. SKIN: Color pink, dry, no rash, no lacerations, no abrasions, no contusions. LYMPHATICS: Deferred. Course Quality Measures none Orders Category Date Time Status EKG (ED ONLY) *Do not use* NOW Care 09/16/25 19:[address] head/brain wo con Stat Exams 09/16/25 19:25 Completed EKG (ED Only) Stat Exams 09/16/25 19:25 Draft CBC [CBC] Stat Lab 09/16/25 19:57 Completed CMP [Comprehensive Metabolic Panel] Stat Lab 09/16/25 19:57 Completed Magnesium Stat Lab 09/16/25 19:57 Completed UA, C/S IF [Urinalysis, C/S if Indicated] Stat Lab 09/16/25 20:12 Completed Diazepam [Valium] Med 09/16/25 21:29 Once 5 mg PO X1 ONE DiphenhydrAMINE INJ [Benadryl Inj] Med 09/16/25 19:27 Discontinued 50 mg IVP X1 ONE Vital Signs Vital signs: Vital Signs Temperature 98.9 F 09/16/25 19:29 Pulse Rate 73 09/16/25 19:29 Respiratory Rate 17 09/16/25 19:29 Blood Pressure 113/56 L 09/16/25 19:29 Pulse Oximetry (%) 91 L 09/16/25 19:29 Oxygen Delivery Method Room Air 09/16/25 19:29 Discharge Plan Plan Patient Disposition: HOME (Self Care) Discharge Disposition comment: Stable Prescriptions/Referrals Prescriptions/Med Rec: No Action ferrous sulfate [FeroSul] 325 mg (65 mg iron) tablet 325 mg PO QDAY 30 Days Qty: 30 0RF metoclopramide HCl [Reglan] 5 mg tablet 5 mg PO Q6H Qty: 60 0RF Referrals: No Primary/Family,Physician [Primary Care Provider] - In 1 week Problem List Clinical Impression: Extrapyramidal and movement disorder, Adverse effects of medication Patient/Caregiver Discharge Instructions Discharge Activity: activity as tolerated Education Materials: ED Drug Reaction, Other Additional Instructions: Thank you for the opportunity for serving you today. You are stable for discharged . You are advised to: Follow-up with your PCP in 1 to 2 days Return to ED for worsening of symptoms Increase oral fluids You can give [id number] Benadryl as needed for extrapyramidal symptoms Print Language: Bulgarian Stand Alone Forms: Swapna Award Info., Patient Portal Info Letter PA/TIFFANY Supervising Physician BREANNA/TIFFANY Supervising Physician: MD Luther MDM Narrative MDM hospital course (for use when minimal MDM required): 65-year-old male patient was brought in by EMS for evaluation regarding worsening facial spasm. Onset of symptoms for the last 2 months getting worse over the last 1 week. Patient denies any headache denies any upper or lower extremity weakness. Denies any head trauma. No medication was taken prior to ER visit. Patient is currently taking citalopram. CT scan of the head came back unremarkable. Patient's workup also came back unremarkable. Patient's symptoms could be related to citalopram. Patient is probably having extrapyramidal symptoms. Patient was given Benadryl with mild significant improvement of symptoms. I added Valium 5 mg p.o. since patient still having spasm. Significant improvement of symptoms noted. Was advised to tell his doctor regarding the citalopram. Otherwise patient can take [id number] Benadryl to help with the EPS. Stable for discharge back to the facility. Medication Administration(s) Medication Administration History Diazepam (Diazepam 5 Mg Tablet) 5 mg PO X1 ONE Stop: 09/16/25 21:30 Discontinued Medications Diphenhydramine HCl (Diphenhydramine Inj 50 Mg/Ml Vial) 50 mg IVP X1 ONE Stop: 09/16/25 19:28 Last Admin: 09/16/25 20:16 Dose: 50 mg Documented By: BD Diagnosis Differential Diagnosis ED Complaint MDM: Extrapyramidal symptoms, facial muscle spasm, intracranial tumor Diagnoses ruled out and/or further discussions: Extraparametal symptoms, adverse effect of medications
[2025-09-16 19:29] VITALS: BP 113/56; PULSE 73; RESP 17; TEMP 37.2; O2SAT 91
[2025-09-16 19:31] VITALS: PULSE 60; RESP 14; O2SAT 98
[2025-09-16 19:36] VITALS: BMI 29.0
[2025-09-16 20:07] LABS: Basophils # (Auto) 0.1 Thou/mm3 (0.0-0.2); Basophils % (Auto) 1 % (0-2.5); Eosinophils # (Auto) 0.4 Thou/mm3 (0.0-0.5); Eosinophils % (Auto) 5 % (0-10); Hematocrit 31.0 % (41.0-53.0); Hemoglobin 10.5 g/dL (13.5-16.0); Immature Granulocytes Auto 0.03 Thou/mm3 (0.00-0.00); Lymphocytes # (Auto) 2.2 Thou/mm3 (1.0-4.8); Lymphocytes % (Auto) 28 % (10-50); Mean Corpuscular HGB Conc 33.9 g/dl (31.0-37.0); Mean Corpuscular Hemoglobin 34.1 pg (25.0-35.0); Mean Corpuscular Volume 101 fL (80-100); Monocytes # (Auto) 0.8 Thou/mm3 (0.0-0.8); Monocytes % (Auto) 10 % (0-12); Neutrophils # (Auto) 4.4 Thou/mm3 (1.8-7.7); Neutrophils % (Auto) 56 % (37-80); Nucleated Red Blood Cell # 0.00 Thou/mm3 (0.00-0.00); Nucleated Red Blood Cell % 0 /100 WBC (0); Platelet Count 129 Thou/mm3 (140-440); RDW Standard Deviation 52.2 fL (35.1-43.9); Red Blood Count 3.08 Miln/mm3 (4.50-5.90); White Blood Count 7.9 Thou/mm3 (3.8-10.6)
[2025-09-16 20:19] LABS: Collection Type, Urine Clean Catch
[2025-09-16 20:33] LABS: Alanine Aminotransferase 17 U/L (10-49); Albumin, Serum 3.3 gm/dL (3.4-4.8); Albumin/Globulin Ratio 0.9 (1.2-2.2); Alkaline Phosphatase 67 U/L (46-116); Anion Gap 7 (7-16); Aspartate Amino Transferase 36 U/L (0-34); BUN/Creatinine Ratio 11 Ratio (12-20); Bilirubin,Total 1.6 mg/dL (0.3-1.2); Blood Urea Nitrogen 8 mg/dL (9-23); Calcium 9.2 mg/dL (8.3-10.6); Calcium (Corrected) 9.8 mg/dL (8.5-10.1); Carbon Dioxide 24.0 mMol/L (20.0-31.0); Chloride 105 mMol/L (98-107); Creatinine (Component) 0.7 mg/dL (0.6-1.3); Estimated Creatinine Clearance 100.6 mL/min (>60); Globulin 3.8 gm/dL (2.3-3.5); Glucose 105 mg/dL (74-106); Magnesium 1.6 mg/dL (1.6-2.6); Osmolality,Calculated 270 (275-295); Potassium 3.6 mMol/L (3.4-5.1); Sodium 136 mMol/L (136-145); Total Protein 7.1 gm/dL (5.7-8.2); eGFR > 60 See Note
[2025-09-16 20:52] LABS: Amorphous Crystals,Urine Present (Absent); Bacteria,Urine Rare; Bilirubin,Urine Negative (Negative); Blood,Urine Negative (Negative); Clarity,Urine Turbid (Clear/Hazy); Color,Urine Yellow (Lt Yel-Yel); Culture Indicated,Urine Not Indicated; Glucose, Urine Negative (Negative); Hyaline Casts,Urine 2 /hpf (0-1); Ketones,Urine Negative (Negative); Leukocyte Esterase,Urine Negative (Negative); Nitrite,Urine Negative (Negative); PH,Urine 6.0 (5.0-7.0); Protein,Urine Negative (Neg - Trace); RBC,Urine 1 /hpf (0-3); Specific Gravity,Urine 1.015 (1.001-1.035); Squamous Epithelial Cell,Urine 2 /hpf (0-5); Urobilinogen,Urine Negative mg/dL (0.0-1.0); WBC,Urine 7 /hpf (0-5)
[2025-09-16] MEDS: DIAZEPAM 5 MG TABLET PO (21:41)
[2025-09-16 21:42] VITALS: BP 108/64; PULSE 54; RESP 17; TEMP 37; O2SAT 98
== END 2025-09-16 21:44 | disposition home or self-care (01) ==
PROVIDERS: Nurse Practitioner Family; Emergency Provider Emergency Medicine
DX: G25.9 Extrapyramidal and movement disorder, unspecified (principal); R56.9 Unspecified convulsions
CPT/HCPCS: 36415; 70450; 80053; 81001; 83735; 85025; 93005; 96374; 99283; J1200; A9270

== ENCOUNTER → 2025-09-30 | Outpatient (CLI) | payer MEDICARE, MEDICAID, SELFPAY ==
[2025-09-30 15:04] LABS: Misc Send Out* See Sep Rpt
[2025-09-30 15:30] LABS: Basophils # (Auto) 0.1 Thou/mm3 (0.0-0.2); Basophils % (Auto) 1 % (0-2.5); Eosinophils # (Auto) 0.4 Thou/mm3 (0.0-0.5); Eosinophils % (Auto) 6 % (0-10); Hematocrit 31.7 % (41.0-53.0); Hemoglobin 11.0 g/dL (13.5-16.0); Immature Granulocytes Auto 0.02 Thou/mm3 (0.00-0.00); Lymphocytes # (Auto) 2.4 Thou/mm3 (1.0-4.8); Lymphocytes % (Auto) 35 % (10-50); Mean Corpuscular HGB Conc 34.7 g/dl (31.0-37.0); Mean Corpuscular Hemoglobin 34.7 pg (25.0-35.0); Mean Corpuscular Volume 100 fL (80-100); Monocytes # (Auto) 0.8 Thou/mm3 (0.0-0.8); Monocytes % (Auto) 12 % (0-12); Neutrophils # (Auto) 3.2 Thou/mm3 (1.8-7.7); Neutrophils % (Auto) 46 % (37-80); Nucleated Red Blood Cell # 0.00 Thou/mm3 (0.00-0.00); Nucleated Red Blood Cell % 0 /100 WBC (0); Platelet Count 154 Thou/mm3 (140-440); RDW Standard Deviation 50.0 fL (35.1-43.9); Red Blood Count 3.17 Miln/mm3 (4.50-5.90); White Blood Count 6.9 Thou/mm3 (3.8-10.6)
[2025-09-30 15:51] LABS: INR 1.2 (0.9-1.3); Partial Thromboplastin Time 30.2 Seconds (22.0-36.0); Prothrombin Time 12.9 Seconds (9.0-12.2)
[2025-09-30 15:54] LABS: Alanine Aminotransferase 32 U/L (10-49); Albumin, Serum 3.5 gm/dL (3.4-4.8); Albumin/Globulin Ratio 1.0 (1.2-2.2); Alkaline Phosphatase 79 U/L (46-116); Anion Gap 8 (7-16); Aspartate Amino Transferase 49 U/L (0-34); BUN/Creatinine Ratio 11 Ratio (12-20); Bilirubin,Direct 0.7 mg/dL (0.0-0.3); Bilirubin,Total 1.5 mg/dL (0.3-1.2); Blood Urea Nitrogen 8 mg/dL (9-23); Calcium 9.2 mg/dL (8.3-10.6); Calcium (Corrected) 9.6 mg/dL (8.5-10.1); Carbon Dioxide 25.7 mMol/L (20.0-31.0); Chloride 105 mMol/L (98-107); Creatinine (Component) 0.7 mg/dL (0.6-1.3); Globulin 3.5 gm/dL (2.3-3.5); Glucose 178 mg/dL (74-106); Iron 85 mcg/dL (65-175); Osmolality,Calculated 279 (275-295); Percent Iron Saturation 28 % (20-55); Potassium 4.0 mMol/L (3.4-5.1); Sodium 139 mMol/L (136-145); Total Iron Binding Capacity 297 mcg/dL (250-425); Total Protein 7.0 gm/dL (5.7-8.2); Unsaturated Iron Binding 212 (225-295); eGFR > 60 See Note
[2025-09-30 16:03] LABS: Ammonia 107 uMol/L (11-32)
[2025-09-30 16:09] LABS: AFP Non-Pregnant 3.60 ng/mL (<8.10); Hepatitis B Surface Antigen Non Reactive (Non React)
[2025-10-07 23:36] LABS: HCV RNA, PCR <15 NOT DETECTED IU/mL
[2025-10-10 06:47] LABS: ANA Screen, IFA NEGATIVE (NEGATIVE); Actin Antibody (IgG)* <20 U; Alpha-1-Antitrypsin* 153 mg/dL (83-199); Ceruloplasmin* 17 mg/dL (14-30); HCV RNA, PCR Log IU <1.18 NOT DETECTED Log IU/mL; Mitochondrial Ab NEGATIVE (NEGATIVE)
== END | disposition home or self-care (01) ==
PROVIDERS: PCP Hospitalist; Referring Provider Internal Medicine Gastroenterology; Visit Provider Internal Medicine Gastroenterology
DX: K74.60 Unspecified cirrhosis of liver (principal); D50.9 Iron deficiency anemia, unspecified
CPT/HCPCS: 36415; 80053; 82103; 82105; 82140; 82248; 82390; 83540; 83550; 85025; 85610; 85730; 86015; 86038; 86255; 86376; 87340; 87522

== ENCOUNTER 2025-10-04 09:10 | Day surgery (SDC) | payer MEDICARE, MEDICAID, SELFPAY ==
[2025-10-04] VITALS (14 sets, daily range): BP systolic 93–141; BP diastolic 57–85; PULSE 60–68; RESP 11–18; TEMP 36.3–36.6; O2SAT 95–100; BMI 26.9
[2025-10-04] MEDS: fentaNYL CIT INJ 50 mCg/ML AMP 2ML (ASD USE ONLY) IVP (10:50)
[2025-10-04] MEDS: RINGERS LACTATED 500 ML 500 ML 20 ML IV (10:50)
[2025-10-04] MEDS: MIDAZOLAM INJ 1 MG/ML VIAL 2 ML (ASD USE ONLY) 2 MG IVP (10:50)
--- NOTE | 2025-10-04 12:13 | SUR.PHASEII ---
1205 patient's son Mandeep at bedside assisting patient get dressed. 1206 patient in personal wheelchair drinking apple juice as discharge instructions are being given to patient's son Mandeep. 1213 patient discharged.
== END 2025-10-04 12:13 | disposition home or self-care (01) ==
PROVIDERS: PCP Hospitalist; Referring Provider Surgery; Visit Provider Surgery
PROC: 0DBE8ZX Excision of Large Intestine, Via Natural or Artificial Opening Endoscopic, Diagnostic (ICD-10-PCS; CPT 45380; principal; 2025-10-04 10:45)
DX: D12.2 Benign neoplasm of ascending colon (principal); K57.30 Diverticulosis of large intestine without perforation or abscess without bleeding; R14.0 Abdominal distension (gaseous); K63.5 Polyp of colon; K62.0 Anal polyp
CPT/HCPCS: 45385; A4649; J2250; J3010

== ENCOUNTER 2025-10-17 13:31 | Outpatient (AMB) | payer MEDICARE, MEDICAID, SELFPAY ==
--- NOTE | 2025-10-17 13:46 | PD.GSCLVISIT ---
Med/Allergies Allergies & Medications Allergies No Known Allergies Allergy (Verified 10/17/25 13:46) Medication Reconciliation ferrous sulfate 325 mg (65 mg iron) tablet (FeroSul) 325 mg PO QDAY 1 month #30 tabs 07/18/25 [Rx Confirmed 10/17/25] metoclopramide HCl 5 mg tablet (Reglan) 5 mg PO Q6H #60 tabs 07/20/25 [Rx Confirmed 10/17/25] peg 3350-electrolytes 236 gram-22.74 gram-6.74 gram-5.86 gram solution (Golytely) 240 ml PO Q10M #4,000 mL 09/26/25 [Rx Confirmed 10/17/25] bisacodyl 10 mg rectal suppository (Dulcolax (bisacodyl)) [address] QDAY PRN constipation 10/03/25 [History Confirmed 10/17/25] carvedilol 3.125 mg tablet 3.125 mg PO BID 10/03/25 [History Confirmed 10/17/25] divalproex 125 mg tablet,delayed release (Depakote) 125 mg PO BID 10/03/25 [History Confirmed 10/17/25] folic acid 1 mg tablet 1 mg PO QDAY 10/03/25 [History Confirmed 10/17/25] furosemide 40 mg tablet 40 mg PO DAILY 10/03/25 [History Confirmed 10/17/25] hydroxyzine HCl 25 mg tablet 25 mg PO TID 10/03/25 [History Confirmed 10/17/25] lactulose 10 gram/15 mL oral solution (Enulose) 20 g PO TID 10/03/25 [History Confirmed 10/17/25] magnesium hydroxide 400 mg/5 mL oral suspension (Milk of Magnesia) 30 ml PO .72 hr PRN constipation 10/03/25 [History Confirmed 10/17/25] melatonin 3 mg capsule 9 mg PO HS 10/03/25 [History Confirmed 10/17/25] sodium phosphates 19 gram-7 gram/118 mL enema (Enema Disposable) [address] QDAY PRN constipation 10/03/25 [History Confirmed 10/17/25] spironolactone 25 mg tablet 25 mg PO Q12H 10/03/25 [History Confirmed 10/17/25] thiamine mononitrate (vit B1) 100 mg tablet 100 mg PO QDAY 10/03/25 [History Confirmed 10/17/25] MA Intake Visit Data Collection New Patient or Established: Established Patient (seen at [facility] within 3 years) Seen by Clinical Staff ONLY (RN/MA): No Reason for Visit:: COLONOSCOPY F/U Pain Present Currently: No Pain Scale Used: Rivera-Zeng/[employer] Required: No PCP or OBGYN visit in last 3 months: Yes Hx Now: No Do You Feel Safe at Home: Yes Smoking Status Smoking Status: Never smoker For Telemed visit only Telemed Video/Phone Visit: Yes Verbal consent obtained for Telemed visit?: Yes Telemed Video/Phone visit w/Clinical Staff: 5-10 min Immunization / Flu Flu Vaccine in the Last 12 Months: Yes Flu Vaccine Exclusion Criteria: Already Received Past Medical History Past Medical History NEUROLOGIC: Positive Neurological Disorders and Dementia (with agitation); Negative Seizures CARDIAC: Positive Cardiac Disorders, Myocardial Infarction (NSTEMI) and Hypertension; Negative Congestive Heart Failure RESPIRATORY: Negative Chronic Obstructive Pulmonary Disease (COPD) or Asthma GASTROINTESTINAL: Positive Gastrointestinal Disorders (GASTROPARESIS, CIRRHOSIS) and Obstructive Bowel (ILEUS) GENITOURINARY: Negative Genitourinary Disorders or Renal Disease ENDOCRINE: Positive Endocrine Disorders and Diabetes Mellitus Type 2; Negative Diabetes Mellitus Type 1 HEMATOLOGIC: Positive Blood Disorders and Anemia; Negative Sickle Cell Disease OTHER HISTORY: Negative Blood Transfusions or Anesthesia Reactions Social History SMOKING STATUS: Smoking status: Never smoker SECOND HAND EXPOSURE: second hand exposure: No ALCOHOL: Alcohol Intake: Former HOUSING: Housing: Alf LIVES WITH: Lives With: Alone HPI HPI Narrative 65M having telephone visit after colonoscopy. Pt is at a SNF and could not be brought here today but his son had not been informed so he came to the appt and I spoke to the RN at [facility] while informing pt's son of the results (pt is not currently oriented per RN) ROS Review of Systems Systems Reviewed: All systems reviewed, normal except as documented Objective/Exam Narrative Physical exam: n/a due to televisit Results Colonoscopy and pathology reports reviewed Assessment & Plan Diagnosis / Problem List (1) Encounter to discuss colonoscopy results: Status: Acute Assessment & Plan: 65M s/p colonoscopy 09/2025 with fair prep and two polyps, one of which was approx 1cm and could not be retrieved, the other a 2mm tubular adenoma. Given suboptimal prep and that the larger of the two polyps could not be retrieved, I recommended surveillance colonoscopy in 1-3 years. Pt's son expressed understanding and all questions were answered Advanced Care Planning Advance care planning discussed with:: other Office Procedures GNS Level of Care Nursing/Assessment Patient Status: Established Patient Nursing Assessment/Reassesment: Medication Reconciliation and Update PMH in EMR Coordination of Care: Complex Care and Chronic Disease 1-5, Education Complex Pt/Fam, Consent,records obtained, informed consent, Results/Orders obtained and Staff clarify orders Established Patient Charge Established Patient Point Assignment: 80 Established Patient Point Charge: EP Level 3 (80-115) Patient Portal Questionaires Social History Living Situation History Housing: Alf Tobacco History Smoking Status: Never smoker Second Hand Smoke Exposure: No Alcohol History Alcohol Intake: Former Domestic Abuse History Do You Feel Safe at Home: Yes Review of Systems Report any current symptoms Only answer those that you have currently: Past Medical History Past Medical History Have you ever been diagnosed with any of the following: Neurological Problems Dementia: Yes (with agitation) Seizures: No Cardiology Problems Myocardial Infarction: Yes (NSTEMI) Congestive Heart Failure: No Hypertension: Yes Respiratory Problems Chronic Obstructive Pulmonary Disease (COPD): No Asthma: No Stomache/Intestinal Problems Obstructive Bowel: Yes (ILEUS) Genital/Urinary Problems Renal Disease: No Endocrine Problems Diabetes Mellitus Type 1: No Diabetes Mellitus Type 2: Yes Blood Problems Anemia: Yes Sickle Cell Disease: No Other Problems Blood Transfusions: No Anesthesia Reactions: No
== END 2025-10-17 13:50 | disposition home or self-care (01) ==
LOC: HODSRG 13:31
PROVIDERS: PCP Hospitalist; Referring Provider Hospitalist; Supervising Provider Surgery; Visit Provider Surgery
DX: Z71.2 Person consulting for explanation of examination or test findings (principal); K63.5 Polyp of colon; D12.6 Benign neoplasm of colon, unspecified; I10 Essential (primary) hypertension
CPT/HCPCS: 99213; G0463

== ENCOUNTER 2025-10-22 04:04 | Inpatient (IN) | payer MEDICARE, MEDICAID, SELFPAY ==
[2025-10-22] VITALS (163 sets, daily range): BP systolic 71–188; BP diastolic 43–97; PULSE 0–113; RESP 12–28; TEMP 35.4–37.2; O2SAT 83–100; BMI 25.6
--- NOTE | 2025-10-22 04:26 | PD.EDGIBLD ---
ED GI Bleed RME/HPI General Chief complaint: GI Bleed Stated complaint: VOMITING BLOOD Time Seen by Provider: 10/22/25 04:20 Arrival date/time: 10/22/25 04:04 RME / HPI RME / HPI Narrative: DR. DEAN MAIN ED EVALUATION: Patient presenting with Hx of Cirrhotic Liver Disease/Hepatic Encephalopathy with baseline GCS 15 reportedly became altered after episode of gross coffee-ground emesis. Patient notably hypotensive at SNF at 70 systolic. Paramedics arrived, patient unable to follow simple commands and transported to ED for evaluation. Systolic blood pressure in the field at 120, and upon arrival recurrent hypotension with systolic in the 70's. PMH: Dementia, Myocardial Infarction (NSTEMI), Cirrhotic Liver Disease/Hepatic Encephalopathy, Hypertension, Gastroparesis, Ileus, Muscle Wasting, Diabetes Mellitus Type 2, and Anemia PSH: Non-contributory Allergies: NKDA Social: Resides in [facility] Related Data Home Medications ?Medication ?Instructions ?Recorded ?Confirmed bisacodyl 10 mg rectal suppository 10 mg NH QDAY PRN constipation 10/03/25 10/17/25 (Dulcolax (bisacodyl)) carvedilol 3.125 mg tablet 3.125 mg PO BID 10/03/25 10/17/25 divalproex 125 mg tablet,delayed 125 mg PO BID 10/03/25 10/17/25 release (Depakote) folic acid 1 mg tablet 1 mg PO QDAY 10/03/25 10/17/25 furosemide 40 mg tablet 40 mg PO DAILY 10/03/25 10/17/25 hydroxyzine HCl 25 mg tablet 25 mg PO TID 10/03/25 10/17/25 lactulose 10 gram/15 mL oral 20 g PO TID 10/03/25 10/17/25 solution (Enulose) magnesium hydroxide 400 mg/5 mL 30 ml PO .72 hr PRN constipation 10/03/25 10/17/25 oral suspension (Milk of Magnesia) melatonin 3 mg capsule 9 mg PO HS 10/03/25 10/17/25 sodium phosphates 19 gram-7 118 ml NH QDAY PRN constipation 10/03/25 10/17/25 gram/118 mL enema (Enema Disposable) spironolactone 25 mg tablet 25 mg PO Q12H 10/03/25 10/17/25 thiamine mononitrate (vit B1) 100 100 mg PO QDAY 10/03/25 10/17/25 mg tablet Previous Rx's ?Medication ?Instructions ?Recorded ferrous sulfate 325 mg (65 mg 325 mg PO QDAY 1 month #30 tabs 07/18/25 iron) tablet (FeroSul) metoclopramide HCl 5 mg tablet 5 mg PO Q6H #60 tabs 07/20/25 (Reglan) peg 3350-electrolytes 236 240 ml PO Q10M #4,000 mL 09/26/25 gram-22.74 gram-6.74 gram-5.86 gram solution (Golytely) Allergies Allergy/AdvReac Type Severity Reaction Status Date / Time No Known Allergies Allergy Verified 10/17/25 13:46 Review of Systems Review of Systems Systems Reviewed: All systems reviewed, normal except as documented Past Medical History Past Medical History NEUROLOGIC: Positive Neurological Disorders and Dementia (with agitation) CARDIAC: Positive Cardiac Disorders, Myocardial Infarction (NSTEMI) and Hypertension GASTROINTESTINAL: Positive Gastrointestinal Disorders (GASTROPARESIS, CIRRHOSIS) and Obstructive Bowel (ILEUS) MUSCULOSKELETAL: Positive Musculoskeletal Disorders (MUSCLE WASTING) ENDOCRINE: Positive Endocrine Disorders and Diabetes Mellitus Type 2 HEMATOLOGIC: Positive Blood Disorders and Anemia ED Exam Narrative Physical exam: GEN. APPEARANCE: The patient is alert awake oriented X-3 under no distress, vacant stare, unable to follow simple commands, nonverbal, mildly tachycardic. VITALS: All vitals were reviewed and the pulse ox is 96%, which is normal according to my interpretation HEENT: Normocephalic, atraumatic and nontender. Pupils are equal and reactive. Oral mucosa is moist. NECK: Supple, nontender, no meningismus, no JVD. There is no thyromegaly and no lymphadenopathy. CHEST: Nontender on palpation no deformity and no crepitus. CARDIOVASCULAR: Mildly tachycardic, no murmur or gallop rub or extra beats. LUNGS: Clear to auscultation bilaterally with symmetrical chest rise. No laboring tachypnea or wheezing. No intercostal subcostal retraction. No rales and no rhonchi. ABDOMEN: Soft, flat, nontender to palpation, no guarding or rebound tenderness. There are no abnormal masses palpated. No pulsatile masses or bruits. Active and normal bowel sounds. EXTREMITIES: Normal inspection and palpation. No edema. No cyanosis. Patient is able to move all 4 extremities well SKIN: Warm and dry, no rashes noted. MUSCULOSKELETAL: No lumbar or midline bony tenderness. There is no CVA tenderness. No paraspinal muscle spasm or tenderness. NEURO: Cranial nerves II through XII unaccessible at this time. Generalized global weakness. PSYCHIATRIC: Patient is in normal mood and affect, cooperative. LYMPHATICS: No major lymphadenopathy noted. Course Quality Measures none Orders Category Date Time Status CT Screening NOW Care 10/22/25 05:24 Active Assistant Press Operator NOW Care 10/22/25 04:31 Completed Assistant Press Operator STAT Care 10/22/25 04:28 Active Continuous Pulse Oximetry Care 10/22/25 04:32 Active Continuous Pulse Oximetry STAT Care 10/22/25 04:29 Completed EKG (ED ONLY) *Do not use* NOW Care 10/22/25 06:02 Completed Insert IV STAT Care 10/22/25 04:29 Active Intake and Output Routine Care 10/22/25 04:29 Ordered Intubation NOW Care 10/22/25 04:57 Completed NPO NOW Care 10/22/25 04:26 Active Urinary Catheter STAT Care 10/22/25 04:29 Active Vital Signs, Non-Routine Q30M Care 10/22/25 04:45 Ordered Consult to Gastroenterology Routine Cons 10/22/25 05:[address] angio chest abdomen pelvis Stat Exams 10/22/25 05:[address] head/brain wo con Stat Exams 10/22/25 05:10 Taken EKG (ED Only) Stat Exams 10/22/25 06:02 Draft XR chest 1V post procedure Stat Exams 10/22/25 04:49 Taken ABG [Arterial Blood Gas] Stat Lab 10/22/25 04:59 Ordered Ammonia Stat Lab 10/22/25 04:35 Completed Amylase Stat Lab 10/22/25 04:35 Completed CBC Stat Lab 10/22/25 04:35 Completed Comprehensive Metabolic Panel Stat Lab 10/22/25 04:35 Completed Lipase Stat Lab 10/22/25 04:35 Completed Magnesium Stat Lab 10/22/25 04:35 Completed Partial Thromboplastin Time Stat Lab 10/22/25 04:35 Completed Prothrombin Time with INR Stat Lab 10/22/25 04:35 Completed Troponin I Stat Lab 10/22/25 04:35 Completed Type and Screen Stat Lab 10/22/25 05:56 Received UA, C/S IF [Urinalysis, C/S if Indicated] Stat Lab 10/22/25 05:30 Received Etomidate Inj [Amidate Inj] Med 10/22/25 04:28 Discontinued 10 mg IVP X1 ONE Etomidate Inj [Amidate Inj] Med 10/22/25 04:30 Discontinued 20 mg .ROUTE .STK-MED ONE Ketamine Inj Med 10/22/25 06:01 Discontinued 200 mg IVP X1 ONE Metoclopramide Inj [Reglan Inj] Med 10/22/25 04:29 Discontinued 10 mg .ROUTE .STK-MED ONE Metoclopramide Inj [Reglan Inj] Med 10/22/25 04:28 Discontinued 10 mg IVP X1 ONE Octreotide Acet Inj [SandoSTATIN Inj] Med 10/22/25 04:26 Discontinued 50 mcg IVP X1 ONE Pantoprazole Inj [Protonix Inj] Med 10/22/25 04:26 Discontinued 80 mg IVP X1 ONE Pantoprazole/Ns 80Mg IV Premix [Protonix/NS 80mg IV Med 10/22/25 06:01 Active Premix] 80 mg in 100 ml IV Q10H Propofol 1,000 mg Ivpb [Diprivan Ivpb] Med 10/22/25 04:44 Active 1,000 mg in 100 ml IV 5 mcg/kg/min Propofol 1,000 mg Ivpb [Diprivan Ivpb] Med 10/22/25 04:46 Discontinued 1,000 mg in 100 ml IV 5 mcg/kg/min Rocuronium Inj [Zemuron Inj] Med 10/22/25 04:30 Discontinued 100 mg .ROUTE .STK-MED ONE Rocuronium Inj [Zemuron Inj] Med 10/22/25 04:28 Discontinued 50 mg IVP X1 ONE Sodium Chloride 0.9% 1000 ml [Ns] 1,000 ml Med 10/22/25 04:26 Discontinued IV 999 mls/hr Sodium Chloride 0.9% [Ns] 100 ml Med 10/22/25 04:26 Active Octreotide Acet Inj [SandoSTATIN Inj] 1,000 mcg IV 50 mcg/hr Mechanical [Volume Ventilator] Stat RT 10/22/25 Active Oxygen Delivery NOW RT 10/22/25 04:26 Active Vital Signs Vital signs: Vital Signs Temperature 97.9 F 10/22/25 04:10 Pulse Rate 83 10/22/25 04:10 Respiratory Rate 16 10/22/25 04:10 Blood Pressure 110/66 10/22/25 04:10 Pulse Oximetry (%) 96 10/22/25 04:10 Oxygen Delivery Method Room Air 10/22/25 04:10 GI Bleed MDM Narrative MDM Narrative:: Scribe Attestation: Fatimah Nelson am scribing for and in the presence of Dr. Rivers. Provider Notation: Although this document has been carefully reviewed, there may still be some phonetic and other typographical errors. These errors are purely grammatical due to imperfections in the software program and should not be construed in any way to compromise the substance of the patient's medical care during this visit. Patient presenting with Hx of Cirrhotic Liver Disease/Hepatic Encephalopathy with baseline GCS 15 reportedly became altered after episode of gross coffee-ground emesis. Patient notably hypotensive at SNF at 70 systolic. Please see PE findings. Laboratory markers, including CBC and serum chemistries, were pertinent for hemoglobin of 9.7, no renal insufficiency, serum ammonia of 360. Patient intubated upon arrival to protect airway due to continued gross hematemesis (refer to resident's procedure note). Placed on Sandostatin and Protonix infusions after initial bolus. Maintained on vent and Propofol and Ketamine added. Patient to undergo CT of both head and abdomen/pelvis to r/o intracranial and locate potential upper GI source of bleeding. Please see AM physician's note for final disposition. Patient data External records reviewed:: [facility] previous records (Reviewed prior ED records from 09/16/25. Patient was seen for Adverse effects of medication.), EMS form and [facility] records Clinical information provided by:: patient and EMS Social determinants that could affect healthcare access:: housing (SNF) Patient has the following chronic illnesses:: Dementia, Cirrhotic Liver Disease/Hepatic Encephalopathy, Hypertension, Gastroparesis, Ileus, Muscle Wasting, Diabetes Mellitus Type 2, and Anemia How is presenting disease/condition affected by chronic disease/condition?: exacerbated by Evaluation data The following diagnostics were reviewed and interpreted by me:: lab results and radiology exam(s) Lab and/or radiology exams considered but not ordered:: None Interpretation Summary: RADIOLOGY Head/Brain CT: Pending official radiology report. Chest/Abdomen/Pelvis CTA: Pending official radiology report. Chest X-Ray: Pending official radiology report. Medications / Prescriptions Medications or Prescriptions considered but not ordered:: None Medication administrations:: Medication Administration History Octreotide Acetate 1,000 mcg/ (Sodium Chloride) 102 mls @ 5.1 mls/hr IV .Q20H ONE; Protocol Stop: 10/23/25 00:25 Last Admin: 10/22/25 04:55 Dose: 50 mcg/hr, 5.1 mls/hr Documented By: AC Propofol (Diprivan Ivpb) 1,000 mg in 100 mls @ 2.229 mls/hr IV .Q24H PRN; Protocol PRN Reason: PER PROTOCOL Stop: 11/21/25 04:43 Last Titration: 10/22/25 06:05 Dose: 50 mcg/kg/min, 22.29 mls/hr Documented By: Titration: 10/22/25 06:00 Dose: 45 mcg/kg/min, 20.061 mls/hr Documented By: Titration: 10/22/25 05:55 Dose: 40 mcg/kg/min, 17.832 mls/hr Documented By: Titration: 10/22/25 05:50 Dose: 35 mcg/kg/min, 15.603 mls/hr Documented By: Titration: 10/22/25 05:40 Dose: 30 mcg/kg/min, 13.374 mls/hr Documented By: Titration: 10/22/25 05:30 Dose: 25 mcg/kg/min, 11.145 mls/hr Documented By: Titration: 10/22/25 05:10 Dose: 20 mcg/kg/min, 8.916 mls/hr Documented By: Titration: 10/22/25 05:05 Dose: 15 mcg/kg/min, 6.687 mls/hr Documented By: Titration: 10/22/25 05:00 Dose: 10 mcg/kg/min, 4.458 mls/hr Documented By: Admin: 10/22/25 04:53 Dose: 5 mcg/kg/min, 2.229 mls/hr Documented By: MALLIKA Co-signed By: VAISHALI Pantoprazole Sodium (Protonix/Ns 80mg Iv Premix) 80 mg in 100 mls @ 10 mls/hr IV Q10H BRYANT Stop: 10/25/25 04:00 Discontinued Medications Etomidate (Etomidate Inj 2 Mg/Ml Vial 10 Ml) 10 mg IVP X1 ONE Stop: 10/22/25 04:29 Last Admin: 10/22/25 04:39 Dose: 10 mg Documented By: MALLIKA Etomidate (Etomidate Inj 2 Mg/Ml Vial 10 Ml) Confirm Administered Dose 20 mg .ROUTE .STK-MED ONE Stop: 10/22/25 04:31 Last Admin: 10/22/25 04:37 Dose: Not Given Documented By: MALLIKA Non-Admin Reason: Override Medication Sodium Chloride (Ns) 1,000 mls @ 999 mls/hr IV .Q1H1M ONE Stop: 10/22/25 05:26 Last Infusion: 10/22/25 06:03 Dose: Infused Documented By: Admin: 10/22/25 04:38 Dose: 999 mls/hr Documented By: MALLIKA Propofol (Diprivan Ivpb) 1,000 mg in 100 mls @ 2.229 mls/hr IV .Q24H PRN; Protocol PRN Reason: PER PROTOCOL Stop: 11/21/25 04:45 Ketamine HCl (Ketamine 50 Mg/Ml Vial 10 Ml) 200 mg IVP X1 ONE Stop: 10/22/25 06:02 Last Admin: 10/22/25 06:14 Dose: 200 mg Documented By: MALLIKA Metoclopramide HCl (Metoclopramide Inj 5 Mg/Ml Vial 2 Ml) 10 mg IVP X1 ONE; Protocol Stop: 10/22/25 04:29 Last Admin: 10/22/25 04:33 Dose: 10 mg Documented By: MALLIKA Metoclopramide HCl (Metoclopramide Inj 5 Mg/Ml Vial 2 Ml) Confirm Administered Dose 10 mg .ROUTE .STK-MED ONE Stop: 10/22/25 04:30 Last Admin: 10/22/25 04:37 Dose: Not Given Documented By: MALLIKA Non-Admin Reason: Override Medication Octreotide Acetate (Octreotide Acet Inj 50 Mcg/Ml Vial) 50 mcg IVP X1 ONE Stop: 10/22/25 04:27 Last Admin: 10/22/25 04:54 Dose: 50 mcg Documented By: MALLIKA Pantoprazole Sodium (Pantoprazole Inj 40 Mg Vial) 80 mg IVP X1 ONE Stop: 10/22/25 04:27 Last Admin: 10/22/25 04:54 Dose: 80 mg Documented By: MALLIKA Rocuronium Mondovi (Rocuronium Inj 10 Mg/Ml Vial 10 Ml) 50 mg IVP X1 ONE Stop: 10/22/25 04:29 Last Admin: 10/22/25 04:40 Dose: 50 mg Documented By: MALLIKA Co-signed By: VAISHALI Rocuronium [place] (Rocuronium Inj 10 Mg/Ml Vial 10 Ml) Confirm Administered Dose 100 mg .ROUTE .STK-MED ONE Stop: 10/22/25 04:31 Last Admin: 10/22/25 04:37 Dose: Not Given Documented By: AC Non-Admin Reason: Override Medication See above if any Consultations Consultation(s) initiated? (list below): Yes Consultation #1 (Physician, Specialty, Details): Discussed with resident for terrazzo roller for admission. Reviewed the patient?s HPI, PMHx, lab and/or radiology results. Discussed treatment plan. request CT brain and lab results before admission. Time: 04:43 Diagnosis GI bleed differential diagnosis: esophageal varices, gastritis and Upper gastrointestinal hemorrhage Most likely diagnosis given after review of the tests above:: Acute upper GI bleed, Hemorrhagic shock, Encephalopathy, hepatic Admission Indicated Admission indicated?: indicated Explain why admission is indicated or not indicated:: Pending diagnostic results and final disposition Admission Request Was there a request for admission?: Yes Admission Attestation Admission request attestation: Discussed case with [] from Hospitalist service regarding admission. Discussed patients ED course, exam findings, labs, and radiology results. The Hospitalist [agrees,declines] to accept the patient for admission. Disposition Plan Disposition Plan: other (specify) (Signed out to Dr. Earl at 6 AM) Critical Care Time Critical Care Time Critical Care Time: Yes Total Critical Care Time (min.): 45 Attestation: The high probability of sudden, clinically significant deterioration in the patient?s condition required the highest level of my preparedness to intervene urgently. The services I provided to this patient were to treat and/or prevent clinically significant deterioration. Services included the following: chart data review, reviewing nursing notes and/or old charts, documentation time, health consultant collaboration regarding findings and treatment options, medication orders and management, direct patient care, vital sign assessments and ordering, interpreting and reviewing diagnostic studies and lab tests. Aggregate critical care time includes only time during which I was engaged in work directly related to the patient?s care, as described above, whether at bedside or elsewhere in the Emergency Department. It did not include time spent performing other reported procedures or the services of residents, students, nurses or physician assistants. Discharge Plan Prescriptions/Referrals Prescriptions/Med Rec: No Action peg 3350-electrolytes [Golytely] 236-22.74-6.74 -5.86 gram recon soln 240 ml PO Q10M Qty: 4000 0RF Rx Instructions: until fecal effluent is clear carvedilol 3.125 mg tablet 3.125 mg PO BID divalproex [Depakote] 125 mg tablet,delayed release (DR/EC) 125 mg PO BID bisacodyl [Dulcolax (bisacodyl)] 10 mg suppository 10 mg NH QDAY PRN (Reason: constipation) Enema Disposable 19-7 gram/118 mL enema 118 ml NH QDAY PRN (Reason: constipation) folic acid 1 mg tablet 1 mg PO QDAY furosemide 40 mg tablet 40 mg PO DAILY hydroxyzine HCl 25 mg tablet 25 mg PO TID lactulose [Enulose] 10 gram/15 mL solution 20 g PO TID melatonin 3 mg capsule 9 mg PO HS magnesium hydroxide [Milk of Magnesia] 400 mg/5 mL suspension 30 ml PO .72 hr PRN (Reason: constipation) spironolactone 25 mg tablet 25 mg PO Q12H thiamine mononitrate (vit B1) 100 mg tablet 100 mg PO QDAY ferrous sulfate [FeroSul] 325 mg (65 mg iron) tablet 325 mg PO QDAY 30 Days Qty: 30 0RF metoclopramide HCl [Reglan] 5 mg tablet 5 mg PO Q6H Qty: 60 0RF Referrals: No Primary/Family,Physician [Primary Care Provider] - In 1 week Problem List Clinical Impression: Acute upper GI bleed, Hemorrhagic shock, Encephalopathy, hepatic Patient/Caregiver Discharge Instructions Print Language: Telugu
[2025-10-22] MEDS: METOCLOPRAMIDE INJ 5 MG/ML VIAL 2 ML 10 MG IVP (04:33)
[2025-10-22] MEDS: SODIUM CHLORIDE 0.9% 1000 ML 1,000 ML 999 ML IV (04:38)
[2025-10-22] MEDS: ETOMIDATE INJ 2 MG/ML VIAL 10 ML 10 MG IVP (04:39)
[2025-10-22] MEDS: ROCURONIUM INJ 10 MG/ML VIAL 10 ML 50 MG IVP (04:40)
--- NOTE | 2025-10-22 04:49 | XR_ITS ---
EXAMINATION: AP chest single view TECHNIQUE: AP portable supine chest single view Date and time: October 22, 2025, 0452 hours, comparison July 14, 2025 INDICATIONS: Hypoxic respiratory failure today. FINDINGS: Endotracheal tube tip 3.5 cm above colin Mild prominence left ventricle Pulmonary vascular redistribution including central vascular engorgement Opacity left base obscuring detail left hemidiaphragm IMPRESSION: Left base pneumonia Suspicious for mild heart failure
[2025-10-22] MEDS: PROPOFOL 1,000 MG IVPB 1,000 MG/100 ML VIAL 2.229 MG IV ×2 (04:53→19:35)
[2025-10-22 04:54] LABS: Basophils # (Auto) 0.1 Thou/mm3 (0.0-0.2); Basophils % (Auto) 1 % (0-2.5); Eosinophils # (Auto) 0.4 Thou/mm3 (0.0-0.5); Eosinophils % (Auto) 4 % (0-10); Hematocrit 27.3 % (41.0-53.0); Hemoglobin 9.7 g/dL (13.5-16.0); Immature Granulocytes Auto 0.06 Thou/mm3 (0.00-0.00); Lymphocytes # (Auto) 3.2 Thou/mm3 (1.0-4.8); Lymphocytes % (Auto) 28 % (10-50); Mean Corpuscular HGB Conc 35.5 g/dl (31.0-37.0); Mean Corpuscular Hemoglobin 34.5 pg (25.0-35.0); Mean Corpuscular Volume 97 fL (80-100); Monocytes # (Auto) 1.4 Thou/mm3 (0.0-0.8); Monocytes % (Auto) 13 % (0-12); Neutrophils # (Auto) 6.1 Thou/mm3 (1.8-7.7); Neutrophils % (Auto) 54 % (37-80); Nucleated Red Blood Cell # 0.00 Thou/mm3 (0.00-0.00); Nucleated Red Blood Cell % 0 /100 WBC (0); Platelet Count 154 Thou/mm3 (140-440); RDW Standard Deviation 48.6 fL (35.1-43.9); Red Blood Count 2.81 Miln/mm3 (4.50-5.90); White Blood Count 11.3 Thou/mm3 (3.8-10.6)
[2025-10-22] MEDS: OCTREOTIDE ACET INJ 50 mCg/ML VIAL IVP (04:54)
[2025-10-22] MEDS: OCTREOTIDE ACET INJ 1,000 MCG in SODIUM CHLORIDE 0.9% 100 ML 5.1 MCG IV (04:55)
--- NOTE | 2025-10-22 04:57 | PD.RESPROC ---
PROCEDURES: Procedure Date / Time 10/22/25 0457 Intubation Indication(s): inability to protect airway Informed consent obtained: implied Time out done, and the following verified: correct patient, side and site, procedure, patient position and implants and/or equipment Sedative: etomidate Mg given: 20 Paralytic: rocuronium Mg given: 50 Laryngoscope: fiber optic video scope Assist device used: fiber optic device ET tube size: 7.5 ET tube uncuffed: Yes Tube secured depth (cm): 24 Tube secured location: teeth Tube placement confirmation: visualized tube passing through cords, equal breath sounds bilaterally, no breath sounds over epigastrium and confirmation by capnometry Patient tolerated procedure: well EBL(ml): 0 Intubation complications: none Additional comments: A time out was performed. My hands were washed immediately prior to the procedure. I wore a mask with protective eyewear, gown and gloves throughout the procedure. The patient was placed on a cardiac rehabilitation specialist including continuous pulse oximetry. Rapid Sequence Intubation was conducted. Using a fiberoptic laryngoscope and a size 7.5 endotracheal tube with stylet, the patient was intubated on the first attempt. The stylet was removed and cuff balloon was inflated. Appropriate endotracheal tube position was confirmed by direct visualization of vocal cord passage, fogging of the tube, CO2 colormetric indicator and symmetric breath sounds. The tube was secured at 24 cm at the lips. Post intubation chest x-ray is pending at this time.
--- NOTE | 2025-10-22 05:10 | XR_ITS ---
Examination: CT brain head without contrast. 2-D sagittal coronal reconstructions Date and time of exam: October 22, 2025, 0544 hours INDICATIONS: Altered mental status acute encephalopathy today CTDI: vol (mGy): 51.80 DLP: (mGycm): 1041 Technique: Multiple CT axial sections of the brain have been obtained, 5 mm slice thickness. Contrast has not been administered. 2-D sagittal, coronal reconstructions have been obtained Low dose protocols were performed. One or more of the following dose reduction techniques were used; automated exposure control, adjustment of the mA and/or KV according to patient size, use of iterative reconstruction technique. Findings: No significant ventricular enlargement. Intra-axial or extra-axial hemorrhage density is not seen. No mass effect or midline shift Basal cisterns are not remarkable. Fourth ventricle is midline. Cranial vault intact. Chronic pansinusitis Impression: Negative for acute hemorrhage, mass effect or midline shift
[2025-10-22 05:11] LABS: INR 1.2 (0.9-1.3); Partial Thromboplastin Time 29.1 Seconds (22.0-36.0); Prothrombin Time 13.0 Seconds (9.0-12.2)
[2025-10-22 05:15] LABS: Alanine Aminotransferase 12 U/L (10-49); Albumin, Serum 3.4 gm/dL (3.4-4.8); Albumin/Globulin Ratio 0.9 (1.2-2.2); Alkaline Phosphatase 71 U/L (46-116); Ammonia 379 uMol/L (11-32); Amylase 50 U/L (30-118); Anion Gap 11 (7-16); Aspartate Amino Transferase 27 U/L (0-34); BUN/Creatinine Ratio 28 Ratio (12-20); Bilirubin,Total 1.7 mg/dL (0.3-1.2); Blood Urea Nitrogen 22 mg/dL (9-23); Calcium 9.2 mg/dL (8.3-10.6); Calcium (Corrected) 9.7 mg/dL (8.5-10.1); Carbon Dioxide 23.8 mMol/L (20.0-31.0); Chloride 103 mMol/L (98-107); Creatinine (Component) 0.8 mg/dL (0.6-1.3); Globulin 3.8 gm/dL (2.3-3.5); Glucose 324 mg/dL (74-106); Lipase 34 U/L (12-53); Magnesium 1.6 mg/dL (1.6-2.6); Osmolality,Calculated 291 (275-295); Potassium 4.7 mMol/L (3.4-5.1); Sodium 138 mMol/L (136-145); Total Protein 7.2 gm/dL (5.7-8.2); Troponin I < 0.020 ng/mL (0.0-0.045); eGFR > 60 See Note
--- NOTE | 2025-10-22 05:24 | XR_ITS ---
Examination: CTA chest, with intravenous contrast. CTA abdomen, with intravenous contrast. CTA pelvis, with intravenous contrast. 2-D sagittal and coronal reconstructions. 3-D reconstructions. Date and time of exam: October 22, 2025, 0546 hours INDICATIONS: Diagnosis varices, vomiting blood today CTDI vol (mgy) 20.71 DLP (MGycm) 910 Technique: Multiple CTA images, 2.0 mm slice thickness, obtained chest, abdomen, pelvis, with the high-resolution 64 slice scanner. 100 cc Isovue-370 is administered intravenously. Sagittal and coronal 2-D reconstructions are obtained. 3-D reconstructions, angiographic images are obtained. 3-D postprocessing, including vascular maximum intensity projections. Low dose protocols were performed. One or more of the following dose reduction techniques were used; automated exposure control, adjustment of the mA and/or KV according to patient size, use of iterative reconstruction technique. Findings: Endotracheal tube tip 22 mm above colin No thoracic aortic aneurysmal dilatation or dissection No pulmonary artery emboli Mild vascular congestion Pneumonia left base minimal pleural fluid Cirrhosis, liver lobular in contour no focal liver lesions Mild ascites Perigastric varices No splenic or pancreatic lesion Small gallstones Gastric mucosa is thickened Abdominal aorta normal size No hydronephrosis No bowel obstruction Diffuse wall thickening involving the colon Urinary bladder wall thickening anteriorly up to 19 mm Severe osteopenia with fusion L4-L5, L5-S1 IMPRESSION: Cirrhosis Gastritis pattern I do not see definite gastric bleeding Mild ascites Cholelithiasis Urinary bladder wall thickening, clinical correlation advised, differential would include cystitis
[2025-10-22 05:39] LABS: Collection Type, Urine Catheter; Squamous Epithelial Cell,Urine 0 /hpf (0-5)
[2025-10-22 05:43] LABS: Bilirubin,Urine Negative (Negative); Blood,Urine 2+ (Negative); Clarity,Urine Clear (Clear/Hazy); Color,Urine Yellow (Lt Yel-Yel); Culture Indicated,Urine Not Indicated; Glucose, Urine 3+ (Negative); Ketones,Urine 1+ (Negative); Leukocyte Esterase,Urine Negative (Negative); Nitrite,Urine Negative (Negative); PH,Urine 7.5 (5.0-7.0); Protein,Urine Negative (Neg - Trace); RBC,Urine 136 /hpf (0-3); Specific Gravity,Urine 1.026 (1.001-1.035); Urobilinogen,Urine 2.0 mg/dL (0.0-1.0); WBC,Urine 2 /hpf (0-5)
--- NOTE | 2025-10-22 06:02 | EKG_ITS ---
[facility] Test Date: 2025-10-22 Pat Name: AUGUSTUS RUSSELL Department: Room: - Gender: Male [employer]: : 1960 Requested By: Neil Rothman Order Number: [id number] Reading MD: Neil Rothman Measurements Intervals [place] Rate: 80 P: AR: QRS: 0 QRSD: 94 T: 48 QT: 432 QTc: 499 Interpretive Statements ATRIAL FIBRILLATION POSSIBLE ANTERIOR MYOCARDIAL INFARCTION , PROBABLY OLD [30 ms Q WAVE IN V3/V4, OR R < 0.2 mV IN V4] ABNORMAL RHYTHM ECG Compared to ECG 09/16/2025 19:57:03 Myocardial infarct finding now present Sinus bradycardia no longer present Incomplete right bundle-branch block no longer present /store/S0/[id number]/ecg/[id number].pdf
[2025-10-22] MEDS: KETAMINE 50 MG/ML VIAL 10 ML 200 MG IVP (06:14)
--- NOTE | 2025-10-22 06:18 | PD.EDADDENDU ---
Emergency Room Addendum Addendum Narrative: I took over the care from previous shift physician at _0600_ on _10/22/25_. See previous notes for complete H & P and ED course. I reviewed all diagnostic test results. My interpretation of the EKG is: Atrial fibrillation (60 bpm) with nonspecific ST-T changes. Diagnoses include: GI bleed Hepatic encephalopathy Intubation Pneumonia Cirrhosis I discussed the case with our ICU team. About the presentation and exam and diagnostics and treatments here. And need of further care in the hospital. Will accept the patient. Kunal Earl MD
[2025-10-22] MEDS: PANTOPRAZOLE/NS 80MG IV PREMIX 80 MG/100 ML BAG 10 MG IV ×3 (06:22→22:39)
--- NOTE | 2025-10-22 06:36 | PRELIM_ITS ---
CT scan of the head without intravenous contrast (axial sections with sagittal and coronal reformats) October 22, 2025 0544 hours Clinical history: Acute encephalopathy Comparison: No prior study is available for comparison. Findings: There is no evidence of intracranial hemorrhage, mass effect or midline shift. There are periventricular white matter hypodensities, compatible with chronic small vessel ischemia. There is mild volume loss. There is atheromatous calcification of the intracranial arteries. The calvarium is unremarkable. There is moderate mucosal thickening in the left sphenoid sinus. The mastoid air cells and the other visualized paranasal sinuses are clear. Impression: No evidence of intracranial hemorrhage, mass effect or midline shift. Periventricular chronic small vessel ischemia and volume loss. Report Electronically Signed By: Adriano Campos 10/22/2025 6:36:03 AM [EST]
[2025-10-22] MEDS: MIDAZOLAM/NS 100 MG IVPB 100 MG/100 ML BAG IV (06:54)
--- NOTE | 2025-10-22 07:36 | PRELIM_ITS ---
CT angiogram of the chest, abdomen and pelvis with intravenous contrast (axial sections with sagittal and coronal reformats) October 22, 2025 at 0546 hours Clinical History: Rule out actively bleeding esophageal varices. Comparison: No prior study is available for comparison. Findings: The thoracic aorta demonstrates mild atheromatous calcification without evidence of dissection or aneurysm. The origins of the right brachiocephalic, left common carotid and left subclavian arteries are patent. The abdominal aorta demonstrates mild atheromatous calcification without evidence of dissection or aneurysm. The celiac, superior mesenteric, inferior mesenteric and bilateral renal arteries are patent to the extent visualized. The common iliac, external iliac and internal iliac arteries are patent bilaterally. There is no filling defect within the pulmonary artery divisions to suggest pulmonary thromboembolism. The main pulmonary arteries are dilated with the pulmonary trunk measuring 4 cm, of concern for pulmonary arterial hypertension. No evidence of mediastinal mass or lymphadenopathy. There is no pericardial effusion. There is mild cardiomegaly. Coronary artery calcification is noted. There are bilateral dependent pulmonary opacities, which may represent sequelae of aspiration. Bibasilar streaky atelectasis is present. No evidence of pleural effusion or pneumothorax. Endotracheal tube in satisfactory position. The liver demonstrates a nodular contour, which may represent cirrhosis. Multiple portosystemic collaterals are seen in the upper abdomen and gastroesophageal region.The gallbladder is distended. Dependent hyperdensity is identified within the gallbladder, suggestive of small layering calculi. Nonspecific perinephric fat stranding is noted bilaterally. There is left adrenal thickening The spleen, pancreas, right adrenals and kidneys are unremarkable. No evidence of bowel obstruction. There are hyperdense contents in the stomach which may represent blood clots. The appendix is within normal limits (images [id number] ). A moderate amount of fecal material is present in the colon. There is mild fat stranding and few prominent mesenteric lymph nodes. A Miller catheter is seen in the urinary bladder. There are a few air loculi in the urinary bladder. There is mild prostatomegaly. There is no free fluid, free air or abscess. Degenerative changes are identified in the spine. Impression: 1. No evidence of aortic dissection or aneurysm. 2. Hyperdense contents in the stomach which may represent blood clots. Recommend clinical correlation and follow-up. 3. Liver cirrhosis. 4. Cholelithiasis without evidence of acute cholecystitis. 5. Other findings as described above. Report Electronically Signed By: Adriano Campos 10/22/2025 7:35:49 AM [EST]
--- NOTE | 2025-10-22 08:09 | XR_ITS ---
EXAMINATION: AP chest single view TECHNIQUE: AP portable supine chest single view Date and time: October 22, 2025, 0820 hours, comparison 0455 hours this morning INDICATIONS: Post orogastric tube placement FINDINGS: Significant left base pneumonia Prominent vascular congestion Orogastric tube is in the stomach, the tip is below the level of the film Endotracheal tube 4 cm above colin Prominent osteopenia IMPRESSION: Orogastric tube in the stomach, tip below the level of the film
[2025-10-22 08:35] LABS: Hematocrit 24.9 % (41.0-53.0)
[2025-10-22] MEDS: RINGERS LACTATED 1000 ML 1,000 ML 999 ML IV (08:51)
[2025-10-22 08:56] LABS: Hemoglobin 8.7 g/dL (13.5-16.0)
[2025-10-22 09:30] LABS: Base Excess -2 (-3-3); HCO3 22 mEq/L (20-26); Inspired Oxygen, FIO2 50 %; O2 Saturation 100 % (91-98); PCO2 31 mmHg (32.0-48.0); PO2 209 mmHg (83-108); pH, Arterial 7.45 (7.35-7.45)
[2025-10-22 09:31] LABS: Allen Test Performed/OK; Puncture Site Right Brachial
--- NOTE | 2025-10-22 10:31 | PC.NURSE ---
CALLED DR. NIEVES TO NOTIFIED HIM THAT THIS PT IS STILL HAVING COFFEE GROUND EMESIS COMING FROM OG TUBE, PER DR. NIEVES, OK TO HOLD MED AT THIS TIME
[2025-10-22 11:06] LABS: Glucose Estimated Average 166 mg/dL (80-131); Hemoglobin A1C 7.4 % Hgb (4.8-6.0)
--- NOTE | 2025-10-22 11:08 | ESHP_ITS ---
<Statement entered by Wayne Shaw MD - 10/22/25 12:01> I have reviewed the note and agree with the resident's assessment & plan with exceptions as below. I have personally reviewed labs, imaging, home meds/prior records, examined the patient, formulated and discussed management plan with the IM team. Neurology: #Acute Encephalopathy, intubated for airway protected #Hepatic encephalopathy #? Syncope It was reported that patient had an episode of syncope, however this was not confirmed DDx: Infectious, metabolic, CVA Dx: CMP, Head CT, BC, CBC, Ammonia Level (346) Rx: Intubation, IV fluids, Lactulose 40 q6h, treat liver disease, rifaximin 550 mg twice daily RRX: Consider other workup for syncope including EKG, echo, orthostatic vitals at a later time. Cardiology: #Hypotension DDx: Hypovolemia related to GI bleed, infectious. Dx: CMP, CBC Rx: IV 1 L lactated Ringer's x 1 RRX: If patient does not get enough fluid Pulmonary: #Aspiration pneumonitis DDx: Aspiration pneumonia, trauma via intubation, asthma Dx: Chest x-ray Rx: Will order repeat chest x-rays RRX: If patient requires antibiotic treatment Gastrointestinal: #GI bleed DDx: Upper vs lower GI Bleed, Cancer, chronic anemia, medication induced. Likely upper GI due to dark color, and NGT shows residual 300 cc. Does not use NSAIDs or blood thinners Dx: CBC, physical exam Rx: GI consult, Protonix drip, SCDs, avoiding any NSAIDs or blood thinners, ordered 1 PRBC, type and screen, iron studies including peripheral blood smear and ferritin, and trend hemoglobin and hematocrit, continue NGT RRX: If patient continues to bleed #Suspected Esophageal varices Apparently patient had got an EGD recently which showed esophageal varices DDx: Related blood alcohol use Dx: CBC, physical exam Rx: Rocephin 1 g IV daily, octreotide drip, GI consult RRX: If patient continues to bleed #Acute decompensated liver cirrhosis DDx: Likely related to alcohol use if Dx: CMP, history Rx: Holding spironolactone at this time due to hypotension, rifaximin and lactulose on board as above RRX: If liver function worsens Nephrology: Stable Genitourinary: Stable Hematology: #Acute blood loss normocytic anemia DDx: Related to GI bleed, borderline megaloblastic in nature Dx: CBC Rx: Iron studies including peripheral blood smear and ferritin, B12 and folate RRX: If patient keeps bleeding Endocrine: #? Type II diabetes mellitus No previous history, blood sugar today 323 Plan: ? Sliding scale insulin ? Hypoglycemic protocol in place ? Blood sugar checks with meals ? A1c Infectious Disease: Stable Wayne Shaw, PGY-2 Internal Medicine Documentation for date of: 10/22/25 HPI History of Present Illness History of present illness: 65-year-old male with past medical history of alcohol induced liver cirrhosis, hypertension, diabetes, chronic back pain who was recently admitted 07/12 - 07/20 for decompensated liver disease causing hepatic encephalopathy presented to the ED today, 10/22, from [facility] with altered mental status found to be not protecting his airway and was subsequently intubated, found to have coffee ground emesis prior to intubation. Admitted to ICU for further management of encephalopathy and ventilation management. ED Course Summary Vitals: BP 110/66 HR 83 RR 16 T 97.9F O2 sat 96% RA Labs: WBC 11.3 Hgb 9.7 coag (PT 13! INR 1.2 APTT 29.1) glucose 324 T bili 1.7 Ammonia 379 ABG: pH 7.45 pCO2 31(L) pO2 209 HCO3 22 O2 sat 100% FiO2 50 CXR: L base pneumonia, suspicious for mild heart failure Head CT: Negative for acute hemorrhage, mass effect or midline shift CTAP: Cirrhosis, gastritis pattern (do not see definite gastric bleeding), mild ascites, cholelithiasis. urinary bladder wall thickening EKG c/f afib (resident read does not see a fib) HR 80 QRSd 94 QTc 499 Treatment: reglan 10, NaCl 1L, Etomidate 10mgx1, Rocuronium 50mg propofol 1g/100ml/hr, protonix 80, octreotide 50mcg, ketamine HCl 200mg Consults and why: Dr. Motta, GI, upper GI bleed Upon initial exam patient is intubated, his son was present to assist in interview. Per the history gathered patient is GCS 15 at baseline however became altered and was vomiting at his rehab center [facility]. He recently had an outpatient EGD as well as a colonoscopy. The colonoscopy showed diverticulosis and multiple polyps, one of which was biopsied. There was a mention of syncope however that was not reported per the ED nurse. 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 Exam Vital Signs Temp Pulse Resp BP Pulse Ox O2 Del Method FiO2 97.0 F 75 15 103/58 L 100 Mechanical Ventilation 50 10/22/25 10:00 10/22/25 10:00 10/22/25 10:00 10/22/25 10:00 10/22/25 10:00 10/22/25 10:00 10/22/25 10:00 Narrative Exam Lines: x2 PIV Drains: None Tubes: Intubated I/O: 330mL net, -500mL emesis -280 UOP GENERAL: AOx0 No apparent distress, lying comfortably in hospital bed, breathing comfortably with intubation, no obvious deformities or signs of discomfort HEENT: Atraumatic, normocephalic, PERRL, accommodation intact, mucous membranes moist/dry. No jaundice or scleral icterus noted, no mucosal darkening CHEST: Tachycardic, no murmurs, rubs, or gallops noted. Mechanical breath sounds auscultated ABDOMEN: NBS, ND, soft, NTTP. +fluid wave EXTREMITIES: All pulses palpated +2, no pedal edema noted, all extremities the same temperature BACK: No CVA tenderness, no bruises, rashes noted, spine has normal symmetry without stepoffs, bony tenderness or paraspinal muscle tenderness RECTUM: No blood noted to be in rectum on [place]. Stool in rectal vault yes. No signs of hemmorhoids, skin tags, or active bleeding Results: Labs 10/23/25 11:30 10/23/25 04:20 Labs: Short CBC 10/22/25 10/22/25 Range/Units 04:35 08:18 WBC 11.3 H (3.8-10.6) Thou/mm3 Hgb 9.7 L 8.7 L (13.5-16.0) g/dL Hct 27.3 L 24.9 L (41.0-53.0) % Plt Count 154 (140-440) Thou/mm3 BMP 10/22/25 04:35 Sodium 138 Potassium 4.7 Chloride 103 Carbon Dioxide 23.8 BUN 22 Creatinine 0.8 Glucose 324 H Calcium 9.2 Cardiac Enzymes 10/22/25 Range/Units 04:35 Troponin I < 0.020 (0.0-0.045) ng/mL Liver Function 10/22/25 Range/Units 04:35 Total Bilirubin 1.7 H (0.3-1.2) mg/dL AST 27 (0-34) U/L ALT 12 (10-49) U/L Alkaline Phosphatase 71 (46-116) U/L Albumin 3.4 (3.4-4.8) gm/dL Urine 10/22/25 Range/Units 05:30 Urine Color Yellow (Lt Yel-Yel) Urine Clarity Clear (Clear/Hazy) Urine pH 7.5 H (5.0-7.0) Ur Specific [place] 1.026 (1.001-1.035) Urine Protein Negative (Neg - Trace) Urine Glucose (UA) 3+ A (Negative) ABG Interpretation ABG results: 10/22/25 09:22 ABG pH 7.45 ABG pCO2 31 L ABG pO2 209 H ABG HCO3 22 ABG O2 Saturation 100 H ABG Base Excess -2 Quality Measures Quality Measures none Advance care planning discussed with:: patient Medications Home Medications and Allergies Home Medications ?Medication ?Instructions ?Recorded ?Confirmed ?Type bisacodyl 10 mg rectal suppository 10 mg NC QDAY PRN c onstipation 10/03/25 10/17/25 History (Dulcolax (bisacodyl)) carvedilol 3.125 mg tablet 3.125 mg PO BID 10/03/25 History divalproex 125 mg tablet,delayed 125 mg PO BID 5 10/17/25 History release (Depakote) folic acid 1 mg tablet 1 mg PO QDAY 10/03/25 History furosemide 40 mg tablet 40 mg PO DAILY 10/03/25 12/12/11 History hydroxyzine HCl 25 mg tablet 25 mg PO TID 10/03/2512/11 History lactulose 10 gram/15 mL oral 20 g PO TID 10/03/25 12/0 12/11 History solution (Enulose) magnesium hydroxide 400 mg/5 mL 30 ml PO .72 hr PRN co nstipation 10/03/25 10/17/25 History oral suspension (Milk of Magnesia) melatonin 3 mg capsule 9 mg PO HS 10/03/25 10/17/25 History sodium phosphates 19 gram-7 118 ml NC QDAY PRN constip ation 10/03/25 10/17/25 History gram/118 mL enema (Enema Disposable) spironolactone 25 mg tablet 25 mg PO Q12H 10/03/2512/11 History thiamine mononitrate (vit B1) 100 100 mg PO QDAY 10/0310/17/25 History mg tablet Allergies Allergy/AdvReac Type Severity Reaction Status Date / Time No Known Allergies Allergy Verified 10/17/25 13:46 Visit Medications Dextrose (Dextrose 50%-Water Inj 50 Ml Syringe) 25 ml IV Q15MIN PRN PRN Reason: BG 50-70 responsive npo pt Stop: 11/21/25 10:16 Dextrose (Dextrose 50%-Water Inj 50 Ml Syringe) 50 ml IV Q15MIN PRN PRN Reason: BG <50 OR BG <70 & pt unresponsive Stop: 11/21/25 10:16 Glucagon (Glucagon Inj 1 Mg Vial) 1 mg IM Q15MIN PRN PRN Reason: BG <70, and no IV access Octreotide Acetate 1,000 mcg/ (Sodium Chloride) 102 mls @ 5.1 mls/hr IV .Q20H ONE; Protocol Stop: 10/23/25 00:25 Last Admin: 10/22/25 04:55 Dose: 50 mcg/hr, 5.1 mls/hr Propofol (Diprivan Ivpb) 1,000 mg in 100 mls @ 2.229 mls/hr IV .Q24H PRN; Protocol PRN Reason: PER PROTOCOL Stop: 11/21/25 04:43 Last Titration: 10/22/25 07:58 Dose: 0 mcg/kg/min, 0 mls/hr Pantoprazole Sodium (Protonix/Ns 80mg Iv Premix) 80 mg in 100 mls @ 10 mls/hr IV Q10H BRYANT Stop: 10/25/25 04:00 Last Admin: 10/22/25 06:22 Dose: 10 mls/hr Midazolam HCl (Versed Pf Inj In Ns Premix) 100 mg in 100 mls @ 1 mls/hr IV .Q24H PRN; Protocol PRN Reason: Per Protocol Stop: 10/27/25 06:47 Last Titration: 10/22/25 08:30 Dose: 0 mg/hr, 0 mls/hr Insulin Human Lispro (Insulin Lispro (Admelog) 1 Unit/0.01 Ml Unit) 0 unit SC Q6HR BRYANT; Protocol Stop: 11/21/25 11:59 Lactulose (Lactulose Syrup 20 Gm/30 Ml Udc) 40 gm NG Q6HR BRYANT; Protocol Stop: 11/21/25 11:59 Rifaximin (Rifaximin 550 Mg Tablet) 550 mg NG BID BRYANT Stop: 10/29/25 10:14 Discontinued Medications Etomidate (Etomidate Inj 2 Mg/Ml Vial 10 Ml) 10 mg IVP X1 ONE Stop: 10/22/25 04:29 Last Admin: 10/22/25 04:39 Dose: 10 mg Sodium Chloride (Ns) 1,000 mls @ 999 mls/hr IV .Q1H1M ONE Stop: 10/22/25 05:26 Last Infusion: 10/22/25 06:03 Dose: Infused Propofol (Diprivan Ivpb) 1,000 mg in 100 mls @ 2.229 mls/hr IV .Q24H PRN; Protocol PRN Reason: PER PROTOCOL Stop: 11/21/25 04:45 Lactated Ringer's (Lactated Ringers) 1,000 mls @ 999 mls/hr IV .Q1H1M ONE Stop: 10/22/25 09:44 Last Infusion: 10/22/25 10:03 Dose: Infused Insulin Human Lispro (Insulin Lispro (Admelog) 1 Unit/0.01 Ml Unit) 0 unit SC ACHS BRYANT; Protocol Stop: 11/21/25 11:29 Ketamine HCl (Ketamine 50 Mg/Ml Vial 10 Ml) 200 mg IVP X1 ONE Stop: 10/22/25 06:02 Last Admin: 10/22/25 06:14 Dose: 200 mg Metoclopramide HCl (Metoclopramide Inj 5 Mg/Ml Vial 2 Ml) 10 mg IVP X1 ONE; Protocol Stop: 10/22/25 04:29 Last Admin: 10/22/25 04:33 Dose: 10 mg Octreotide Acetate (Octreotide Acet Inj 50 Mcg/Ml Vial) 50 mcg IVP X1 ONE Stop: 10/22/25 04:27 Last Admin: 10/22/25 04:54 Dose: 50 mcg Pantoprazole Sodium (Pantoprazole Inj 40 Mg Vial) 80 mg IVP X1 ONE Stop: 10/22/25 04:27 Last Admin: 10/22/25 04:54 Dose: 80 mg Rocuronium Lucas (Rocuronium Inj 10 Mg/Ml Vial 10 Ml) 50 mg IVP X1 ONE Stop: 10/22/25 04:29 Last Admin: 10/22/25 04:40 Dose: 50 mg Assessment & Plan Plan 65-year-old male with past medical history of alcohol induced liver cirrhosis, hypertension, diabetes, chronic back pain who was recently admitted 07/12 - 07/20 for decompensated liver disease causing hepatic encephalopathy presented to the ED today, 10/22, from [facility] with altered mental status found to be not protecting his airway and was subsequently intubated, found to have coffee ground emesis prior to intubation. 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 Intubated because patient was not protecting airway. Ddx Infectious, metabolic, vs CVA Dx: elevated ammonia 379, CT head was negative. Plan: -Intubation -IVF -Lactulose 40g Q6HR -Rifaximin 550 BID -- Can consider other syncopal work up including EKG, ECHO, orthostatic vitals at later time. CV #Hypotension - not requiring pressors DDx Hypovolemia related to GI bleed, infectious IVF 1 L of fluid given, patient is responsive. Prop and versed off. Plan: -If BP continues to drop then consider active bleed -Type and cross, have one unit pRBCs ready PULM #Acute hypoxic respiratory failure Ddx acute bleeding, vs aspiration pneumonitis vs mild heart failure Chest xray L base pneumonia, suspicious for mild heart failure Plan: -Repeat CXRs -Cross coverage with IV Ceftriaxone GI #Upper GI bleed Ddx esophageal varices, gastric ulcer, kika white tear, cancer, chronic anemia High suspicion for esophageal varices. Giving ceftriaxone and octreotide for varices and PPI for potential gastric ulcer. Initial presentation with coffee ground emesis NGT showed 300cc of dark fluid removed. Patient does not use NSAIDs or blood thinners Plan: -GI consult -protonix drip -SCDs --> Holding blood thinners -Type and cross, have one unit pRBCs ready -iron studies including peripheral blood smear and ferritin, -Trend H+H and trend hemoglobin -NGT LIS #Suspected Esophageal Varices Per discussions patient had recent EGD showing esophageal varices Ddx Most likely related to chronic alcohol use Plan: -Ceftriaxone 1g IV Q -Octreotide drip -GI consult #Acute decompensated liver cirrhosis Fluid wave on exam, distended abdomen. Holding spironolactone at this time due to hypotension, rifaximin and lactulose on board as above Plan: -Continue plan per other GI recs RENAL #Hematuria of unclear etiology Repeat UA +1 ketone +2 blood +LE 36 RBC 13 WBC Plan: -FUP outpatient with cystoscopy No active problems ENDO #Hyperglycemia Ddx diabetes A1c 7.4 Glucose 324 Plan: -Currently NPO -Q6 glucose checks -ISS step 1 HEME #Acute blood loss normocytic anemia DDx upper GI bleed, esophageal varices vs gastric ulcer, borderline megaloblastic Hgb 9.7 --> 8.7, MCV normal, coffee ground emesis with 350cc drained from NGT immediately. Plan: -iron studies, peripheral blood smear, and ferritin -B12 -Folate ID Stable #ICU Health maintenance Mechanical ventilation: Yes Sedation: None Diet: NPO DVT prophylaxis: SCDs due to c/ GI bleed GI prophylaxis: Protonix Miller: yes Lines: x2 PIV Antibiotics: Ceftriaxone CODE STATUS: Full Patient examined and plan discussed with attending Dr. Greer and supervising resident Dr. Shaw. Note Written by Justin Herman PGY-1 Attending Provider Attestation/Addendum Patient seen and examined. Discussed with resident. In brief this is a 65-year-old male who is admitted to the ICU for GI bleed and respiratory failure. He was examined in the ER and found to be intubated, sedated with a normal body habitus. He was normocephalic atraumatic, sclera icteric, pupils equal and reactive, ET tube and OG tube in place draining 500 cc of dark-colored blood. Lungs were clear to auscultation, heart regular and rhythmic, no increased work of breathing, abdomen is flat soft nontender and bowel sounds were present, pulses were palpable no clubbing or mottling, no significant edema. Family was at bedside and per my discussion with the family the patient has a diagnosis of alcoholic cirrhosis along with dementia. He had a recent EGD approximately 2 weeks ago for varices. GI has been contacted for consult for this patient with active GI bleed. He will be started on a PPI drip as well as octreotide drip with suspicion for variceal bleed. He will be started on ceftriaxone. His blood pressure is somewhat labile and he has been given a liter of IV fluids and his propofol decreased. He was intubated for airway protection after copious amounts of vomiting coffee grounds on arrival to the ER. he was brought to the ICU for further evaluation management. case d/w ICU team, ER and family labs, imaging, records reviewed ~70ccmin required for eval, exam, review, intervention, discussion and formulation of POC for this critically ill pt with resp failure and GIB at high risk for ongoing decompensation
[2025-10-22] MEDS: LACTULOSE SYRUP 20 GM/30 ML UDC 40 GM NG ×2 (12:46→18:07)
[2025-10-22] MEDS: INSULIN LISPRO (AdmeLOG) 1 UNIT/0.01 ML UNIT SC ×2 (12:47→18:07)
[2025-10-22 13:35] LABS: Hematocrit 26.0 % (41.0-53.0); Hemoglobin 8.9 g/dL (13.5-16.0)
[2025-10-22 14:32] LABS: Collection Type, Urine Catheter
[2025-10-22 14:45] LABS: Bilirubin,Urine Negative (Negative); Blood,Urine 2+ (Negative); Clarity,Urine Clear (Clear/Hazy); Color,Urine Yellow (Lt Yel-Yel); Glucose, Urine Negative (Negative); Ketones,Urine 1+ (Negative); Leukocyte Esterase,Urine Positive (Negative); Nitrite,Urine Negative (Negative); PH,Urine 6.0 (5.0-7.0); Protein,Urine Trace (Neg - Trace); RBC,Urine 36 /hpf (0-3); Squamous Epithelial Cell,Urine < 1 /hpf (0-5); Urobilinogen,Urine 2.0 mg/dL (0.0-1.0); WBC,Urine 13 /hpf (0-5)
[2025-10-22 15:05] LABS: Specific Gravity,Urine 1.010 (1.001-1.035)
--- NOTE | 2025-10-22 16:44 | PD.IMCONS ---
HPI Data of Consult Requesting Physician: Cecily Greer MD Primary Care Provider: Physician No Primary/Family Consult Narrative Reason for consult: Coffee-ground hematemesis History of present illness: 65 years old male presented with near syncope and altered mental status with hepatic encephalopathy very high ammonia level Patient had hematemesis during intubation and have been consulted He does have alcohol-induced cirrhotic liver disease And does have a previous history of endoscopic evaluation with esophageal varices 10/04/2025 patient had a colonoscopy with endoscopic removal of an ascending colon polyp otherwise negative cc:: cc: Cecily Greer MD Review of Systems Review of Systems ROS Unobtainable: unobtainable due to medical condition Meds Home Medications and Allergies Home Medications ?Medication ?Instructions ?Recorded ?Confirmed ?Type bisacodyl 10 mg rectal suppository 10 mg AK QDAY PRN constipation 10/03/25 10/17/25 History (Dulcolax (bisacodyl)) carvedilol 3.125 mg tablet 3.125 mg PO BID 10/03/25 10/17/25 History divalproex 125 mg tablet,delayed 125 mg PO BID 10/03/25 10/17/25 History release (Depakote) folic acid 1 mg tablet 1 mg PO QDAY 10/03/25 10/17/25 History furosemide 40 mg tablet 40 mg PO DAILY 10/03/25 10/17/25 History hydroxyzine HCl 25 mg tablet 25 mg PO TID 10/03/25 10/17/25 History lactulose 10 gram/15 mL oral 20 g PO TID 10/03/25 10/17/25 History solution (Enulose) magnesium hydroxide 400 mg/5 mL 30 ml PO .72 hr PRN constipation 10/03/25 10/17/25 History oral suspension (Milk of Magnesia) melatonin 3 mg capsule 9 mg PO HS 10/03/25 10/17/25 History sodium phosphates 19 gram-7 118 ml AK QDAY PRN constipation 10/03/25 10/17/25 History gram/118 mL enema (Enema Disposable) spironolactone 25 mg tablet 25 mg PO Q12H 10/03/25 10/17/25 History thiamine mononitrate (vit B1) 100 100 mg PO QDAY 10/03/25 10/17/25 History mg tablet Allergies Allergy/AdvReac Type Severity Reaction Status Date / Time No Known Allergies Allergy Verified 10/17/25 13:46 Exam Vital Signs Temp Pulse Resp BP Pulse Ox O2 Del Method FiO2 97.5 F 71 12 96/55 L 100 Mechanical Ventilation 50 10/22/25 12:00 10/22/25 15:30 10/22/25 11:27 10/22/25 15:30 10/22/25 15:30 10/22/25 12:00 10/22/25 12:00 Routine Respiratory Exam Comments: Mechanically ventilated Routine Abdominal Exam Comments: Positive bowel sounds Results Labs 10/22/25 18:00 10/22/25 04:35 Labs: Short CBC 10/22/25 10/22/25 10/22/25 Range/Units 04:35 08:18 12:54 WBC 11.3 H (3.8-10.6) Thou/mm3 Hgb 9.7 L 8.7 L 8.9 L (13.5-16.0) g/dL Hct 27.3 L 24.9 L 26.0 L (41.0-53.0) % Plt Count 154 (140-440) Thou/mm3 BMP 10/22/25 04:35 Sodium 138 Potassium 4.7 Chloride 103 Carbon Dioxide 23.8 BUN 22 Creatinine 0.8 Glucose 324 H Calcium 9.2 Cardiac Enzymes 10/22/25 Range/Units 04:35 Troponin I < 0.020 (0.0-0.045) ng/mL Liver Function 10/22/25 Range/Units 04:35 Total Bilirubin 1.7 H (0.3-1.2) mg/dL AST 27 (0-34) U/L ALT 12 (10-49) U/L Alkaline Phosphatase 71 (46-116) U/L Albumin 3.4 (3.4-4.8) gm/dL Urine 10/22/25 10/22/25 Range/Units 05:30 14:17 Urine Color Yellow Yellow (Lt Yel-Yel) Urine Clarity Clear Clear (Clear/Hazy) Urine pH 7.5 H 6.0 (5.0-7.0) Ur Specific [place] 1.026 1.010 (1.001-1.035) Urine Protein Negative Trace (Neg - Trace) Urine Glucose (UA) 3+ A Negative (Negative) ABG Interpretation ABG results: 10/22/25 09:22 ABG pH 7.45 ABG pCO2 31 L ABG pO2 209 H ABG HCO3 22 ABG O2 Saturation 100 H ABG Base Excess -2 Assessment and Plan Additional Assessment & Plan Additional Plan: # Hematemesis differential diagnoses include esophageal variceal bleeding Brittany-Falcon tear peptic ulcer disease hypertensive portal gastropathy with mucosal oozing of blood # Acute hepatic encephalopathy requiring endotracheal intubation mechanical ventilation to protect the airway Plan Consent will be obtained from the family members for fiberoptic esophagogastroduodenoscopy possible biopsy possible therapeutic intervention under intravenous moderate sedation Octreotide infusion at 50 mcg/h IV Protonix Serial CBC Transfuse if the hemoglobin drops below 7 g Will follow the patient Thank you very much for the opportunity to participate in the care of this patient
[2025-10-22] MEDS: cefTRIAXone/D5w 1gm IV premix 1 GM/50 ML BAG IV (18:06)
[2025-10-22 18:31] LABS: Hematocrit 25.7 % (41.0-53.0)
[2025-10-22 18:33] LABS: Hemoglobin 8.7 g/dL (13.5-16.0)
[2025-10-22 18:50] LABS: Ferritin 53 ng/mL (10.5-307.3); Iron 191 mcg/dL (65-175); Percent Iron Saturation 67 % (20-55); Total Iron Binding Capacity 283 mcg/dL (250-425); Unsaturated Iron Binding 92 (225-295)
[2025-10-22 20:23] LABS: Path Review Blood Smear Sent to Pathologist
[2025-10-23] VITALS (49 sets, daily range): BP systolic 94–155; BP diastolic 49–85; PULSE 66–101; RESP 13–31; TEMP 36.9–38; O2SAT 97–100; BMI 25.6
[2025-10-23] MEDS: OCTREOTIDE ACET INJ 1,000 MCG in SODIUM CHLORIDE 0.9% 100 ML 5.1 MCG IV ×2 (00:35→18:38)
[2025-10-23] MEDS: INSULIN LISPRO (AdmeLOG) 1 UNIT/0.01 ML UNIT SC ×5 (00:55→23:59)
[2025-10-23] MEDS: LACTULOSE SYRUP 20 GM/30 ML UDC 40 GM NG ×9 (00:55→23:59)
[2025-10-23 00:56] LABS: Hematocrit 24.2 % (41.0-53.0)
[2025-10-23 00:57] LABS: Hemoglobin 8.3 g/dL (13.5-16.0)
[2025-10-23 04:52] LABS: Base Excess -3 (-3-3); HCO3 20 mEq/L (20-26); Inspired Oxygen, FIO2 21 %; O2 Saturation 100 % (91-98); PCO2 25 mmHg (32.0-48.0); PO2 145 mmHg (83-108); pH, Arterial 7.51 (7.35-7.45)
[2025-10-23 04:55] LABS: Allen Test Not Performed; Puncture Site Right Radial
[2025-10-23 05:10] LABS: Basophils # (Auto) 0.1 Thou/mm3 (0.0-0.2); Basophils % (Auto) 1 % (0-2.5); Eosinophils # (Auto) 0.2 Thou/mm3 (0.0-0.5); Eosinophils % (Auto) 1 % (0-10); Hematocrit 25.4 % (41.0-53.0); Immature Granulocytes Auto 0.10 Thou/mm3 (0.00-0.00); Lymphocytes # (Auto) 3.7 Thou/mm3 (1.0-4.8); Lymphocytes % (Auto) 23 % (10-50); Mean Corpuscular HGB Conc 34.3 g/dl (31.0-37.0); Mean Corpuscular Hemoglobin 34.4 pg (25.0-35.0); Mean Corpuscular Volume 100 fL (80-100); Monocytes # (Auto) 2.6 Thou/mm3 (0.0-0.8); Monocytes % (Auto) 16 % (0-12); Neutrophils # (Auto) 9.6 Thou/mm3 (1.8-7.7); Neutrophils % (Auto) 59 % (37-80); Nucleated Red Blood Cell # 0.00 Thou/mm3 (0.00-0.00); Nucleated Red Blood Cell % 0 /100 WBC (0); Platelet Count 150 Thou/mm3 (140-440); RDW Standard Deviation 51.6 fL (35.1-43.9); Red Blood Count 2.53 Miln/mm3 (4.50-5.90); White Blood Count 16.3 Thou/mm3 (3.8-10.6)
[2025-10-23 05:11] LABS: Hemoglobin 8.7 g/dL (13.5-16.0)
[2025-10-23 05:27] LABS: INR 1.2 (0.9-1.3); Partial Thromboplastin Time 25.3 Seconds (22.0-36.0); Prothrombin Time 12.6 Seconds (9.0-12.2)
[2025-10-23 05:36] LABS: Alanine Aminotransferase 12 U/L (10-49); Albumin, Serum 3.2 gm/dL (3.4-4.8); Albumin/Globulin Ratio 0.8 (1.2-2.2); Alkaline Phosphatase 55 U/L (46-116); Anion Gap 14 (7-16); Aspartate Amino Transferase 23 U/L (0-34); BUN/Creatinine Ratio 35 Ratio (12-20); Bilirubin,Total 1.8 mg/dL (0.3-1.2); Blood Urea Nitrogen 35 mg/dL (9-23); Calcium 9.0 mg/dL (8.3-10.6); Calcium (Corrected) 9.6 mg/dL (8.5-10.1); Carbon Dioxide 19.6 mMol/L (20.0-31.0); Chloride 108 mMol/L (98-107); Creatinine (Component) 1.0 mg/dL (0.6-1.3); Estimated Creatinine Clearance 60.8 mL/min (>60); Globulin 3.8 gm/dL (2.3-3.5); Glucose 243 mg/dL (74-106); Magnesium 1.7 mg/dL (1.6-2.6); Osmolality,Calculated 299 (275-295); Phosphorous 4.9 mg/dL (2.4-5.1); Potassium 4.6 mMol/L (3.4-5.1); Sodium 142 mMol/L (136-145); Total Protein 7.0 gm/dL (5.7-8.2); Triglycerides 119 mg/dL (30-150); eGFR > 60 See Note
[2025-10-23] MEDS: PROPOFOL 1,000 MG IVPB 1,000 MG/100 ML VIAL 6.687 MG IV (06:40)
[2025-10-23 08:47] LABS: Base Excess -2 (-3-3); HCO3 20 mEq/L (20-26); Inspired Oxygen, FIO2 100 %; O2 Saturation 100 % (91-98); PCO2 24 mmHg (32.0-48.0); PO2 131 mmHg (83-108); pH, Arterial 7.52 (7.35-7.45)
[2025-10-23 08:57] LABS: Allen Test Not Performed; Puncture Site Site Not Noted
--- NOTE | 2025-10-23 09:00 | XR_ITS ---
EXAMINATION: AP chest single view TECHNIQUE: AP portable supine chest single view Date and time: October 23, 2025, 0538 hours, comparison October 22, 2025 INDICATIONS: Shortness of breath wheezing this week, hypoxic respiratory failure post intubation FINDINGS: Bibasilar pneumonia Normal heart size Mild elevation left hemidiaphragm Orogastric tube in the stomach, the tip is below the level of the film. Endotracheal tube tip 3.7 cm above colin IMPRESSION: Bibasilar pneumonia
--- NOTE | 2025-10-23 10:28 | PD.RESPRO ---
Documentation for date of: 10/23/25 Subjective Subjective Interval history: 65-year-old male with past medical history of alcohol induced liver cirrhosis, hypertension, diabetes, chronic back pain who was recently admitted 07/12 - 07/20 for decompensated liver disease causing hepatic encephalopathy presented to the ED today, 10/22, from [facility] with altered mental status found to be not protecting his airway and was subsequently intubated, found to have coffee ground emesis prior to intubation. Admitted to ICU for further management of encephalopathy and ventilation management. ED Course Summary Vitals: BP 110/66 HR 83 RR 16 T 97.9F O2 sat 96% RA Labs: WBC 11.3 Hgb 9.7 coag (PT 13! INR 1.2 APTT 29.1) glucose 324 T bili 1.7 Ammonia 379 ABG: pH 7.45 pCO2 31(L) pO2 209 HCO3 22 O2 sat 100% FiO2 50 CXR: L base pneumonia, suspicious for mild heart failure Head CT: Negative for acute hemorrhage, mass effect or midline shift CTAP: Cirrhosis, gastritis pattern (do not see definite gastric bleeding), mild ascites, cholelithiasis. urinary bladder wall thickening EKG c/f afib (resident read does not see a fib) HR 80 QRSd 94 QTc 499 Treatment: reglan 10, NaCl 1L, Etomidate 10mgx1, Rocuronium 50mg propofol 1g/100ml/hr, protonix 80, octreotide 50mcg, ketamine HCl 200mg Consults and why: Dr. Motta, GI, upper GI bleed HPI Upon initial exam patient is intubated, his son was present to assist in interview. Per the history gathered patient is GCS 15 at baseline however became altered and was vomiting at his rehab center [facility]. He recently had an outpatient EGD as well as a colonoscopy. The colonoscopy showed diverticulosis and multiple polyps, one of which was biopsied. There was a mention of syncope however that was not reported per the ED nurse. 10/23/2025 Upon initial examination today patient is on ventilator AO x 0 he is currently off propofol only receiving octreotide and Protonix drips. His hemoglobin has remained stable white blood cell count 16.3 is worsening from 11 BUN worsening to 35 was 22 the day prior creatinine also worsening to 1.8 to 1.0 point giving 1 L of LR fluids bolus. Lactate 40 every 4 hours now upgrading to every 2 hours since no BMs yet. Currently trying spontaneous breathing trial. Yesterday EGD was done by Dr. Motta showed grade 1 varices in the lower third esophagus there was diffuse gastritis mucosal oozing. The duodenal bulb and the duodenum were normal he says to continue octreotide for 5 days keep him on NGT low intermittent suction. We are also continuing patient on ceftriaxone and using SCIDS for continue IV Protonix . Dr. Motat says that he would like to see the patient again before discharge for another potential scope due to poor visibility on most recent EGD Exam Vital Signs Temp Pulse Resp BP Pulse Ox O2 Del Method FiO2 98.9 F 77 17 102/58 L 97 Mechanical Ventilation 35 10/23/25 04:00 10/23/25 07:30 10/22/25 18:50 10/23/25 07:30 10/23/25 07:30 10/22/25 16:00 10/23/25 06:29 Narrative Exam GENERAL: AOx0 No apparent distress, lying comfortably in hospital bed, breathing comfortably with intubation, no obvious deformities or signs of discomfort. Able to blink eyes in response today HEENT: Atraumatic, normocephalic, PERRL, accommodation intact, mucous membranes moist/dry. No jaundice or scleral icterus noted, no mucosal darkening CHEST: Tachycardic, no murmurs, rubs, or gallops noted. Mechanical breath sounds auscultated ABDOMEN: NBS, ND, soft, NTTP. +fluid wave EXTREMITIES: All pulses palpated +2, no pedal edema noted, all extremities the same temperature BACK: No CVA tenderness, no bruises, rashes noted, spine has normal symmetry without stepoffs, bony tenderness or paraspinal muscle tenderness RECTUM: No blood noted to be in rectum on [place]. No signs of hemmorhoids, skin tags, or active bleeding Objective Labs 10/23/25 11:30 10/23/25 04:20 Labs: Laboratory Results - last 24 hr 10/22/25 10/22/25 10/22/25 05:56 08:18 12:54 WBC RBC Hgb 8.9 L Hct 26.0 L MCV MCH MCHC RDW Std Deviation Plt Count Neut % (Auto) Lymph % (Auto) [place] % (Auto) Eos % (Auto) Baso % (Auto) Neut # (Auto) Lymph # (Auto) [place] # (Auto) Eos # (Auto) Baso # (Auto) Immature Gran # (Auto) Absolute Nucleated RBC Immature Gran % Nucleated RBC % Smear Path Review PT INR APTT Puncture Site ABG pH ABG pCO2 ABG pO2 ABG HCO3 ABG O2 Saturation ABG Base Excess FiO2 Sodium Potassium Chloride Carbon Dioxide Anion Gap BUN Creatinine Estim Creat Clear Calc eGFR BUN/Creatinine Ratio Glucose Estimated Ave Glu mg/dL 166 H Hemoglobin A1c 7.4 H Calculated Osmolality Calcium Corrected Calcium Phosphorus Magnesium Iron 191 H TIBC 283 Iron Saturation 67 H Unsat Iron Binding 92 L Ferritin 53 Total Bilirubin AST ALT Alkaline Phosphatase Total Protein Albumin Globulin Albumin/Globulin Ratio Triglycerides Ur Collection Type Urine Color Urine Clarity Urine pH Ur Specific [place] Urine Protein Urine Glucose (UA) Urine Ketones Urine Blood Urine Nitrite Urine Bilirubin Urine Urobilinogen (Auto) Ur Leukocyte Esterase Urine RBC Urine WBC Ur Squamous Epith Cells Urine Bacteria Blood Type O Positive Antibody Screen NEGATIVE Crossmatch See Detail Blood Bank Wristband ID Yes 10/22/25 10/22/25 10/23/25 14:17 18:00 00:26 WBC RBC Hgb 8.7 L 8.3 L Hct 25.7 L 24.2 L MCV MCH MCHC RDW Std Deviation Plt Count Neut % (Auto) Lymph % (Auto) [place] % (Auto) Eos % (Auto) Baso % (Auto) Neut # (Auto) Lymph # (Auto) [place] # (Auto) Eos # (Auto) Baso # (Auto) Immature Gran # (Auto) Absolute Nucleated RBC Immature Gran % Nucleated RBC % Smear Path Review Sent to Pathologist PT INR APTT Puncture Site ABG pH ABG pCO2 ABG pO2 ABG HCO3 ABG O2 Saturation ABG Base Excess FiO2 Sodium Potassium Chloride Carbon Dioxide Anion Gap BUN Creatinine Estim Creat Clear Calc eGFR BUN/Creatinine Ratio Glucose Estimated Ave Glu mg/dL Hemoglobin A1c Calculated Osmolality Calcium Corrected Calcium Phosphorus Magnesium Iron TIBC Iron Saturation Unsat Iron Binding Ferritin Total Bilirubin AST ALT Alkaline Phosphatase Total Protein Albumin Globulin Albumin/Globulin Ratio Triglycerides Ur Collection Type Catheter Urine Color Yellow Urine Clarity Clear Urine pH 6.0 Ur Specific [place] 1.010 Urine Protein Trace Urine Glucose (UA) Negative Urine Ketones 1+ A Urine Blood 2+ A Urine Nitrite Negative Urine Bilirubin Negative Urine Urobilinogen (Auto) 2.0 Ur Leukocyte Esterase Positive Urine RBC 36 H Urine WBC 13 H Ur Squamous Epith Cells < 1 Urine Bacteria None Blood Type Antibody Screen Crossmatch Blood Bank Wristband ID 10/23/25 10/23/25 10/23/25 04:20 04:34 08:40 WBC 16.3 H D RBC 2.53 L Hgb 8.7 L Hct 25.4 L MCV 100 MCH 34.4 MCHC 34.3 RDW Std Deviation 51.6 H Plt Count 150 Neut % (Auto) 59 Lymph % (Auto) 23 [place] % (Auto) 16 H Eos % (Auto) 1 Baso % (Auto) 1 Neut # (Auto) 9.6 H Lymph # (Auto) 3.7 [place] # (Auto) 2.6 H Eos # (Auto) 0.2 Baso # (Auto) 0.1 Immature Gran # (Auto) 0.10 H Absolute Nucleated RBC 0.00 Immature Gran % 1 H Nucleated RBC % 0 Smear Path Review PT 12.6 H INR 1.2 APTT 25.3 Puncture Site Right Radial Site Not Noted ABG pH 7.51 H 7.52 H ABG pCO2 25 L 24 L ABG pO2 145 H D 131 H ABG HCO3 20 20 ABG O2 Saturation 100 H 100 H ABG Base Excess -3 -2 FiO2 21 100 Sodium 142 Potassium 4.6 Chloride 108 H Carbon Dioxide 19.6 L Anion Gap 14 BUN 35 H Creatinine 1.0 Estim Creat Clear Calc 60.8 L eGFR > 60 BUN/Creatinine Ratio 35 H Glucose [address] Glu mg/dL Hemoglobin A1c Calculated Osmolality 299 H Calcium 9.0 Corrected Calcium 9.6 Phosphorus 4.9 Magnesium 1.7 Iron TIBC Iron Saturation Unsat Iron Binding Ferritin Total Bilirubin 1.8 H AST 23 ALT 12 Alkaline Phosphatase 55 D Total Protein 7.0 Albumin 3.2 L Globulin 3.8 H Albumin/Globulin Ratio 0.8 L Triglycerides 119 Ur Collection Type Urine Color Urine Clarity Urine pH Ur Specific [place] Urine Protein Urine Glucose (UA) Urine Ketones Urine Blood Urine Nitrite Urine Bilirubin Urine Urobilinogen (Auto) Ur Leukocyte Esterase Urine RBC Urine WBC Ur Squamous Epith Cells Urine Bacteria Blood Type Antibody Screen Crossmatch Blood Bank Wristband ID ABG Interpretation ABG results: 10/22/25 10/23/25 10/23/25 09:22 04:34 08:40 ABG pH 7.45 7.51 H 7.52 H ABG pCO2 31 L 25 L 24 L ABG pO2 209 H 145 H D 131 H ABG HCO3 22 20 20 ABG O2 Saturation 100 H 100 H 100 H ABG Base Excess -2 -3 -2 Quality Measures Quality Measures none Advance care planning discussed with:: child Assessment & Plan Assessment Current Active Medications: Generic Name Dose Route Start Last Admin Trade Name Freq PRN Reason Stop Dose Admin Dextrose 25 ml 10/22/25 10:17 Dextrose 50%-Water Inj 50 Ml Syringe IV 11/21/25 10:16 Q15MIN PRN BG 50-70 responsive npo pt Dextrose 50 ml 10/22/25 10:17 Dextrose 50%-Water Inj 50 Ml Syringe IV 11/21/25 10:16 Q15MIN PRN BG <50 OR BG <70 & pt unresponsive Glucagon 1 mg 10/22/25 10:17 Glucagon Inj 1 Mg Vial IM Q15MIN PRN BG <70, and no IV access Pantoprazole Sodium 80 mg in 100 mls @ 10 mls/hr 10/22/25 06:01 10/22/25 22:39 Protonix/Ns 80mg Iv Premix IV 10/25/25 04:00 10 mls/hr Q10H BRYANT Administration Midazolam HCl 100 mg in 100 mls @ 1 mls/hr 10/22/25 06:48 10/22/25 08:30 Versed Pf Inj In Ns Premix IV 10/27/25 06:47 0 mg/hr .Q24H PRN 0 mls/hr Per Protocol Titration Protocol 1 MG/HR Ceftriaxone Sodium/Dextrose 1 gm in 50 mls @ 100 mls/hr 10/22/25 17:12 10/22/25 18:06 Rocephin/D5w 1gm Iv Premix IV 10/29/25 17:11 100 mls/hr QDAY@1400 BRYANT Administration Propofol 1,000 mg in 100 mls @ 2.229 mls/hr 10/22/25 19:30 10/23/25 06:40 Diprivan Ivpb IV 11/21/25 04:43 15 mcg/kg/min .Q24H PRN 6.687 mls/hr PER PROTOCOL Administration Protocol 5 MCG/KG/MIN Octreotide Acetate 1,000 mcg/ 102 mls @ 5.1 mls/hr 10/22/25 23:45 10/23/25 00:35 Sodium Chloride IV 10/26/25 23:44 50 mcg/hr .Q20H BRYANT 5.1 mls/hr Protocol Administration 50 MCG/HR Insulin Human Lispro 0 unit 10/22/25 12:00 10/23/25 04:58 Insulin Lispro (Admelog) 1 Unit/0.01 Ml Unit SC 11/21/25 11:59 2 unit Q6HR BRYANT Administration Protocol Lactulose 40 gm 10/23/25 10:00 10/23/25 09:55 Lactulose Syrup 20 Gm/30 Ml Udc NG 11/22/25 09:59 40 gm Q4HR BRYANT Administration Protocol Rifaximin 550 mg 10/22/25 10:15 10/23/25 09:47 Rifaximin 550 Mg Tablet NG 10/29/25 10:14 550 mg BID BRYANT Administration Plan 65-year-old male with past medical history of alcohol induced liver cirrhosis, hypertension, diabetes, chronic back pain who was recently admitted 07/12 - 07/20 for decompensated liver disease causing hepatic encephalopathy presented to the ED today, 10/22, from [facility] with altered mental status found to be not protecting his airway and was subsequently intubated, found to have coffee ground emesis prior to intubation. Admitted to ICU for further management of encephalopathy and ventilation management. Today, 10/23, we are attempting spontaneous breathing trial, patient off pressors and sedation. No BMs yet. 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 Intubated because patient was not protecting airway. Ddx Infectious, metabolic, vs CVA Dx: elevated ammonia 379, CT head was negative. Plan: -Intubation -IVF -Lactulose 40g 26HR -Rifaximin 550 BID -Can consider other syncopal work up including EKG, ECHO, at later time. CV #Hypotension - not requiring pressors, resolving DDx Hypovolemia related to GI bleed, infectious IVF 1 L of fluid given, 10/22, patient is responsive. Prop and versed off. IVF 1L fluid given, 10/23, patient is responsive. Plan: -If BP continues to drop then consider active bleed -Type and cross, have one unit pRBCs ready PULM #Acute hypoxic respiratory failure Ddx acute bleeding, vs aspiration pneumonitis vs mild heart failure Chest xray L base pneumonia, suspicious for mild heart failure Plan: -Repeat CXRs -Cross coverage with IV Ceftriaxone #Respiratory Alkalosis Vent rate decreased to 12 repeat ABG was identical to AM ABG. Currently on spontaneous breathing trial. GI #Upper GI bleed Ddx esophageal varices, gastric ulcer, kika white tear, cancer, chronic anemia High suspicion for esophageal varices. Giving ceftriaxone and octreotide for varices and PPI for potential gastric ulcer. Initial presentation with coffee ground emesis NGT showed 300cc of dark fluid removed. Patient does not use NSAIDs or blood thinners. 10/23, EGD was done by Dr. Motta showed grade 1 varices in the lower third esophagus there was diffuse gastritis mucosal oozing. The duodenal bulb and the duodenum were normal he says to continue octreotide for 5 days keep him on NGT low intermittent suction Plan: -GI consult -protonix drip -SCDs --> Holding blood thinners -Type and cross, have one unit pRBCs ready -iron studies including peripheral blood smear and ferritin, -Trend H+H and trend hemoglobin -NGT LIS #Esophageal Varices Per discussions patient had recent EGD showing esophageal varices. New EGD yesterday, see results in #Upper GI Bleed Ddx Most likely related to chronic alcohol use Plan: -Ceftriaxone 1g IV Q -Octreotide drip -GI consult #Acute decompensated liver cirrhosis Fluid wave on exam, distended abdomen. Holding spironolactone at this time due to hypotension, rifaximin and lactulose on board as above Plan: -Continue plan per other GI recs RENAL #Hematuria of unclear etiology Repeat UA +1 ketone +2 blood +LE 36 RBC 13 WBC Plan: -FUP outpatient with cystoscopy No active problems ENDO #Hyperglycemia Ddx diabetes A1c 7.4 Glucose 324 Plan: -Currently NPO -Q6 glucose checks -ISS step 2 HEME #Acute blood loss normocytic anemia DDx upper GI bleed, esophageal varices vs gastric ulcer, borderline megaloblastic Hgb 9.7 --> 8.7, MCV normal, coffee ground emesis with 350cc drained from NGT immediately. Plan: -iron studies, peripheral blood smear, and ferritin -B12 -Folate ID Stable #ICU Health maintenance Mechanical ventilation: Currently on spontaneous breathing trial Sedation: None Diet: NPO DVT prophylaxis: SCDs due to c/ GI bleed GI prophylaxis: Protonix Miller: yes Lines: x2 PIV Antibiotics: Ceftriaxone CODE STATUS: Full Patient examined and plan discussed with attending Dr. Greer and supervising resident Dr. Lujan. Note Written by Justin Herman PGY-1
[2025-10-23] MEDS: RINGERS LACTATED 1000 ML 1,000 ML 999 ML IV (10:39)
[2025-10-23] MEDS: PANTOPRAZOLE/NS 80MG IV PREMIX 80 MG/100 ML BAG 10 MG IV ×2 (11:08→20:01)
[2025-10-23 11:53] LABS: Hematocrit 24.9 % (41.0-53.0)
--- NOTE | 2025-10-23 12:01 | ESPR_ITS ---
Documentation for date of: 10/23/25 Subjective Subjective Interval history: This is a 65-year-old male admitted yesterday for acute respiratory failure and GI bleed. Patient has a history of cirrhosis and dementia. He underwent an EGD yesterday with GI. The EGD showed grade 1 varices however nothing that could be banded with no frankly bleeding ulcer that could be cauterized or clipped. There was general oozing noted in the stomach consisting with portal gastropathy per GI. Overnight patient continues to have dark blood via his OG tube with about 500 cc out. Has had a good urinary output and is afebrile. Critical Care Note Critical care time (min.): 42 Exam Vital Signs Temp Pulse Resp BP Pulse Ox O2 Del Method FiO2 98.5 F 70 17 108/54 L 100 Mechanical Ventilation 30 10/23/25 08:00 10/23/25 10:53 10/22/25 18:50 10/23/25 10:53 10/23/25 10:53 10/23/25 08:00 10/23/25 10:53 Narrative Exam General-intubated, sedated, normal body habitus, no acute distress HEENT-normocephalic, atraumatic, sclera anicteric, pupils equal and reactive, oral mucosa is hydrated, ET tube and OG tube in place, OG tube is draining dark blood Chest-lungs clear to auscultation bilaterally, heart rate regular and rhythmic with occasional extrasystoles, no increased work of breathing Abdomen-soft, nontender, bowel sounds present, no rebound or guarding Extremities-trace edema, pulses palpable, no clubbing, no cyanosis, no mottling Vent AC VC Drips octreotide PPI Physical Exam Completion Physical Exam Complete?: Yes Objective - Attending Radiologist Labs 10/23/25 04:20 10/23/25 04:20 Labs: Laboratory Results - last 24 hr 10/22/25 10/22/25 10/22/25 05:56 12:54 14:17 WBC RBC Hgb 8.9 L Hct 26.0 L MCV MCH MCHC RDW Std Deviation Plt Count Neut % (Auto) Lymph % (Auto) [place] % (Auto) Eos % (Auto) Baso % (Auto) Neut # (Auto) Lymph # (Auto) [place] # (Auto) Eos # (Auto) Baso # (Auto) Immature Gran # (Auto) Absolute Nucleated RBC Immature Gran % Nucleated RBC % Smear Path Review PT INR APTT Puncture Site ABG pH ABG pCO2 ABG pO2 ABG HCO3 ABG O2 Saturation ABG Base Excess FiO2 Sodium Potassium Chloride Carbon Dioxide Anion Gap BUN Creatinine Estim Creat Clear Calc eGFR BUN/Creatinine Ratio Glucose Calculated Osmolality Calcium Corrected Calcium Phosphorus Magnesium Iron 191 H TIBC 283 Iron Saturation 67 H Unsat Iron Binding 92 L Ferritin 53 Total Bilirubin AST ALT Alkaline Phosphatase Total Protein Albumin Globulin Albumin/Globulin Ratio Triglycerides Ur Collection Type Catheter Urine Color Yellow Urine Clarity Clear Urine pH 6.0 Ur Specific [place] 1.010 Urine Protein Trace Urine Glucose (UA) Negative Urine Ketones 1+ A Urine Blood 2+ A Urine Nitrite Negative Urine Bilirubin Negative Urine Urobilinogen (Auto) 2.0 Ur Leukocyte Esterase Positive Urine RBC 36 H Urine WBC 13 H Ur Squamous Epith Cells < 1 Urine Bacteria None Blood Type O Positive Antibody Screen NEGATIVE Crossmatch See Detail Blood Bank Wristband ID Yes 10/22/25 10/23/25 10/23/25 18:00 00:26 04:20 WBC 16.3 H D RBC 2.53 L Hgb 8.7 L 8.3 L 8.7 L Hct 25.7 L 24.2 L 25.4 L MCV 100 MCH 34.4 MCHC 34.3 RDW Std Deviation 51.6 H Plt Count 150 Neut % (Auto) 59 Lymph % (Auto) 23 [place] % (Auto) 16 H Eos % (Auto) 1 Baso % (Auto) 1 Neut # (Auto) 9.6 H Lymph # (Auto) 3.7 [place] # (Auto) 2.6 H Eos # (Auto) 0.2 Baso # (Auto) 0.1 Immature Gran # (Auto) 0.10 H Absolute Nucleated RBC 0.00 Immature Gran % 1 H Nucleated RBC % 0 Smear Path Review Sent to Pathologist PT 12.6 H INR 1.2 APTT 25.3 Puncture Site ABG pH ABG pCO2 ABG pO2 ABG HCO3 ABG O2 Saturation ABG Base Excess FiO2 Sodium 142 Potassium 4.6 Chloride 108 H Carbon Dioxide 19.6 L Anion Gap 14 BUN 35 H Creatinine 1.0 Estim Creat Clear Calc 60.8 L eGFR > 60 BUN/Creatinine Ratio 35 H Glucose 243 H D Calculated Osmolality 299 H Calcium 9.0 Corrected Calcium 9.6 Phosphorus 4.9 Magnesium 1.7 Iron TIBC Iron Saturation Unsat Iron Binding Ferritin Total Bilirubin 1.8 H AST 23 ALT 12 Alkaline Phosphatase 55 D Total Protein 7.0 Albumin 3.2 L Globulin 3.8 H Albumin/Globulin Ratio 0.8 L Triglycerides 119 Ur Collection Type Urine Color Urine Clarity Urine pH Ur Specific [place] Urine Protein Urine Glucose (UA) Urine Ketones Urine Blood Urine Nitrite Urine Bilirubin Urine Urobilinogen (Auto) Ur Leukocyte Esterase Urine RBC Urine WBC Ur Squamous Epith Cells Urine Bacteria Blood Type Antibody Screen Crosswatch Blood Bank Wristband ID 10/23/25 10/23/25 04:34 08:40 WBC RBC Hgb Hct MCV MCH MCHC RDW Std Deviation Plt Count Neut % (Auto) Lymph % (Auto) [place] % (Auto) Eos % (Auto) Baso % (Auto) Neut # (Auto) Lymph # (Auto) [place] # (Auto) Eos # (Auto) Baso # (Auto) Immature Gran # (Auto) Absolute Nucleated RBC Immature Gran % Nucleated RBC % Smear Path Review PT INR APTT Puncture Site Right Radial Site Not Noted ABG pH 7.51 H 7.52 H ABG pCO2 25 L 24 L ABG pO2 145 H D 131 H ABG HCO3 20 20 ABG O2 Saturation 100 H 100 H ABG Base Excess -3 -2 FiO2 21 100 Sodium Potassium Chloride Carbon Dioxide Anion Gap BUN Creatinine Estim Creat Clear Calc eGFR BUN/Creatinine Ratio Glucose Calculated Osmolality Calcium Corrected Calcium Phosphorus Magnesium Iron TIBC Iron Saturation Unsat Iron Binding Ferritin Total Bilirubin AST ALT Alkaline Phosphatase Total Protein Albumin Globulin Albumin/Globulin Ratio Triglycerides Ur Collection Type Urine Color Urine Clarity Urine pH Ur Specific [place] Urine Protein Urine Glucose (UA) Urine Ketones Urine Blood Urine Nitrite Urine Bilirubin Urine Urobilinogen (Auto) Ur Leukocyte Esterase Urine RBC Urine WBC Ur Squamous Epith Cells Urine Bacteria Blood Type Antibody Screen Crosswatch Blood Bank Wristband ID Assessment & Plan Additional Assessment Additional Assessment: In summary this is 65-year-old male admitted to the ICU with GI bleed and respiratory failure a/p [employer] ENG[employer]ER Hepatic encephalopathy-patient is currently on lactulose however given that he continues to bleed difficult to achieve improvement at this point in time. His sedation has been placed on hold and will continue to evaluate. CV Hypotension-improved with IV fluids Resp Acute respiratory failure-patient is currently intubated and on mechanical ventilation, follow-up on chest x-ray and ABGs, patient's gas from this morning shows respiratory alkalosis therefore vent has been adjusted. Aspiration pneumonia-on ceftriaxone, minimal FiO2 requirements on the ventilator Renal Mild hyperchloremic acidosis GI Cirrhosis-on lactulose and rifaximin -Has been on Lasix as well as spironolactone, these are both currently on hold -Secondary to alcohol abuse and is on daily thiamine GI bleed-patient has been seen and evaluated by GI and the recommendations are appreciated. He continues to have active bleed today as there was nothing that could be cauterized, clipped or banded yesterday. He remains on an octreotide drip as well as a Protonix drip. Will continue to follow H&H every 6 hours and thus far he has not required blood transfusion. Has been on ceftriaxone and will complete 5 days. Endo Diabetes-sliding scale of insulin and fingersticks every 4 hours. A1c was elevated at 7.4. Patient had a prior history of diabetes however was not on any home medications. Heme Leukocytosis-likely reactive in nature however uptrending today will continue to monitor Anemia-patient does have an acute GI bleed however his H&H has remained relatively stable without transfusion thus far. Will continue to monitor ID Aspiration pneumonia-on ceftriaxone, follow-up with cultures Case discussed with ICU team, discussed with family yesterday Discussed with GI Labs, imaging and records reviewed Approximately 42 critical care was required for evaluation, exam, review, dimension, discussion formation plan of care for this critically ill patient with GI bleed and respiratory failure at high risk for further ongoing decompensation. Provider Notation Provider Notation: Although this document has been carefully reviewed, there may still be some phonetic and other typographical errors. These errors are purely grammatical due to imperfections in the software program and should not be construed in any way to compromise the substance of the patient's medical care during this visit. Thank you for the opportunity and privilege in assisting you with this patient's care and management.
[2025-10-23 12:09] LABS: Hemoglobin 8.4 g/dL (13.5-16.0)
[2025-10-23 14:29] LABS: Cocci Serology, IgM Negative (Negative)
[2025-10-23] MEDS: cefTRIAXone/D5w 1gm IV premix 1 GM/50 ML BAG IV (14:48)
[2025-10-23] MEDS: ACETAMINOPHEN SOL 325 MG/10 ML UDC 650 MG NG (17:17)
--- NOTE | 2025-10-23 17:39 | PD.IMPROG ---
Documentation for date of: 10/23/25 Subjective Subjective Interval history: Hemoglobin hematocrit 8.4 and 24.9 Case discussed with the ICU Attending If patient continues to bleed he will need to patient Exam Vital Signs Temp Pulse Resp BP Pulse Ox O2 Del Method FiO2 100.4 F 86 17 131/63 H 100 Mechanical Ventilation 30 10/23/25 17:17 10/23/25 16:00 10/22/25 18:50 10/23/25 16:00 10/23/25 16:00 10/23/25 16:00 10/23/25 16:00 Objective Labs 10/23/25 11:30 10/23/25 04:20 Labs: Laboratory Results - last 24 hr 10/22/25 10/22/25 10/23/25 12:54 18:00 00:26 WBC RBC Hgb 8.7 L 8.3 L Hct 25.7 L 24.2 L MCV MCH MCHC RDW Std Deviation Plt Count Neut % (Auto) Lymph % (Auto) [place] % (Auto) Eos % (Auto) Baso % (Auto) Neut # (Auto) Lymph # (Auto) [place] # (Auto) Eos # (Auto) Baso # (Auto) Immature Gran # (Auto) Absolute Nucleated RBC Immature Gran % Nucleated RBC % Smear Path Review Sent to Pathologist PT INR APTT Puncture Site ABG pH ABG pCO2 ABG pO2 ABG HCO3 ABG O2 Saturation ABG Base Excess FiO2 Sodium Potassium Chloride Carbon Dioxide Anion Gap BUN Creatinine Estim Creat Clear Calc eGFR BUN/Creatinine Ratio Glucose Calculated Osmolality Calcium Corrected Calcium Phosphorus Magnesium Iron 191 H TIBC 283 Iron Saturation 67 H Unsat Iron Binding 92 L Ferritin 53 Total Bilirubin AST ALT Alkaline Phosphatase Total Protein Albumin Globulin Albumin/Globulin Ratio Triglycerides Coccidioides IgM Ab Negative 10/23/25 10/23/25 10/23/25 04:20 04:34 08:40 WBC 16.3 H D RBC 2.53 L Hgb 8.7 L Hct 25.4 L MCV 100 MCH 34.4 MCHC 34.3 RDW Std Deviation 51.6 H Plt Count 150 Neut % (Auto) 59 Lymph % (Auto) 23 [place] % (Auto) 16 H Eos % (Auto) 1 Baso % (Auto) 1 Neut # (Auto) 9.6 H Lymph # (Auto) 3.7 [place] # (Auto) 2.6 H Eos # (Auto) 0.2 Baso # (Auto) 0.1 Immature Gran # (Auto) 0.10 H Absolute Nucleated RBC 0.00 Immature Gran % 1 H Nucleated RBC % 0 Smear Path Review PT 12.6 H INR 1.2 APTT 25.3 Puncture Site Right Radial Site Not Noted ABG pH 7.51 H 7.52 H ABG pCO2 25 L 24 L ABG pO2 145 H D 131 H ABG HCO3 20 20 ABG O2 Saturation 100 H 100 H ABG Base Excess -3 -2 FiO2 21 100 Sodium 142 Potassium 4.6 Chloride 108 H Carbon Dioxide 19.6 L Anion Gap 14 BUN 35 H Creatinine 1.0 Estim Creat Clear Calc 60.8 L eGFR > 60 BUN/Creatinine Ratio 35 H Glucose 243 H D Calculated Osmolality 299 H Calcium 9.0 Corrected Calcium 9.6 Phosphorus 4.9 Magnesium 1.7 Iron TIBC Iron Saturation Unsat Iron Binding Ferritin Total Bilirubin 1.8 H AST 23 ALT 12 Alkaline Phosphatase 55 D Total Protein 7.0 Albumin 3.2 L Globulin 3.8 H Albumin/Globulin Ratio 0.8 L Triglycerides 119 Coccidioides IgM Ab 10/23/25 11:30 WBC RBC Hgb 8.4 L Hct 24.9 L MCV MCH MCHC RDW Std Deviation Plt Count Neut % (Auto) Lymph % (Auto) [place] % (Auto) Eos % (Auto) Baso % (Auto) Neut # (Auto) Lymph # (Auto) [place] # (Auto) Eos # (Auto) Baso # (Auto) Immature Gran # (Auto) Absolute Nucleated RBC Immature Gran % Nucleated RBC % Smear Path Review PT INR APTT Puncture Site ABG pH ABG pCO2 ABG pO2 ABG HCO3 ABG O2 Saturation ABG Base Excess FiO2 Sodium Potassium Chloride Carbon Dioxide Anion Gap BUN Creatinine Estim Creat Clear Calc eGFR BUN/Creatinine Ratio Glucose Calculated Osmolality Calcium Corrected Calcium Phosphorus Magnesium Iron TIBC Iron Saturation Unsat Iron Binding Ferritin Total Bilirubin AST ALT Alkaline Phosphatase Total Protein Albumin Globulin Albumin/Globulin Ratio Triglycerides Coccidioides IgM Ab Impressions Impression: 1+ esophageal varices hypertensive portal gastropathy with mucosal oozing of blood Continue current management ABG Interpretation ABG results: 10/22/25 10/23/25 10/23/25 09:22 04:34 08:40 ABG pH 7.45 7.51 H 7.52 H ABG pCO2 31 L 25 L 24 L ABG pO2 209 H 145 H D 131 H ABG HCO3 22 20 20 ABG O2 Saturation 100 H 100 H 100 H ABG Base Excess -2 -3 -2 Assessment & Plan A&P Narrative # Hematemesis differential diagnoses include esophageal variceal bleeding Brittany-Falcon tear peptic ulcer disease hypertensive portal gastropathy with mucosal oozing of blood # Acute hepatic encephalopathy requiring endotracheal intubation mechanical ventilation to protect the airway Plan Consent will be obtained from the family members for fiberoptic esophagogastroduodenoscopy possible biopsy possible therapeutic intervention under intravenous moderate sedation Octreotide infusion at 50 mcg/h IV Protonix Serial CBC Transfuse if the hemoglobin drops below 7 g Will follow the patient Thank you very much for the opportunity to participate in the care of this patient Time Spent With Patient Time: Total time spent is greater than 50% in coordination of care (as documented) at patient's floor/unit and/or counseling patient:
[2025-10-23] MEDS: LACTULOSE SYRUP 10 GM/15 ML 200 GM PR (19:16)
[2025-10-23 21:04] LABS: Folate > 24.00 ng/mL (>5.38); Vitamin B12 482 pg/mL (211-911)
[2025-10-24] VITALS (26 sets, daily range): BP systolic 115–164; BP diastolic 61–107; PULSE 91–120; RESP 12–29; TEMP 36.6–37.7; O2SAT 97–100; BMI 25.6
[2025-10-24 04:54] LABS: Base Excess -2 (-3-3); HCO3 21 mEq/L (20-26); Inspired Oxygen, FIO2 30 %; O2 Saturation 100 % (91-98); PCO2 28 mmHg (32.0-48.0); PO2 130 mmHg (83-108); pH, Arterial 7.48 (7.35-7.45)
[2025-10-24 05:12] LABS: Allen Test Performed/OK; Puncture Site Right Radial
[2025-10-24] MEDS: INSULIN LISPRO (AdmeLOG) 1 UNIT/0.01 ML UNIT SC ×2 (05:55→12:33)
[2025-10-24] MEDS: PANTOPRAZOLE/NS 80MG IV PREMIX 80 MG/100 ML BAG 10 MG IV (05:55)
[2025-10-24 06:19] LABS: Basophils # (Auto) 0.1 Thou/mm3 (0.0-0.2); Basophils % (Auto) 1 % (0-2.5); Eosinophils # (Auto) 0.1 Thou/mm3 (0.0-0.5); Eosinophils % (Auto) 0 % (0-10); Hematocrit 26.5 % (41.0-53.0); Hemoglobin 8.9 g/dL (13.5-16.0); Immature Granulocytes Auto 0.14 Thou/mm3 (0.00-0.00); Lymphocytes # (Auto) 3.2 Thou/mm3 (1.0-4.8); Lymphocytes % (Auto) 16 % (10-50); Mean Corpuscular HGB Conc 33.6 g/dl (31.0-37.0); Mean Corpuscular Hemoglobin 34.5 pg (25.0-35.0); Mean Corpuscular Volume 103 fL (80-100); Monocytes # (Auto) 3.1 Thou/mm3 (0.0-0.8); Monocytes % (Auto) 15 % (0-12); Neutrophils # (Auto) 13.3 Thou/mm3 (1.8-7.7); Neutrophils % (Auto) 67 % (37-80); Nucleated Red Blood Cell # 0.00 Thou/mm3 (0.00-0.00); Nucleated Red Blood Cell % 0 /100 WBC (0); Platelet Count 170 Thou/mm3 (140-440); RDW Standard Deviation 53.8 fL (35.1-43.9); Red Blood Count 2.58 Miln/mm3 (4.50-5.90); White Blood Count 19.8 Thou/mm3 (3.8-10.6)
[2025-10-24 06:42] LABS: INR 1.1 (0.9-1.3); Partial Thromboplastin Time 28.1 Seconds (22.0-36.0); Prothrombin Time 12.1 Seconds (9.0-12.2)
[2025-10-24] MEDS: DEXMEDETOMIDINE 400 MCG IVPB 400 MCG/100 ML BAG IV (06:53)
[2025-10-24 07:03] LABS: Alanine Aminotransferase 12 U/L (10-49); Albumin, Serum 3.8 gm/dL (3.4-4.8); Albumin/Globulin Ratio 1.0 (1.2-2.2); Alkaline Phosphatase 66 U/L (46-116); Anion Gap 16 (7-16); Aspartate Amino Transferase 22 U/L (0-34); BUN/Creatinine Ratio 24 Ratio (12-20); Bilirubin,Total 2.6 mg/dL (0.3-1.2); Blood Urea Nitrogen 24 mg/dL (9-23); Calcium 9.7 mg/dL (8.3-10.6); Calcium (Corrected) 9.9 mg/dL (8.5-10.1); Carbon Dioxide 20.2 mMol/L (20.0-31.0); Chloride 114 mMol/L (98-107); Creatinine (Component) 1.0 mg/dL (0.6-1.3); Estimated Creatinine Clearance 60.8 mL/min (>60); Globulin 4.0 gm/dL (2.3-3.5); Glucose 238 mg/dL (74-106); Magnesium 2.0 mg/dL (1.6-2.6); Osmolality,Calculated 310 (275-295); Phosphorous 3.0 mg/dL (2.4-5.1); Potassium 3.9 mMol/L (3.4-5.1); Sodium 150 mMol/L (136-145); Total Protein 7.8 gm/dL (5.7-8.2); eGFR > 60 See Note
[2025-10-24 07:24] LABS: Triglycerides 122 mg/dL (30-150)
--- NOTE | 2025-10-24 09:00 | XR_ITS ---
EXAMINATION: AP chest single view TECHNIQUE: AP portable supine chest single view Date and time: October 24, 2025, 0616 hours, comparison October 23, 2025 INDICATIONS: Hypoxic respiratory failure, wheezing this week. FINDINGS: Mild prominence left ventricle Endotracheal tube tip 4.6 cm above colin. Orogastric tube is in the stomach, the tip is below the level of the film Mild vascular congestion No lobar pneumonia IMPRESSION: Mild vascular congestion. No lobar pneumonia
[2025-10-24] MEDS: THIAMINE INJ 100 MG/ML VIAL 2 ML 250 MG IVP (10:04)
--- NOTE | 2025-10-24 11:13 | XR_ITS ---
EXAMINATION: AP chest single view ATP portable supine chest single view Date and time: , 2024, 1150 hours, comparison October 24, 2025 0616 hours INDICATIONS: Orogastric tube placement FINDINGS: The patient has been extubated Mild prominence left ventricle Orogastric tube coiled in the stomach Moderate vascular congestion IMPRESSION: Orogastric tube coiled in the stomach
--- NOTE | 2025-10-24 12:00 | ESPR_ITS ---
<Statement entered by Wayne Shaw MD - 10/24/25 15:27> I have reviewed the note and agree with the resident's assessment & plan with exceptions as below. I have personally reviewed labs, imaging, home meds/prior records, examined the patient, formulated and discussed management plan with the IM team. Pt examined at bedside. No acute overnight events. Pt was extubated today. Pt 2L output from rectal tube, the color was dark. Pt does appear to be a bit somlonent and agitated, however applied wrist restraints at this time. Will decrease lactulose to 40 gm Q8H via NGT. Inserted NGT for patient. Na shown to be 150, initiated water flushes as water deficit calculated to be 1.5 L. Will continue with Lactulose and Rifxamin via NGT. IV thiamine initiated for concern for Wernicke's. Hospitalist team can consider repeat Ammonia level if pt's bowel movements change or mentation worsens. Pt having hypertension now, can consider Spirnolactone for cirrhosis and restarting antihypertensives. UOP 975 cc, carlson in. Will transition Protonix drip to Protonix 40 mg IV BID, continue Octretide drip day 3 of 5. GI, Dr. Motta, may repeat EGD for patient. Pt ABG shows pH 7.48, PCO2 28, AG 16, and bicarbonate of 20 likely representing mixed disorder with a Primary chronic respiratory acidosis with PCO2 being down. Bicarbonate expected to be 18, however it is at 20, so likely related chronic due to cirrhotic hx. With lactulose, pt having mild Anion gap metabolic acidosis. Repeat hematology, and chemistry in AM. Sputum has GPC and 4+ WBC, on Rocephin currently. B12 482, Folate 24 -> Megaloblastic anemia. #Acute Encephalopathy, intubated for airway protected, resolved #Hepatic encephalopathy #? Syncope #Hypotension, resolved #Hx of HTN #Aspiration pneumonitis #GI bleed #Suspected Esophageal varices #Acute decompensated liver cirrhosis #Mixed acid base disorder #Chronic respiratory alkalosis #Hyperoosmolar hypervolemic hypernatremia #Mild Anion gap metabolic acidosis #Acute blood loss megaloblastic anemia, improving #Type II diabetes mellitus Wayne Shaw, PGY-2 Internal Medicine Documentation for date of: 10/24/25 Subjective Subjective Interval history: 65-year-old male with past medical history of alcohol induced liver cirrhosis, hypertension, diabetes, chronic back pain who was recently admitted 07/12 - 07/20 for decompensated liver disease causing hepatic encephalopathy [facility] with [facility] mental status found to be not protecting his airway and was subsequently intubated, found to have coffee ground emesis prior to intubation. Admitted to ICU for further management of encephalopathy and ventilation management. ED Course Summary Vitals: BP 110/66 HR 83 RR 16 T 97.9F O2 sat 96% RA Labs: WBC 11.3 Hgb 9.7 coag (PT 13! INR 1.2 APTT 29.1) glucose 324 T bili 1.7 Ammonia 379 ABG: pH 7.45 pCO2 31(L) pO2 209 HCO3 22 O2 sat 100% FiO2 50 CXR: L base pneumonia, suspicious for mild heart failure Head CT: Negative for acute hemorrhage, mass effect or midline shift CTAP: Cirrhosis, gastritis pattern (do not see definite gastric bleeding), mild ascites, cholelithiasis. urinary bladder wall thickening EKG c/f afib (resident read does not see a fib) HR 80 QRSd 94 QTc 499 Treatment: reglan 10, NaCl 1L, Etomidate 10mgx1, Rocuronium 50mg propofol 1g/100ml/hr, protonix 80, octreotide 50mcg, ketamine HCl 200mg Consults and why: Dr. Motta, GI, upper GI bleed HPI Upon initial exam patient is intubated, his son was present to assist in interview. Per the history gathered patient is GCS 15 at baseline however became altered and was vomiting at his rehab center [facility]. He recently had an outpatient EGD as well as a colonoscopy. The colonoscopy showed diverticulosis and multiple polyps, one of which was biopsied. There was a mention of syncope however that was not reported per the ED nurse. 10/23/2025 Upon initial examination today patient is on ventilator AO x 0 he is currently off propofol only receiving octreotide and Protonix drips. His hemoglobin has remained stable white blood cell count 16.3 is worsening from 11 BUN worsening to 35 was 22 the day prior creatinine also worsening to 1.8 to 1.0 point giving 1 L of LR fluids bolus. Lactate 40 every 4 hours now upgrading to every 2 hours since no BMs yet. Currently trying spontaneous breathing trial. Yesterday EGD was done by Dr. Motta showed grade 1 varices in the lower third esophagus there was diffuse gastritis mucosal oozing. The duodenal bulb and the duodenum were normal he says to continue octreotide for 5 days keep him on NGT low intermittent suction. We are also continuing patient on ceftriaxone and using SCIDS for continue IV Protonix . Dr. Motta says that he would like to see the patient again before discharge for another potential scope due to poor visibility on most recent EGD 10/24/2025 Overnight patient had about 3 L of stool output from the rectal tube. He was agitated upon waking up so they gave him Precedex. Patient examined at bedside today, he has passed his spontaneous breathing trial, he was extubated and started on nasal cannula saturating fine. He failed a swallow eval so NG tube was placed. Patient is noncommunicative verbally AO x 1 (mumbles his name) GCS of 9 (his eyes opening spontaneously not communicating with words and he is withdrawing from pain). Today he is hypertensive blood pressure is 158/100 heart rate was 114 respiratory rate was 16 temperature is 99.9 ?F and oxygen saturation is 99% with nasal cannula. He had multiple bowel movements they are unmeasured due to the rectal tube but seems about 2 separate events that resulted in complete filling of the stool bag. we changed his lactulose from Q2HR to Q8HR. Sputum culture returned looked contaminated so another sputum culture was reordered. We are changing him to Protonix twice daily, now off the Protonix drip. Continue holding the anticoagulations while concerned for GI bleed, hemoglobin has been stable. We also giving him thiamine for the next 5 days around 250. Patient also has newfound hypernatremia most likely due to volume contraction no p.o. intake and voluminous diarrhea stool output overnight's. His free water deficit is 1.5 L. Patient will be downgraded today if pressures and oxygenation remains stable. Exam Vital Signs Temp Pulse Resp BP Pulse Ox O2 Del Method O2 Flow Rate 99.9 F 91 18 153/78 H 100 Mechanical Ventilation 3 10/24/25 04:00 10/24/25 08:53 10/24/25 08:53 10/24/25 07:01 10/24/25 08:53 10/23/25 16:00 10/24/25 08:53 FiO2 30 10/24/25 06:00 Narrative Exam GENERAL: GCS 9 (eyes open spontaneously, no words, withdrawing from pain) AOx0 N o apparent distress, lying comfortably in hospital bed, breathing comfortably on NC, no obvious deformities or signs of discomfort. Able to blink eyes in response today HEENT: Atraumatic, normocephalic, PERRL, accommodation intact, mucous membranes moist/dry. +jaundice, +scleral icterus noted, no mucosal darkening appreciated CHEST: Tachycardic, no murmurs, rubs, or gallops noted. CTA ABDOMEN: NBS, ND, soft, NTTP. +fluid wave EXTREMITIES: All pulses palpated +2, no pedal edema noted, all extremities the same temperature, anhidrosis on dorsum of feet. BACK: No CVA tenderness, no bruises, rashes noted, spine has normal symmetry without stepoffs, bony tenderness or paraspinal muscle tenderness RECTUM: No blood noted to be in rectum on [place]. No signs of hemmorhoids, skin tags, or active bleeding Objective Labs 10/24/25 04:10 10/24/25 04:10 Labs: Laboratory Results - last 24 hr 10/22/25 10/22/25 10/23/25 05:56 18:00 11:30 WBC RBC Hgb 8.4 L Hct 24.9 L MCV MCH MCHC RDW Std Deviation Plt Count Neut % (Auto) Lymph % (Auto) [place] % (Auto) Eos % (Auto) Baso % (Auto) Neut # (Auto) Lymph # (Auto) [place] # (Auto) Eos # (Auto) Baso # (Auto) Immature Gran # (Auto) Absolute Nucleated RBC Immature Gran % Nucleated RBC % PT INR APTT Puncture Site ABG pH ABG pCO2 ABG pO2 ABG HCO3 ABG O2 Saturation ABG Base Excess FiO2 Sodium Potassium Chloride Carbon Dioxide Anion Gap BUN Creatinine Estim Creat Clear Calc eGFR BUN/Creatinine Ratio Glucose Calculated Osmolality Calcium Corrected Calcium Phosphorus Magnesium Total Bilirubin AST ALT Alkaline Phosphatase Total Protein Albumin Globulin Albumin/Globulin Ratio Triglycerides Vitamin B12 482 Folate > 24.00 Coccidioides IgM Ab Negative 10/24/25 10/24/25 04:10 04:36 WBC 19.8 H RBC 2.58 L Hgb 8.9 L Hct 26.5 L MCV 103 H MCH 34.5 MCHC 33.6 RDW Std Deviation 53.8 H Plt Count 170 Neut % (Auto) 67 Lymph % (Auto) 16 [place] % (Auto) 15 H Eos % (Auto) 0 Baso % (Auto) 1 Neut # (Auto) 13.3 H Lymph # (Auto) 3.2 [place] # (Auto) 3.1 H Eos # (Auto) 0.1 Baso # (Auto) 0.1 Immature Gran # (Auto) 0.14 H Absolute Nucleated RBC 0.00 Immature Gran % 1 H Nucleated RBC % 0 PT 12.1 INR 1.1 APTT 28.1 Puncture Site Right Radial ABG pH 7.48 H ABG pCO2 28 L ABG pO2 130 H ABG HCO3 21 ABG O2 Saturation 100 H ABG Base Excess -2 FiO2 30 Sodium 150 H Potassium 3.9 D Chloride 114 H Carbon Dioxide 20.2 Anion Gap 16 BUN 24 H Creatinine 1.0 Estim Creat Clear Calc 60.8 L eGFR > 60 BUN/Creatinine Ratio 24 H Glucose 238 H Calculated Osmolality 310 H Calcium 9.7 Corrected Calcium 9.9 Phosphorus 3.0 Magnesium 2.0 Total Bilirubin 2.6 H D AST 22 ALT 12 Alkaline Phosphatase 66 Total Protein 7.8 Albumin 3.8 D Globulin 4.0 H Albumin/Globulin Ratio 1.0 L Triglycerides 122 Vitamin B12 Folate Coccidioides IgM Ab ABG Interpretation ABG results: 10/22/25 10/23/25 10/23/25 09:22 04:34 08:40 ABG pH 7.45 7.51 H 7.52 H ABG pCO2 31 L 25 L 24 L ABG pO2 209 H 145 H D 131 H ABG HCO3 22 20 20 ABG O2 Saturation 100 H 100 H 100 H ABG Base Excess -2 -3 -2 10/24/25 04:36 ABG pH 7.48 H ABG pCO2 28 L ABG pO2 130 H ABG HCO3 21 ABG O2 Saturation 100 H ABG Base Excess -2 Quality Measures Quality Measures none Advance care planning discussed with:: child and other Assessment & Plan Assessment Current Active Medications: Generic Name Dose Route Start Last Admin Trade Name Freq PRN Reason Stop Dose Admin Dextrose 25 ml 10/23/25 10:36 Dextrose 50%-Water Inj 50 Ml Syringe IV 11/22/25 10:35 Q15MIN PRN BG 50-70 responsive npo pt Dextrose 50 ml 10/23/25 10:36 Dextrose 50%-Water Inj 50 Ml Syringe IV 11/22/25 10:35 Q15MIN PRN BG <50 OR BG <70 & pt unresponsive Glucagon 1 mg 10/23/25 10:36 Glucagon Inj 1 Mg Vial IM Q15MIN PRN BG <70, and no IV access Midazolam HCl 100 mg in 100 mls @ 1 mls/hr 10/22/25 06:48 10/22/25 08:30 Versed Pf Inj In Ns Premix IV 10/27/25 06:47 0 mg/hr .Q24H PRN 0 mls/hr Per Protocol Titration Protocol 1 MG/HR Ceftriaxone Sodium/Dextrose 1 gm in 50 mls @ 100 mls/hr 10/22/25 17:12 10/23/25 14:48 Rocephin/D5w 1gm Iv Premix IV 10/29/25 17:11 100 mls/hr QDAY@1400 BRYANT Administration Propofol 1,000 mg in 100 mls @ 2.229 mls/hr 10/22/25 19:30 10/23/25 08:05 Diprivan Ivpb IV 11/21/25 04:43 0 mcg/kg/min .Q24H PRN 0 mls/hr PER PROTOCOL Titration Protocol 5 MCG/KG/MIN Octreotide Acetate 1,000 mcg/ 102 mls @ 5.1 mls/hr 10/23/25 20:45 10/23/25 18:38 Sodium Chloride IV 10/27/25 04:44 50 mcg/hr .Q20H BRYANT 5.1 mls/hr Protocol Administration 50 MCG/HR Dexmedetomidine/Sodium Chloride 400 mcg in 100 mls @ 3.485 mls/hr 10/24/25 06:42 10/24/25 06:53 Precedex Ivpb IV 11/23/25 06:41 0.2 mcg/kg/hr .Q24H PRN 3.485 mls/hr Per PROTOCOL Administration Protocol 0.2 MCG/KG/HR Insulin Human Lispro 0 unit 10/23/25 12:00 10/24/25 05:55 Insulin Lispro (Admelog) 1 Unit/0.01 Ml Unit SC 11/22/25 11:59 3 unit Q6HR BRYANT Administration Protocol Lactulose 40 gm 10/24/25 14:00 Lactulose Syrup 20 Gm/30 Ml Udc NG 11/23/25 13:59 Q8HR BRYANT Protocol Pantoprazole Sodium 40 mg 10/24/25 09:15 10/24/25 10:03 Pantoprazole Inj 40 Mg Vial IVP 11/23/25 09:14 40 mg BID BRYANT Administration Rifaximin 550 mg 10/22/25 10:15 10/23/25 20:50 Rifaximin 550 Mg Tablet NG 10/29/25 10:14 550 mg BID BRYANT Administration Thiamine HCl 250 mg 10/25/25 09:00 Thiamine Inj 100 Mg/Ml Vial 2 Ml IVP 10/29/25 08:59 QDAY BRYANT Plan 65-year-old male with past medical history of alcohol induced liver cirrhosis, hypertension, diabetes, chronic back pain who was recently admitted 07/12 - 07/20 for decompensated liver disease causing hepatic encephalopathy presented to the ED today, 10/22, from [facility] with altered mental status found to be not protecting his airway and was subsequently intubated, found to have coffee ground emesis prior to intubation. Admitted to ICU for further management of encephalopathy and ventilation management. Today, 10/23, we are attempting spontaneous breathing trial, patient off pressors and sedation. No BMs yet. 10/24 patient is extubated, had mulitple BMS, downgrading today. [employer] #Hepatic encephalopathy Patient has history of alcoholic liver cirrhosis, fluid wave positive on exam. Intubated because patient was not protecting airway. Ddx Infectious, metabolic, vs CVA Dx: elevated ammonia 379, CT head was negative. Plan: -Intubation -IVF -Lactulose 40g Q8HR -Rifaximin 550 BID -Can consider other syncopal work up including EKG, ECHO, at later time. CV #Hypotension - not requiring pressors, resolved DDx Hypovolemia related to GI bleed, infectious IVF 1 L of fluid given, 10/22, patient is responsive. Prop and versed off. IVF 1L fluid given, 10/23, patient is responsive. Plan: -If BP continues to drop then consider active bleed -Type and cross, have one unit pRBCs ready #Hypertension Secondary to agitation, no treatment needed at the moment. PULM #Acute hypoxic respiratory failure Ddx acute bleeding, vs aspiration pneumonitis vs mild heart failure Chest xray L base pneumonia, suspicious for mild heart failure Plan: -Repeat CXRs -Cross coverage with IV Ceftriaxone #Respiratory Alkalosis - Resolving Vent rate decreased to 12 repeat ABG was identical to AM ABG. Currently on spontaneous breathing trial. Patient now extubated. GI #Upper GI bleed - stable Ddx esophageal varices, gastric ulcer, kika white tear, cancer, chronic anemia High suspicion for esophageal varices. Giving ceftriaxone and octreotide for varices and PPI for potential gastric ulcer. Initial presentation with coffee ground emesis NGT showed 300cc of dark fluid removed. Patient does not use NSAIDs or blood thinners. 10/23, EGD was done by Dr. Motta showed grade 1 varices in the lower third esophagus there was diffuse gastritis mucosal oozing. The duodenal bulb and the duodenum were normal he says to continue octreotide for 5 days keep him on NGT low intermittent suction Plan: -GI consult -protonix drip -SCDs --> Holding blood thinners -Type and cross, have one unit pRBCs ready -iron studies including peripheral blood smear and ferritin, -Trend H+H and trend hemoglobin -NGT LIS #Esophageal Varices Per discussions patient had recent EGD showing esophageal varices. New EGD yesterday, see results in #Upper GI Bleed Ddx Most likely related to chronic alcohol use Plan: -Ceftriaxone 1g IV Q -Octreotide drip -GI consult #Acute decompensated alcoholic liver cirrhosis Fluid wave on exam, distended abdomen. Holding spironolactone at this time due to hypotension, rifaximin and lactulose on board as above Plan: -Continue plan per other GI recs -Thiamine 250 mg IV QD for 5 days RENAL #Hematuria of unclear etiology Repeat UA +1 ketone +2 blood +LE 36 RBC 13 WBC Plan: -FUP outpatient with cystoscopy #Hyperoosmolar hypervolemic hypernatremia ddx volume contraction, reduced PO intake Free water deficit 1.5L Plan: -Encourage PO hydration -60cc/hr free water flushes through NGT No active problems ENDO #T2DM, non-insulin dependent Ddx diabetes A1c 7.4 Glucose 324 Plan: -Currently NPO -Q6 glucose checks -ISS step 2 HEME #Acute blood loss megaloblastic anemia DDx upper GI bleed, esophageal varices vs gastric ulcer, borderline megaloblastic Hgb 9.7 --> 8.7, MCV normal, coffee ground emesis with 350cc drained from NGT immediately. Plan: -iron studies, peripheral blood smear, and ferritin -B12 -Folate #Hyperbilirubinemia T. Bili 1.8-->2.6 over 24 hours. Patient appears more jaundiced with increased scleral icterus per interviewer and son. Has temp increase to 99.9F over last 24 hours. Given tylenol. Plan: -Consider Abd US/MRCP ID Stable #ICU Health maintenance Mechanical ventilation: Extubated on NC Sedation: None Diet: NPO DVT prophylaxis: SCDs due to c/ GI bleed GI prophylaxis: Protonix Carlson: yes Lines: x2 PIV Antibiotics: Ceftriaxone CODE STATUS: Full Patient examined and plan discussed with attending Dr. Greer and supervising resident Dr. Shaw. Note Written by Justin Herman PGY-1
--- NOTE | 2025-10-24 12:50 | PD.INTPROG ---
Documentation for date of: 10/24/25 Subjective Subjective Interval history: This is a 65-year-old male admitted yesterday for acute respiratory failure and GI bleed. Patient has a history of cirrhosis and dementia. He underwent an EGD yesterday with GI. The EGD showed grade 1 varices however nothing that could be banded with no frankly bleeding ulcer that could be cauterized or clipped. There was general oozing noted in the stomach consisting with portal gastropathy per GI. Overnight patient continues to have dark blood via his OG tube with about 500 cc out. Has had a good urinary output and is afebrile. 10/24- no acute overnight events, seems to be improving, material being suctioned from OGT is less bloody, good UOP, afebrile, increase in stool output with lactulose Critical Care Note Critical care time (min.): 39 Exam Vital Signs Temp Pulse Resp BP Pulse Ox O2 Del Method O2 Flow Rate 99.5 F 114 H 16 160/72 H 99 Nasal Cannula 3 10/24/25 08:00 10/24/25 11:00 10/24/25 11:00 10/24/25 11:00 10/24/25 11:00 10/24/25 08:00 10/24/25 08:53 FiO2 30 10/24/25 06:00 Narrative Exam Gen- NAD, arousable to voice, nl body habitus, does not follow commands HEENT- NC/AT, mucosa hydrated, sclera icteric, ETT/OGT in place Chest- LCTAB, HRRR, no increase in WOB Abd- s/nt/bs+, rectal tube in place with output Ext- no edema, pulses palp, no clubbing, no mottling Drips octreotide precedex Vent PSV Physical Exam Completion Physical Exam Complete?: Yes Objective - [employer] Labs 10/24/25 04:10 10/24/25 04:10 Labs: Laboratory Results - last 24 hr 10/22/25 10/22/25 10/24/25 05:56 18:00 04:10 WBC 19.8 H RBC 2.58 L Hgb 8.9 L Hct 26.5 L MCV 103 H MCH 34.5 MCHC 33.6 RDW Std Deviation 53.8 H Plt Count 170 Neut % (Auto) 67 Lymph % (Auto) 16 [place] % (Auto) 15 H Eos % (Auto) 0 Baso % (Auto) 1 Neut # (Auto) 13.3 H Lymph # (Auto) 3.2 [place] # (Auto) 3.1 H Eos # (Auto) 0.1 Baso # (Auto) 0.1 Immature Gran # (Auto) 0.14 H Absolute Nucleated RBC 0.00 Immature Gran % 1 H Nucleated RBC % 0 PT 12.1 INR 1.1 APTT 28.1 Puncture Site ABG pH ABG pCO2 ABG pO2 ABG HCO3 ABG O2 Saturation ABG Base Excess FiO2 Sodium 150 H Potassium 3.9 D Chloride 114 H Carbon Dioxide 20.2 Anion Gap 16 BUN 24 H Creatinine 1.0 Estim Creat Clear Calc 60.8 L eGFR > 60 BUN/Creatinine Ratio 24 H Glucose 238 H Calculated Osmolality 310 H Calcium 9.7 Corrected Calcium 9.9 Phosphorus 3.0 Magnesium 2.0 Total Bilirubin 2.6 H D AST 22 ALT 12 Alkaline Phosphatase 66 Total Protein 7.8 Albumin 3.8 D Globulin 4.0 H Albumin/Globulin Ratio 1.0 L Triglycerides 122 Vitamin B12 482 Folate > 24.00 Coccidioides IgM Ab Negative 10/24/25 04:36 WBC RBC Hgb Hct MCV MCH MCHC RDW Std Deviation Plt Count Neut % (Auto) Lymph % (Auto) [place] % (Auto) Eos % (Auto) Baso % (Auto) Neut # (Auto) Lymph # (Auto) [place] # (Auto) Eos # (Auto) Baso # (Auto) Immature Gran # (Auto) Absolute Nucleated RBC Immature Gran % Nucleated RBC % PT INR APTT Puncture Site Right Radial ABG pH 7.48 H ABG pCO2 28 L ABG pO2 130 H ABG HCO3 21 ABG O2 Saturation 100 H ABG Base Excess -2 FiO2 30 Sodium Potassium Chloride Carbon Dioxide Anion Gap BUN Creatinine Estim Creat Clear Calc eGFR BUN/Creatinine Ratio Glucose Calculated Osmolality Calcium Corrected Calcium Phosphorus Magnesium Total Bilirubin AST ALT Alkaline Phosphatase Total Protein Albumin Globulin Albumin/Globulin Ratio Triglycerides Vitamin B12 Folate Coccidioides IgM Ab Assessment & Plan Additional Assessment Additional Assessment: In summary this is 65-year-old male admitted to the ICU with GI bleed and respiratory failure a/p [employer] Hepatic encephalopathy- improving with lactulose CV Hypotension - resolved Resp Acute respiratory failure-patient is currently intubated and on mechanical ventilation, follow-up on chest x-ray and ABGs, patient's gas from this morning shows respiratory alkalosis therefore vent has been adjusted. - started on PSV yesterday afternoon - did well overnight - check weening parameters and extubate if passes Aspiration pneumonia-on ceftriaxone, minimal FiO2 requirements on the ventilator - improved Renal Mild hyperchloremic acidosis HyperNa- start on free water via NGT today GI Cirrhosis-on lactulose and rifaximin -Has been on Lasix as well as spironolactone, these are both currently on hold -Secondary to alcohol abuse and is on daily thiamine GI bleed-patient has been seen and evaluated by GI and the recommendations are appreciated. He continues to have active bleed today as there was nothing that could be cauterized, clipped or banded yesterday. He remains on an octreotide drip as well as a Protonix drip. Has been on ceftriaxone and will complete 5 days. - appears to be slowing Endo Diabetes-sliding scale of insulin and fingersticks every 4 hours. A1c was elevated at 7.4. Patient had a prior history of diabetes however was not on any home medications. - stable Heme Leukocytosis-likely reactive in nature however uptrending today will continue to monitor - low grade temp yesterday - currently on ceftri - if cont to increase tmw may change abx and cx Anemia-patient does have an acute GI bleed however his H&H has remained relatively stable without transfusion thus far. Will continue to monitor - remains stable ID Aspiration pneumonia-on ceftriaxone, follow-up with cultures Case discussed with ICU team, if remains stable post extubation will downgrade Labs, imaging and records reviewed Approximately 39 critical care was required for evaluation, exam, review, dimension, discussion formation plan of care for this critically ill patient with GI bleed and respiratory failure at high risk for further ongoing decompensation. Provider Notation Provider Notation: Although this document has been carefully reviewed, there may still be some phonetic and other typographical errors. These errors are purely grammatical due to imperfections in the software program and should not be construed in any way to compromise the substance of the patient's medical care during this visit. Thank you for the opportunity and privilege in assisting you with this patient's care and management.
--- NOTE | 2025-10-24 14:10 | ESPR_ITS ---
<Statement entered by Dio Gan MD - 10/24/25 16:14> ICU downgrade. Admitted to ICU for hepatic encephalopathy and GI bleed. Was intubated for short stint for airway protection and was extubated this morning. Upon admission, patient volume was nearly 500 and noted to have dark tarry stools. He has since been started on lactulose and rifaximin with rectal tube placed and approximately 3 L of dark tarry stools. Underwent endoscopy on 10/22 and found to have blood and secretions throughout body of stomach with diffuse gastritis mucosal oozing. Also found to have grade 1 esophageal varices. Recommended to continue octreotide for 5 days up until 10/27 and possible repeat endoscopy prior to discharge for better evaluation of upper GI tract. Also remains on ceftriaxone given varices and GI bleed but dose was increased given increasing leukocytosis. Ordered additional vitamin supplementation and will order repeat ammonia for evaluation. Per son, who provided history, patient was started on benzo while at SNF due to increased agitation towards other residents but may have been worsening his encephalopathy in setting of ESLD as well. Continue with lactulose and rifaximin, ceftriaxone, and octreotide drip and follow-up GI recommendations.' ----- Note reviewed and agree with care plan as documented. Please refer to the note below for further details. Plan discussed with attending physician Dr. Parish Gan MD PGY-2 Internal Medicine Documentation for date of: 10/24/25 Subjective Subjective Interval history: Patient is a 65-year-old male with past medical history of alcohol induced liver cirrhosis, hypertension, diabetes, chronic back pain who was recently admitted 07/12 - 07/20 for decompensated liver disease causing hepatic encephalopathy presented to the ED 10/22, from [facility] with altered mental status found to be not protecting his airway and was subsequently intubated; found to have coffee ground emesis prior to intubation. Admitted to ICU for further management of encephalopathy and ventilation management. Extubated and downgraded 10/24. Continuing management and evaluation of hepatic encephalopathy. Patient was extubated this morning, tolerating well on room air. When examined at bedside appeared confused, non-responsive to commands, non-verbal state. Patient is resting in bed, occasionally moving in bed due to possible discomfort. Patient's son is bedside and informed us of some of his recent relevant history. Today, patient's blood pressure is more elevated than his previous days' bp's and he is tachycardic today to today. Patient outputted 2 L of dark stool today, making ~1L urine, had 350 ml output from ng tube. Speech eval'd today, holding swallow eval, will f/u in AM. Exam Vital Signs Temp Pulse Resp BP Pulse Ox O2 Del Method O2 Flow Rate 97.8 F 111 H 23 H 150/84 H 97 Room Air 3 10/24/25 12:00 10/24/25 13:00 10/24/25 13:00 10/24/25 13:00 10/24/25 13:00 10/24/25 12:00 10/24/25 08:53 FiO2 30 10/24/25 06:00 Narrative Exam General: Resting in bed; appears in mild discomfort with occasional postural adjustments; Awake & alert, not verbalizing; not following commands; confused appearing Skin: Warm, no obvious rash; dry flaky lower extremities; poor foot hygiene HENT: NCAT, EOMI/PERRL, mild scleral icterus. External ears normal. No rhinorrhea. Moist mucous membranes Cardiovascular: Tachycardic, regular rhythm, no murmur, +S1/S2. Respiratory: Lungs CTAB GI: Soft, nontender, non-distended. No guarding or rebound tenderness. NG & rectal tube present : No suprapubic tenderness. No flank tenderness bilaterally. Miller in place Extremities: no edema, no cyanosis, no clubbing. Extremity pulses present Neuro: Grossly nonfocal. Moving all 4 extremities. CN not formally tested but appear grossly intact. Objective Labs 10/25/25 04:08 10/25/25 04:08 Labs: Laboratory Results - last 24 hr 10/22/25 10/22/25 10/24/25 05:56 18:00 04:10 WBC 19.8 H RBC 2.58 L Hgb 8.9 L Hct 26.5 L MCV 103 H MCH 34.5 MCHC 33.6 RDW Std Deviation 53.8 H Plt Count 170 Neut % (Auto) 67 Lymph % (Auto) 16 [place] % (Auto) 15 H Eos % (Auto) 0 Baso % (Auto) 1 Neut # (Auto) 13.3 H Lymph # (Auto) 3.2 [place] # (Auto) 3.1 H Eos # (Auto) 0.1 Baso # (Auto) 0.1 Immature Gran # (Auto) 0.14 H Absolute Nucleated RBC 0.00 Immature Gran % 1 H Nucleated RBC % 0 PT 12.1 INR 1.1 APTT 28.1 Puncture Site ABG pH ABG pCO2 ABG pO2 ABG HCO3 ABG O2 Saturation ABG Base Excess FiO2 Sodium 150 H Potassium 3.9 D Chloride 114 H Carbon Dioxide 20.2 Anion Gap 16 BUN 24 H Creatinine 1.0 Estim Creat Clear Calc 60.8 L eGFR > 60 BUN/Creatinine Ratio 24 H Glucose 238 H Calculated Osmolality 310 H Calcium 9.7 Corrected Calcium 9.9 Phosphorus 3.0 Magnesium 2.0 Total Bilirubin 2.6 H D AST 22 ALT 12 Alkaline Phosphatase 66 Total Protein 7.8 Albumin 3.8 D Globulin 4.0 H Albumin/Globulin Ratio 1.0 L Triglycerides 122 Vitamin B12 482 Folate > 24.00 Coccid[place] IgM Ab Negative 10/24/25 04:36 WBC RBC Hgb Hct MCV MCH MCHC RDW Std Deviation Plt Count Neut % (Auto) Lymph % (Auto) [place] % (Auto) Eos % (Auto) Baso % (Auto) Neut # (Auto) Lymph # (Auto) [place] # (Auto) Eos # (Auto) Baso # (Auto) Immature Gran # (Auto) Absolute Nucleated RBC Immature Gran % Nucleated RBC % PT INR APTT Puncture Site Right Radial ABG pH 7.48 H ABG pCO2 28 L ABG pO2 130 H ABG HCO3 21 ABG O2 Saturation 100 H ABG Base Excess -2 FiO2 30 Sodium Potassium Chloride Carbon Dioxide Anion Gap BUN Creatinine Estim Creat Clear Calc eGFR BUN/Creatinine Ratio Glucose Calculated Osmolality Calcium Corrected Calcium Phosphorus Magnesium Total Bilirubin AST ALT Alkaline Phosphatase Total Protein Albumin Globulin Albumin/Globulin Ratio Triglycerides Vitamin B12 Folate Coccidioides IgM Ab ABG Interpretation ABG results: 10/22/25 10/23/25 10/23/25 09:22 04:34 08:40 ABG pH 7.45 7.51 H 7.52 H ABG pCO2 31 L 25 L 24 L ABG pO2 209 H 145 H D 131 H ABG HCO3 22 20 20 ABG O2 Saturation 100 H 100 H 100 H ABG Base Excess -2 -3 -2 10/24/25 04:36 ABG pH 7.48 H ABG pCO2 28 L ABG pO2 130 H ABG HCO3 21 ABG O2 Saturation 100 H ABG Base Excess -2 Quality Measures Quality Measures VTE prophylaxis (SCD's i/s/o gi bleed) Advance care planning discussed with:: patient and child Assessment & Plan Assessment Current Active Medications: Generic Name Dose Route Start Last Admin Trade Name Freq PRN Reason Stop Dose Admin Dextrose 25 ml 10/23/25 10:36 Dextrose 50%-Water Inj 50 Ml Syringe IV 11/22/25 10:35 Q15MIN PRN BG 50-70 responsive npo pt Dextrose 50 ml 10/23/25 10:36 Dextrose 50%-Water Inj 50 Ml Syringe IV 11/22/25 10:35 Q15MIN PRN BG <50 OR BG <70 & pt unresponsive Glucagon 1 mg 10/23/25 10:36 Glucagon Inj 1 Mg Vial IM Q15MIN PRN BG <70, and no IV access Midazolam HCl 100 mg in 100 mls @ 1 mls/hr 10/22/25 06:48 10/22/25 08:30 Versed Pf Inj In Ns Premix IV 10/27/25 06:47 0 mg/hr .Q24H PRN 0 mls/hr Per Protocol Titration Protocol 1 MG/HR Ceftriaxone Sodium/Dextrose 1 gm in 50 mls @ 100 mls/hr 10/22/25 17:12 10/23/25 14:48 Rocephin/D5w 1gm Iv Premix IV 10/29/25 17:11 100 mls/hr QDAY@1400 BRYANT Administration Propofol 1,000 mg in 100 mls @ 2.229 mls/hr 10/22/25 19:30 10/23/25 08:05 Diprivan Ivpb IV 11/21/25 04:43 0 mcg/kg/min .Q24H PRN 0 mls/hr PER PROTOCOL Titration Protocol 5 MCG/KG/MIN Octreotide Acetate 1,000 mcg/ 102 mls @ 5.1 mls/hr 10/23/25 20:45 10/23/25 18:38 Sodium Chloride IV 10/27/25 04:44 50 mcg/hr .Q20H BRYANT 5.1 mls/hr Protocol Administration 50 MCG/HR Dexmedetomidine/Sodium Chloride 400 mcg in 100 mls @ 3.485 mls/hr 10/24/25 06:42 10/24/25 07:45 Precedex Ivpb IV 11/23/25 06:41 0 mcg/kg/hr .Q24H PRN 0 mls/hr Per PROTOCOL Titration Protocol 0.2 MCG/KG/HR Insulin Human Lispro 0 unit 10/23/25 12:00 10/24/25 12:33 Insulin Lispro (Admelog) 1 Unit/0.01 Ml Unit SC 11/22/25 11:59 3 unit Q6HR BRYANT Administration Protocol Lactulose 40 gm 10/24/25 14:00 Lactulose Syrup 20 Gm/30 Ml Udc NG 11/23/25 13:59 Q8HR BRYANT Protocol Pantoprazole Sodium 40 mg 10/24/25 09:15 10/24/25 10:03 Pantoprazole Inj 40 Mg Vial IVP 11/23/25 09:14 40 mg BID BRYANT Administration Rifaximin 550 mg 10/22/25 10:15 10/24/25 12:36 Rifaximin 550 Mg Tablet NG 10/29/25 10:14 550 mg BID BRYANT Administration Thiamine HCl 250 mg 10/25/25 09:00 Thiamine Inj 100 Mg/Ml Vial 2 Ml IVP 10/29/25 08:59 QDAY BRYANT Plan Patient is a 65-year-old male with past medical history of alcohol induced liver cirrhosis, hypertension, diabetes, chronic back pain who was recently admitted 07/12 - 07/20 for decompensated liver disease causing hepatic encephalopathy presented to the ED 10/22, from [facility] with altered mental status found to be not protecting his airway and was subsequently intubated; found to have coffee ground emesis prior to intubation. Admitted to ICU for further management of encephalopathy and ventilation management. Extubated and downgraded 10/24, tolerating room air well. Continuing management and evaluation of hepatic encephalopathy. #Hepatic encephalopathy Likely due to acute upper GI bleed Patient has history of alcoholic liver cirrhosis; baseline GCS 15; fluid wave positive on exam. Initially intubated because patient was not protecting airway, s/p extubation 10/24 Dx: elevated ammonia 379, CT head was negative. 2 L stool output Plan: -Lactulose 40g NG TID -Rifaximin 550 NG BID -Thiamine 250 x2 10/24, will doses for 2 more days for total of 3 days #Upper GI bleed Due to esophageal varices, gastric ulcer Initial presentation with coffee ground emesis NGT showed 300cc of dark fluid removed. Patient does not use NSAIDs or blood thinners. 10/22 EGD was done by Dr. Motta showed grade 1 varices in the lower third esophagus there was diffuse gastritis mucosal oozing. Plan: -GI consulted -protonix 40 mg IVP BID -SCDs --> Holding blood thinners -Type and cross, have 1 unit pRBCs ready -NGT in place -NPO, speech eval'd 10/24, will f/u in the AM #Esophageal Varices Per discussions patient had recent EGD showing esophageal varices. Varices unable to be banded Ddx Most likely related to chronic alcohol use Plan: -Repeat EGD prior to discharge for better evaluation of upper GI tract -Ceftriaxone 2g IV q day -Octreotide drip 10/22 recommended until 10/27 (5 days) -GI consulted #Acute decompensated liver cirrhosis Fluid wave on exam, distended abdomen. Plan: -Holding spironolactone due to NPO -Continuing rifaximin and lactulose on board as above -Continue plan per other GI recs #Hyperoosmolar hypervolemic hypernatremia hyperchloremic Due to volume contraction vs reduced PO intake Free water deficit 1.5L Plan: -Encourage PO hydration -60cc/hr free water flushes through NGT (under [facility] order 10/24) #Hyperbilirubinemia T. Bili 1.8-->2.6 over 24 hours. Mild jandice, scleral icterus Fever Plan: -Will trend, continue to monitor #Hyperglycemia T2DM? Took Metformin for some time? A1c 7.4 Glucose consistently >200s Plan: -Currently NPO -Q6 glucose checks -ISS step 2 -> step 3 #Leukocytosis Likely reactive -Will continue to monitor wbc and for s/s of infection #Acute blood loss megaloblastic anemia DDx upper GI bleed, esophageal varices vs gastric ulcer, borderline megaloblastic Hgb 9.7 --> 8.7, MCV normal, coffee ground emesis with 350cc drained from NGT immediately. Iron studies showed iron overload +/- anemia chronic disease; Ferritin normal; Folate/B12 normal Plan: -continue to monitor hgb -will monitor for s/s of bleeding #Acute hypoxic respiratory failure, resolved Ddx acute bleeding, vs aspiration pneumonitis vs mild heart failure Chest xray L base pneumonia, suspicious for mild heart failure Saturating well on room air Plan: -Continue to monitor resp status -Cross coverage with IV Ceftriaxone #Hematuria of unclear etiology Repeat UA +1 ketone +2 blood +LE 36 RBC 13 WBC Plan: -FUP outpatient with cystoscopy Hospital Management: Disposition: Tele Restraints: present Diet: NPO (speech eval ordered) GI Prophylaxis: Octreotide drip Bowel Prophylaxis: Protonix Miller/Rectal Tube: Yes DVT Prophylaxis: SCD for GI bleed CODE STATUS: Full Code Patient plan of care was discussed with the attending physician, Dr. Lugo & senior resident Dr. Adrian Hagen MD PGY-1 Attending Provider Attestation/Addendum I, Peggy Lugo, DO, attest that I was physically present for the [place] portions of the service and evaluated the patient with the resident and I reviewed and discussed the case with the resident and agree with the resident's findings and plans of care as documented above Patient is a 65-year-old male with past medical history of alcoholic liver cirrhosis, hypertension, diabetes, chronic back pain who was admitted due to altered mental status and coffee-ground emesis. Patient was intubated in the ED for airway protection. He was noted to have a significantly elevated ammonia level of 379. Patient underwent endoscopy on 10/22/2025 during which he was found to have diffuse gastritis, mucosal oozing of blood and grade 1 esophageal varices, as well as distal esophageal ulcer/erosions. Patient has been on octreotide since. NG tube remains in place. Patient has been on lactulose and started on rifaximin mean due to hepatic encephalopathy. He is also on Rocephin for aspiration pneumonia. Patient was extubated this morning and has been doing well. Patient is alert, but somnolent. He is moving all 4 extremities spontaneously. He has been moaning and grunting per nursing. However, upon asking how he was doing, patient stated that he was good. Continues to have black tarry stools noted in rectal tube. Patient will need a repeat endoscopy to assess for bleeding prior to discharge. We will continue with treatment of hepatic encephalopathy with lactulose and rifaximin mean. He is currently receiving high-dose thiamine due to concern for [place] encephalopathy. He will receive his last dose of high-dose thiamine tomorrow followed by 100 mg p.o. daily.
--- NOTE | 2025-10-24 14:43 | XR_ITS ---
AP portable semiupright chest film on 10/24/2025 at 2:53 p.m. Comparison study, AP supine chest film on 10/24/2025 at 11:50 a.m. CLINICAL INDICATION: NG tube placement FINDINGS: 1. The right lung is clear. On the left there is a vertical thin linear strand of density in the medial base of the left lower lobe most consistent with very minimal subsegmental atelectasis, or postinflammatory fibrosis. There is a small exceptionally faint nodular opacity seen laterally in the left upper lobe this is unchanged from the earlier film today. A nasogastric catheter has been inserted, it was noted in position on the earlier film today but it was coiled in turned backwards upon itself in the stomach fundus. Its appearance and its location are identical to the previous film IMPRESSION: 1. 1 the nasogastric tube is coiled in turned backwards upon itself in the stomach fundus. Its position is not considered adequate, and it should be repositioned with additional films to verify its location 2. On this supine view of the chest with poor inspiration, there is a vertical linear stranded density in the extreme posterior medial basal left lower lobe consistent with a minimal strand of discoid atelectasis or postinflammatory scarring most likely 3 there is an extremely small faint nodular opacity seen laterally in the left upper lobe overlapping the third anterior rib, this is unchanged since the earlier film today. I cannot determine whether or not this might represent a small ill-defined nodule or localized nodular infiltrate, or possibly an area of localized pleural thickening, etc. 4 I recommend obtaining a PA and lateral chest film when the patient is able to tolerate this, with attention to this area to get a better idea of whether or not a nodular opacity is truly present.
--- NOTE | 2025-10-24 14:43 | PC.NURSE ---
Per MD Shaw Cxr ok and ok to use NG tube after retracting by 1 cm
[2025-10-24] MEDS: cefTRIAXone/D5w 1gm IV premix 1 GM/50 ML BAG IV (14:51)
[2025-10-24] MEDS: LACTULOSE SYRUP 20 GM/30 ML UDC 40 GM NG ×2 (14:55→20:40)
--- NOTE | 2025-10-24 14:58 | PCS.ST ---
Swallow evaluation order s/p extubation. Pt awake, not following commands. NGT in place. Hold swallow evaluation for now. ST will check status in AM.
[2025-10-24 15:57] LABS: Syphilis Nonreactive (Nonreactive)
[2025-10-24] MEDS: POT PHOS 15 mMol in NS 250 ML 15 MMOL/250 ML BAG 62.5 MMOL IV (17:07)
[2025-10-24] MEDS: OCTREOTIDE ACET INJ 1,000 MCG in SODIUM CHLORIDE 0.9% 100 ML 5.1 MCG IV (17:07)
[2025-10-24] MEDS: FOLIC ACID INJ 1 MG/0.2 ML IM (17:07)
--- NOTE | 2025-10-24 21:34 | ESPR_ITS ---
Documentation for date of: 10/24/25 Subjective Subjective Interval history: Hemoglobin hematocrit 8.9 and 26.5 No signs of any active bleeding Exam Vital Signs Temp Pulse Resp BP Pulse Ox O2 Del Method O2 Flow Rate 98.8 F 103 H 18 155/78 H 98 Room Air 3 10/24/25 16:00 10/24/25 17:00 10/24/25 17:00 10/24/25 17:00 10/24/25 17:00 10/24/25 16:00 10/24/25 08:53 FiO2 30 10/24/25 06:00 Objective Labs 10/24/25 04:10 10/24/25 04:10 Labs: Laboratory Results - last 24 hr 10/24/25 10/24/25 04:10 04:36 WBC 19.8 H RBC 2.58 L Hgb 8.9 L Hct 26.5 L MCV 103 H MCH 34.5 MCHC 33.6 RDW Std Deviation 53.8 H Plt Count 170 Neut % (Auto) 67 Lymph % (Auto) 16 [place] % (Auto) 15 H Eos % (Auto) 0 Baso % (Auto) 1 Neut # (Auto) 13.3 H Lymph # (Auto) 3.2 [place] # (Auto) 3.1 H Eos # (Auto) 0.1 Baso # (Auto) 0.1 Immature Gran # (Auto) 0.14 H Absolute Nucleated RBC 0.00 Immature Gran % 1 H Nucleated RBC % 0 PT 12.1 INR 1.1 APTT 28.1 Puncture Site Right Radial ABG pH 7.48 H ABG pCO2 28 L ABG pO2 130 H ABG HCO3 21 ABG O2 Saturation 100 H ABG Base Excess -2 FiO2 30 Sodium 150 H Potassium 3.9 D Chloride 114 H Carbon Dioxide 20.2 Anion Gap 16 BUN 24 H Creatinine 1.0 Estim Creat Clear Calc 60.8 L eGFR > 60 BUN/Creatinine Ratio 24 H Glucose 238 H Calculated Osmolality 310 H Calcium 9.7 Corrected Calcium 9.9 Phosphorus 3.0 Magnesium 2.0 Total Bilirubin 2.6 H D AST 22 ALT 12 Alkaline Phosphatase 66 Total Protein 7.8 Albumin 3.8 D Globulin 4.0 H Albumin/Globulin Ratio 1.0 L Triglycerides 122 Syphilis Serology Nonreactive Impressions Impression: Upper GI bleeding secondary to mucosal oozing of blood Hemoglobin hematocrit relatively stable Continue current management ABG Interpretation ABG results: 10/22/25 10/23/25 10/23/25 09:22 04:34 08:40 ABG pH 7.45 7.51 H 7.52 H ABG pCO2 31 L 25 L 24 L ABG pO2 209 H 145 H D 131 H ABG HCO3 22 20 20 ABG O2 Saturation 100 H 100 H 100 H ABG Base Excess -2 -3 -2 10/24/25 04:36 ABG pH 7.48 H ABG pCO2 28 L ABG pO2 130 H ABG HCO3 21 ABG O2 Saturation 100 H ABG Base Excess -2 Assessment & Plan A&P Narrative # Hematemesis differential diagnoses include esophageal variceal bleeding Brittany-Falcon tear peptic ulcer disease hypertensive portal gastropathy with mucosal oozing of blood # Acute hepatic encephalopathy requiring endotracheal intubation mechanical ventilation to protect the airway Plan Consent will be obtained from the family members for fiberoptic esophagogastroduodenoscopy possible biopsy possible therapeutic intervention under intravenous moderate sedation Octreotide infusion at 50 mcg/h IV Protonix Serial CBC Transfuse if the hemoglobin drops below 7 g Will follow the patient Thank you very much for the opportunity to participate in the care of this patient Time Spent With Patient Time: Total time spent is greater than 50% in coordination of care (as documented) at patient's floor/unit and/or counseling patient:
[2025-10-25] VITALS (10 sets, daily range): BP systolic 88–150; BP diastolic 47–75; PULSE 43–101; RESP 12–99; TEMP 36.1–36.9; O2SAT 98–99; BMI 25.6
[2025-10-25 05:32] LABS: Basophils # (Auto) 0.1 Thou/mm3 (0.0-0.2); Basophils % (Auto) 1 % (0-2.5); Eosinophils # (Auto) 0.4 Thou/mm3 (0.0-0.5); Eosinophils % (Auto) 3 % (0-10); Hematocrit 22.5 % (41.0-53.0); Immature Granulocytes Auto 0.05 Thou/mm3 (0.00-0.00); Lymphocytes # (Auto) 2.7 Thou/mm3 (1.0-4.8); Lymphocytes % (Auto) 22 % (10-50); Mean Corpuscular HGB Conc 32.4 g/dl (31.0-37.0); Mean Corpuscular Hemoglobin 34.4 pg (25.0-35.0); Mean Corpuscular Volume 106 fL (80-100); Monocytes # (Auto) 1.6 Thou/mm3 (0.0-0.8); Monocytes % (Auto) 13 % (0-12); Neutrophils # (Auto) 7.5 Thou/mm3 (1.8-7.7); Neutrophils % (Auto) 61 % (37-80); Nucleated Red Blood Cell # 0.00 Thou/mm3 (0.00-0.00); Nucleated Red Blood Cell % 0 /100 WBC (0); Platelet Count 140 Thou/mm3 (140-440); RDW Standard Deviation 53.9 fL (35.1-43.9); Red Blood Count 2.12 Miln/mm3 (4.50-5.90); White Blood Count 12.3 Thou/mm3 (3.8-10.6)
[2025-10-25 05:33] LABS: INR 1.2 (0.9-1.3); Partial Thromboplastin Time 31.0 Seconds (22.0-36.0); Prothrombin Time 13.0 Seconds (9.0-12.2)
[2025-10-25 05:44] LABS: Hemoglobin 7.3 g/dL (13.5-16.0)
[2025-10-25 06:28] LABS: Albumin, Serum 3.2 gm/dL (3.4-4.8); Albumin/Globulin Ratio 0.9 (1.2-2.2); Alkaline Phosphatase 52 U/L (46-116); Anion Gap 9 (7-16); Aspartate Amino Transferase 28 U/L (0-34); BUN/Creatinine Ratio 24 Ratio (12-20); Bilirubin,Total 2.5 mg/dL (0.3-1.2); Blood Urea Nitrogen 17 mg/dL (9-23); Calcium 9.1 mg/dL (8.3-10.6); Calcium (Corrected) 9.7 mg/dL (8.5-10.1); Carbon Dioxide 23.7 mMol/L (20.0-31.0); Chloride 120 mMol/L (98-107); Creatinine (Component) 0.7 mg/dL (0.6-1.3); Estimated Creatinine Clearance 86.9 mL/min (>60); Globulin 3.7 gm/dL (2.3-3.5); Glucose 164 mg/dL (74-106); Magnesium 1.9 mg/dL (1.6-2.6); Osmolality,Calculated 309 (275-295); Phosphorous 3.2 mg/dL (2.4-5.1); Potassium 3.6 mMol/L (3.4-5.1); Sodium 153 mMol/L (136-145); Total Protein 6.9 gm/dL (5.7-8.2); Triglycerides 109 mg/dL (30-150); eGFR > 60 See Note
[2025-10-25 06:31] LABS: Alanine Aminotransferase 10 U/L (10-49)
[2025-10-25] MEDS: cefTRIAXone 2 GM in SODIUM CHLORIDE 0.9% (Popper) 50 ML IV (08:55)
[2025-10-25] MEDS: RINGERS LACTATED 500 ML 500 ML 999 ML IV (11:58)
[2025-10-25] MEDS: OCTREOTIDE ACET INJ 1,000 MCG in SODIUM CHLORIDE 0.9% 100 ML 5.1 MCG IV (12:02)
[2025-10-25] MEDS: LACTULOSE SYRUP 20 GM/30 ML UDC 40 GM NG ×2 (13:56→21:56)
--- NOTE | 2025-10-25 14:10 | ESPR_ITS ---
<Statement entered by Dio Gan MD - 10/25/25 15:18> No acute overnight events. Seen and examined at bedside and mentation improved compared to yesterday as he is able to verbalize now, though still difficult to understand at times. Passed swallow evaluation, diet started and NG tube removed. Family at bedside and updated on plans and patient's clinical picture of ESLD and showed understanding. Son states that they would likely take him home upon discharge and not go back to SNF and introduced topic of hospice and states that he will discuss with rest of his family members. Vital signs stable. Leukocytosis improving, hemoglobin dropped from 8.9 to 7.3. Sodium increasing and given 500 cc LR bolus. T. bili stable, LFTs normal. Will continue with current lactulose and rifaximin regimen as patient mentation improving as well as ceftriaxone for SBP prophylaxis. Continue octreotide drip and pantoprazole for GI bleed and GI following as may want to do second EGD prior to discharge. ----- Note reviewed and agree with care plan as documented. Please refer to the note below for further details. Plan discussed with attending physician Dr. Bronson Gan MD PGY-2 Internal Medicine Documentation for date of: 10/25/25 Subjective Subjective Interval history: NAEO Patient back to baseline per son, at A&Ox2/3 Discussed with family patient's ESLD, poor prognosis; discussed palliative care option, quality of life Exam Vital Signs Temp Pulse Resp BP Pulse Ox O2 Del Method O2 Flow Rate 97.0 F 77 14 112/65 99 Room Air 3 10/25/25 12:00 10/25/25 12:00 10/25/25 12:00 10/25/25 12:00 10/25/25 12:00 10/24/25 16:00 10/24/25 18:45 FiO2 30 10/24/25 18:45 Narrative Exam General: Resting in bed; A&Ox2/3, patient's son states back to baseline Skin: Warm, no obvious rash; dry flaky lower extremities; poor foot hygiene HENT: NCAT, EOMI/PERRL, mild scleral icterus. External ears normal. No rhinorrhea. Moist mucous membranes Cardiovascular: Regular rate & rhythm, no murmur, +S1/S2. Respiratory: Lungs CTAB GI: Soft, nontender, non-distended. No guarding or rebound tenderness. NG & rectal tube present : No suprapubic tenderness. No flank tenderness bilaterally. Miller in place Extremities: no edema, no cyanosis, no clubbing. Extremity pulses present Neuro: Grossly nonfocal. Moving all 4 extremities. CN not formally tested but appear grossly intact. Objective Labs 10/26/25 04:56 10/25/25 04:08 Labs: Laboratory Results - last 24 hr 10/22/25 10/24/25 10/25/25 05:56 04:10 04:08 WBC 12.3 H D RBC 2.12 L Hgb 7.3 L Hct 22.5 L MCV 106 H MCH 34.4 MCHC 32.4 RDW Std Deviation 53.9 H Plt Count 140 D Neut % (Auto) 61 Lymph % (Auto) 22 [place] % (Auto) 13 H Eos % (Auto) 3 Baso % (Auto) 1 Neut # (Auto) 7.5 Lymph # (Auto) 2.7 [place] # (Auto) 1.6 H Eos # (Auto) 0.4 Baso # (Auto) 0.1 Immature Gran # (Auto) 0.05 H Absolute Nucleated RBC 0.00 Immature Gran % 0 Nucleated RBC % 0 PT 13.0 H INR 1.2 APTT 31.0 Sodium 153 H Potassium 3.6 Chloride 120 H Carbon Dioxide 23.7 Anion Gap 9 BUN 17 Creatinine 0.7 Estim Creat Clear Calc 86.9 eGFR > 60 BUN/Creatinine Ratio 24 H Glucose 164 H D Calculated Osmolality 309 H Calcium 9.1 Corrected Calcium 9.7 Phosphorus 3.2 Magnesium 1.9 Total Bilirubin 2.5 H AST 28 ALT 10 Alkaline Phosphatase 52 D Total Protein 6.9 Albumin 3.2 L D Globulin 3.7 H Albumin/Globulin Ratio 0.9 L Triglycerides 109 Syphilis Serology Nonreactive Crossmatch See Detail ABG Interpretation ABG results: 10/22/25 10/23/25 10/23/25 09:22 04:34 08:40 ABG pH 7.45 7.51 H 7.52 H ABG pCO2 31 L 25 L 24 L ABG pO2 209 H 145 H D 131 H ABG HCO3 22 20 20 ABG O2 Saturation 100 H 100 H 100 H ABG Base Excess -2 -3 -2 10/24/25 04:36 ABG pH 7.48 H ABG pCO2 28 L ABG pO2 130 H ABG HCO3 21 ABG O2 Saturation 100 H ABG Base Excess -2 Quality Measures Quality Measures VTE prophylaxis (SCD's i/s/o gi bleed) Advance care planning discussed with:: patient and child Assessment & Plan Assessment Current Active Medications: Generic Name Dose Route Start Last Admin Trade Name Freq PRN Reason Stop Dose Admin Dextrose 25 ml 10/23/25 10:36 Dextrose 50%-Water Inj 50 Ml Syringe IV 11/22/25 10:35 Q15MIN PRN BG 50-70 responsive npo pt Dextrose 50 ml 10/23/25 10:36 Dextrose 50%-Water Inj 50 Ml Syringe IV 11/22/25 10:35 Q15MIN PRN BG <50 OR BG <70 & pt unresponsive Glucagon 1 mg 10/23/25 10:36 Glucagon Inj 1 Mg Vial IM Q15MIN PRN BG <70, and no IV access Octreotide Acetate 1,000 mcg/ 102 mls @ 5.1 mls/hr 10/23/25 20:45 10/25/25 12:02 Sodium Chloride IV 10/27/25 04:44 50 mcg/hr .Q20H BRYANT 5.1 mls/hr Protocol Administration 50 MCG/HR Ceftriaxone Sodium 2 gm/ 50 mls @ 100 mls/hr 10/25/25 09:11 10/25/25 08:55 Sodium Chloride IV 11/01/25 09:10 100 mls/hr QDAY BRYANT Administration Insulin Human Lispro 0 unit 10/24/25 18:00 10/25/25 12:01 Insulin Lispro (Admelog) 1 Unit/0.01 Ml Unit SC 11/22/25 17:59 Not Given Q6HR BRYANT Protocol Lactulose 40 gm 10/24/25 14:00 10/25/25 13:56 Lactulose Syrup 20 Gm/30 Ml Udc NG 11/23/25 13:59 40 gm Q8HR BRYANT Administration Protocol Pantoprazole Sodium 40 mg 10/24/25 09:15 10/25/25 08:55 Pantoprazole Inj 40 Mg Vial IVP 11/23/25 09:14 40 mg BID BRYANT Administration Rifaximin 550 mg 10/22/25 10:15 10/25/25 08:53 Rifaximin 550 Mg Tablet NG 10/29/25 10:14 550 mg BID BRYANT Administration Plan Patient is a 65-year-old male with past medical history of alcohol induced liver cirrhosis, hypertension, diabetes, chronic back pain who was recently admitted 07/12 - 07/20 for decompensated liver disease causing hepatic encephalopathy presented to the ED 10/22, from [facility] with altered mental status found to be not protecting his airway and was subsequently intubated; found to have coffee ground emesis prior to intubation. Admitted to ICU for further management of encephalopathy and ventilation management. Extubated and downgraded 10/24, tolerating room air well. Continuing management and evaluation of hepatic encephalopathy. #Hepatic encephalopathy Likely due to acute upper GI bleed Patient has history of alcoholic liver cirrhosis; baseline GCS 15; fluid wave positive on exam. Initially intubated because patient was not protecting airway, s/p extubation 10/24 Dx: elevated ammonia 379, CT head was negative. 2 L stool output Plan: -Lactulose 40 mgTID -Rifaximin 550 mg BID -Thiamine 250 x2 10/24, 10/25; will doses for 1 more days for total of 3 days #Upper GI bleed Due to esophageal varices, gastric ulcer Initial presentation with coffee ground emesis NGT showed 300cc of dark fluid removed. Patient does not use NSAIDs or blood thinners. 10/22 EGD was done by Dr. Motta showed grade 1 varices in the lower third esophagus there was diffuse gastritis mucosal oozing. Plan: -GI consulted -protonix 40 mg IVP BID -SCDs --> Holding blood thinners -Type and cross, have 1 unit pRBCs ready -NGT DC'd, passed speech eval, Dyshpagia mech altered; consistent carb, low sodium modifiers #Esophageal Varices Per discussions patient had recent EGD showing esophageal varices. Varices unable to be banded Ddx Most likely related to chronic alcohol use Plan: -Repeat EGD prior to discharge for better evaluation of upper GI tract, per Dr. Motta -Ceftriaxone 2g IV q day -Octreotide drip 10/22 recommended until 10/27 (5 days) -GI consulted #Acute decompensated liver cirrhosis Admission patient had reported Fluid wave on exam, distended abdomen. 10/25: Discussed with family patient's ESLD, poor prognosis; discussed palliative care option, quality of life Plan: -Resumed home spironolactone 25 mg BID -Continuing rifaximin and lactulose on board as above -Continue plan per other GI recs #Hyperoosmolar hypervolemic hypernatremia hyperchloremic Due to volume contraction vs reduced PO intake Free water deficit 1.5L Plan: -LR 500 cc x1 -NG tube DC'd, will Encourage PO hydration, diet started #Hyperbilirubinemia Due to GI bleed i/s/o ESLD T. Bili 1.8-->2.6 -->2.4 Mild jandice, scleral icterus No Fever Plan: -Will trend, continue to monitor #Hyperglycemia T2DM? Took Metformin for some time? A1c 7.4 Plan: -Diet: Dyshpagia mech altered -Q6 glucose checks -ISS step 2 -> step 3 #Leukocytosis Likely reactive -Will continue to monitor wbc and for s/s of infection #Acute blood loss megaloblastic anemia DDx upper GI bleed, esophageal varices vs gastric ulcer, borderline megaloblastic Hgb 9.7 --> 8.7, MCV normal, coffee ground emesis with 350cc drained from NGT immediately. Iron studies showed iron overload +/- anemia chronic disease; Ferritin normal; Folate/B12 normal 10/25: hgb 7.3 (8.7) Plan: -continue to monitor hgb -will monitor for s/s of bleeding #Acute hypoxic respiratory failure, resolved Ddx acute bleeding, vs aspiration pneumonitis vs mild heart failure Chest xray L base pneumonia, suspicious for mild heart failure Saturating well on room air Plan: -Continue to monitor resp status -Cross coverage with IV Ceftriaxone #Hematuria of unclear etiology Repeat UA +1 ketone +2 blood +LE 36 RBC 13 WBC Plan: -FUP outpatient with cystoscopy Hospital Management: Disposition: Tele Restraints: present Diet: Dyshpagia mech altered; consistent carb, low sodium modifiers GI Prophylaxis: Octreotide drip Bowel Prophylaxis: Protonix Miller/Rectal Tube: Yes DVT Prophylaxis: SCD for GI bleed CODE STATUS: Full Code Patient plan of care was discussed with the attending physician, Dr. Dobson & senior resident Dr. Adrian Hagen MD PGY-1 Attending Provider Attestation/Addendum I have examined the patient, reviewed labs and imaging findings, discussed the case with the resident(s), and reviewed entered orders. I agree with the plan of care as outlined in this note, with these additional summaries/recommendations: Patient and patient's family seen at bedside. No acute overnight events. Patient remains encephalopathic although per son at bedside he is relatively close to his baseline. Patient's son reports over the last couple months he has been alert and oriented x 1-2 at baseline. Ammonia impressively elevated to 379 on admission. Continue lactulose and rifaximin. Continue nonpharm measures to prevent delirium. Patient underwent endoscopy on 10/22/2025 during which he was found to have diffuse gastritis, mucosal oozing of blood and grade 1 esophageal varices, as well as distal esophageal ulcer/erosions. Patient has been on octreotide since. Rectal tube in place. Hemoglobin decreased from 8.9-7.3. Continue to hold all chemical anticoagulation. Continue volume management for decompensated cirrhosis. Avoid hepatotoxic agents and outpatient follow-up for vaccine series. Patient's son reports family was already considering pursuing hospice and he will discuss with family and update medical team. Patient was also reportedly prescribed scheduled Ativan 3 times daily at SNF which is currently on hold. Awaiting medication reconciliation and will likely need to resume at low-dose and slow titration off. Patient and patient's family updated at bedside. All questions answered satisfaction. Please see residents note for additional details of management. Dr. Bronson MD
--- NOTE | 2025-10-25 16:22 | PC.SS ---
MECHANIC SOUND TECHNICIAN conducted phone contact with the patient?s son, Mandeep Lee to conduct initial assessment and to discuss discharge planning.? Patient is a resident of [facility].? Patient utilizes a wheel chair to assist with mobility.? Patient does not utilize oxygen at the facility.? Patient requires assistance with the completion of ADL?s.? Patient?s surrogate medical decision maker is son, Mandeep Lee .? Facility PCP is Dr. Souza.? Discharge plan is for the patient to return to SNF. ?visitor services representative to arrange transportation on behalf of the patient.? No further discharge needs identified by the patient.? No further intervention required at this time, social worker clinical will be available to address any further concerns.? Next of Kin: Mandeep Lee D/C Plan: [facility]
[2025-10-25] MEDS: THIAMINE INJ 100 MG/ML VIAL 2 ML IVP (17:13)
--- NOTE | 2025-10-25 20:58 | PD.IMPROG ---
Documentation for date of: 10/25/25 Subjective Subjective Interval history: Drop in hemoglobin hematocrit No signs of any active bleeding Patient getting more alert NGT is out Patient only diet now after he passed swallowing evaluation Exam Vital Signs Temp Pulse Resp BP Pulse Ox O2 Del Method O2 Flow Rate 97.3 F 56 L 13 88/47 L 98 Room Air 3 10/25/25 16:00 10/25/25 16:00 10/25/25 16:00 10/25/25 16:00 10/25/25 16:00 10/24/25 16:00 10/24/25 18:45 FiO2 30 10/24/25 18:45 Objective Labs 10/25/25 04:08 10/25/25 04:08 Labs: Laboratory Results - last 24 hr 10/22/25 10/25/25 05:56 04:08 WBC 12.3 H D RBC 2.12 L Hgb 7.3 L Hct 22.5 L MCV 106 H MCH 34.4 MCHC 32.4 RDW Std Deviation 53.9 H Plt Count 140 D Neut % (Auto) 61 Lymph % (Auto) 22 [place] % (Auto) 13 H Eos % (Auto) 3 Baso % (Auto) 1 Neut # (Auto) 7.5 Lymph # (Auto) 2.7 [place] # (Auto) 1.6 H Eos # (Auto) 0.4 Baso # (Auto) 0.1 Immature Gran # (Auto) 0.05 H Absolute Nucleated RBC 0.00 Immature Gran % 0 Nucleated RBC % 0 PT 13.0 H INR 1.2 APTT 31.0 Sodium 153 H Potassium 3.6 Chloride 120 H Carbon Dioxide 23.7 Anion Gap 9 BUN 17 Creatinine 0.7 Estim Creat Clear Calc 86.9 eGFR > 60 BUN/Creatinine Ratio 24 H Glucose 164 H D Calculated Osmolality 309 H Calcium 9.1 Corrected Calcium 9.7 Phosphorus 3.2 Magnesium 1.9 Total Bilirubin 2.5 H AST 28 ALT 10 Alkaline Phosphatase 52 D Total Protein 6.9 Albumin 3.2 L D Globulin 3.7 H Albumin/Globulin Ratio 0.9 L Triglycerides 109 Crossmatch See Detail Impressions Impression: Upper GI bleed Let the patient get more stable and repeat endoscopy prior to discharge ABG Interpretation ABG results: 10/22/25 10/23/25 10/23/25 09:22 04:34 08:40 ABG pH 7.45 7.51 H 7.52 H ABG pCO2 31 L 25 L 24 L ABG pO2 209 H 145 H D 131 H ABG HCO3 22 20 20 ABG O2 Saturation 100 H 100 H 100 H ABG Base Excess -2 -3 -2 10/24/25 04:36 ABG pH 7.48 H ABG pCO2 28 L ABG pO2 130 H ABG HCO3 21 ABG O2 Saturation 100 H ABG Base Excess -2 Assessment & Plan A&P Narrative # Hematemesis differential diagnoses include esophageal variceal bleeding Brittany-Falcon tear peptic ulcer disease hypertensive portal gastropathy with mucosal oozing of blood # Acute hepatic encephalopathy requiring endotracheal intubation mechanical ventilation to protect the airway Plan Consent will be obtained from the family members for fiberoptic esophagogastroduodenoscopy possible biopsy possible therapeutic intervention under intravenous moderate sedation Octreotide infusion at 50 mcg/h IV Protonix Serial CBC Transfuse if the hemoglobin drops below 7 g Will follow the patient Thank you very much for the opportunity to participate in the care of this patient Time Spent With Patient Time: Total time spent is greater than 50% in coordination of care (as documented) at patient's floor/unit and/or counseling patient:
[2025-10-25] MEDS: SPIRONOLACTONE 25 MG TABLET PO (21:56)
[2025-10-26] VITALS (8 sets, daily range): BP systolic 135–168; BP diastolic 75–90; PULSE 78–99; RESP 15–23; TEMP 36.3–37; O2SAT 96–99; BMI 26.4
[2025-10-26] MEDS: LACTULOSE SYRUP 20 GM/30 ML UDC 40 GM NG ×3 (06:17→21:21)
[2025-10-26 06:38] LABS: Basophils # (Auto) 0.1 Thou/mm3 (0.0-0.2); Basophils % (Auto) 1 % (0-2.5); Eosinophils # (Auto) 0.4 Thou/mm3 (0.0-0.5); Eosinophils % (Auto) 4 % (0-10); Hematocrit 24.1 % (41.0-53.0); Immature Granulocytes Auto 0.08 Thou/mm3 (0.00-0.00); Lymphocytes # (Auto) 2.1 Thou/mm3 (1.0-4.8); Lymphocytes % (Auto) 21 % (10-50); Mean Corpuscular HGB Conc 33.2 g/dl (31.0-37.0); Mean Corpuscular Hemoglobin 34.5 pg (25.0-35.0); Mean Corpuscular Volume 104 fL (80-100); Monocytes # (Auto) 0.9 Thou/mm3 (0.0-0.8); Monocytes % (Auto) 9 % (0-12); Neutrophils # (Auto) 6.4 Thou/mm3 (1.8-7.7); Neutrophils % (Auto) 64 % (37-80); Nucleated Red Blood Cell # 0.02 Thou/mm3 (0.00-0.00); Nucleated Red Blood Cell % 0 /100 WBC (0); Platelet Count 176 Thou/mm3 (140-440); RDW Standard Deviation 52.8 fL (35.1-43.9); Red Blood Count 2.32 Miln/mm3 (4.50-5.90); White Blood Count 10.0 Thou/mm3 (3.8-10.6)
[2025-10-26 07:01] LABS: INR 1.2 (0.9-1.3); Partial Thromboplastin Time 33.5 Seconds (22.0-36.0); Prothrombin Time 12.4 Seconds (9.0-12.2)
[2025-10-26 07:14] LABS: Hemoglobin 8.0 g/dL (13.5-16.0)
[2025-10-26 07:27] LABS: Alanine Aminotransferase 10 U/L (10-49); Albumin, Serum 3.4 gm/dL (3.4-4.8); Albumin/Globulin Ratio 0.9 (1.2-2.2); Alkaline Phosphatase 60 U/L (46-116); Anion Gap 12 (7-16); Aspartate Amino Transferase 28 U/L (0-34); BUN/Creatinine Ratio 21 Ratio (12-20); Bilirubin,Total 2.0 mg/dL (0.3-1.2); Blood Urea Nitrogen 15 mg/dL (9-23); Calcium 8.5 mg/dL (8.3-10.6); Calcium (Corrected) 9.0 mg/dL (8.5-10.1); Carbon Dioxide 20.9 mMol/L (20.0-31.0); Chloride 109 mMol/L (98-107); Creatinine (Component) 0.7 mg/dL (0.6-1.3); Estimated Creatinine Clearance 94.3 mL/min (>60); Globulin 3.7 gm/dL (2.3-3.5); Glucose 178 mg/dL (74-106); Magnesium 1.8 mg/dL (1.6-2.6); Osmolality,Calculated 287 (275-295); Phosphorous 3.8 mg/dL (2.4-5.1); Potassium 3.6 mMol/L (3.4-5.1); Sodium 142 mMol/L (136-145); Total Protein 7.1 gm/dL (5.7-8.2); Triglycerides 121 mg/dL (30-150); eGFR > 60 See Note
[2025-10-26] MEDS: SPIRONOLACTONE 25 MG TABLET PO ×2 (08:49→21:22)
[2025-10-26] MEDS: cefTRIAXone 2 GM in SODIUM CHLORIDE 0.9% (Popper) 50 ML IV (08:49)
--- NOTE | 2025-10-26 08:53 | PC.SS ---
[facility] referral submitted via [facility] Fax.
--- NOTE | 2025-10-26 09:04 | PC.SS ---
Update: Patient is a possible candidate for discharge today.
[2025-10-26] MEDS: OCTREOTIDE ACET INJ 1,000 MCG in SODIUM CHLORIDE 0.9% 100 ML 5.1 MCG IV (09:16)
[2025-10-26 11:03] LABS: Cocci Serology, IgG Negative (Negative)
[2025-10-26] MEDS: INSULIN LISPRO (AdmeLOG) 1 UNIT/0.01 ML UNIT SC ×2 (12:00→16:43)
--- NOTE | 2025-10-26 12:21 | PC.SS ---
Updated clinicals submitted to [facility] on [facility]. Patient from [facility].
--- NOTE | 2025-10-26 14:22 | PC.SS ---
Rounding Note: Plan is for patient to obtain EGD. Dr. Motta consulting.
--- NOTE | 2025-10-26 15:18 | PC.SS ---
Wheel Chairs Patients diagnosis creates mobility limitations that significantly impairs ability to participate in the patients activities of daily living either in their entirety, or in a reasonable time frame in the home and the patients mobility limitations can not be sufficiently resolved with an appropriately fitted cane or walker. Also the use of a manual wheelchair will sufficiently improve patient?s ability to participate in the activities of daily living in the home and the patient is willing to use the wheelchair that is provided in the home. The patient has some one in the home that is available, willing and able to provide assistance with the wheelchair. Hospital Bed Patient?s diagnosis requires positioning of the head or upper body to be elevated more than 30 degrees. Also the diagnosis requires positioning in order to alleviate pain and if the patient requires frequent changes in the body positioning and/or has an immediate need for change in the body position. Pillows and wedges have been considered and ruled out Bedside Commode Patient is physically incapable of utilizing regular toilet facilities because his or her diagnosis confines the patient to a single room. Patient is confined to a single level, and there is no toilet on that level; patient cannot access the toilet facilities in a timely manner due to lack of ambulation.
--- NOTE | 2025-10-26 15:19 | PC.SS ---
SPLASH LINE OPERATOR conducted contact with patient's son, Mandeep Lee. Patient's son confirmed that the discharge plan is for the patient to return home at the time of discharge. Requested following forms of DME: wheelchair, 3-1 commode and hospital bed. Requesting home health [place]. Patient's PCP is Dr. Guerrero [facility]. SPLASH LINE OPERATOR updated supply chain planner.
--- NOTE | 2025-10-26 15:38 | PC.SS ---
DME referral has been submitted. Responses are pending.
--- NOTE | 2025-10-26 16:14 | ESPR_ITS ---
<Statement entered by Dio Gan MD - 10/26/25 16:33> No acute overnight events. Seen and examined at bedside and again appears to be much more alert compared to yesterday. Spoke to bedside nurse and states that patient orientation waxes and wanes but not requiring restraints. Vital signs stable. Leukocytosis resolved, hemoglobin stable. Hypernatremia resolved, T. bili downtrending, LFTs within normal limits. Touch base with GI and confirmed that patient will undergo EGD prior to discharge. Will continue octreotide drip and ceftriaxone for esophageal varices and rifaximin and lactulose for hepatic encephalopathy. ----- Note reviewed and agree with care plan as documented. Please refer to the note below for further details. Plan discussed with attending physician Dr. Bronson Gan MD PGY-2 Internal Medicine Documentation for date of: 10/26/25 Subjective Subjective Interval history: NAEO Patient back to baseline per son, at A&Ox2/3; following commands 300 ml stool output, 500 ml urine output Plan to discharge home, pending medical equipment for home Exam Vital Signs Temp Pulse Resp BP Pulse Ox O2 Del Method O2 Flow Rate 98.1 F 88 23 H 168/84 H 97 Room Air 3 10/26/25 12:00 10/26/25 16:00 10/26/25 12:00 10/26/25 12:00 10/26/25 12:00 10/24/25 16:00 10/24/25 18:45 FiO2 30 10/24/25 18:45 Narrative Exam General: Resting in bed; A&Ox2/3, patient's son states back to baseline Skin: Warm, no obvious rash; dry flaky lower extremities; poor foot hygiene HENT: NCAT, EOMI/PERRL, mild scleral icterus. External ears normal. No rhinorrhea. Moist mucous membranes Cardiovascular: Regular rate & rhythm, no murmur, +S1/S2. Respiratory: Lungs CTAB GI: Soft, nontender, non-distended. No guarding or rebound tenderness. NG & rectal tube present : No suprapubic tenderness. No flank tenderness bilaterally. Miller in place Extremities: no edema, no cyanosis, no clubbing. Extremity pulses present Neuro: Grossly nonfocal. Moving all 4 extremities. CN not formally tested but appear grossly intact. Objective Labs 10/27/25 05:50 10/27/25 05:50 Labs: Laboratory Results - last 24 hr 10/22/25 10/26/25 18:00 04:56 WBC 10.0 RBC 2.32 L Hgb 8.0 L Hct 24.1 L MCV 104 H MCH 34.5 MCHC 33.2 RDW Std Deviation 52.8 H Plt Count 176 D Neut % (Auto) 64 Lymph % (Auto) 21 [place] % (Auto) 9 Eos % (Auto) 4 Baso % (Auto) 1 Neut # (Auto) 6.4 Lymph # (Auto) 2.1 [place] # (Auto) 0.9 H Eos # (Auto) 0.4 Baso # (Auto) 0.1 Immature Gran # (Auto) 0.08 H Absolute Nucleated RBC 0.02 H Immature Gran % 1 H Nucleated RBC % 0 PT 12.4 H INR 1.2 APTT 33.5 Sodium 142 D Potassium 3.6 Chloride 109 H Carbon Dioxide 20.9 Anion Gap 12 BUN 15 Creatinine 0.7 Estim Creat Clear Calc 94.3 eGFR > 60 BUN/Creatinine Ratio 21 H Glucose 178 H Calculated Osmolality 287 Calcium 8.5 Corrected Calcium 9.0 Phosphorus 3.8 Magnesium 1.8 Total Bilirubin 2.0 H D AST 28 ALT 10 Alkaline Phosphatase 60 Total Protein 7.1 Albumin 3.4 Globulin 3.7 H Albumin/Globulin Ratio 0.9 L Triglycerides 121 Coccidioides IgG Ab Negative ABG Interpretation ABG results: 10/22/25 10/23/25 10/23/25 09:22 04:34 08:40 ABG pH 7.45 7.51 H 7.52 H ABG pCO2 31 L 25 L 24 L ABG pO2 209 H 145 H D 131 H ABG HCO3 22 20 20 ABG O2 Saturation 100 H 100 H 100 H ABG Base Excess -2 -3 -2 10/24/25 04:36 ABG pH 7.48 H ABG pCO2 28 L ABG pO2 130 H ABG HCO3 21 ABG O2 Saturation 100 H ABG Base Excess -2 Quality Measures Quality Measures VTE prophylaxis (SCD's i/s/o gi bleed) Advance care planning discussed with:: patient and child Assessment & Plan Assessment Current Active Medications: Generic Name Dose Route Start Last Admin Trade Name Freq PRN Reason Stop Dose Admin Dextrose 25 ml 10/23/25 10:36 Dextrose 50%-Water Inj 50 Ml Syringe IV 11/22/25 10:35 Q15MIN PRN BG 50-70 responsive npo pt Dextrose 50 ml 10/23/25 10:36 Dextrose 50%-Water Inj 50 Ml Syringe IV 11/22/25 10:35 Q15MIN PRN BG <50 OR BG <70 & pt unresponsive Glucagon 1 mg 10/23/25 10:36 Glucagon Inj 1 Mg Vial IM Q15MIN PRN BG <70, and no IV access Octreotide Acetate 1,000 mcg/ 102 mls @ 5.1 mls/hr 10/23/25 20:45 10/26/25 09:16 Sodium Chloride IV 10/27/25 04:44 50 mcg/hr .Q20H BRYANT 5.1 mls/hr Protocol Administration 50 MCG/HR Ceftriaxone Sodium 2 gm/ 50 mls @ 100 mls/hr 10/25/25 09:11 10/26/25 08:49 Sodium Chloride IV 11/01/25 09:10 100 mls/hr QDAY BRYANT Administration Insulin Human Lispro 0 unit 10/24/25 18:00 10/26/25 12:00 Insulin Lispro (Admelog) 1 Unit/0.01 Ml Unit SC 11/22/25 17:59 4 unit Q6HR BRYANT Administration Protocol Lactulose 40 gm 10/24/25 14:00 10/26/25 14:45 Lactulose Syrup 20 Gm/30 Ml Udc NG 11/23/25 13:59 40 gm Q8HR BRYANT Administration Protocol Pantoprazole Sodium 40 mg 10/24/25 09:15 10/26/25 08:49 Pantoprazole Inj 40 Mg Vial IVP 11/23/25 09:14 40 mg BID BRYANT Administration Rifaximin 550 mg 10/22/25 10:15 10/26/25 08:49 Rifaximin 550 Mg Tablet NG 10/29/25 10:14 550 mg BID BRYANT Administration Spironolactone 25 mg 10/25/25 21:00 10/26/25 08:49 Spironolactone 25 Mg Tablet PO 11/24/25 20:59 25 mg BID BRYANT Administration Plan Patient is a 65-year-old male with past medical history of alcohol induced liver cirrhosis, hypertension, diabetes, chronic back pain who was recently admitted 07/12 - 07/20 for decompensated liver disease causing hepatic encephalopathy presented to the ED 10/22, from [facility] with altered mental status found to be not protecting his airway and was subsequently intubated; found to have coffee ground emesis prior to intubation. Admitted to ICU for further management of encephalopathy and ventilation management. Extubated and downgraded 10/24, tolerating room air well. Plan to discharge home, pending medical equipment for home. Dr. Motta will repeat EGD since first one earlier in hospitalization was poorly visualized. #Esophageal Varices Per discussions patient had recent EGD showing esophageal varices. Varices unable to be banded Ddx Most likely related to chronic alcohol use Plan: -Repeat EGD prior to discharge for better evaluation of upper GI tract, per Dr. Motta -Ceftriaxone 2g IV q day -Octreotide drip 10/22 recommended until 10/27 (5 days) -GI consulted #Hepatic encephalopathy, RESOLVED Likely due to acute upper GI bleed Patient has history of alcoholic liver cirrhosis; baseline GCS 15; fluid wave positive on exam. Initially intubated because patient was not protecting airway, s/p extubation 10/24 Dx: elevated ammonia 379, CT head was negative. 2 L stool output 10/24 Plan: -Lactulose 40 mg TID -Rifaximin 550 mg BID -Thiamine 250 x2 10/24, 10/25; will doses for 1 more days for total of 3 days #Upper GI bleed Due to esophageal varices, gastric ulcer Initial presentation with coffee ground emesis NGT showed 300cc of dark fluid removed. Patient does not use NSAIDs or blood thinners. 10/22 EGD was done by Dr. Motta showed grade 1 varices in the lower third esophagus there was diffuse gastritis mucosal oozing. Plan: -GI consulted -protonix 40 mg IVP BID -SCDs --> Holding blood thinners -Type and cross, have 1 unit pRBCs ready -NGT DC'd, passed speech eval, Dyshpagia mech altered; consistent carb, low sodium modifiers #Acute decompensated liver cirrhosis Admission patient had reported Fluid wave on exam, distended abdomen. 10/25: Discussed with family patient's ESLD, poor prognosis; discussed palliative care option, quality of life Plan: -Spironolactone 25 mg BID -Continuing rifaximin and lactulose on board as above -Continue plan per other GI recs #Hyperbilirubinemia, improving Due to GI bleed i/s/o ESLD T. Bili 1.8-->2.6 -->2.4 -> 2.0 Mild jandice, scleral icterus No Fever Plan: -Will trend, continue to monitor #Hyperglycemia T2DM? Took Metformin for some time? A1c 7.4 Plan: -Diet: Dyshpagia mech altered -Q6 glucose checks -ISS step 2 -> step 3 #Leukocytosis, RESOLVED Likely reactive -Will continue to monitor wbc and for s/s of infection #Acute blood loss megaloblastic anemia, stabilized DDx upper GI bleed, esophageal varices vs gastric ulcer, borderline megaloblastic Hgb 9.7 --> 8.7, MCV normal, coffee ground emesis with 350cc drained from NGT immediately. Iron studies showed iron overload +/- anemia chronic disease; Ferritin normal; Folate/B12 normal 10/25: hgb 7.3 (8.7) Plan: -continue to monitor hgb -will monitor for s/s of bleeding #Acute hypoxic respiratory failure, resolved Ddx acute bleeding, vs aspiration pneumonitis vs mild heart failure Chest xray L base pneumonia, suspicious for mild heart failure Saturating well on room air Plan: -Continue to monitor resp status -Cross coverage with IV Ceftriaxone #Hematuria of unclear etiology Repeat UA +1 ketone +2 blood +LE 36 RBC 13 WBC Plan: -FUP outpatient with cystoscopy Hospital Management: Disposition: Tele Diet: Dyshpagia mech altered GI Prophylaxis: Octreotide drip Bowel Prophylaxis: Protonix Miller/Rectal Tube: Yes DVT Prophylaxis: SCD for GI bleed CODE STATUS: Full Code Patient plan of care was discussed with the attending physician, Dr. Dobson & senior resident Dr. Adrian Hagen MD PGY-1 Attending Provider Attestation/Addendum I have examined the patient, reviewed labs and imaging findings, discussed the case with the resident(s), and reviewed entered orders. I agree with the plan of care as outlined in this note, with these additional summaries/recommendations: Patient and patient's family seen at bedside. No acute overnight events. Patient remains encephalopathic. Patient's son reports over the last couple months he has been alert and oriented x 1-2 at baseline. Ammonia impressively elevated to 379 on admission. Continue lactulose and rifaximin. Continue nonpharm measures to prevent delirium. Patient underwent endoscopy on 10/22/2025 during which he was found to have diffuse gastritis, mucosal oozing of blood and grade 1 esophageal varices, as well as distal esophageal ulcer/erosions. Patient has been on octreotide since. Rectal tube in place. Hemoglobin increased today. Continue to hold all chemical anticoagulation. Continue volume management for decompensated cirrhosis. Avoid hepatotoxic agents and outpatient follow-up for vaccine series. Patient's son reports family was already considering pursuing hospice and he will discuss with family and update medical team. Patient was also reportedly prescribed scheduled Ativan 3 times daily at SNF which is currently on hold. Awaiting medication reconciliation and will likely need to resume at low-dose and slow titration off. Patient and patient's family updated at bedside. All questions answered satisfaction. Please see residents note for additional details of management. Dr. Bronson MD
--- NOTE | 2025-10-26 20:55 | PD.IMPROG ---
Documentation for date of: 10/26/25 Subjective Subjective Interval history: Hemoglobin hematocrit 8.0 and 24.1 Patient more stable now Repeat endoscopy scheduled for tomorrow N.p.o. midnight tonight Exam Vital Signs Temp Pulse Resp BP Pulse Ox O2 Del Method O2 Flow Rate 98.1 F 88 23 H 168/84 H 97 Room Air 3 10/26/25 12:00 10/26/25 16:00 10/26/25 12:00 10/26/25 12:00 10/26/25 12:00 10/24/25 16:00 10/24/25 18:45 FiO2 30 10/24/25 18:45 Objective Labs 10/26/25 04:56 10/26/25 04:56 Labs: Laboratory Results - last 24 hr 10/22/25 10/26/25 18:00 04:56 WBC 10.0 RBC 2.32 L Hgb 8.0 L Hct 24.1 L MCV 104 H MCH 34.5 MCHC 33.2 RDW Std Deviation 52.8 H Plt Count 176 D Neut % (Auto) 64 Lymph % (Auto) 21 [place] % (Auto) 9 Eos % (Auto) 4 Baso % (Auto) 1 Neut # (Auto) 6.4 Lymph # (Auto) 2.1 [place] # (Auto) 0.9 H Eos # (Auto) 0.4 Baso # (Auto) 0.1 Immature Gran # (Auto) 0.08 H Absolute Nucleated RBC 0.02 H Immature Gran % 1 H Nucleated RBC % 0 PT 12.4 H INR 1.2 APTT 33.5 Sodium 142 D Potassium 3.6 Chloride 109 H Carbon Dioxide 20.9 Anion Gap 12 BUN 15 Creatinine 0.7 Estim Creat Clear Calc 94.3 eGFR > 60 BUN/Creatinine Ratio 21 H Glucose 178 H Calculated Osmolality 287 Calcium 8.5 Corrected Calcium 9.0 Phosphorus 3.8 Magnesium 1.8 Total Bilirubin 2.0 H D AST 28 ALT 10 Alkaline Phosphatase 60 Total Protein 7.1 Albumin 3.4 Globulin 3.7 H Albumin/Globulin Ratio 0.9 L Triglycerides 121 Coccidioides IgG Ab Negative Impressions Impression: Upper GI bleed stable Previous endoscopy showed a lot of blood and blood clots and the visibility was poor repeat endoscopy to make sure the cardiac and the fundic portion of stomach is clear which has been scheduled for tomorrow N.p.o. midnight tonight Consent for fiberoptic esophagogastroduodenoscopy with possible biopsy possible therapeutic intervention for tomorrow ABG Interpretation ABG results: 10/22/25 10/23/25 10/23/25 09:22 04:34 08:40 ABG pH 7.45 7.51 H 7.52 H ABG pCO2 31 L 25 L 24 L ABG pO2 209 H 145 H D 131 H ABG HCO3 22 20 20 ABG O2 Saturation 100 H 100 H 100 H ABG Base Excess -2 -3 -2 10/24/25 04:36 ABG pH 7.48 H ABG pCO2 28 L ABG pO2 130 H ABG HCO3 21 ABG O2 Saturation 100 H ABG Base Excess -2 Assessment & Plan A&P Narrative # Hematemesis differential diagnoses include esophageal variceal bleeding [place] tear peptic ulcer disease hypertensive portal gastropathy with mucosal oozing of blood # Acute hepatic encephalopathy requiring endotracheal intubation mechanical ventilation to protect the airway Plan Consent will be obtained from the family members for fiberoptic esophagogastroduodenoscopy possible biopsy possible therapeutic intervention under intravenous moderate sedation Octreotide infusion at 50 mcg/h IV Protonix Serial CBC Transfuse if the hemoglobin drops below 7 g Will follow the patient Thank you very much for the opportunity to participate in the care of this patient Time Spent With Patient Time: Total time spent is greater than 50% in coordination of care (as documented) at patient's floor/unit and/or counseling patient:
[2025-10-27] VITALS (18 sets, daily range): BP systolic 114–157; BP diastolic 67–93; PULSE 81–111; RESP 12–18; TEMP 36.5–37.1; O2SAT 96–100; BMI 26.4
[2025-10-27 05:24] LABS: Base Excess -5 (-3-3); HCO3 19 mEq/L (20-26); Inspired Oxygen, FIO2 21 %; PCO2 30 mmHg (32.0-48.0); PO2 85 mmHg (83-108); pH, Arterial 7.41 (7.35-7.45)
[2025-10-27 05:27] LABS: Allen Test Performed/OK; O2 Saturation 97 % (91-98); Puncture Site Right Radial
[2025-10-27 06:27] LABS: Basophils # (Auto) 0.0 Thou/mm3 (0.0-0.2); Basophils % (Auto) 0 % (0-2.5); Eosinophils # (Auto) 0.1 Thou/mm3 (0.0-0.5); Eosinophils % (Auto) 1 % (0-10); Hematocrit 26.0 % (41.0-53.0); Immature Granulocytes Auto 0.14 Thou/mm3 (0.00-0.00); Lymphocytes # (Auto) 2.1 Thou/mm3 (1.0-4.8); Lymphocytes % (Auto) 16 % (10-50); Mean Corpuscular HGB Conc 33.8 g/dl (31.0-37.0); Mean Corpuscular Hemoglobin 34.4 pg (25.0-35.0); Mean Corpuscular Volume 102 fL (80-100); Monocytes # (Auto) 1.4 Thou/mm3 (0.0-0.8); Monocytes % (Auto) 10 % (0-12); Neutrophils # (Auto) 9.8 Thou/mm3 (1.8-7.7); Neutrophils % (Auto) 72 % (37-80); Nucleated Red Blood Cell # 0.03 Thou/mm3 (0.00-0.00); Nucleated Red Blood Cell % 0 /100 WBC (0); Platelet Count 221 Thou/mm3 (140-440); RDW Standard Deviation 51.0 fL (35.1-43.9); Red Blood Count 2.56 Miln/mm3 (4.50-5.90); White Blood Count 13.6 Thou/mm3 (3.8-10.6)
[2025-10-27 06:45] LABS: Hemoglobin 8.8 g/dL (13.5-16.0)
[2025-10-27 06:51] LABS: INR 1.2 (0.9-1.3); Partial Thromboplastin Time 29.7 Seconds (22.0-36.0); Prothrombin Time 12.8 Seconds (9.0-12.2)
[2025-10-27 06:55] LABS: Alanine Aminotransferase 11 U/L (10-49); Albumin, Serum 3.6 gm/dL (3.4-4.8); Albumin/Globulin Ratio 0.9 (1.2-2.2); Alkaline Phosphatase 60 U/L (46-116); Anion Gap 12 (7-16); Aspartate Amino Transferase 26 U/L (0-34); BUN/Creatinine Ratio 20 Ratio (12-20); Bilirubin,Total 2.2 mg/dL (0.3-1.2); Blood Urea Nitrogen 20 mg/dL (9-23); Calcium 8.9 mg/dL (8.3-10.6); Calcium (Corrected) 9.2 mg/dL (8.5-10.1); Carbon Dioxide 18.7 mMol/L (20.0-31.0); Chloride 110 mMol/L (98-107); Creatinine (Component) 1.0 mg/dL (0.6-1.3); Estimated Creatinine Clearance 66.0 mL/min (>60); Globulin 4.0 gm/dL (2.3-3.5); Glucose 223 mg/dL (74-106); Magnesium 1.9 mg/dL (1.6-2.6); Osmolality,Calculated 290 (275-295); Phosphorous 3.7 mg/dL (2.4-5.1); Potassium 2.9 mMol/L (3.4-5.1); Sodium 141 mMol/L (136-145); Total Protein 7.6 gm/dL (5.7-8.2); eGFR > 60 See Note
--- NOTE | 2025-10-27 08:32 | PC.PT ---
Will cancel PT evaluation. Patient will be going home. All DME needed are ordered by [facility]. PT not indicated at this time. Patient will be referred for Homehealth.
[2025-10-27] MEDS: cefTRIAXone 2 GM in SODIUM CHLORIDE 0.9% (Popper) 50 ML IV (09:29)
[2025-10-27] MEDS: POTASSIUM CHL 10 mEq IVPB 10 MEQ/100 ML BAG 100 MEQ IV ×4 (09:44→14:28)
--- NOTE | 2025-10-27 11:46 | PC.NURSE ---
PT HR 130'S, SUSTAINED AT 120'S, FAMILY AT BEDSIDE TALKING TO HIM AND MOVING HIS ARMS. DENIES PAIN OR OTHER SYMPTOMS. PT IN BED IN NO DISTRESS. DR. GARCIA MADE AWARE. EKG ORDER. ORDER RECEIVED, READ BACK AND CARRIED OUT.
--- NOTE | 2025-10-27 11:47 | EKG_ITS ---
[facility] Test Date: 2025-10-27 Pat Name: AUGUSTUS RUSSELL Department: Room: S358-A Gender: Male Home Health Provider: DARWIN : 1960 Requested By: Doi Gan Order Number: [id number] Reading MD: Dio Gan Measurements Intervals [place] Rate: 98 P: 71 [place]: 171 QRS: -30 QRSD: 94 T: 80 QT: 416 QTc: 533 Interpretive Statements SINUS RHYTHM BORDERLINE LEFT AXIS DEVIATION INCOMPLETE RIGHT BUNDLE BRANCH BLOCK MODERATE T-WAVE ABNORMALITY, CONSIDER ANTEROLATERAL ISCHEMIA Compared to ECG 10/22/2025 06:07:40 Incomplete right bundle-branch block now present T-wave abnormality now present Possible ischemia now present Atrial fibrillation no longer present Myocardial infarct finding no longer present /store/[id number]
--- NOTE | 2025-10-27 12:27 | ESPR_ITS ---
<Statement entered by Dio Gan MD - 10/27/25 16:05> No acute overnight events. Seen and examined at bedside and patient resting comfortably in bed. He is alert and only oriented to name but does not appear to be in any pain. Tachycardic in low 100s but otherwise vital signs stable. Slight increase in WBC from 10 to 13 and hemoglobin improving. K noted to be low and repleted and t bili and LFTs stable. Pending EGD today and will follow- up on results. Ordered paracentesis with cytology and fluid analysis as well given abdominal distention. Family at bedside and expressed interest in learning about hospice so referral was also placed. Continuing octreotide drip, PPI BID, and ceftriaxone for varices/GIB and lactulose with rifaximin for hepatic encephalopathy. ----- Note reviewed and agree with care plan as documented. Please refer to the note below for further details. Plan discussed with attending physician Dr. Bronson Gan MD PGY-2 Internal Medicine Documentation for date of: 10/27/25 Subjective Subjective Interval history: NAEO Patient back to baseline per son, at A&Ox2/3; following commands Discussion with family regarding hospice, referral ordered Patient abdomen hard and distended. Paracentesis ordered; Abd US ordered showed no ascitic fluid Patient having bowel movements and making urine Repeat EGD scheduled for today Exam Vital Signs Temp Pulse Resp BP Pulse Ox O2 Del Method O2 Flow Rate 98 F 106 H 16 148/84 H 96 Room Air 3 10/27/25 08:00 10/27/25 09:35 10/27/25 08:00 10/27/25 09:35 10/27/25 08:00 10/27/25 08:00 10/24/25 18:45 FiO2 30 10/24/25 18:45 Narrative Exam General: Resting in bed; A&Ox2/3, patient's son states back to baseline Skin: Warm, no obvious rash; dry flaky lower extremities; poor foot hygiene HENT: NCAT, EOMI/PERRL, mild scleral icterus. External ears normal. No rhinorrhea. Moist mucous membranes Cardiovascular: Regular rate & rhythm, no murmur, +S1/S2. Respiratory: Lungs CTAB GI: Hard, nontender, distended. No guarding or rebound tenderness. NG & rectal tube present : No suprapubic tenderness. No flank tenderness bilaterally. Miller in place Extremities: no edema, no cyanosis, no clubbing. Extremity pulses present Neuro: Grossly nonfocal. Moving all 4 extremities. CN not formally tested but appear grossly intact. Objective Labs 10/28/25 06:40 10/28/25 04:27 Labs: Laboratory Results - last 24 hr 10/27/25 10/27/25 05:14 05:50 WBC 13.6 H RBC 2.56 L Hgb 8.8 L Hct 26.0 L MCV 102 H MCH 34.4 MCHC 33.8 RDW Std Deviation 51.0 H Plt Count 221 D Neut % (Auto) 72 Lymph % (Auto) 16 [place] % (Auto) 10 Eos % (Auto) 1 Baso % (Auto) 0 Neut # (Auto) 9.8 H Lymph # (Auto) 2.1 [place] # (Auto) 1.4 H Eos # (Auto) 0.1 Baso # (Auto) 0.0 Immature Gran # (Auto) 0.14 H Absolute Nucleated RBC 0.03 H Immature Gran % 1 H Nucleated RBC % 0 PT 12.8 H INR 1.2 APTT 29.7 Puncture Site Right Radial ABG pH 7.41 ABG pCO2 30 L ABG pO2 85 ABG HCO3 19 L ABG O2 Saturation 97 ABG Base Excess -5 L FiO2 21 Sodium 141 Potassium 2.9 L D Chloride 110 H Carbon Dioxide 18.7 L Anion Gap 12 BUN 20 Creatinine 1.0 Estim Creat Clear Calc 66.0 eGFR > 60 BUN/Creatinine Ratio 20 Glucose 223 H Calculated Osmolality 290 Calcium 8.9 Corrected Calcium 9.2 Phosphorus 3.7 Magnesium 1.9 Total Bilirubin 2.2 H AST 26 ALT 11 Alkaline Phosphatase 60 Total Protein 7.6 Albumin 3.6 Globulin 4.0 H Albumin/Globulin Ratio 0.9 L ABG Interpretation ABG results: 10/22/25 10/23/25 10/23/25 09:22 04:34 08:40 ABG pH 7.45 7.51 H 7.52 H ABG pCO2 31 L 25 L 24 L ABG pO2 209 H 145 H D 131 H ABG HCO3 22 20 20 ABG O2 Saturation 100 H 100 H 100 H ABG Base Excess -2 -3 -2 10/24/25 10/27/25 04:36 05:14 ABG pH 7.48 H 7.41 ABG pCO2 28 L 30 L ABG pO2 130 H 85 ABG HCO3 21 19 L ABG O2 Saturation 100 H 97 ABG Base Excess -2 -5 L Quality Measures Quality Measures VTE prophylaxis (SCD's i/s/o gi bleed) Advance care planning discussed with:: patient and child Assessment & Plan Assessment Current Active Medications: Generic Name Dose Route Start Last Admin Trade Name Freq PRN Reason Stop Dose Admin Dextrose 25 ml 10/23/25 10:36 Dextrose 50%-Water Inj 50 Ml Syringe IV 11/22/25 10:35 Q15MIN PRN BG 50-70 responsive npo pt Dextrose 50 ml 10/23/25 10:36 Dextrose 50%-Water Inj 50 Ml Syringe IV 11/22/25 10:35 Q15MIN PRN BG <50 OR BG <70 & pt unresponsive Glucagon 1 mg 10/23/25 10:36 Glucagon Inj 1 Mg Vial IM Q15MIN PRN BG <70, and no IV access Ceftriaxone Sodium 2 gm/ 50 mls @ 100 mls/hr 10/25/25 09:11 10/27/25 09:29 Sodium Chloride IV 11/01/25 09:10 100 mls/hr QDAY BRYANT Administration Potassium Chloride 10 meq in 100 mls @ 100 mls/hr 10/27/25 09:35 10/27/25 11:01 Kcl Ivpb IV 10/27/25 13:34 100 mls/hr Q1H BRYANT Administration Insulin Human Lispro 0 unit 10/24/25 18:00 10/27/25 05:19 Insulin Lispro (Admelog) 1 Unit/0.01 Ml Unit SC 11/22/25 17:59 Not Given Q6HR [facility] Protocol Labetalol HCl 10 mg 10/27/25 08:38 Labetalol Inj 5 Mg/Ml Vial 4 Ml IVP X1 PRN Blood Pressure - High Lactulose 40 gm 10/27/25 14:00 Lactulose Syrup 20 Gm/30 Ml Udc PO 11/23/25 13:59 Q8HR [facility] Protocol Pantoprazole Sodium 40 mg 10/27/25 21:00 Pantoprazole 40 Mg Tablet PO 11/23/25 09:14 BID BRYANT Rifaximin 550 mg 10/27/25 21:00 Rifaximin 550 Mg Tablet PO 12/13/25 10:14 BID BRYANT Spironolactone 25 mg 10/25/25 21:00 10/27/25 09:35 Spironolactone 25 Mg Tablet PO 11/24/25 20:59 Not Given BID BRYANT Plan Patient is a 65-year-old male with past medical history of alcohol induced liver cirrhosis, hypertension, diabetes, chronic back pain who was recently admitted 07/12 - 07/20 for decompensated liver disease causing hepatic encephalopathy presented to the ED 10/22, from [facility] with altered mental status found to be not protecting his airway and was subsequently intubated; found to have coffee ground emesis prior to intubation. Admitted to ICU for further management of encephalopathy and ventilation management. Extubated and downgraded 10/24. Dr. Motat planned to repeat EGD 10/28 since first one earlier in hospitalization was poorly visualized. US Liver done today due to hard/distended abdomen. Unable to be tapped. #Esophageal Varices Per discussions patient had recent EGD showing esophageal varices. Varices unable to be banded Ddx Most likely related to chronic alcohol use Plan: -Repeat EGD planned 10/27 for better evaluation of upper GI tract, per Dr. Motta -Ceftriaxone 2g IV q day -Octreotide drip 10/22 recommended until 10/27 (5 days) -GI consulted #Hepatic encephalopathy, RESOLVED Likely due to acute upper GI bleed Patient has history of alcoholic liver cirrhosis; baseline GCS 15; fluid wave positive on exam. Initially intubated because patient was not protecting airway, s/p extubation 10/24 Dx: elevated ammonia 379, CT head was negative. 2 L stool output 10/24 Plan: -Lactulose 40 mg TID -Rifaximin 550 mg BID -Thiamine 250 x2 10/24, 10/25; will doses for 1 more days for total of 3 days #Upper GI bleed, improved Due to esophageal varices, gastric ulcer Initial presentation with coffee ground emesis NGT showed 300cc of dark fluid removed. Patient does not use NSAIDs or blood thinners. 10/22 EGD was done by Dr. Motta showed grade 1 varices in the lower third esophagus there was diffuse gastritis mucosal oozing. Plan: -GI consulted -protonix 40 mg IVP BID -SCDs --> Holding blood thinners -Type and cross, have 1 unit pRBCs ready -NGT DC'd, passed speech eval, Dyshpagia mech altered; consistent carb, low sodium modifiers #Acute decompensated liver cirrhosis Admission patient had reported Fluid wave on exam, distended abdomen. 10/25: Discussed with family patient's ESLD, poor prognosis; discussed palliative care option, quality of life 10/27: Discussion with family regarding hospice, referral ordered Plan: -Spironolactone 25 mg BID -Continuing rifaximin and lactulose on board as above -Continue plan per other GI recs #Abdominal Distension Patient abdomen hard and distended. Patient asymptomatic Paracentesis ordered with cytology -> Abd US ordered showed no ascitic fluid Patient having bowel movements and making urine #Hyperbilirubinemia Due to GI bleed i/s/o ESLD T. Bili 1.8-->2.6 -->2.4 -> 2.0 -> 2.2 Mild jandice, scleral icterus No Fever Abd distended, read above in previous problem Plan: -Will trend, continue to monitor #hypokalemia Potassium of 2.9 10/27 -> Repleted Will follow up AM labs #Hyperglycemia T2DM? Took Metformin for some time? A1c 7.4 Plan: -Diet: Dyshpagia mech altered -Q6 glucose checks -ISS step 2 -> step 3 #Leukocytosis Likely reactive -Will continue to monitor wbc and for s/s of infection -blood cultures x2 10/24 [id number] #Acute blood loss megaloblastic anemia, stabilized DDx upper GI bleed, esophageal varices vs gastric ulcer, borderline megaloblastic Hgb 9.7 --> 8.7, MCV normal, coffee ground emesis with 350cc drained from NGT immediately. Iron studies showed iron overload +/- anemia chronic disease; Ferritin normal; Folate/B12 normal 10/25: hgb 7.3 (8.7) Plan: -continue to monitor hgb -will monitor for s/s of bleeding #Acute hypoxic respiratory failure, resolved Ddx acute bleeding, vs aspiration pneumonitis vs mild heart failure Chest xray L base pneumonia, suspicious for mild heart failure Saturating well on room air Plan: -Continue to monitor resp status -Cross coverage with IV Ceftriaxone #Hematuria of unclear etiology Repeat UA +1 ketone +2 blood +LE 36 RBC 13 WBC Plan: -FUP outpatient with cystoscopy Hospital Management: Disposition: Tele Diet: Full Liquid AFTER EGD planned for 10/27 GI Prophylaxis: Octreotide drip Bowel Prophylaxis: Protonix Miller/Rectal Tube: Yes DVT Prophylaxis: SCD for GI bleed CODE STATUS: Full Code Patient plan of care was discussed with the attending physician, Dr. Dobson & senior resident Dr. Adrian Hagen MD PGY-1 Attending Provider Attestation/Addendum I have examined the patient, reviewed labs and imaging findings, discussed the case with the resident(s), and reviewed entered orders. I agree with the plan of care as outlined in this note, with these additional summaries/recommendations: Patient and patient's family seen at bedside. No acute overnight events. Patient remains encephalopathic. He is alert and oriented x 1 which is his baseline per son. Ammonia impressively elevated to 379 on admission. Continue lactulose and rifaximin. Continue nonpharm measures to prevent delirium. Patient underwent endoscopy on 10/22/2025 during which he was found to have diffuse gastritis, mucosal oozing of blood and grade 1 esophageal varices, as well as distal esophageal ulcer/erosions. Patient was started on octreotide. Rectal tube in place. Patient will go for repeat EGD today 10/27. Continue to hold all chemical anticoagulation. Continue volume management for decompensated cirrhosis. Avoid hepatotoxic agents and outpatient follow-up for vaccine series. Significant ascites present with fluid wave and therapeutic/diagnostic paracentesis ordered. Hospice referral made at request of family. Patient and patient's family updated at bedside. All questions answered satisfaction. Please see residents note for additional details of management. Dr. Bronson MD
--- NOTE | 2025-10-27 13:15 | PC.NURSE ---
DR. VIRGILIO GARCIA MADE AWARE PT HR 130'S DOWN TO 120'S. ORDER EKG. ORDER RECEIVED, READ BACK AND CARRIED OUT.
--- NOTE | 2025-10-27 14:26 | XR_ITS ---
Examination: Abdomen sonogram, Limited Date and time of exam: October 27, 2025, 1459 hours INDICATIONS: Abdominal distention this week Technique: Real-time rice scale transabdominal sonographic images of the upper abdomen obtained. Findings: No ascitic fluid IMPRESSION: No ascitic fluid
--- NOTE | 2025-10-27 16:58 | SUR.PHASEI ---
Pt. arrived to recovery via gurney, eyes closed, repsonds to verbal commands, VSS, lung sounds clear, equal expansion kiya., carlson catheter and rectal tube present on arrival to recovery, report received from Maricarmen PARNELL.
--- NOTE | 2025-10-27 17:35 | SUR.PHASEI ---
Pt. transferred to room 358 via raine, MICKIE, no c/o pain or nausea at this time, IVs saline locked, carlson catheter and rectal tube in place. Penny PARNELL assumed care of pt.
[2025-10-27] MEDS: METOCLOPRAMIDE INJ 5 MG/ML VIAL 2 ML IVP ×2 (19:00→23:21)
[2025-10-27] MEDS: SPIRONOLACTONE 25 MG TABLET PO (20:33)
[2025-10-27] MEDS: PANTOPRAZOLE 40 MG TABLET PO (20:34)
[2025-10-28] VITALS (12 sets, daily range): BP systolic 121–134; BP diastolic 59–76; PULSE 17–100; RESP 17–20; TEMP 36.6–36.9; O2SAT 96–98
[2025-10-28] MEDS: LACTULOSE SYRUP 20 GM/30 ML UDC 40 GM PO ×3 (05:10→21:06)
[2025-10-28] MEDS: METOCLOPRAMIDE INJ 5 MG/ML VIAL 2 ML IVP ×3 (05:10→23:25)
[2025-10-28 05:35] LABS: INR 1.3 (0.9-1.3); Partial Thromboplastin Time 31.2 Seconds (22.0-36.0); Prothrombin Time 13.7 Seconds (9.0-12.2)
[2025-10-28 05:52] LABS: Albumin, Serum 3.0 gm/dL (3.4-4.8); Albumin/Globulin Ratio 0.9 (1.2-2.2); Alkaline Phosphatase 49 U/L (46-116); Anion Gap 12 (7-16); Aspartate Amino Transferase 21 U/L (0-34); BUN/Creatinine Ratio 29 Ratio (12-20); Bilirubin,Total 1.7 mg/dL (0.3-1.2); Blood Urea Nitrogen 20 mg/dL (9-23); Calcium 8.0 mg/dL (8.3-10.6); Calcium (Corrected) 8.8 mg/dL (8.5-10.1); Carbon Dioxide 19.5 mMol/L (20.0-31.0); Chloride 113 mMol/L (98-107); Creatinine (Component) 0.7 mg/dL (0.6-1.3); Estimated Creatinine Clearance 94.3 mL/min (>60); Globulin 3.3 gm/dL (2.3-3.5); Glucose 153 mg/dL (74-106); Magnesium 1.9 mg/dL (1.6-2.6); Osmolality,Calculated 292 (275-295); Phosphorous 1.9 mg/dL (2.4-5.1); Potassium 2.9 mMol/L (3.4-5.1); Sodium 144 mMol/L (136-145); Total Protein 6.3 gm/dL (5.7-8.2); eGFR > 60 See Note
[2025-10-28 05:56] LABS: Alanine Aminotransferase 8 U/L (10-49)
[2025-10-28 07:09] LABS: Basophils # (Auto) 0.1 Thou/mm3 (0.0-0.2); Basophils % (Auto) 1 % (0-2.5); Eosinophils # (Auto) 0.4 Thou/mm3 (0.0-0.5); Eosinophils % (Auto) 4 % (0-10); Hematocrit 20.6 % (41.0-53.0); Immature Granulocytes Auto 0.11 Thou/mm3 (0.00-0.00); Lymphocytes # (Auto) 3.3 Thou/mm3 (1.0-4.8); Lymphocytes % (Auto) 28 % (10-50); Mean Corpuscular HGB Conc 33.0 g/dl (31.0-37.0); Mean Corpuscular Hemoglobin 33.8 pg (25.0-35.0); Mean Corpuscular Volume 103 fL (80-100); Monocytes # (Auto) 1.6 Thou/mm3 (0.0-0.8); Monocytes % (Auto) 14 % (0-12); Neutrophils # (Auto) 6.1 Thou/mm3 (1.8-7.7); Neutrophils % (Auto) 52 % (37-80); Nucleated Red Blood Cell # 0.03 Thou/mm3 (0.00-0.00); Nucleated Red Blood Cell % 0 /100 WBC (0); Platelet Count 174 Thou/mm3 (140-440); RDW Standard Deviation 53.1 fL (35.1-43.9); Red Blood Count 2.01 Miln/mm3 (4.50-5.90); White Blood Count 11.6 Thou/mm3 (3.8-10.6)
[2025-10-28 07:20] LABS: Hemoglobin 6.8 g/dL (13.5-16.0)
[2025-10-28] MEDS: cefTRIAXone 2 GM in SODIUM CHLORIDE 0.9% (Popper) 50 ML IV (08:29)
[2025-10-28] MEDS: PANTOPRAZOLE 40 MG TABLET PO ×2 (08:29→20:51)
[2025-10-28] MEDS: SPIRONOLACTONE 25 MG TABLET PO ×2 (08:29→20:51)
[2025-10-28] MEDS: NAPH,KPH MBDB 1 PACKET (1.5 GM) PO ×2 (11:17→20:51)
--- NOTE | 2025-10-28 14:20 | PD.HHPROG ---
Documentation for date of: 10/28/25 Subjective - Hospitalist Subjective Interval history: Patient seen at bedside. No acute overnight events. Per patient he appears close to his baseline or at his baseline mental status. Hospice referral was made yesterday and family still deciding at this time. They will update medical team when able. Patient unfortunately had a drop in hemoglobin of 8.8-6.8 today. Blood transfusion ordered and gastroenterology following with plans for repeat EGD. Electrolyte abnormalities present and replacement given. Patient was evaluated for ascites although deemed not enough fluid to drain. Blood pressure stable. Afebrile. Pulse 87. RR 17. Review of Systems Review of Systems ROS Unobtainable: unobtainable due to mental status Exam Vital Signs Temp Pulse Resp BP Pulse Ox O2 Del Method O2 Flow Rate 98.1 F 87 17 123/71 97 Room Air 3 10/28/25 12:35 10/28/25 12:35 10/28/25 12:35 10/28/25 12:35 10/28/25 12:00 10/28/25 12:00 10/27/25 17:30 FiO2 30 10/27/25 17:30 Narrative General: Resting in bed; comfortable, no acute distress HENT: NCAT, EOMI/PERRL, mild scleral icterus. No rhinorrhea. Moist mucous membranes Cardiovascular: Regular rate & rhythm, no murmur, +S1/S2. Respiratory: Lungs CTAB GI: Hard, nontender, distended. No guarding or rebound tenderness. NG & rectal tube present : No suprapubic tenderness. No flank tenderness bilaterally. Miller in place Skin: Warm, no obvious rash; dry flaky lower extremities; poor foot hygiene Extremities: no edema, no cyanosis, no clubbing. Extremity pulses present Neuro: Grossly nonfocal. Moving all 4 extremities. Objective - Hospitalist Labs Diagram: 10/28/25 06:40 10/28/25 04:27 Labs: Laboratory Results - last 24 hr 10/28/25 10/28/25 04:27 06:40 WBC 11.6 H RBC 2.01 L Hgb 6.8 L* D Hct 20.6 L* MCV 103 H MCH 33.8 MCHC 33.0 RDW Std Deviation 53.1 H Plt Count 174 D Neut % (Auto) 52 Lymph % (Auto) 28 [place] % (Auto) 14 H Eos % (Auto) 4 Baso % (Auto) 1 Neut # (Auto) 6.1 Lymph # (Auto) 3.3 [place] # (Auto) 1.6 H Eos # (Auto) 0.4 Baso # (Auto) 0.1 Immature Gran # (Auto) 0.11 H Absolute Nucleated RBC 0.03 H Immature Gran % 1 H Nucleated RBC % 0 PT 13.7 H INR 1.3 APTT 31.2 Sodium 144 Potassium 2.9 L Chloride 113 H Carbon Dioxide 19.5 L Anion Gap 12 BUN 20 Creatinine 0.7 Estim Creat Clear Calc 94.3 eGFR > 60 BUN/Creatinine Ratio 29 H Glucose 153 H D Calculated Osmolality 292 Calcium 8.0 L Corrected Calcium 8.8 Phosphorus 1.9 L Magnesium 1.9 Total Bilirubin 1.7 H D AST 21 ALT 8 L Alkaline Phosphatase 49 Total Protein 6.3 Albumin 3.0 L D Globulin 3.3 Albumin/Globulin Ratio 0.9 L Blood Type O Positive Antibody Screen NEGATIVE Crossmatch See Detail Blood Bank Wristband ID Yes ABG Interpretation ABG results: 10/22/25 10/23/25 10/23/25 09:22 04:34 08:40 ABG pH 7.45 7.51 H 7.52 H ABG pCO2 31 L 25 L 24 L ABG pO2 209 H 145 H D 131 H ABG HCO3 22 20 20 ABG O2 Saturation 100 H 100 H 100 H ABG Base Excess -2 -3 -2 10/24/25 10/27/25 04:36 05:14 ABG pH 7.48 H 7.41 ABG pCO2 28 L 30 L ABG pO2 130 H 85 ABG HCO3 21 19 L ABG O2 Saturation 100 H 97 ABG Base Excess -2 -5 L Assessment & Plan Plan: Patient is a 65-year-old male with past medical history of alcohol induced liver cirrhosis, hypertension, diabetes, chronic back pain who was recently admitted 07/12 - 07/20 for decompensated liver disease causing hepatic encephalopathy presented to the ED 10/22, from [facility] with altered mental status found to be not protecting his airway and was subsequently intubated; found to have coffee ground emesis prior to intubation. Admitted to ICU for further management of encephalopathy and ventilation management. Extubated and downgraded 10/24. Dr. Motta planned to repeat EGD 10/28 since first one earlier in hospitalization was poorly visualized. US Liver done today due to hard/distended abdomen. Unable to be tapped. #GI Bleed-Upper #Acute Blood Loss Anemia #Esophageal Varices Initial presentation with coffee ground emesis NGT showed 300cc of dark fluid removed. Patient does not use NSAIDs or blood thinners. 10/22 EGD was done by Dr. Motta showed grade 1 varices in the lower third esophagus there was diffuse gastritis mucosal oozing. Varices unable to be banded Ddx Most likely related to chronic alcohol use Plan: Status post octreotide gtt & IV Rocephin. Continue to avoid all chemical anticoagulation. Patient will go for repeat EGD today. Hemoglobin decreased to 6.8 from 8.8 yesterday. 1 unit PRBCs ordered and will follow-up posttransfusion H&H. Gastroenterology following. #Hepatic encephalopathy Likely due to acute upper GI bleed Patient has history of alcoholic liver cirrhosis; baseline GCS 15; fluid wave positive on exam. Initially intubated because patient was not protecting airway, s/p extubation 10/24 Dx: elevated ammonia 379, Plan: Continue lactulose and rifaximin. Patient appears to hepatic encephalopathy grade 1 at baseline. Nonpharm measures to prevent delirium. #Acute decompensated liver cirrhosis Admission patient had reported Fluid wave on exam, distended abdomen. 10/25: Discussed with family patient's ESLD, poor prognosis; discussed palliative care option, quality of life 10/27: Discussion with family regarding hospice, referral ordered Plan: -Spironolactone 25 mg BID -Continuing rifaximin and lactulose on board as above -Continue plan per other GI recs - Plan: Continue volume management. Outpatient vaccine series as desired by family. Goals of care was held with family and they requested hospice referral. They are unsure if they are going to proceed with hospice although will update medical team. Prognosis guarded. #Abdominal Distension Patient abdomen hard and distended. Patient asymptomatic Paracentesis ordered with cytology -> Abd US ordered showed no ascitic fluid Patient having bowel movements and making urine # Intractable hypokalemia Potassium of 2.9 10/27 -> Repleted - Plan: Patient encouraged to increase his oral intake and will continue to replace as needed. #DMII T2DM? Took Metformin for some time? A1c 7.4 Plan: Continue insulin sliding scale with Accu-Cheks. Target blood sugar 1 4180 while hospitalized. #Leukocytosis Likely reactive -Will continue to monitor wbc and for s/s of infection -blood cultures x2 12/8 [id number] #Microscopic hematuria Repeat UA +1 ketone +2 blood +LE 36 RBC 13 WBC Plan: -FUP outpatient with cystoscopy Disposition: pending EGD and blood transfusion Diet: Resume diet after EGD# Miller/Rectal Tube: Yes DVT Prophylaxis: SCD for GI bleed CODE STATUS: Full Code Dr. Bronson MD Time Spent with Patient Time: Total time spent is greater than 50% in coordination of care (as documented) at patient's floor/unit and/or counseling patient: Time with patient: 25 - 35 minutes Reason for Continued Stay Reason for continued stay: other Quality Measures Quality Measures VTE prophylaxis (SCD's i/s/o gi bleed) Advance care planning discussed with:: patient
[2025-10-28 16:51] LABS: Hematocrit 23.1 % (41.0-53.0)
[2025-10-28 16:54] LABS: Hemoglobin 7.8 g/dL (13.5-16.0)
--- NOTE | 2025-10-28 17:18 | PD.IMPROG ---
Documentation for date of: 10/28/25 Subjective Subjective Interval history: Patient evaluated Hemoglobin hematocrit 7.8 and 23.1 Patient's status post band ligation of the esophageal varices Exam Vital Signs Temp Pulse Resp BP Pulse Ox O2 Del Method O2 Flow Rate 98.3 F 91 18 122/71 97 Room Air 3 10/28/25 16:05 10/28/25 16:05 10/28/25 16:05 10/28/25 16:05 10/28/25 12:00 10/28/25 12:00 10/27/25 17:30 FiO2 30 10/27/25 17:30 Objective Labs 10/28/25 16:10 10/28/25 04:27 Labs: Laboratory Results - last 24 hr 10/28/25 10/28/25 10/28/25 04:27 06:40 16:10 WBC 11.6 H RBC 2.01 L Hgb 6.8 L* D 7.8 L Hct 20.6 L* 23.1 L MCV 103 H MCH 33.8 MCHC 33.0 RDW Std Deviation 53.1 H Plt Count 174 D Neut % (Auto) 52 Lymph % (Auto) 28 [place] % (Auto) 14 H Eos % (Auto) 4 Baso % (Auto) 1 Neut # (Auto) 6.1 Lymph # (Auto) 3.3 [place] # (Auto) 1.6 H Eos # (Auto) 0.4 Baso # (Auto) 0.1 Immature Gran # (Auto) 0.11 H Absolute Nucleated RBC 0.03 H Immature Gran % 1 H Nucleated RBC % 0 PT 13.7 H INR 1.3 APTT 31.2 Sodium 144 Potassium 2.9 L Chloride 113 H Carbon Dioxide 19.5 L Anion Gap 12 BUN 20 Creatinine 0.7 Estim Creat Clear Calc 94.3 eGFR > 60 BUN/Creatinine Ratio 29 H Glucose 153 H D Calculated Osmolality 292 Calcium 8.0 L Corrected Calcium 8.8 Phosphorus 1.9 L Magnesium 1.9 Total Bilirubin 1.7 H D AST 21 ALT 8 L Alkaline Phosphatase 49 Total Protein 6.3 Albumin 3.0 L D Globulin 3.3 Albumin/Globulin Ratio 0.9 L Blood Type O Positive Antibody Screen NEGATIVE Crossmatch See Detail Blood Bank Wristband ID Yes Impressions Impression: Status post band ligation of the esophageal varices Continue octreotide infusion Advance diet as tolerated ABG Interpretation ABG results: 10/22/25 10/23/25 10/23/25 09:22 04:34 08:40 ABG pH 7.45 7.51 H 7.52 H ABG pCO2 31 L 25 L 24 L ABG pO2 209 H 145 H D 131 H ABG HCO3 22 20 20 ABG O2 Saturation 100 H 100 H 100 H ABG Base Excess -2 -3 -2 10/24/25 10/27/25 04:36 05:14 ABG pH 7.48 H 7.41 ABG pCO2 28 L 30 L ABG pO2 130 H 85 ABG HCO3 21 19 L ABG O2 Saturation 100 H 97 ABG Base Excess -2 -5 L Assessment & Plan A&P Narrative # Hematemesis differential diagnoses include esophageal variceal bleeding Britt[place] tear peptic ulcer disease hypertensive portal gastropathy with mucosal oozing of blood # Acute hepatic encephalopathy requiring endotracheal intubation mechanical ventilation to protect the airway Plan Consent will be obtained from the family members for fiberoptic esophagogastroduodenoscopy possible biopsy possible therapeutic intervention under intravenous moderate sedation Octreotide infusion at 50 mcg/h IV Protonix Serial CBC Transfuse if the hemoglobin drops below 7 g Will follow the patient Thank you very much for the opportunity to participate in the care of this patient Time Spent With Patient Time: Total time spent is greater than 50% in coordination of care (as documented) at patient's floor/unit and/or counseling patient:
[2025-10-29] VITALS (9 sets, daily range): BP systolic 118–142; BP diastolic 58–73; PULSE 80–96; RESP 16–18; TEMP 37.1–38; O2SAT 96–97; BMI 26.4
[2025-10-29] MEDS: METOCLOPRAMIDE INJ 5 MG/ML VIAL 2 ML IVP ×3 (05:13→23:50)
[2025-10-29] MEDS: LACTULOSE SYRUP 20 GM/30 ML UDC 40 GM PO ×3 (05:16→21:55)
[2025-10-29 06:24] LABS: Basophils # (Auto) 0.1 Thou/mm3 (0.0-0.2); Basophils % (Auto) 1 % (0-2.5); Eosinophils # (Auto) 0.4 Thou/mm3 (0.0-0.5); Eosinophils % (Auto) 3 % (0-10); Hematocrit 22.4 % (41.0-53.0); Immature Granulocytes Auto 0.19 Thou/mm3 (0.00-0.00); Lymphocytes # (Auto) 3.1 Thou/mm3 (1.0-4.8); Lymphocytes % (Auto) 25 % (10-50); Mean Corpuscular HGB Conc 33.9 g/dl (31.0-37.0); Mean Corpuscular Hemoglobin 33.5 pg (25.0-35.0); Mean Corpuscular Volume 99 fL (80-100); Monocytes # (Auto) 1.6 Thou/mm3 (0.0-0.8); Monocytes % (Auto) 13 % (0-12); Neutrophils # (Auto) 7.1 Thou/mm3 (1.8-7.7); Neutrophils % (Auto) 57 % (37-80); Nucleated Red Blood Cell # 0.02 Thou/mm3 (0.00-0.00); Nucleated Red Blood Cell % 0 /100 WBC (0); Platelet Count 172 Thou/mm3 (140-440); RDW Standard Deviation 59.2 fL (35.1-43.9); Red Blood Count 2.27 Miln/mm3 (4.50-5.90); White Blood Count 12.4 Thou/mm3 (3.8-10.6)
[2025-10-29 06:27] LABS: Hemoglobin 7.6 g/dL (13.5-16.0)
[2025-10-29 06:29] LABS: INR 1.3 (0.9-1.3); Partial Thromboplastin Time 33.6 Seconds (22.0-36.0); Prothrombin Time 13.8 Seconds (9.0-12.2)
[2025-10-29 06:55] LABS: Alanine Aminotransferase 8 U/L (10-49); Albumin, Serum 2.9 gm/dL (3.4-4.8); Albumin/Globulin Ratio 0.9 (1.2-2.2); Alkaline Phosphatase 49 U/L (46-116); Anion Gap 12 (7-16); Aspartate Amino Transferase 20 U/L (0-34); BUN/Creatinine Ratio 17 Ratio (12-20); Bilirubin,Total 2.5 mg/dL (0.3-1.2); Blood Urea Nitrogen 12 mg/dL (9-23); Calcium 7.8 mg/dL (8.3-10.6); Calcium (Corrected) 8.7 mg/dL (8.5-10.1); Carbon Dioxide 18.6 mMol/L (20.0-31.0); Chloride 113 mMol/L (98-107); Creatinine (Component) 0.7 mg/dL (0.6-1.3); Estimated Creatinine Clearance 94.3 mL/min (>60); Globulin 3.3 gm/dL (2.3-3.5); Glucose 140 mg/dL (74-106); Magnesium 1.7 mg/dL (1.6-2.6); Osmolality,Calculated 288 (275-295); Phosphorous 2.0 mg/dL (2.4-5.1); Potassium 2.8 mMol/L (3.4-5.1); Sodium 144 mMol/L (136-145); Total Protein 6.2 gm/dL (5.7-8.2); eGFR > 60 See Note
[2025-10-29] MEDS: NAPH,KPH MBDB 1 PACKET (1.5 GM) PO ×3 (08:23→21:55)
[2025-10-29] MEDS: PANTOPRAZOLE 40 MG TABLET PO ×2 (08:23→21:55)
[2025-10-29] MEDS: cefTRIAXone 2 GM in SODIUM CHLORIDE 0.9% (Popper) 50 ML IV (08:23)
[2025-10-29] MEDS: SPIRONOLACTONE 25 MG TABLET PO ×2 (08:23→21:54)
[2025-10-29] MEDS: INSULIN LISPRO (AdmeLOG) 1 UNIT/0.01 ML UNIT SC ×3 (11:21→21:55)
[2025-10-29 14:47] LABS: Anion Gap 12 (7-16); BUN/Creatinine Ratio 16 Ratio (12-20); Blood Urea Nitrogen 11 mg/dL (9-23); Calcium 8.1 mg/dL (8.3-10.6); Carbon Dioxide 18.0 mMol/L (20.0-31.0); Chloride 110 mMol/L (98-107); Creatinine (Component) 0.7 mg/dL (0.6-1.3); Estimated Creatinine Clearance 94.3 mL/min (>60); Glucose 193 mg/dL (74-106); Osmolality,Calculated 283 (275-295); Potassium 3.2 mMol/L (3.4-5.1); Sodium 140 mMol/L (136-145); eGFR > 60 See Note
--- NOTE | 2025-10-29 17:25 | ESPR_ITS ---
<Statement entered by Dio Gan MD - 10/29/25 18:05> No acute overnight events reported. Seen and examined at bedside and patient resting comfortably in bed. He is much more alert and oriented to self, place, year, and birthdate. Given significant improvement in mentation, rectal tube DC but will continue with lactulose and rifaximin. High suspicion for added on benzos at SNF to be etiology of patient's presentation and will strongly recommend to abstain upon discharge unless absolutely necessary. Underwent EGD day before and found to have grade 3 varices that were banded. Touched base with GI and stable for discharge from their perspective, no need for follow-up. Also spoke to son regarding interest in hospice and states that he is continuing to have conversations with family at this time. Vital signs stable. CBC showing mild and stable leukocytosis, hemoglobin stable. K continues to be low but uptrending and repleting as necessary and HCO3 remains low as well. Ancitipate discharge within next 24-48 hours. ----- Note reviewed and agree with care plan as documented. Please refer to the note below for further details. Plan discussed with attending physician Dr. Bronson Gan MD PGY-2 Internal Medicine Documentation for date of: 10/29/25 Subjective Subjective Interval history: Patient seen and examined at bedside. Patient eating and tolerating well. Patient making some urine and bowel movements Vitals are stable Patient's son contacted and updated, he states still in discussions with family regarding hospice Hgb maintaiend low-normal 7.6 today Plan to DC tomorrow Exam Vital Signs Temp Pulse Resp BP Pulse Ox O2 Del Method O2 Flow Rate 98.7 F 80 16 142/70 H 97 Room Air 3 10/29/25 16:00 10/29/25 16:00 10/29/25 16:00 10/29/25 16:00 10/29/25 16:00 10/29/25 16:00 10/27/25 17:30 FiO2 30 10/27/25 17:30 Narrative Exam General: Resting in bed; A&Ox2/3, patient's son states back to baseline Skin: Warm, no obvious rash; dry flaky lower extremities; poor foot hygiene HENT: NCAT, EOMI/PERRL, mild scleral icterus. External ears normal. No rhinorrhea. Moist mucous membranes Cardiovascular: Regular rate & rhythm, no murmur, +S1/S2. Respiratory: Lungs CTAB GI: Hard, nontender, distended. No guarding or rebound tenderness. Rectal tube present : No suprapubic tenderness. No flank tenderness bilaterally. Miller in place Extremities: no edema, no cyanosis, no clubbing. Extremity pulses present Neuro: Grossly nonfocal. Moving all 4 extremities. CN not formally tested but appear grossly intact. Objective Labs 10/30/25 05:40 10/30/25 05:40 Labs: Laboratory Results - last 24 hr 10/29/25 10/29/25 05:09 14:23 WBC 12.4 H RBC 2.27 L Hgb 7.6 L Hct 22.4 L MCV 99 MCH 33.5 MCHC 33.9 RDW Std Deviation 59.2 H Plt Count 172 Neut % (Auto) 57 Lymph % (Auto) 25 [place] % (Auto) 13 H Eos % (Auto) 3 Baso % (Auto) 1 Neut # (Auto) 7.1 Lymph # (Auto) 3.1 [place] # (Auto) 1.6 H Eos # (Auto) 0.4 Baso # (Auto) 0.1 Immature Gran # (Auto) 0.19 H Absolute Nucleated RBC 0.02 H Immature Gran % 2 H Nucleated RBC % 0 PT 13.8 H INR 1.3 APTT 33.6 Sodium 144 140 Potassium 2.8 L 3.2 L Chloride 113 H 110 H Carbon Dioxide 18.6 L 18.0 L Anion Gap 12 12 BUN 12 11 Creatinine 0.7 0.7 Estim Creat Clear Calc 94.3 94.3 eGFR > 60 > 60 BUN/Creatinine Ratio 17 16 Glucose 140 H 193 H D Calculated Osmolality 288 283 Calcium 7.8 L 8.1 L Corrected Calcium 8.7 Phosphorus 2.0 L Magnesium 1.7 Total Bilirubin 2.5 H D AST 20 ALT 8 L Alkaline Phosphatase 49 Total Protein 6.2 Albumin 2.9 L Globulin 3.3 Albumin/Globulin Ratio 0.9 L ABG Interpretation ABG results: 10/22/25 10/23/25 10/23/25 09:22 04:34 08:40 ABG pH 7.45 7.51 H 7.52 H ABG pCO2 31 L 25 L 24 L ABG pO2 209 H 145 H D 131 H ABG HCO3 22 20 20 ABG O2 Saturation 100 H 100 H 100 H ABG Base Excess -2 -3 -2 10/24/25 10/27/25 04:36 05:14 ABG pH 7.48 H 7.41 ABG pCO2 28 L 30 L ABG pO2 130 H 85 ABG HCO3 21 19 L ABG O2 Saturation 100 H 97 ABG Base Excess -2 -5 L Quality Measures Quality Measures VTE prophylaxis (SCD's i/s/o gi bleed) Advance care planning discussed with:: patient and child Assessment & Plan Assessment Current Active Medications: Generic Name Dose Route Start Last Admin Trade Name Freq PRN Reason Stop Dose Admin Dextrose 25 ml 10/23/25 10:36 Dextrose 50%-Water Inj 50 Ml Syringe IV 11/22/25 10:35 Q15MIN PRN BG 50-70 responsive npo pt Dextrose 50 ml 10/23/25 10:36 Dextrose 50%-Water Inj 50 Ml Syringe IV 11/22/25 10:35 Q15MIN PRN BG <50 OR BG <70 & pt unresponsive Glucagon 1 mg 10/23/25 10:36 Glucagon Inj 1 Mg Vial IM Q15MIN PRN BG <70, and no IV access Ceftriaxone Sodium 2 gm/ 50 mls @ 100 mls/hr 10/25/25 09:11 10/29/25 08:23 Sodium Chloride IV 11/01/25 09:10 100 mls/hr QDAY BRYANT Administration Insulin Human Lispro 0 unit 10/27/25 21:00 10/29/25 16:17 Insulin Lispro (Admelog) 1 Unit/0.01 Ml Unit SC 11/26/25 20:59 3 unit ACHS BRYANT Administration Protocol Labetalol HCl 10 mg 10/27/25 08:38 Labetalol Inj 5 Mg/Ml Vial 4 Ml IVP X1 PRN Blood Pressure - High Lactulose 40 gm 10/27/25 14:00 10/29/25 13:56 Lactulose Syrup 20 Gm/30 Ml Udc PO 11/23/25 13:59 40 gm Q8HR BRYANT Administration Protocol Metoclopramide HCl 5 mg 10/27/25 18:00 10/29/25 17:01 Metoclopramide Inj 5 Mg/Ml Vial 2 Ml IVP 11/26/25 17:59 Not Given Q6HR BRYANT Protocol Pantoprazole Sodium 40 mg 10/27/25 21:00 12/13/25 08:23 Pantoprazole 40 Mg Tablet PO 11/23/25 09:14 40 mg BID BRYANT Administration Potassium Phos/Sodium Phos 1 packet 10/28/25 09:00 10/29/25 08:23 [place],[facility] Mbdb 1 Packet (1.5 Gm) PO 11/27/25 08:59 1 packet BID BRYANT Administration Spironolactone 25 mg 10/25/25 21:00 10/29/25 08:23 Spironolactone 25 Mg Tablet PO 11/24/25 20:59 25 mg BID BRYANT Administration Plan Patient is a 65-year-old male with past medical history of alcohol induced liver cirrhosis, hypertension, diabetes, chronic back pain who was recently admitted 07/12 - 07/20 for decompensated liver disease causing hepatic encephalopathy presented to the ED 10/22, from [facility] with altered mental status found to be not protecting his airway and was subsequently intubated; found to have coffee ground emesis prior to intubation. Admitted to ICU for further management of encephalopathy and ventilation management. Extubated and downgraded 10/24. Dr. Motta planned to repeat EGD 10/28 since first one earlier in hospitalization was poorly visualized. Repeat EGD showed grade 3 esophageal varices -> banded. #GI Bleed-Upper #Acute Blood Loss Anemia #Esophageal Varices Initial presentation with coffee ground emesis NGT showed 300cc of dark fluid removed. Patient does not use NSAIDs or blood thinners. 10/22 EGD was done by Dr. Motta showed grade 1 varices in the lower third esophagus there was diffuse gastritis mucosal oozing. Varices unable to be banded Ddx Most likely related to chronic alcohol use Plan: -Status post octreotide gtt & IV Rocephin. -Continue to avoid all chemical anticoagulation. -Patient had EGD completed, grade 3 esophageal varices, banded. -Hemoglobin 7.6 from 6.8 s/p 1 u prbc. No s/s of bleeding currently, continuing to monitor. -Gastroenterology following. #Hepatic encephalopathy Likely due to acute upper GI bleed Patient has history of alcoholic liver cirrhosis; baseline GCS 15; fluid wave positive on exam. Initially intubated because patient was not protecting airway, s/p extubation 10/24 Dx: elevated ammonia 379, Plan: Continue lactulose and rifaximin. Patient appears to hepatic encephalopathy grade 1 at baseline. Nonpharm measures to prevent delirium. #Acute decompensated liver cirrhosis Admission patient had reported Fluid wave on exam, distended abdomen. 10/25: Discussed with family patient's ESLD, poor prognosis; discussed palliative care option, quality of life 10/27: Discussion with family regarding hospice, referral ordered Plan: -Spironolactone 25 mg BID -Continuing rifaximin and lactulose on board as above -Continue plan per other GI recs - Plan: Continue volume management. Outpatient vaccine series as desired by family. Goals of care was held with family and they requested hospice referral. They are unsure if they are going to proceed with hospice although will update medical team. Prognosis guarded. #Abdominal Distension Patient abdomen hard and distended. Patient asymptomatic Paracentesis ordered with cytology -> Abd US ordered showed no ascitic fluid Patient having bowel movements and making urine # Intractable hypokalemia Potassium of 2.9 10/27 -> Repleted - Plan: Patient encouraged to increase his oral intake and will continue to replace as needed. #DMII T2DM? Took Metformin for some time? A1c 7.4 Plan: Continue insulin sliding scale with Accu-Cheks. Target blood sugar 1 4180 while hospitalized. #Leukocytosis Likely reactive -Will continue to monitor wbc and for s/s of infection -blood cultures x2 10/24 [id number] #Microscopic hematuria Repeat UA +1 ketone +2 blood +LE 36 RBC 13 WBC Plan: -FUP outpatient with cystoscopy Disposition: pending EGD and blood transfusion Diet: Resume diet after EGD# Miller/Rectal Tube: Yes DVT Prophylaxis: SCD for GI bleed CODE STATUS: Full Code Patient plan of care was discussed with the attending physician, Dr. Dobson & senior resident Dr. Malik Hagen MD PGY-1 Attending Provider Attestation/Addendum I have examined the patient, reviewed labs and imaging findings, discussed the case with the resident(s), and reviewed entered orders. I agree with the plan of care as outlined in this note. Dr. Bronson MD
--- NOTE | 2025-10-29 19:34 | ESPR_ITS ---
Documentation for date of: 10/29/25 Subjective Subjective Interval history: Hemoglobin hematocrit 7.6 and 22.4 Exam Vital Signs Temp Pulse Resp BP Pulse Ox O2 Del Method O2 Flow Rate 98.7 F 80 16 142/70 H 97 Room Air 3 10/29/25 16:00 10/29/25 16:00 10/29/25 16:00 10/29/25 16:00 10/29/25 16:00 10/29/25 16:00 10/27/25 17:30 FiO2 30 10/27/25 17:30 Objective Labs 10/29/25 05:09 10/29/25 14:23 Labs: Laboratory Results - last 24 hr 10/29/25 10/29/25 05:09 14:23 WBC 12.4 H RBC 2.27 L Hgb 7.6 L Hct 22.4 L MCV 99 MCH 33.5 MCHC 33.9 RDW Std Deviation 59.2 H Plt Count 172 Neut % (Auto) 57 Lymph % (Auto) 25 [place] % (Auto) 13 H Eos % (Auto) 3 Baso % (Auto) 1 Neut # (Auto) 7.1 Lymph # (Auto) 3.1 [place] # (Auto) 1.6 H Eos # (Auto) 0.4 Baso # (Auto) 0.1 Immature Gran # (Auto) 0.19 H Absolute Nucleated RBC 0.02 H Immature Gran % 2 H Nucleated RBC % 0 PT 13.8 H INR 1.3 APTT 33.6 Sodium 144 140 Potassium 2.8 L 3.2 L Chloride 113 H 110 H Carbon Dioxide 18.6 L 18.0 L Anion Gap 12 12 BUN 12 11 Creatinine 0.7 0.7 Estim Creat Clear Calc 94.3 94.3 eGFR > 60 > 60 BUN/Creatinine Ratio 17 16 Glucose 140 H 193 H D Calculated Osmolality 288 283 Calcium 7.8 L 8.1 L Corrected Calcium 8.7 Phosphorus 2.0 L Magnesium 1.7 Total Bilirubin 2.5 H D AST 20 ALT 8 L Alkaline Phosphatase 49 Total Protein 6.2 Albumin 2.9 L Globulin 3.3 Albumin/Globulin Ratio 0.9 L Impressions Impression: Status post band ligation of the esophageal varices Hypertensive portal gastropathy Continue octreotide infusion and from a GI viewpoint patient can be discharged home tomorrow ABG Interpretation ABG results: 10/22/25 10/23/25 10/23/25 09:22 04:34 08:40 ABG pH 7.45 7.51 H 7.52 H ABG pCO2 31 L 25 L 24 L ABG pO2 209 H 145 H D 131 H ABG HCO3 22 20 20 ABG O2 Saturation 100 H 100 H 100 H ABG Base Excess -2 -3 -2 10/24/25 10/27/25 04:36 05:14 ABG pH 7.48 H 7.41 ABG pCO2 28 L 30 L ABG pO2 130 H 85 ABG HCO3 21 19 L ABG O2 Saturation 100 H 97 ABG Base Excess -2 -5 L Assessment & Plan A&P Narrative # Hematemesis differential diagnoses include esophageal variceal bleeding [place] tear peptic ulcer disease hypertensive portal gastropathy with mucosal oozing of blood # Acute hepatic encephalopathy requiring endotracheal intubation mechanical ventilation to protect the airway Plan Consent will be obtained from the family members for fiberoptic esophagogastroduodenoscopy possible biopsy possible therapeutic intervention under intravenous moderate sedation Octreotide infusion at 50 mcg/h IV Protonix Serial CBC Transfuse if the hemoglobin drops below 7 g Will follow the patient Thank you very much for the opportunity to participate in the care of this patient Time Spent With Patient Time: Total time spent is greater than 50% in coordination of care (as documented) at patient's floor/unit and/or counseling patient:
[2025-10-30] VITALS (7 sets, daily range): BP systolic 126–132; BP diastolic 64–85; PULSE 82–96; RESP 18–19; TEMP 36.3–36.7; O2SAT 96–97; BMI 26.4
[2025-10-30] MEDS: METOCLOPRAMIDE INJ 5 MG/ML VIAL 2 ML IVP (05:19)
[2025-10-30] MEDS: LACTULOSE SYRUP 20 GM/30 ML UDC 40 GM PO (05:19)
[2025-10-30 06:53] LABS: Basophils # (Auto) 0.1 Thou/mm3 (0.0-0.2); Basophils % (Auto) 1 % (0-2.5); Eosinophils # (Auto) 0.7 Thou/mm3 (0.0-0.5); Eosinophils % (Auto) 5 % (0-10); Hematocrit 23.1 % (41.0-53.0); Immature Granulocytes Auto 0.11 Thou/mm3 (0.00-0.00); Lymphocytes # (Auto) 3.4 Thou/mm3 (1.0-4.8); Lymphocytes % (Auto) 24 % (10-50); Mean Corpuscular HGB Conc 33.3 g/dl (31.0-37.0); Mean Corpuscular Hemoglobin 33.0 pg (25.0-35.0); Mean Corpuscular Volume 99 fL (80-100); Monocytes # (Auto) 1.6 Thou/mm3 (0.0-0.8); Monocytes % (Auto) 11 % (0-12); Neutrophils # (Auto) 8.5 Thou/mm3 (1.8-7.7); Neutrophils % (Auto) 59 % (37-80); Nucleated Red Blood Cell # 0.02 Thou/mm3 (0.00-0.00); Nucleated Red Blood Cell % 0 /100 WBC (0); Platelet Count 194 Thou/mm3 (140-440); RDW Standard Deviation 58.7 fL (35.1-43.9); Red Blood Count 2.33 Miln/mm3 (4.50-5.90); White Blood Count 14.4 Thou/mm3 (3.8-10.6)
[2025-10-30 06:56] LABS: Hemoglobin 7.7 g/dL (13.5-16.0)
[2025-10-30 07:08] LABS: INR 1.3 (0.9-1.3); Partial Thromboplastin Time 31.3 Seconds (22.0-36.0); Prothrombin Time 13.4 Seconds (9.0-12.2)
[2025-10-30 07:17] LABS: Alanine Aminotransferase 9 U/L (10-49); Albumin, Serum 3.2 gm/dL (3.4-4.8); Albumin/Globulin Ratio 0.9 (1.2-2.2); Alkaline Phosphatase 57 U/L (46-116); Anion Gap 12 (7-16); Aspartate Amino Transferase 19 U/L (0-34); BUN/Creatinine Ratio 17 Ratio (12-20); Bilirubin,Total 2.5 mg/dL (0.3-1.2); Blood Urea Nitrogen 10 mg/dL (9-23); Calcium 8.6 mg/dL (8.3-10.6); Calcium (Corrected) 9.2 mg/dL (8.5-10.1); Carbon Dioxide 18.4 mMol/L (20.0-31.0); Chloride 111 mMol/L (98-107); Creatinine (Component) 0.6 mg/dL (0.6-1.3); Estimated Creatinine Clearance 110.0 mL/min (>60); Globulin 3.5 gm/dL (2.3-3.5); Glucose 147 mg/dL (74-106); Magnesium 1.7 mg/dL (1.6-2.6); Osmolality,Calculated 283 (275-295); Phosphorous 3.3 mg/dL (2.4-5.1); Potassium 3.3 mMol/L (3.4-5.1); Sodium 141 mMol/L (136-145); Total Protein 6.7 gm/dL (5.7-8.2); eGFR > 60 See Note
[2025-10-30] MEDS: Magnesium Sulfate 2 GM Ivpb 2 GM/50 ML BAG IV (08:24)
[2025-10-30] MEDS: NAPH,KPH MBDB 1 PACKET (1.5 GM) PO (08:24)
[2025-10-30] MEDS: cefTRIAXone 2 GM in SODIUM CHLORIDE 0.9% (Popper) 50 ML IV (08:24)
[2025-10-30] MEDS: SPIRONOLACTONE 25 MG TABLET PO (08:25)
[2025-10-30] MEDS: PANTOPRAZOLE 40 MG TABLET PO (08:25)
--- NOTE | 2025-10-30 09:50 | ESDS_ITS ---
<Statement entered by Dio Gan MD - 10/30/25 13:39> Note reviewed and agree with care plan as documented. Please refer to the note below for further details. Plan discussed with attending physician Dr. Bronson Gan MD PGY-2 Internal Medicine Planned Discharge Date 10/30/25 DS: Providers Provider Date of admission: 10/22/25 07:50 Primary care physician: Physician No Primary/Family Admitting Provider: Cecily Greer MD Attending Provider on Admission: Cecily Greer MD Consults: 10/22/25 05:11 Consult to Gastroenterology Routine Comment: Consulting Provider: Barbara Motta 10/22/25 14:09 Referral Registered Dietitian Stat Comment: 10/24/25 10:52 Referral Speech Therapy Routine Comment: 10/27/25 14:28 Referral Hospice Routine Comment: Attending Provider on DC: Cem Dobson MD Discharging Provider: Cem Dobson MD DS: Diagnosis Problem List Completed Was Problem List Reviewed/Reconciled?: Yes Hospital Course Hospital Course Hospital course: Patient is a 65-year-old male with past medical history of alcohol induced liver cirrhosis, hypertension, diabetes, chronic back pain who was recently admitted 07/12 - 07/20 for decompensated liver disease causing hepatic encephalopathy presented to the ED at [facility] 10/22, from [facility], with altered mental status found to be not protecting his airway and was subsequently intubated; found to have coffee ground emesis prior to intubation. Admitted to ICU for further management of hepatic encephalopathy and ventilation management. Patient was started on lactulose and rifaximin for hepatic encephalopathy and ammonia found to be 379. Patient was extubated and downgraded 10/24. Dr. Motta planned to repeat EGD 10/28 since first one earlier in hospitalization was poorly visualized. Repeat EGD showed grade 3 esophageal varices -> banded. Patient had low hgb 6.8 and was given 1 unit prbc with hgb stabilizing for the next 3 days up through discharge. Patient had intractable hypokalemia which was aggressively repleted, will need follow up and have that addressed with pcp outpatient. Patient had a consistent white count throughout hospitalization, micro showed staph aureus on sputum culture s/p intubation, blood cultures were negative, patient was given ceftriaxone for SBP. Patient will be given antibiotics for outpatient use. Discharge Instructions - We have prescribed you an antibiotic Augmentin; Take 1 tab twice per day for 10 days - Repeat a CBC with pcp to confirm WBC downtrending along with bmp for low potassium ? Continue taking all other home medications as prescribed ? Follow-up with PCP within 1 week of discharge ? If you do not have a PCP, you can follow-up at the [facility] (you can call [phone] to make an appointment) ? Return to ED if symptoms worsen or recur #GI Bleed-Upper #Acute Blood Loss Anemia #Esophageal Varices #Hepatic encephalopathy #Acute decompensated liver cirrhosis #Abdominal Distension #Intractable Hypokalemia #T2DM #Leukocytosis #Microscopic hematuria Patient plan of care was discussed with the attending physician, Dr. Dobson & senior resident Dr. Malik Hagen MD PGY-1 Time Spent with Patient Time attestation: Total time spent providing and/or coordinating discharge services: Time spent: Greater than 30 minutes Exam Vital Signs Temp Pulse Resp BP Pulse Ox O2 Del Method O2 Flow Rate 97.3 F 90 18 130/77 97 Room Air 3 10/30/25 07:57 10/30/25 08:25 10/30/25 07:57 10/30/25 08:25 10/30/25 07:57 10/30/25 07:57 10/27/25 17:30 FiO2 30 10/27/25 17:30 Narrative Exam General: Resting in bed; A&Ox2/3, patient's son states back to baseline Skin: Warm, no obvious rash; dry flaky lower extremities; poor foot hygiene HENT: NCAT, EOMI/PERRL, mild scleral icterus. External ears normal. No rhinorrhea. Moist mucous membranes Cardiovascular: Regular rate & rhythm, no murmur, +S1/S2. Respiratory: Lungs CTAB GI: Hard, nontender, distended. No guarding or rebound tenderness. : No suprapubic tenderness. No flank tenderness bilaterally. Extremities: no edema, no cyanosis, no clubbing. Extremity pulses present Neuro: Grossly nonfocal. Moving all 4 extremities. CN not formally tested but appear grossly intact. Discharge Plan Plan Patient Disposition: HOME (Self Care) Patient condition on transfer: Stable Care Plan Goals: - We have prescribed you an antibiotic Augmentin; Take 1 tab twice per day for 10 days - Repeat a CBC with pcp to confirm WBC downtrending ? Continue taking all other home medications as prescribed ? Follow-up with PCP within 1 week of discharge ? If you do not have a PCP, you can follow-up at the [facility] (you can call [phone] to make an appointment) ? Return to ED if symptoms worsen or recur Prescriptions/Referrals Prescriptions/Med Rec: New amoxicillin-pot clavulanate 875-125 mg tablet 1 tab PO BID 10 Days Qty: 20 0RF spironolactone 25 mg Tablet 25 mg PO BID 30 Days Qty: 60 0RF Xifaxan 550 mg Tablet 550 mg PO BID 30 Days Qty: 60 0RF Continued lactulose [Enulose] 10 gram/15 mL solution 20 g PO TID Discontinued lorazepam 0.5 mg tablet 0.5 mg PO Q8H PRN (Reason: anxiety) Referrals: No Primary/Family,Physician [Primary Care Provider] Patient/Caregiver Discharge Instructions Education Materials: ED Cirrhosis Print Language: Welsh Stand Alone Forms: Sw[employer] Award Info., Patient Portal Info Letter Discharge Order Discharge Orders: Discharge (Routine); Ordered 10/30/25 Ordered By: Amanuel Hagen Quality Discharge Quality Measures VTE prophylaxis (SCD due to GI bleed) Attestestation MD Attestation I have examined the patient, reviewed labs and imaging findings, discussed the case with the resident(s), and reviewed entered orders. I agree with the plan of care as outlined in this note. Time Spent; [address] Bronson MD
== END 2025-10-30 16:09 | disposition home or self-care (01) | DRG 441 ==
LOC: SERX 06:11 → SERHOLD 08:10 → S2SX 11:20 → S3NX 10-26 14:14
PROVIDERS: Emergency Medicine; Specialist; Student in an Organized Health Care Education/Training Program; Admitting Provider Internal Medicine; Emergency Provider Emergency Medicine; Visit Provider Internal Medicine
PROC: 0DJ08ZZ Inspection of Upper Intestinal Tract, Via Natural or Artificial Opening Endoscopic (ICD-10-PCS; CPT 43239; principal; 2025-10-22 16:45)
PROC: (CPT 43239; principal; 2025-10-27 16:30)
DX: K76.82 Hepatic encephalopathy (principal); I85.11 Secondary esophageal varices with bleeding; J69.0 Pneumonitis due to inhalation of food and vomit; J96.01 Acute respiratory failure with hypoxia; K22.11 Ulcer of esophagus with bleeding; K25.4 Chronic or unspecified gastric ulcer with hemorrhage; D62 Acute posthemorrhagic anemia; E87.4 Mixed disorder of acid-base balance; E87.0 Hyperosmolality and hypernatremia; K76.6 Portal hypertension; K70.30 Alcoholic cirrhosis of liver without ascites; E11.65 Type 2 diabetes mellitus with hyperglycemia; E87.6 Hypokalemia; E87.70 Fluid overload, unspecified; E87.8 Other disorders of electrolyte and fluid balance, not elsewhere classified; F10.10 Alcohol abuse, uncomplicated; I10 Essential (primary) hypertension; I48.91 Unspecified atrial fibrillation; F03.90 Unspecified dementia, unspecified severity, without behavioral disturbance, psychotic disturbance, mood disturbance, and anxiety; Z78.1 Physical restraint status; Z79.4 Long term (current) use of insulin; Z79.899 Other long term (current) drug therapy; K70.31 Alcoholic cirrhosis of liver with ascites; D53.1 Other megaloblastic anemias, not elsewhere classified; E11.43 Type 2 diabetes mellitus with diabetic autonomic (poly)neuropathy; R31.29 Other microscopic hematuria; D63.8 Anemia in other chronic diseases classified elsewhere; K31.89 Other diseases of stomach and duodenum
CPT/HCPCS: 36415; 36600; 51702; 70450; 71045; 71275; 74174; 76705; 80048; 80053; 81001; 82042; 82140; 82150; 82607; 82728; 82746; 82803; 82945; 83036; 83540; 83550; 83615; 83690; 83735; 84100; 84157; 84478; 84484; 85014; 85018; 85025; 85610; 85730; 86331; 86635; 86780; 86850; 86900; 86901; 86923; 87040; 87070; 87075; 87077; 87081; 87186; 87205; 89051; 92526; 92610; 93005; 93225; 94002; 94003; 96361; 96365; 96375; 99291; 99292; A4314; A4649; J0168; J0696; J1200; J1815; J2250; J2251; J2354; J2470; J2704; J2765; J3010; J3411; J3475; J3480; J3490; J7030; J7050; J7120; J7999; P9016; Q9967; A9270